=== PATIENT | female | born 1970 | race Caucasian/White ===

== ENCOUNTER 2019-04-26 17:53 | Emergency (ER) | payer OTHER ==
--- OUTSIDE RECORDS SUMMARY | 2019-04-26 17:56 | XMS REPORT | Continuity of Care Document ---
:1970 Author Organization [facility] Care Team Providers Name Role Phone Zachary Ansari MD Unavailable Insurance Providers Payer name Policy type / Policy ID Covered green party ID Policy Henderson Coverage type MEDICARE B-[place]: [employer] Encounters Encounter Performer Location Date Office Visit Zachary Ansari MD [facility] [place] Feb 25, 2015 Allergies, Adverse Reactions, Alerts Type Substance Reaction Status Drug allergy PCN Active Problems Problem Effective Dates Problem Status LUMBAGO Jun 06, 2014 Active FAILED BACK SYNDROME Jun 06, 2014 Active LOW BACK PAIN Jun 06, 2014 Active LUMBAR RADICULOPATHY Jun 06, 2014 Active CHRONIC PAIN SYNDROME Jun 06, 2014 Active Procedures Date Description Comments Jun 05, 2014 smoking status never smoker Jun 20, 2014 smoking status Never smoker Jul 03, 2014 smoking status Never smoker Medications Medication Instructions Start Date Status LUVOX CR [id number] Jun 06, 2014 Active LAMICTAL ODT 200 MG TBDP Jun 06, 2014 Active WELLBUTRIN SR 150 MG [id number] Jun 06, 2014 Active GEODON 20 MG CAPS Jun 06, 2014 Active AMBIEN 10 MG TABS Jun 06, 2014 Active CLONAZEPAM 1 MG TABS Jun 06, 2014 Active BUSPIRONE HCL 15 MG TABS Jun 06, 2014 Active VOLTAREN-XR [id number] Jun 06, 2014 Active PRAVASTATIN SODIUM 20 MG TABS Jun 06, 2014 Active PRILOSEC 40 MG CPDR Jun 06, 2014 Active TRAMADOL HCL TABS Jun 06, 2014 Active SOMA TABS Jun 06, 2014 Active VALIUM 10 MG TABS one tab PO 30 mins prior to MRI Jun 07, 2014 Active ULTRAM 50 MG TABS 1 tablet every 6 hours as needed Jul 30, 2014 Active for severe pain OXYCONTIN T12A Jun 06, 2014 Inactive Vital Signs Date Description Test Result Jun 06, 2014 weight E&M - 3141-9 WEIGHT 233.7 lb Jun 06, 2014 height E&M - 8302-2 HEIGHT 68 in Jun 06, 2014 temperature E&M TEMPERATURE 96.9 deg f Jun 06, 2014 pulse rate E&M - 8867-4 PULSE RATE 84 /min Jun 06, 2014 blood pressure, systolic - 8480-6 BP SYSTOLIC 120 mm Hg Jun 06, 2014 blood pressure, diastolic - 8462-4 BP DIASTOLIC 83 mm Hg Jun 20, 2014 weight E&M - 3141-9 WEIGHT 234 lb Jun 20, 2014 height E&M - 8302-2 HEIGHT 68 in Jun 20, 2014 temperature E&M TEMPERATURE 94.5 deg f Jun 20, 2014 pulse rate E&M - 8867-4 PULSE RATE 69 /min Jun 20, 2014 blood pressure, systolic - 8480-6 BP SYSTOLIC 109 mm Hg Jun 20, 2014 blood pressure, diastolic - 8462-4 BP DIASTOLIC 76 mm Hg Jul 03, 2014 weight E&M - 3141-9 WEIGHT 69 lb Jul 03, 2014 height E&M - 8302-2 HEIGHT 230 in Jul 03, 2014 temperature E&M TEMPERATURE 97.5 deg f Jul 03, 2014 respiratory rate E&M - 9279-1 RESP RATE 15 /min Jul 03, 2014 pulse rate E&M - 8867-4 PULSE RATE 89 /min Jul 03, 2014 blood pressure, systolic - 8480-6 BP SYSTOLIC 127 mm Hg Jul 03, 2014 blood pressure, diastolic - 8462-4 BP DIASTOLIC 79 mm Hg Jul 23, 2014 weight E&M - 3141-9 WEIGHT 230 lb Jul 23, 2014 height E&M - 8302-2 HEIGHT 69 in Jul 23, 2014 temperature E&M TEMPERATURE 97.9 deg f Jul 23, 2014 pulse rate E&M - 8867-4 PULSE RATE 90 /min Jul 23, 2014 blood pressure, systolic - 8480-6 BP SYSTOLIC 126 mm Hg Jul 23, 2014 blood pressure, diastolic - 8462-4 BP DIASTOLIC 80 mm Hg Aug 20, 2014 weight E&M - 3141-9 WEIGHT 231 lb Aug 20, 2014 height E&M - 8302-2 HEIGHT 69 in Aug 20, 2014 temperature E&M TEMPERATURE 98.1 deg f Aug 20, 2014 pulse rate E&M - 8867-4 PULSE RATE 91 /min Aug 20, 2014 blood pressure, systolic - 8480-6 BP SYSTOLIC 127 mm Hg Aug 20, 2014 blood pressure, diastolic - 8462-4 BP DIASTOLIC 82 mm Hg December 18, 2014 blood pressure, systolic - 8480-6 BP SYSTOLIC 117 mm Hg December 18, 2014 blood pressure, diastolic - 8462-4 BP DIASTOLIC 70 mm Hg December 18, 2014 pulse rate E&M - 8867-4 PULSE RATE 85 /min December 18, 2014 temperature E&M TEMPERATURE 97.7 deg f December 18, 2014 weight E&M - 3141-9 WEIGHT 230 lb December 18, 2014 height E&M - 8302-2 HEIGHT 69 in Feb 04, 2015 weight E&M - 3141-9 WEIGHT 228 lb Feb 04, 2015 height E&M - 8302-2 HEIGHT 69 in Feb 04, 2015 temperature E&M TEMPERATURE 97.9 deg f Feb 04, 2015 pulse rate E&M - 8867-4 PULSE RATE 84 /min Feb 04, 2015 blood pressure, systolic - 8480-6 BP SYSTOLIC 120 mm Hg Feb 04, 2015 blood pressure, diastolic - 8462-4 BP DIASTOLIC 70 mm Hg Feb 25, 2015 weight E&M - 3141-9 WEIGHT 226 lb Feb 25, 2015 height E&M - 8302-2 HEIGHT 69 in Feb 25, 2015 temperature E&M TEMPERATURE 98.0 deg f Feb 25, 2015 pulse rate E&M - 8867-4 PULSE RATE 82 /min Feb 25, 2015 blood pressure, systolic - 8480-6 BP SYSTOLIC 125 mm Hg Feb 25, 2015 blood pressure, diastolic - 8462-4 BP DIASTOLIC 75 mm Hg
--- OUTSIDE RECORDS SUMMARY | 2019-04-26 17:56 | XMS REPORT | Continuity of Care Document ---
:1970 Author Organization [facility] Care Team Providers Name Role Phone [facility] Unavailable Unavailable Problems Problem Status Onset Classification Date Comments Source Date Reported LUMBAGO Active Condition 02/25/2015 [facility] FAILED BACK Active Condition 02/25/2015 [facility] SYNDROME 4 [facility] LOW BACK PAIN Active Condition 02/25/2015 [facility] LUMBAR Active Condition 02/25/2015 [facility] RADICULOPATHY 4 [facility] CHRONIC PAIN Active Condition 02/25/2015 [facility] SYNDROME 4 [facility] Medications Medication Details Route Status Patient Ordering Order Source Instructions Provider Date ULTRAM 50 MG 1 tablet Active 07/30/20 [facility] every 6 14 [facility] hours as needed for severe pain VALIUM 10 MG one tab PO Active 06/07/20 [facility] 30 mins 14 Neuro prior to MRI LUVOX CR Active 06/06/20 [facility] [id number] 14 [facility] LAMICTAL ODT Active 06/06/20 [facility] 200 MG TBDP 14 Neuro WELLBUTRIN SR Active 06/06/20 [facility] 150 MG 14 [facility] [id number] GEODON 20 MG Active 06/06/20 [facility] CAPS 14 Neuro AMBIEN 10 MG Active 06/06/20 [facility] TABS 14 [facility] CLONAZEPAM 1 Active 06/06/20 [facility] MG TABS 14 Neuro BUSPIRONE HCL Active 06/06/20 [facility] 15 MG TABS 14 Neuro VOLTAREN-XR Active 06/06/20 [facility] [id number] 14 [facility] PRAVASTATIN Active 06/06/20 [facility] SODIUM 20 MG 14 Neuro TABS PRILOSEC 40 MG Active 06/06/20 [facility] CPDR 14 [facility] OXYCONTIN T12A No Longer 06/06/20 [facility] Active 14 Neuro TRAMADOL HCL Active 06/06/20 [facility] TABS 14 Neuro SOMA TABS Active 06/06/20 [facility] 14 [facility] WELLBUTRIN SR Active 06/06/20 [facility] 150 MG 14 Neuro [id number] AMBIEN 10 MG Active 06/06/20 [facility] TABS 14 [facility] CLONAZEPAM 1 Active 06/06/20 [facility] MG TABS 14 Neuro BUSPIRONE HCL Active 06/06/20 [facility] 15 MG TABS 14 Neuro GEODON 20 MG Active 06/06/20 [facility] CAPS 14 Neuro BUSPIRONE HCL Active 06/06/20 [facility] 15 MG TABS 14 Neuro PRAVASTATIN Active 06/06/20 [facility] SODIUM 20 MG 14 Neuro TABS OXYCONTIN T12A No Longer 06/06/20 [facility] Active 14 Neuro BUSPIRONE HCL Active 06/06/20 [facility] 15 MG TABS 14 Neuro Allergies, Adverse Reactions, Alerts Substance Category Reaction Severity Reaction Status Date Comments Source type Reported PCN Drug PCN [facility] allergy 4 [facility] Immunizations No Data Provided for This Section Results No Data Provided for This Section Pathology Reports No Data Provided for This Section Diagnostic Reports No Data Provided for This Section Consultation Notes No Data Provided for This Section Discharge Summaries No Data Provided for This Section History and Physicals No Data Provided for This Section Vital Signs Vital Sign Value Date Comments Source Weight 226 02/25/2015 [facility] Height 69 02/25/2015 [facility] Temperature Oral (F) 98.0 F 02/25/2015 [facility] Heart Rate 82 02/25/2015 [facility] Systolic (mm Hg) 125 02/25/2015 [facility] Diastolic (mm Hg) 75 02/25/2015 [facility] Weight 228 02/04/2015 [facility] Height 69 02/04/2015 [facility] Temperature Oral (F) 97.9 F 02/04/2015 [facility] Heart Rate 84 02/04/2015 [facility] Systolic (mm Hg) 120 02/04/2015 [facility] Diastolic (mm Hg) 70 02/04/2015 [facility] Systolic (mm Hg) 117 12/18/2014 [facility] Diastolic (mm Hg) 70 12/18/2014 [facility] Heart Rate 85 12/18/2014 [facility] Temperature Oral (F) 97.7 F 12/18/2014 [facility] Weight 230 12/18/2014 [facility] Height 69 12/18/2014 [facility] Weight 231 08/20/2014 [facility] Height 69 08/20/2014 [facility] Temperature Oral (F) 98.1 F 08/20/2014 [facility] Heart Rate 91 08/20/2014 [facility] Systolic (mm Hg) 127 08/20/2014 [facility] Diastolic (mm Hg) 82 08/20/2014 [facility] Weight 230 07/23/2014 [facility] Height 69 07/23/2014 [facility] Temperature Oral (F) 97.9 F 07/23/2014 [facility] Heart Rate 90 07/23/2014 [facility] Systolic (mm Hg) 126 07/23/2014 [facility] Diastolic (mm Hg) 80 07/23/2014 [facility] Weight 69 07/03/2014 [facility] Height 230 07/03/2014 [facility] Temperature Oral (F) 97.5 F 07/03/2014 [facility] Respitory Rate 15 07/03/2014 [facility] Heart Rate 89 07/03/2014 [facility] Systolic (mm Hg) 127 07/03/2014 [facility] Diastolic (mm Hg) 79 07/03/2014 [facility] Weight 234 06/20/2014 [facility] Height 68 06/20/2014 [facility] Temperature Oral (F) 94.5 F 06/20/2014 [facility] Heart Rate 69 06/20/2014 [facility] Systolic (mm Hg) 109 06/20/2014 [facility] Diastolic (mm Hg) 76 06/20/2014 [facility] Weight 233.7 06/06/2014 [facility] Height 68 06/06/2014 [facility] Temperature Oral (F) 96.9 F 06/06/2014 [facility] Heart Rate 84 06/06/2014 [facility] Systolic (mm Hg) 120 06/06/2014 [facility] Diastolic (mm Hg) 83 06/06/2014 [facility] Encounters Location Location Encounter Encounter Reason Attending ADM DC Status Source Details Type Number For Provider Date Date Visit [facility] [id number] Zachary 06/06 06/06 [facility] [address] [place]2013 Neuro [facility] [id number] Zachary 06/20 06/20 [facility] [place] [address] /2013 Neuro [facility] [id number] Zachary 06/26 06/26 [facility] [place] [address] /2013 [facility] [id number] Zachary 07/03 07/03 [facility] [address] /2013 [place] [facility] [id number] Zachary 07/23 07/23 [facility] [address] /2013 [facility] [place] [facility] [id number] Zachary 08/20 08/20 [facility] [address] /2014 [facility] [place] [facility] [id number] Zachary 12/18 12/18 [facility] [address] /2014 [facility] [place] [facility] [id number] [place] 02/04 02/04 [facility] [address] /2014 [facility] [place] [facility] [id number] [place] 02/25 02/25 [facility] [address] /2014 [place] Procedures No Data Provided for This Section Assessment and Plan No Data Provided for This Section Plan of Care No Data Provided for This Section Social History No Data Provided for This Section Family History No Data Provided for This Section Advance Directives No Data Provided for This Section Functional Status No Data Provided for This Section
--- OUTSIDE RECORDS SUMMARY | 2019-04-26 17:56 | XMS REPORT | Continuity of Care Document ---
:1970 Author Organization [facility] Care Team Providers Name Role Phone Zachary Ansari MD Unavailable Insurance Providers Payer name Policy type / Policy ID Covered constitution party ID Policy Henderson Coverage type [place]IC[place]: [employer] Encounters Encounter Performer Location Date Office Visit Zachary Ansari MD [facility] [place] Jul 03, 2014 Allergies, Adverse Reactions, Alerts Type Substance Reaction [...] Medication Instructions Start Date Status LUVOX CR [id number] Jun 06, 2014 Active LAMICTAL ODT 200 MG TBDP Jun 06, 2014 Active WELLBUTRIN SR 150 MG [id number] Jun 06, 2014 Active GEODON 20 MG CAPS Jun 06, 2014 Active AMBIEN 10 MG TABS Jun 06, 2014 Active CLONAZEPAM 1 MG TABS Jun 06, 2014 Active BUSPIRONE HCL 15 MG TABS Jun 06, 2014 Active VOLTAREN-XR [id number] Jun 06, 2014 Active PRAVASTATIN SODIUM 20 MG TABS Jun 06, 2014 Active PRILOSEC 40 MG CPDR Jun 06, 2014 Active OXYCONTIN T12A Jun 06, 2014 Active TRAMADOL HCL TABS Jun 06, 2014 Active SOMA TABS Jun 06, 2014 Active VALIUM 10 MG TABS one tab PO 30 mins prior to MRI Jun 07, 2014 Active Vital Signs Date Description Test Result Jun [...]
--- OUTSIDE RECORDS SUMMARY | 2019-04-26 17:56 | XMS REPORT | Continuity of Care Document ---
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, 2014 Active LOW BACK PAIN Jun 06, 2014 Active LUMBAR RADICULOPATHY Jun 06, 2014 Active CHRONIC PAIN SYNDROME Jun 06, 2014 Active Procedures Date Description Comments Jun 05, 2014 smoking status never smoker Medications Medication Instructions Start Date Status LUVOX CR [id number] Jun 06, 2014 Active LAMICTAL ODT 200 MG TBDP Jun 06, 2014 Active WELLBUTRIN SR 150 MG [id number] Jun 06, 2014 Active GEODON 20 MG CAPS Jun 06, 2014 Active AMBIEN 10 MG TABS Jun 06, 2014 Active CLONAZEPAM 1 MG TABS Jun 06, 2014 Active BUSPIRONE HCL 15 MG TABS Jun 06, 2014 Active VOLTAREN-XR [id number]-FFW Jun 06, 2014 Active PRAVASTATIN SODIUM 20 MG TABS Jun 06, 2014 Active PRILOSEC 40 MG CPDR Jun 06, 2014 Active OXYCONTIN T12A Jun 06, 2014 Active TRAMADOL HCL TABS Jun 06, 2014 Active SOMA TABS Jun 06, 2014 Active Vital Signs Date Description Test [...]
--- OUTSIDE RECORDS SUMMARY | 2019-04-26 17:57 | XMS REPORT ---
:1970 [facility] Address [address] [place] [address] Dr. Gray [address] [place] [address] Care Team Providers Name Role Phone Unavailable Unavailable Unavailable Problems This patient has no known problems. Allergies, Adverse Reactions, Alerts This patient has no known allergies or adverse reactions. Medications This patient has no known medications.
--- OUTSIDE RECORDS SUMMARY | 2019-04-26 17:57 | XMS REPORT | Continuity of Care Document ---
:1970 Author Organization [facility] Care Team Providers Name Role Phone Zachary Ansari MD Unavailable Insurance Providers Payer name Policy type / Policy ID Covered constitution party ID Policy Henderson Coverage type MEDICARE [place]: [employer] Encounters Encounter Performer Location Date Office Visit Zachary Ansari MD [facility] [place] Aug 20, 2014 Allergies, Adverse Reactions, Alerts Type Substance [...] Medication Instructions Start Date Status LUVOX CR [id number] Jun 06, 2014 Active LAMICTAL ODT 200 MG TBDP Jun 06, 2014 Active WELLBUTRIN SR 150 MG [id number] Jun 06, 2014 Active GEODON 20 MG CAPS Jun 06, 2014 Active AMBIEN 10 MG TABS Jun 06, 2014 Active CLONAZEPAM 1 MG TABS Jun 06, 2014 Active BUSPIRONE HCL 15 MG TABS Jun 06, 2014 Active VOLTAREN-XR OQ39K-DPX Jun 06, 2014 Active PRAVASTATIN SODIUM 20 [...] Jul 30, 2014 Active for severe pain Vital Signs Date Description Test Result Jun [...]
--- OUTSIDE RECORDS SUMMARY | 2019-04-26 17:57 | XMS REPORT | Continuity of Care Document ---
:1970 Author Organization [facility] Care Team Providers Name Role Phone Zachary Ansari MD Unavailable Unavailable Insurance Providers Payer name Policy type / Policy ID Covered green party ID Policy Henderson Coverage type MEDICARE [place]: [employer] Encounters Encounter Performer Location Date Office Visit Zachary Ansari MD [facility] [place] December 18, 2014 Allergies, Adverse Reactions, Alerts Type Substance [...] Medication Instructions Start Date Status LUVOX CR [id number] Jun 06, 2014 Active LAMICTAL ODT 200 MG TBDP Jun 06, 2014 Active WELLBUTRIN SR 150 MG [id number] Jun 06, 2014 Active GEODON 20 MG CAPS Jun 06, 2014 Active AMBIEN 10 MG TABS Jun 06, 2014 Active CLONAZEPAM 1 MG TABS Jun 06, 2014 Active BUSPIRONE HCL 15 MG TABS Jun 06, 2014 Active VOLTAREN-XR [id number]-[id number] Jun 06, 2014 Active PRAVASTATIN SODIUM 20 [...]
--- OUTSIDE RECORDS SUMMARY | 2019-04-26 17:57 | XMS REPORT | Continuity of Care Document ---
:1970 Author Organization [facility] Care Team Providers Name Role Phone Zachary Ansari MD Unavailable Insurance Providers Payer name Policy type / Policy ID Covered constitution party ID Policy Henderson Coverage type MEDICARE [place]: [employer] Encounters Encounter Performer Location Date Office Visit Zachary Ansari MD [facility] [place] Jul 23, 2014 Allergies, Adverse Reactions, Alerts Type Substance [...] Medication Instructions Start Date Status LUVOX CR [id number] Jun 06, 2014 Active LAMICTAL ODT 200 MG TBDP Jun 06, 2014 Active WELLBUTRIN SR 150 MG [id number] Jun 06, 2014 Active GEODON 20 MG CAPS Jun 06, 2014 Active AMBIEN 10 MG TABS Jun 06, 2014 Active CLONAZEPAM 1 MG TABS Jun 06, 2014 Active BUSPIRONE HCL 15 MG TABS Jun 06, 2014 Active VOLTAREN-XR [id number] Jun 06, 2014 Active PRAVASTATIN SODIUM 20 [...]
--- OUTSIDE RECORDS SUMMARY | 2019-04-26 17:57 | XMS REPORT | Continuity of Care Document ---
:1970 Author Organization [facility] Care Team Providers Name Role Phone Zachary Ansari MD Unavailable Insurance Providers Payer name Policy type / Policy ID Covered green party ID Policy Henderson Coverage type MEDICARE [place]: [employer] Encounters Encounter Performer Location Date Office Visit Zachary Ansari MD [facility] [place] Feb 04, 2015 Allergies, Adverse Reactions, Alerts Type Substance [...] Medication Instructions Start Date Status LUVOX CR [id number] Jun 06, 2014 Active LAMICTAL ODT 200 MG TBDP Jun 06, 2014 Active WELLBUTRIN SR 150 MG [id number] Jun 06, 2014 Active GEODON 20 MG CAPS Jun 06, 2014 Active AMBIEN 10 MG TABS Jun 06, 2014 Active CLONAZEPAM 1 MG TABS Jun 06, 2014 Active BUSPIRONE HCL 15 MG TABS Jun 06, 2014 Active VOLTAREN-XR [id number] Jun 06, 2014 Active PRAVASTATIN SODIUM 20 [...]
--- OUTSIDE RECORDS SUMMARY | 2019-04-26 17:57 | XMS REPORT | Continuity of Care Document ---
:1970 Author Organization [facility] Care Team Providers Name Role Phone Zachary Ansari MD Unavailable Insurance Providers Payer name Policy type / Policy ID Covered democrat ID Policy Henderson Coverage type MEDICARE [place]: [employer] Encounters Encounter Performer Location Date Lab Report Zachary Ansari MD [facility] 2014 Allergies, Adverse Reactions, Alerts Type Substance [...] Jun 20, 2014 smoking status Never smoker Medications Medication Instructions Start Date Status LUVOX CR [id number] Jun 06, 2014 Active LAMICTAL ODT 200 MG TBDP Jun 06, 2014 Active WELLBUTRIN SR 150 MG [id number] Jun 06, 2014 Active GEODON 20 MG CAPS Jun 06, 2014 Active AMBIEN 10 MG TABS Jun 06, 2014 Active CLONAZEPAM 1 MG TABS Jun 06, 2014 Active BUSPIRONE HCL 15 MG TABS Jun 06, 2014 Active VOLTAREN-XR [id number] Jun 06, 2014 Active PRAVASTATIN SODIUM 20 [...]
--- OUTSIDE RECORDS SUMMARY | 2019-04-26 17:57 | XMS REPORT | Continuity of Care Document ---
:1970 Author Organization [facility] Care Team Providers Name Role Phone Zachary Ansari MD Unavailable Insurance Providers Payer name Policy type / Policy ID Covered democrat ID Policy Henderson Coverage type MEDICARE B-[place]: [employer] Encounters Encounter Performer Location Date Office Visit Zachary Ansari MD [facility] Allergies, Adverse Reactions, Alerts Type [...] Medication Instructions Start Date Status LUVOX CR [id number] Jun 06, 2014 Active LAMICTAL ODT 200 MG TBDP Jun 06, 2014 Active WELLBUTRIN SR 150 MG [id number] Jun 06, 2014 Active GEODON 20 MG CAPS Jun 06, 2014 Active AMBIEN 10 MG TABS Jun 06, 2014 Active CLONAZEPAM 1 MG TABS Jun 06, 2014 Active BUSPIRONE HCL 15 MG TABS Jun 06, 2014 Active VOLTAREN-XR [id number]-QIH Jun 06, 2014 Active PRAVASTATIN SODIUM 20 [...]
--- OUTSIDE RECORDS SUMMARY | 2019-04-26 17:58 | XMS REPORT | Summary of Care ---
:1970 Author Organization [facility] Address [address] [place] [address] Care Team Providers Name Role Phone Koko Mendez MD Primary Care Provider Reason for Visit Reason Comments Refill Request Encounter Details Date Type Department Care Team Description 04/14/2019 Refill [facility] Koko Mendez MD Refill Request - [address] [address] [place] [address] Allergies No Known Allergiesdocumented as of this encounter (statuses as of 04/16/2019) Medications Medication Sig Dispensed Refills Start Date End Date Status Fluvoxamine (LUVOX CR) Take 100 mg by 0 Active 100 mg Cp24 mouth. lamoTRIgine (LAMICTAL) Take 100 mg by 0 Active 100 mg tablet mouth 2 (two) times daily. BUSPIRONE HCL (BUSPAR Take 15 mg by 0 Active ORAL) mouth daily. buPROPion XL Take 150 mg by 0 Active (WELLBUTRIN XL) 150 mg mouth daily. 24 hr tablet ziprasidone (GEODON) Take 20 mg by 0 Active 20 mg capsule mouth 2 (two) times daily with meals. zolpidem (AMBIEN) 10 Take 10 mg by 0 Active mg tablet mouth at bedtime as needed for Insomnia. nystatin 100,000 Apply to area(s) 45 g 2 12/02/2016 Active unit/gram powder 3 (three) times daily. CLONAZEPAM 1 mg tablet TAKE ONE TABLET 90 tablet 0 03/10/2017 Active BY MOUTH THREE TIMES A DAY HYDROcodone-acetaminop Take 1 tablet by 120 tablet 0 09/05/2017 Active hen 7.5-325 mg per mouth every 6 tablet (six) hours as needed for Pain. methocarbamol (ROBAXIN Take by mouth. 0 Active ORAL) azelastine 137 mcg Use 1 Priddy in 30 mL 0 06/05/2018 Active (0.1 %) nasal each nostril 2 sprayIndications: Sore (two) times throat, Post-nasal daily. Use in drip each nostril as directed PRAVASTATIN 20 mg TAKE ONE TABLET 30 tablet 0 01/09/2019 Active tablet BY MOUTH DAILY omeprazole 40 mg Take 1 capsule by 30 capsule 0 03/19/2019 Active capsule mouth daily. documented as of this encounter (statuses as of 04/16/2019) Active Problems Problem Noted Date Chronic back pain greater than 3 months duration 07/10/2015 Hyperlipidemia 07/10/2015 documented as of this encounter (statuses as of 04/16/2019) Social History Tobacco Use Types Packs/Day Years Used Date Never Smoker Smokeless Tobacco: Never Used Alcohol Use Drinks/Week oz/Week Comments Yes occasional Sex Assigned at Date Recorded Not on file Job Start Date Occupation Industry Not on file Not on file Not on file Travel History Travel Start Travel End No recent travel history available. documented as of this encounter Last Filed Vital Signs Not on filedocumented in this encounter Plan of Treatment Health Maintenance Due Date Last Done Comments DTaP,Tdap,and Td Vaccines (1 - 1987 Tdap) PAP SMEAR 1989 MAMMOGRAM 2008 COLONOSCOPY 2018 Zoster Recombinant Vaccine 2018 (SHINGRIX) (1 of 2) INFLUENZA VACCINE (#1) 2019 PNEUMOCOCCAL 0-64 YEARS COMBINED Aged Out No longer eligible based on SERIES patient's age to complete this topic documented as of this encounter Results Not on filedocumented in this encounter Insurance Payer Benefit Plan / Subscriber ID Effective Dates Phone Address Type Group MEDICARE MEDICARE PART xxxxxxxxxxx 2005-Eduar [phone] [facility] [place] Medicare A & B t 2 [id number] D[place] [id number] documented as of this encounter
--- NOTE | 2019-04-26 18:42 | RAD REPORT ---
EXAM DESCRIPTION: CT - Head Brain Wo Cont - 04/26/2019 6:28 pm CLINICAL HISTORY: Left-sided headache COMPARISON: None. TECHNIQUE: Axial 5 mm thick images of the head were obtained without IV contrast. All CT scans are performed using dose optimization technique as appropriate and may include automated exposure control or mA/KV adjustment according to patient size. FINDINGS: No intracranial hemorrhage, mass, edema or shift of mid-line structures. No acute infarcti on changes seen. No abnormal extra-axial fluid collections. Ventricles are normal. Mastoid air cells and visualized portions of the paranasal sinuses are clear. No acute bony findings. Patient has normal variant hyperostosis frontalis interna. IMPRESSION: Negative non-contrast CT head examination for acute or significant finding.
[2019-04-26] MEDS ORDERED: KETOROLAC 30 MG/ML INJ ONE (20:24)
[2019-04-26] MEDS ORDERED: DIPHENHYDRAMINE 50 MG/ML VIAL ONE (20:24)
[2019-04-26] MEDS ORDERED: METOCLOPRAMIDE 10 MG/2mL INJ ONE (20:24)
[2019-04-26] MEDS ORDERED: NA CHLORIDE 0.9% 500 ML ONE (20:25)
[2019-04-26 20:52] LABS: Absolute Lymphocytes (CBC) 2.6 K/uL (0.7-4.9); Basophils % 0.4 % (0-1.3); Hematocrit 36.2 % (36.0-45.0); Lymphocytes % 37.4 % (15.3-44.8); RBC Red Blood Cell Count 4.53 M/uL (3.86-4.86)
[2019-04-26 20:58] LABS: Protime INR 1.01
[2019-04-26 21:15] LABS: ALT/SGPT 16 U/L (12-78); AST/SGOT 15 U/L (15-37); Albumin 4.6 g/dL (3.4-5.0); Alkaline Phosphatase 80 U/L (45-117); BUN Blood Urea Nitrogen 12 mg/dL (7-18); Bicarbonate 25 mmol/L (21-32); Bilirubin Direct 0.1 mg/dL (0-0.2); Bilirubin Total 0.3 mg/dL (0.2-1.0); Glucose Level 90 mg/dL (74-106); Magnesium 2.2 mg/dL (1.8-2.4); NT PRO-BNP 74 pg/mL (<125); Potassium 3.8 mmol/L (3.5-5.1); Protein, Total 7.4 g/dL (6.4-8.2); Sodium Level 141 mmol/L (136-145); Troponin (Emerg Dept Use Only) < 0.02 ng/mL (0.0-0.045)
[2019-04-26 21:18] LABS: Urine Blood NEGATIVE (NEG); Urine Glucose NEGATIVE (NEG); Urine Protein NEGATIVE (NEG); Urine Specific Gravity 1.015 (1.005-1.030)
[2019-04-26] MEDS ORDERED: AMLODIPINE 5 MG TAB ONE (21:58)
--- NOTE | 2019-04-26 22:23 | ER ---
Nurse's Notes [facility] Name: Debbie Briscoe Age: 48 yrs Sex: Female : 1970 Arrival Date: 04/26/2019 Time: 17:55 Bed 8 Private MD: Koko Mendez S Diagnosis: Headache;Cluster headache syndrome, unspecified, not intractable Presentation: 04/26 18:05 Presenting complaint: Intermittent sharp/stabbing pain on the left side of head, right hb eye discomfort and tearing x 2 hrs. Denies headache hx. Transition of care: patient was not received from another setting of care. Onset of symptoms was April 26, 2019. Risk Assessment: Do you want to hurt yourself or someone else? Patient reports no desire to harm self or others. Initial Sepsis Screen: Does the patient meet any 2 criteria? No. Patient's initial sepsis screen is negative. Does the patient have a suspected source of infection? No. Patient's initial sepsis screen is negative. Care prior to arrival: Medication(s) given: Excedrin at 1500. 18:05 Method Of Arrival: Ambulatory hb 18:05 Acuity: TY 3 hb Triage Assessment: 20:02 Headache History: The patient has had previous headaches and this one is different than ea previous episodes, and this one is more severe than previous episodes. 20:02 Pain: Pain began gradually, Also complains of right eye pain. rr5 20:02 General: Appears in no apparent distress. uncomfortable, Behavior is calm, cooperative, rr5 appropriate for age. 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 - Social history:: Smoking status: Patient/guardian denies using tobacco. - Ebola Screening: : No symptoms or risks identified at this time. - Family history:: not pertinent. Screenin:02 Abuse screen: Denies threats or abuse. Nutritional screening: No deficits noted. ea Tuberculosis screening: No symptoms or risk factors identified. Fall Risk None identified. Assessment: 20:00 General: Appears in no apparent distress. Behavior is calm, cooperative, appropriate ea for age. Pain: Complains of pain in left temporal area and right temporal area Quality of pain is described as "ice pick headache". Neuro: Level of Consciousness is awake, alert, obeys commands, Oriented to person, place, time, situation. Neuro: Video Editing Internship are equal bilaterally Moves all extremities. Speech is normal, Facial symmetry appears normal. Cardiovascular: Patient's skin is warm and dry. Respiratory: Airway is patent Respiratory effort is even, unlabored, Respiratory pattern is regular, symmetrical. Derm: Skin is pink, warm \\T\\ dry. Musculoskeletal: Circulation, motion, and sensation intact. 21:00 Reassessment: Patient and/or family updated on plan of care and expected duration. Pain ea level reassessed. Patient is alert, oriented x 3, equal unlabored respirations, skin warm/dry/pink. 21:20 Reassessment: Patient appears in no apparent distress at this time. Patient and/or rr5 family updated on plan of care and expected duration. Pain level reassessed. Patient is alert, oriented x 3, equal unlabored respirations, skin warm/dry/pink. Patient states feeling better. Patient states symptoms have improved. Pain: Pain currently is 1 out of 10 on a pain scale. 22:50 Reassessment: Patient appears in no apparent distress at this time. Patient is alert, rr5 oriented x 3, equal unlabored respirations, skin warm/dry/pink. discharge instruction given and explained without complaints made, verbalized understanding. Patient denies pain at this time. Patient states feeling better. Patient states symptoms have improved. Vital Signs: 18:07 BP 134 / 94; Pulse 83; Resp 16; Temp 98.3; Pulse Ox 100% on R/A; Weight 104.33 kg; hb Height 5 ft. 8 in. (172.72 cm); Pain 2/10; 20:03 BP 128 / 84; Pulse 80; Resp 18; Pulse Ox 98% on R/A; ea 21:00 BP 138 / 84; Pulse 60; Resp 17; Pulse Ox 98% on R/A; Pain 1/10; rr5 21:40 BP 138 / 84; Pulse 60; Resp 18; Pulse Ox 98% on R/A; ea 21:52 BP 126 / 80; Pulse 58; Resp 18; Pulse Ox 95% on R/A; ea 22:50 BP 125 / 81; Pulse 60; Resp 17; Temp 97.7; Pulse Ox 99% ; Pain 0/10; rr5 18:07 Body Mass Index 34.97 (104.33 kg, 172.72 cm) hb ED Course: 17:55 Patient arrived in ED. am2 17:55 Koko Mendez MD is Private Physician. am2 18:07 Triage completed. hb 18:07 Arm band placed on. hb 18:28 CT completed. Patient tolerated procedure well. Patient moved to CT. Patient moved back al from CT. 19:37 Hosea Keen MD is Attending Physician. avelino 19:39 Minna Connor RN is Primary Nurse. ea 20:02 Patient has correct armband on for positive identification. Bed in low position. Call ea light in reach. Side rails up X 1. 20:22 Radiology exam delayed due to lab results not completed at this time. (BUN/Creatinine). vm2 20:53 Inserted saline lock: 22 gauge in right antecubital area, using aseptic technique. ea 21:10 XRAY Chest (1 view) In Process Unspecified. EDMS 21:[address] via wheelchair. al 21:51 CT Head Angio In Process Unspecified. EDMS 22:21 Koko Mendez MD is Referral Physician. avelino 22:21 Vernon Upton MD is Referral Physician. aveilno 22:52 No provider procedures requiring assistance completed. IV discontinued, intact, rr5 bleeding controlled, No redness/swelling at site. Pressure dressing applied. Administered Medications: 20:54 Drug: NS 0.9% 500 ml Route: IV; Rate: bolus; Site: right antecubital; ea 21:35 Follow up: Response: No adverse reaction; IV Status: Completed infusion; IV Intake: rr5 500ml 20:54 Drug: Benadryl 25 mg Route: IVP; Site: right antecubital; ea 22:00 Follow up: Response: No adverse reaction; Marked relief of symptoms rr5 20:54 Drug: Reglan 10 mg Route: IVP; Site: right antecubital; ea 22:00 Follow up: Response: No adverse reaction rr5 20:55 Drug: TORadol 30 mg Route: IVP; Site: right antecubital; ea 22:00 Follow up: Response: No adverse reaction; Marked relief of symptoms rr5 22:03 Drug: Norvasc 5 mg Route: PO; ea 22:54 Follow up: Response: No adverse reaction rr5 Intake: 21:35 IV: 500ml; Total: 500ml. rr5 Outcome: 22:21 Discharge ordered by . avelino 22:52 Discharged to home ambulatory. rr5 22:52 Condition: stable 22:52 Discharge instructions given to patient, Instructed on discharge instructions, follow up and referral plans. medication usage, Demonstrated understanding of instructions, follow-up care, medications, Prescriptions given X 3. 22:57 Patient left the ED. rr5 Signatures: Dispatcher [employer] EDNE Hosea Keen MD MD cha Baxter, Heather, RN RN Zhen Rhodes Amanda am2 McGuire, Victoria vm2 Antunez, Elena, RN RN ea Roque, Raymond, RN RN rr5 Corrections: (The following items were deleted from the chart) 18:09 18:05 Presenting complaint: Sharp, stabbing headache on the left side, right eye hb discomfort and tearing x 2 hrs. Denies headache hx hb
--- NOTE | 2019-04-26 22:24 | EDPHYS ---
Physician Documentation [facility] Name: Debbie Briscoe Age: 48 yrs Sex: Female : 1970 Arrival Date: 04/26/2019 Time: 17:55 Bed 8 Private MD: Koko Mendez S ED Physician Hosea Keen HPI: 04/26 20:23 This 48 yrs old Female presents to ER via Ambulatory with complaints of avelino Headache, Worst Ever. 20:23 The patient complains of pain to the top of head, forehead, left eye, left frontal area avelino and left side of forehead. The patient describes the headache as aching, intermittent. Onset: The symptoms/episode began/occurred today. Associated signs and symptoms: The patient has no apparent associated signs or symptoms. Severity of symptoms: At its worst the pain was mild, moderate, in the emergency department the pain has improved. Headache History: Denies prior headaches. The symptoms are alleviated by nothing. the symptoms are aggravated by nothing. 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 - Social history:: Smoking status: Patient/guardian denies using tobacco. - Ebola Screening: : No symptoms or risks identified at this time. - Family history:: not pertinent. ROS: 20:23 Constitutional: Negative for fever, chills, and weight loss, Eyes: Negative for injury, avelino pain, redness, and discharge, ENT: Negative for injury, pain, and discharge, Neck: Negative for injury, pain, and swelling, Cardiovascular: Negative for chest pain, palpitations, and edema, Respiratory: Negative for shortness of breath, cough, wheezing, and pleuritic chest pain, Abdomen/GI: Negative for abdominal pain, nausea, vomiting, diarrhea, and constipation, Back: Negative for injury and pain, : Negative for injury, bleeding, discharge, and swelling, MS/Extremity: Negative for injury and deformity, Skin: Negative for injury, rash, and discoloration, Psych: Negative for depression, anxiety, suicide ideation, homicidal ideation, and hallucinations, Allergy/Immunology: Negative for hives, rash, and allergies, Endocrine: Negative for neck swelling, polydipsia, polyuria, polyphagia, and marked weight changes, Hematologic/Lymphatic: Negative for swollen nodes, abnormal bleeding, and unusual bruising. 20:23 Neuro: Positive for headache, of the left eye. Exam: 20:23 Constitutional: This is a well developed, well nourished patient who is awake, alert, avelino and in no acute distress. Head/Face: Normocephalic, atraumatic. Eyes: Pupils equal round and reactive to light, extra-ocular motions intact. Lids and lashes normal. Conjunctiva and sclera are non-icteric and not injected. Cornea within normal limits. Periorbital areas with no swelling, redness, or edema. ENT: Nares patent. No nasal discharge, no septal abnormalities noted. Tympanic membranes are normal and external auditory canals are clear. Oropharynx with no redness, swelling, or masses, exudates, or evidence of obstruction, uvula midline. Mucous membranes moist. Neck: Trachea midline, no thyromegaly or masses palpated, and no cervical lymphadenopathy. Supple, full range of motion without nuchal rigidity, or vertebral point tenderness. No Meningismus. Chest/axilla: Normal chest wall appearance and motion. Nontender with no deformity. No lesions are appreciated. Cardiovascular: Regular rate and rhythm with a normal S1 and S2. No gallops, murmurs, or rubs. Normal PMI, no JVD. No pulse deficits. Respiratory: Lungs have equal breath sounds bilaterally, clear to auscultation and percussion. No rales, rhonchi or wheezes noted. No increased work of breathing, no retractions or nasal flaring. Abdomen/GI: Soft, non-tender, with normal bowel sounds. No distension or tympany. No guarding or rebound. No evidence of tenderness throughout. Back: No spinal tenderness. No costovertebral tenderness. Full range of motion. Skin: Warm, dry with normal turgor. Normal color with no rashes, no lesions, and no evidence of cellulitis. MS/ Extremity: Pulses equal, no cyanosis. Neurovascular intact. Full, normal range of motion. Neuro: Awake and alert, GCS 15, oriented to person, place, time, and situation. Cranial nerves II-XII grossly intact. Motor strength 5/5 in all extremities. Sensory grossly intact. Cerebellar exam normal. Normal gait. Psych: Awake, alert, with orientation to person, place and time. Behavior, mood, and affect are within normal limits. 22:23 Neck: ROM/movement: is normal, no acute changes, Meningeal signs: are not present, avelino Kernig's sign is negative, Brudzinski's sign is negative. Vital Signs: 18:07 BP 134 / 94; Pulse 83; Resp 16; Temp 98.3; Pulse Ox 100% on R/A; Weight 104.33 kg; hb Height 5 ft. 8 in. (172.72 cm); Pain 2/10; 20:03 BP 128 / 84; Pulse 80; Resp 18; Pulse Ox 98% on R/A; ea 21:00 BP 138 / 84; Pulse 60; Resp 17; Pulse Ox 98% on R/A; Pain 1/10; rr5 21:40 BP 138 / 84; Pulse 60; Resp 18; Pulse Ox 98% on R/A; ea 21:52 BP 126 / 80; Pulse 58; Resp 18; Pulse Ox 95% on R/A; ea 22:50 BP 125 / 81; Pulse 60; Resp 17; Temp 97.7; Pulse Ox 99% ; Pain 0/10; rr5 18:07 Body Mass Index 34.97 (104.33 kg, 172.72 cm) hb MDM: 19:37 Patient medically screened. [facility] 20:27 Data reviewed: vital signs, nurses notes, lab test result(s), EKG, radiologic studies, [facility] CT scan, plain films. 04/26 20:18 Order name: Basic Metabolic Panel; Complete Time: 21:23 [facility] 04/26 20:18 Order name: CBC with Diff [facility] 04/26 20:18 Order name: LFT's; Complete Time: 21:23 [facility] 04/26 20:18 Order name: Magnesium; Complete Time: 21:23 [facility] 04/26 20:18 Order name: NT PRO-BNP; Complete Time: 21:23 [facility] 04/26 20:18 Order name: PT-INR [facility] 04/26 18:12 Order name: CT Head Brain wo Cont 04/26 20:18 Order name: Troponin (emerg Dept Use Only); Complete Time: 21:23 [facility] 04/26 20:35 Order name: Urine Dipstick--Ancillary (enter results) [facility] 04/26 20:35 Order name: Urine --Ancillary (enter results) [facility] 04/26 20:55 Order name: CBC with Automated Diff; Complete Time: 21:23 [facility] 04/26 21:03 Order name: Protime (+INR) [facility] 04/26 21:19 Order name: Urine --Ancillary [facility] 04/26 19:57 Order name: CT; Complete Time: 20:19 [facility] 04/26 20:18 Order name: XRAY Chest (1 view) [facility] 04/26 20:18 Order name: EKG; Complete Time: 20:20 [facility] 04/26 20:18 Order name: Cardiac monitoring; Complete Time: 20:51 [facility] 04/26 20:18 Order name: EKG - Nurse/Tech; Complete Time: 20:51 [facility] 04/26 20:18 Order name: IV Saline Lock; Complete Time: 20:51 [facility] 04/26 20:18 Order name: Labs collected and sent; Complete Time: 21:18 [facility] 04/26 20:18 Order name: O2 Per Protocol; Complete Time: 21:18 [facility] 04/26 20:18 Order name: O2 Sat Monitoring; Complete Time: 21:18 [facility] 04/26 20:18 Order name: Urine Dipstick-Ancillary (obtain specimen); Complete Time: 20:28 [facility] 04/26 20:20 Order name: CT Head Angio avelino Administered Medications: 20:54 Drug: NS 0.9% 500 ml Route: IV; Rate: bolus; Site: right antecubital; ea 21:35 Follow up: Response: No adverse reaction; IV Status: Completed infusion; IV Intake: rr5 500ml 20:54 Drug: Benadryl 25 mg Route: IVP; Site: right antecubital; ea 22:00 Follow up: Response: No adverse reaction; Marked relief of symptoms rr5 20:54 Drug: Reglan 10 mg Route: IVP; Site: right antecubital; ea 22:00 Follow up: Response: No adverse reaction rr5 20:55 Drug: TORadol 30 mg Route: IVP; Site: right antecubital; ea 22:00 Follow up: Response: No adverse reaction; Marked relief of symptoms rr5 22:03 Drug: Norvasc 5 mg Route: PO; ea 22:54 Follow up: Response: No adverse reaction rr5 Disposition: 04/26/19 22:21 Discharged to Home. Impression: Headache, Cluster headache syndrome, unspecified, not intractable. - Condition is Stable. - Discharge Instructions: Cluster Headache, [id number], Cluster Headache, Migraine Headache. - Prescriptions for Fioricet with Codeine 50- 325-40-30 mg Oral capsule - take 1 capsule by ORAL route every 4 hours as needed not to exceed 6 capsules per 24hrs; 24 capsule. Norvasc 2.5 mg Oral tablet - take 1 tablet by ORAL route once daily; 20 tablet. Zofran 4 mg Oral Tablet - take 1 tablet by ORAL route every 12 hours As needed; 14 tablet. - Medication Reconciliation Form, Thank You Letter, Antibiotic Education, Prescription Opioid Use form. - Follow up: Koko Mendez; When: 2 - 3 days; Reason: Recheck today's complaints, Continuance of care, Re-evaluation by your physician. Follow up: Vernon Upton; When: 2 - 3 days; Reason: Recheck today's complaints, Re-evaluation by your physician. - Problem is new. - Symptoms have improved. Signatures: Dispatcher [employer] EDMS Hosea Keen MD MD cha Baxter, Heather, RN RN Minna Connor RN RN Fermin Baum RN RN rr5 Corrections: (The following items were deleted from the chart) 22:57 22:21 04/26/2019 22:21 Discharged to Home. Impression: Headache; Cluster headache rr5 syndrome, unspecified, not intractable. Condition is Stable. Discharge Instructions: Cluster Headache, [id number], Cluster Headache, Migraine Headache. Prescriptions for Fioricet with Codeine 56-723-62-30 mg Oral capsule - take 1 capsule by ORAL route every 4 hours as needed not to exceed 6 capsules per 24hrs; 24 capsule, Norvasc 2.5 mg Oral tablet - take 1 tablet by ORAL route once daily; 20 tablet, Zofran 4 mg Oral Tablet - take 1 tablet by ORAL route every 12 hours As needed; 14 tablet. and Forms are Medication Reconciliation Form, Thank You Letter, Antibiotic Education, Prescription Opioid Use. Follow up: Koko Mendez; When: 2 - 3 days; Reason: Recheck today's complaints, Continuance of care, Re-evaluation by your physician. Follow up: Vernon Upton; When: 2 - 3 days; Reason: Recheck today's complaints, Re-evaluation by your physician. Problem is new. Symptoms have improved. avelino
[2019-04-26 23:35] VITALS: BP 125/81; TEMP 97.7; O2SAT 99
--- NOTE | 2019-04-27 08:32 | RAD REPORT ---
EXAM DESCRIPTION: RAD - Chest Single View - 04/26/2019 8:48 pm CLINICAL HISTORY: Cough, chest pain COMPARISON: None. TECHNIQUE: AP portable chest image was obtained 7 hours . FINDINGS: Lungs are clear. Heart and vasculature are normal. No measurable pleural effusion and no p neumothorax. No acute bony abnormality seen. No acute aortic findings suspected. Neurostimulator carolyne ce is seen in the midthoracic spine level. IMPRESSION: No acute cardiopulmonary process.
--- NOTE | 2019-04-27 09:37 | RAD REPORT ---
EXAM DESCRIPTION: CT - Head angio - 04/27/2019 3:59 am CLINICAL HISTORY: The patient is 48 years old and is Female; HEADACHE TECHNIQUE: Axial computed tomographic angiography images of the head with intravenous contrast. Th is CT exam was performed using one or more of the following dose reduction techniques: automated ex posure control, adjustment of the mA and/or kV according to patient size, and/or use of iterative rec onstruction technique. COMPARISON: None. FINDINGS: RIGHT INTERNAL CAROTID ARTERY: No acute findings. Intracranial segment is patent with no significant stenosis. No aneurysm. RIGHT ANTERIOR CEREBRAL ARTERY: Unremarkable. No occlusion or significant stenosis. No aneurys m. RIGHT MIDDLE CEREBRAL ARTERY: Unremarkable. No occlusion or significant stenosis. No aneurysm. RIGHT POSTERIOR CEREBRAL ARTERY: Unremarkable. No occlusion or significant stenosis. No aneury sm. RIGHT VERTEBRAL ARTERY: Unremarkable as visualized. LEFT INTERNAL CAROTID ARTERY: Mild vascular calcification of the left cavernous ICA. Intracranial segment is patent with no significant stenosis. No aneurysm. LEFT ANTERIOR CEREBRAL ARTERY: Unremarkable. No occlusion or significant stenosis. No aneurysm . LEFT MIDDLE CEREBRAL ARTERY: Unremarkable. No occlusion or significant stenosis. No aneurysm. LEFT POSTERIOR CEREBRAL ARTERY: Unremarkable. No occlusion or significant stenosis. No aneurys m. LEFT VERTEBRAL ARTERY: Unremarkable as visualized. BASILAR ARTERY: Unremarkable. No occlusion or significant stenosis. No aneurysm. SINUSES: Paranasal sinuses are clear. Small right maxillary sinus mucous retention cyst. MASTOID AIR CELLS: Mastoid air cells are well pneumatized. ORBITS: The globes and orbits are unremarkable. IMPRESSION: Normal CTA head. Electronically signed by: Madhu Hyman DO 04/26/2019 9:58 PM CDT Due to temporary technical issues with the PACS/Fluency reporting system, reports are being signed by the in house radiologist as a courtesy to ensure prompt reporting. The interpreting radiologist is f ully responsible for the content of the report.
--- NOTE | 2019-04-27 10:33 | EKG ---
Test Date: 2019-04-26 Test Time: 20:34:04 Vice President Underwriting: LEENA MEASUREMENT RESULTS: Intervals: Rate: 59 CO: 182 QRSD: 86 QT: 460 QTc: 455 [place]: P: -3 CO: 182 QRS: 10 T: 8 INTERPRETIVE STATEMENTS: Sinus bradycardia Cannot rule out Anterior infarct, age undetermined Abnormal ECG Compared to ECG 10/11/2004 00:58:00 Myocardial infarct finding now present Sinus rhythm no longer present T-wave abnormality no longer present Electronically Signed On 04-27-19 10:31:34 CDT by Newton Azevedo
== END 2019-04-26 22:57 | disposition home or self-care (01) ==
LOC: ER 17:53
DX: G44.009 Cluster headache syndrome, unspecified, not intractable (principal)
CPT/HCPCS: 93005; 85025; 80048; 36415; 83735; 81025; 85610; 80076; 81003; 84484; 83880; 70450; 70496; 71045; 96375; 96374; 99284; Q9967; J2765; 96361

== ENCOUNTER 2020-08-01 20:39 | Emergency (ER) | payer OTHER ==
--- OUTSIDE RECORDS SUMMARY | 2020-08-01 20:43 | XMS REPORT | Continuity of Care Document ---
:1970 Author Organization [facility] t Address [address] [place] [address] Care Team Providers Name Role Phone Kaushik Reid Attending Clinician Problems Condition Condition Condition Status Onset Resolution Last Treating Co mments Source Name Details Category Date Date Treatment Clinician Date LUMBAGO Condition Active 2013-082015-02-25 Me moria 0-30 14:03:01 l LUMBAGO 00:00: Christopher 00 Active 06/06/2014 Condition 5 [facility] FAILED Condition Active 2013-082015-02-25 Mem oria BACK 0-30 14:03:01 l SYNDROME FAILED 00:00: Jeremy n BACK 00 SYNDROME Active 06/06/2014 Condition 5 [facility] LUMBAR Condition Active 2013-082015-02-25 Mem oria RADICULOPA 0-30 14:03:01 l THY LUMBAR 00:00: Christopher RADICULOPA 00 THY Active 06/06/2014 Condition 5 [facility] CHRONIC Condition Active 2013-082015-02-25 Me moria PAIN 0-30 14:03:01 l SYNDROME CHRONIC 00:00: Nayeli nn PAIN 00 SYNDROME Active 06/06/2014 Condition 5 [facility] Allergies, Adverse Reactions, Alerts Allergy Allergy Status Severity Reaction(s) Onset Inactive Treating Comm ents Source Name Type Date Date Clinician PCN PCN Active 2013-08 Memoria 0-30 l 00:00: Christopher 00 Medications Ordered Filled Start Stop Current Ordering Indication Dosage Frequency Signature Comments Components Source Medication Medication Date Date Medication? Clinician (SIG) Name Name SANTIAGO 50 2013-08 Yes 1 tablet Gelacio steffany MG TABS 2-23 every 6 l 00:00: hours as needed for severe pain VALIUM 10 2013-08 Yes one tab PO Me moria MG TABS 0-31 30 mins l 00:00: prior to MRI LUVOX CR 2013-08 Yes Memoria [id number] 0-30 l 00:00: LAMICTAL 2013-08 Yes Memoria ODT 200 MG 0-30 l TBDP 00:00: WELLBUTRIN 2013-08 Yes Memoria SR 150 MG 0-30 l [id number] 00:00: GEODON 20 2013-08 Yes Memoria MG CAPS 0-30 l 00:00: AMBIEN 2013-08 Yes Memoria MG TABS 0-30 l 00:00: CLONAZEPAM 2013-08 Yes Memoria 1 MG TABS 0-30 l 00:00: BUSPIRONE 2013-08 Yes Memoria HCL 15 MG 0-30 l TABS 00:00: VOLTAREN-XR 2013-08 Yes Memori a [id number] 0-30 l 00:00: PRAVASTATIN 2013-08 Yes Memori a SODIUM 20 0-30 l MG TABS 00:00: PRILOSEC 40 2013-08 Yes Memori a MG CPDR 0-30 l 00:00: OXYCONTIN 2013-08 No Memoria T12A 0-30 l 00:00: TRAMADOL 2013-08 Yes [facility]oria HCL TABS 0-30 l 00:00: SOMA TABS 2013-08 Yes Memoria 0-30 l 00:00: WELLBUTRIN 2013-08 Yes Memoria SR 150 MG 0-30 l [id number] 00:00: AMBIEN 10 2013-08 Yes Memoria MG TABS 0-30 l 00:00: CLONAZEPAM 2013-08 Yes Memoria 1 MG TABS 0-30 l 00:00: BUSPIRONE 2013-08 Yes [facility]oria HCL 15 MG 0-30 l TABS 00:00: GEODON 20 2013-08 Yes Memoria MG CAPS 0-30 l 00:00: Christopher BUSPIRONE 2013-08 Yes Memoria HCL 15 MG 0-30 l TABS 00:00: Christopher PRAVASTATIN 2013-08 Yes Memori a SODIUM 20 0-30 l MG TABS 00:00: Agustín OXYCONTIN 2013-08 No Memoria T12A 0-30 l 00:00: Agustín BUSPIRONE 2013-08 Yes Memoria HCL 15 MG 0-30 l TABS 00:00: Christopher Vital Signs Vital Name Observation Time Observation Value Comments Source Weight 2015-02-25 19:03:01 [facility] Height 2015-02-25 19:03:01 [facility] Temperature Oral (F) 2015-02-25 19:03:01 98.0 F [facility] Heart Rate 2015-02-25 19:03:01 [facility] Systolic (mm Hg) 2015-02-25 19:03:01 Gelacio rial Christopher Diastolic (mm Hg) 2015-02-25 19:03:01 Mem o[facility] Agustín Weight 2015-02-04 20:14:11 [facility] Height 2015-02-04 20:14:11 [facility] Temperature Oral (F) 2015-02-04 20:14:11 97.9 F [facility] Heart Rate 2015-02-04 20:14:11 [facility] Systolic (mm Hg) 2015-02-04 20:14:11 Gelacio rial Christopher Diastolic (mm Hg) 2015-02-04 20:14:11 Mem orial Christopher Systolic (mm Hg) 2014-12-18 15:26:31 Gelacio rial Agustín Diastolic (mm Hg) 2014-12-18 15:26:31 Mem o[facility] Agustín Heart Rate 2014-12-18 15:26:31 [facility] Temperature Oral (F) 2014-12-18 15:26:31 97.7 F [facility] Weight 2014-12-18 15:26:31 [facility] Height 2014-12-18 15:26:31 [facility] Weight 2014-08-20 20:29:50 [facility] Height 2014-08-20 20:29:50 [facility] Temperature Oral (F) 2014-08-20 20:29:50 98.1 F [facility] Heart Rate 2014-08-20 20:29:50 [facility] Systolic (mm Hg) 2014-08-20 20:29:50 Gelacio rial Christopher Diastolic (mm Hg) 2014-08-20 20:29:50 Mem orial [facility]ust[facility] Weight 2014-07-23 21:03:52 [facility] Height 2014-07-23 21:03:52 [facility] Temperature Oral (F) 2014-07-23 21:03:52 97.9 F [facility] Heart Rate 2014-07-23 21:03:52 [facility] Systolic (mm Hg) 2014-07-23 21:03:52 Gelacio rial Agustín Diastolic (mm Hg) 2014-07-23 21:03:52 Mem orial Christopher Weight 2014-07-03 17:02:21 [facility] Height 2014-07-03 17:02:21 [facility] Temperature Oral (F) 2014-07-03 17:02:21 97.5 F [facility] Respitory Rate 2014-07-03 17:02:21 Memori al Christopher Heart Rate 2014-07-03 17:02:21 [facility] Systolic (mm Hg) 2014-07-03 17:02:21 Gelacio rial Christopher Diastolic (mm Hg) 2014-07-03 17:02:21 Mem orial Christopher Weight 2014-06-20 16:02:02 [facility] Height 2014-06-20 16:02:02 [facility] Temperature Oral (F) 2014-06-20 16:02:02 94.5 F [facility] Heart Rate 2014-06-20 16:02:02 [facility] Systolic (mm Hg) 2014-06-20 16:02:02 Gelacio rial Agustín Diastolic (mm Hg) 2014-06-20 16:02:02 Mem orial Agustín Weight 2014-06-06 14:27:41 [facility] Height 2014-06-06 14:27:41 [facility] Temperature Oral (F) 2014-06-06 14:27:41 96.9 F [facility] Heart Rate 2014-06-06 14:27:41 [facility] Systolic (mm Hg) 2014-06-06 14:27:41 Gelacio rial Agustín Diastolic (mm Hg) 2014-06-06 14:27:41 Mem orial Christopher Procedures This patient has no known procedures. Encounters Start End Encounter Admission Attending Care Care Encounter Source Date/Time Date/Time Type Type Clinicians Facility Department ID 2020-07-16 2020-07-16 Office Ursula [facility] [id number] 11:11:17 12:11:04 Visit Guera Kaushik Serrano [id number] Geraldine [id number] Profjake [id number] [facility] 204 [facility] Results This patient has no known results.
--- OUTSIDE RECORDS SUMMARY | 2020-08-01 20:43 | XMS REPORT | Summary of Care ---
:1970 Author Organization [facility] - [facility] Address [address] [place] [address] Care Team Providers Name Role Phone MD Andrea Primary Care Provider Reason for Visit Reason Comments Lab Results Encounter Details Date Type Department Care Team Description 05/09/2020 Telephone [facility] Family Medicine Anusha Lr FNP Lab Results - [address] [place] [address] [address] [place] [address] Allergies No Known Allergiesdocumented as of this encounter (statuses as of 05/09/2020) Medications Medication Sig Dispensed Refills Start Date End Date Status Fluvoxamine (LUVOX CR) Take 100 mg by 0 Active 100 mg Cp24 mouth. lamoTRIgine (LAMICTAL) Take 100 mg by 0 Active 100 mg tablet mouth 2 (two) times daily. BUSPIRONE HCL (BUSPAR Take 15 mg by 0 Active ORAL) mouth daily. buPROPion XL Take 150 mg by 0 Ac tive (WELLBUTRIN XL) 150 mg mouth daily. 24 [...] Active BY MOUTH THREE TIMES A DAY methocarbamol (ROBAXIN Take by mouth. 0 Active ORAL) azelastine 137 mcg Use 1 [place] in 30 mL 0 06/05/2018 Active (0.1 %) nasal each nostril 2 sprayIndications: Sore (two) times throat, Post-nasal daily. Use in drip each nostril as directed amLODIPine 2.5 mg Take 2.5 mg by 0 Active tablet mouth daily. ondansetron 4 mg Take 1 tablet by 20 tablet 0 05/14/2019 Active tabletIndications: mouth every 8 Cluster headache, not (eight) hours as intractable, needed for Nausea unspecified chronicity and Vomiting pattern (N/V). BYSTOLIC 2.5 mg TAKE ONE TABLET 30 tablet 3 06/12/2019 Active tabletIndications: BY MOUTH DAILY Cluster headache, not intractable, unspecified chronicity pattern triamcinolone Apply to area(s) 30 g 0 08/30/2019 Active acetonide 0.1 % 2 (two) times creamIndications: Ear daily. shortest itching, Dry skin duration possible, < 7 days PRAVASTATIN 20 mg TAKE ONE TABLET 90 tablet 0 02/18/2020 Active tablet BY MOUTH DAILY cefUROXime 500 mg Take 1 tablet by 20 tablet 0 03/06/2020 Active tabletIndications: mouth 2 (two) Non-recurrent acute times daily. suppurative otitis media of right ear with spontaneous rupture of tympanic membrane OMEPRAZOLE 40 mg TAKE ONE CAPSULE 30 capsule 3 04/16/2020 Active capsule BY MOUTH DAILY documented as of this encounter (statuses as of 05/09/2020) Active Problems Problem Noted Date Chronic back pain greater than 3 months duration 07/10 Hyperlipidemia 07/10/2015 documented as of this encounter (statuses as of 05/09/2020) Social History Tobacco Use Types Packs/Day Years Used Date Never Smoker Smokeless Tobacco: Never Used Alcohol Use Drinks/Week oz/Week Comments Yes occasional Sex Assigned at Date Recorded Not on file COVID-19 Exposure Response Date Recorded In the last month, have you been in contact with No / Unsure 05/01/2020 3:10 PM CDT someone who was confirmed or suspected to have Coronavirus / COVID-19? documented as of this encounter Last Filed Vital Signs Not on filedocumented in this encounter Miscellaneous Notes Telephone Encounter - Fabiola Anna RN - 05/09/2020 5:06 PM CDTduplicate Telephone Encounter - Lili Gomez - 05/09/2020 4:21 PM CDTGecasie Briscoe is a 49 year old female Patient is requesting a callback in regards to lab work on 05/01. documented in this encounter Plan of Treatment Health Maintenance Due Date Last Done Comments DTaP,Tdap,and Td Vaccines (1 - 1987 Tdap) PAP SMEAR 1989 Breast Cancer Screening 2008 (MAMMOGRAM) COLON CANCER SCREENING ANNUAL 2018 FIT/FOBT COLON CANCER SCREENING FIT DNA 2018 EVERY 3 YEARS COLON CANCER SCREENING 2018 SIGMOIDOSCOPY EVERY 5 YEARS COLONOSCOPY 2018 Colorectal Cancer Screening 2018 Zoster Recombinant Vaccine 2018 (SHINGRIX) (1 of 2) INFLUENZA VACCINE (#1) 2020 Depression Screening 08/30/2020 08/30/2019 PNEUMOCOCCAL 0-64 YEARS COMBINED Aged Out No longer eligible based on SERIES patient's age to complete this topic documented as of this encounter Results Not on filedocumented in this encounter Insurance Payer Benefit Plan / Subscriber ID Effective Dates Phone Addre ss Type Group MEDICARE MEDICARE PART [id number] 2005-Eduar [phone] Medicare A & B t 2 [id number] DORITA MURPHY [id number] documented as of this encounter
--- OUTSIDE RECORDS SUMMARY | 2020-08-01 20:43 | XMS REPORT | Summary of Care ---
:1970 Author Organization [facility] - [facility] Address [address] [place] [address] Care Team Providers Name Role Phone MD Andrea Primary Care Provider Reason for Visit Reason Comments Results Encounter Details Date Type Department Care Team Description 05/09/2020 Telephone [facility] Family Medicine Koko Townsend MD Results - [address] [place] [address] [place] [address] [phone] Allergies No Known Allergiesdocumented as of this [...] Active ORAL) azelastine 137 mcg Use 1 [place] in 30 mL 0 06/05/2018 Active (0.1 [...] Encounter - Fabiola Anna RN - 05/09/2020 5:01 PM CDTSpoke with patient informed follow up if symptoms did not get better after the course of antibiotics. I was just told her culture was contaminated, thus no new labs result to report. Pt reports frequency with voiding and completed antibiotic treatment. Instructed patient to come in for a urine culture. Patient agreed. Telephone Encounter - Anusha Pineda FNP - 05/09/2020 4:01 PM CDTPlease let patient know to follow up if symptoms did not get better after the course of antibiotics.I was just told her culture was contaminated, thus no new labs result to report. Please apologize for the delay. elephone Encounter - Donna Foote LVN - 05/09/2020 12:49 PM CDTI see she had a POCT UA, did you order anything else? No Culture results that I see. elephone Encounter - Madelyn Ambrosio - 05/09/2020 12:08 PM CDTPt calling for results. documented in this encounter Plan of Treatment [...] Addre ss Type Group MEDICARE MEDICARE PART [id number] 2005-Eduar [phone] [address] Medicare A & B t 2 [id number] DORITA MURPHY [id number] documented as of this encounter
--- OUTSIDE RECORDS SUMMARY | 2020-08-01 20:43 | XMS REPORT | Continuity of Care Document ---
:1970 Author Organization [employer] Care Team Providers Name Role Phone [employer] [facility] Unavailable Un available Problems Problem Status Onset Classification Date Comments Sourc e Date Reported LUMBAGO Active Condition 02/25/2015 [facility] 4 Neuro FAILED BACK Active Condition 02/25/2015 [facility] SYNDROME 4 Neuro LOW BACK PAIN Active Condition 02/25/2015 M[facility] er 4 Neuro LUMBAR Active Condition 02/25/2015 [facility] RADICULOPATHY 4 Neuro CHRONIC PAIN Active Condition 02/25/2015 M[facility] r SYNDROME 4 Neuro Medications Medication Details Route Status Patient Ordering Order Source Instructions Provider Date ULTRAM 50 MG 1 tablet Active 07/30/20 [facility] TABS every 6 14 Neuro hours as needed for severe pain VALIUM 10 MG one tab PO Active 06/07/20 [facility] TABS 30 mins 14 Neuro prior to MRI LUVOX CR Active 06/06/20 [facility] [id number] 14 Neuro LAMICTAL ODT Active 06/06/20 [facility] 200 MG TBDP 14 Neuro WELLBUTRIN SR Active 06/06/20 [facility] 150 MG 14 Neuro [id number] GEODON 20 MG Active 06/06/20 [facility] CAPS 14 Neuro AMBIEN 10 MG Active 06/06/20 [facility] TABS 14 Neuro CLONAZEPAM 1 Active 06/06/20 [facility] MG TABS 14 Neuro BUSPIRONE HCL Active 06/06/20 [facility]ischer 15 MG TABS 14 Neuro VOLTAREN-XR Active 06/06/20 [facility] [id number] 14 Neuro PRAVASTATIN Active 06/06/20 [facility] SODIUM 20 MG 14 Neuro TABS PRILOSEC 40 MG Active 06/06/20 [facility] CPDR 14 Neuro OXYCONTIN T12A No Longer 06/06/20 [facility] r Active 14 Neuro TRAMADOL HCL Active 06/06/20 [facility] TABS 14 Neuro SOMA TABS Active 06/06/20 [facility] 14 Neuro WELLBUTRIN SR Active 06/06/20 [facility] 150 MG 14 Neuro [id number] AMBIEN 10 MG Active 06/06/20 [facility] TABS 14 Neuro CLONAZEPAM 1 Active 06/06/20 [facility] MG TABS 14 Neuro BUSPIRONE HCL Active 06/06/20 [facility] 15 MG TABS 14 Neuro GEODON 20 MG Active 06/06/20 [facility] CAPS 14 Neuro BUSPIRONE HCL Active 06/06/20 [facility] 15 MG TABS 14 Neuro PRAVASTATIN Active 06/06/20 [facility] SODIUM 20 MG 14 Neuro TABS OXYCONTIN T12A No Longer 06/06/20 M[facility] r Active 14 Neuro BUSPIRONE HCL Active 06/06/20 [facility] 15 MG TABS 14 Neuro Allergies, Adverse Reactions, Alerts Substance Category Reaction Severity Reaction Status Date Comments S ource type Reported PCN Drug PCN Mische r allergy 4 Neuro Immunizations No Data Provided [...] Value Date Comments Source Weight 226 02/25/2015 [facility] [place] [place] [facility] Height 69 02/25/2015 [facility] [place] [place] Neuro Temperature Oral (F) 98.0 F 02/25/2015 [facility] [place] [place] Neuro Heart Rate 82 02/25/2015 [facility] [place] [place] Neuro Systolic (mm Hg) 125 [facility] Diastolic (mm Hg) 75 02/25/2015 [facility] [place] [place] Ne uro Weight 228 02/04/2015 [facility] [place] [place] Neuro Height 69 02/04/2015 [facility] [place] [place] Neuro Temperature Oral (F) 97.9 F 02/04/2015 [facility] [place] [place] Neuro Heart Rate 84 02/04/2015 [facility] [place] [place] Neuro Systolic (mm Hg) 120 02/04/2015 [facility] [place] [place] Iqra ro Diastolic (mm Hg) 70 02/04/2015 [facility] [place] [place] Ne uro Systolic (mm Hg) 117 12/18/2014 [facility] [place] [place] Iqra ro Diastolic (mm Hg) 70 12/18/2014 [facility] [place] [place] Ne uro Heart Rate 85 12/18/2014 [facility] [place] [place] Neuro Temperature Oral (F) 97.7 F 12/18/2014 [facility] [place] [place] Neuro Weight 230 12/18/2014 [facility] Height 69 12/18/2014 [facility] Weight 231 08/20/2014 [facility] Height 69 08/20/2014 [facility] Temperature Oral (F) 98.1 F 08/20/2014 [facility] Heart Rate 91 08/20/2014 [facility] Systolic (mm Hg) 127 08/20/2014 [facility] Iqra ro Diastolic (mm Hg) 82 08/20/2014 [facility] Ne uro Weight 230 07/23/2014 [facility] Height 69 07/23/2014 [facility] Temperature Oral (F) 97.9 F 07/23/2014 [facility] Heart Rate 90 07/23/2014 [facility] Systolic (mm Hg) 126 07/23/2014 [facility] Iqra ro Diastolic (mm Hg) 80 07/23/2014 [facility] Ne uro Weight 69 07/03/2014 [facility] Height 230 07/03/2014 [facility] Temperature Oral (F) 97.5 F 07/03/2014 [facility] Respitory Rate 15 07/03/2014 [facility] Heart Rate 89 07/03/2014 [facility] Systolic (mm Hg) 127 07/03/2014 [facility] Iqra ro Diastolic (mm Hg) 79 07/03/2014 [facility] Ne uro Weight 234 06/20/2014 [facility] Height 68 06/20/2014 [facility] Temperature Oral (F) 94.5 F 06/20/2014 [facility] Heart Rate 69 06/20/2014 [facility] Systolic (mm Hg) 109 06/20/2014 [facility] Iqra ro Diastolic (mm Hg) 76 06/20/2014 [facility] Ne uro Weight 233.7 06/06/2014 [facility] Height 68 06/06/2014 [facility] Temperature Oral (F) 96.9 F 06/06/2014 [facility] Heart Rate 84 06/06/2014 [facility] Systolic (mm Hg) 120 06/06/2014 [facility] Iqra ro Diastolic (mm Hg) 83 06/06/2014 [facility] En[facility]ters Location Location Encounter Encounter Reason Attending ADM ID Stat us Source Details Type Number For Provider Date Date Visit [facility] [id number] Zachary 06/06 06/06 [facility] Neuroscience Visit [address] /2013 Ne uro [facility] [id number] Zachary 06/20 06/20 [facility] Neuroscience Visit [address] /2013 Ne uro [facility] Lab Report [id number] Zachary 06/26 06/26 [facility] [address] /2013 [facility] [id number] Zachary 07/03 07/03 [facility]el Neuroscience Visit [address] [place] [facility] [id number] Zachary 07/23 07/23 [facility] Neuroscience Visit [address] [place] [facility] [id number] Zachary 08/20 08/20 [facility] Neuroscience Visit [address] [place] [facility] [id number] Zachary12/18 Mis [facility] Neuroscience Visit [address] [place] [facility] [id number] Zachary 02/04 02/04 [facility] Neuroscience Visit [address] [place] [facility] [id number] Zachary 02/25 02/25 [facility] Neuroscience Visit [address] Ne uro [place] Procedures No Data Provided for This [...]
--- OUTSIDE RECORDS SUMMARY | 2020-08-01 20:43 | XMS REPORT | Summary of Care ---
:[address] [facility] Address [address] [place] [address] Care Team Providers Name Role Phone MD Andrea Primary Care Provider Reason for Visit Reason Comments LAB Encounter Details Date Type Department Care Team Description 05/09/2020 [employer] Executive Visit [facility] Family Unknown, Attending Dysuria (Primary Dx) Medicine - [facility] [address] [place] [phone] Allergies No Known Allergiesdocumented as of this [...] Active ORAL) azelastine 137 mcg Use 1 [place] in 30 mL 0 06/05/2018 Active (0.1 [...] been in contact with No / Unsure 05/09/2020 5:30 PM CDT someone who was confirmed or suspected to have Coronavirus / COVID-19? documented as of this encounter Last Filed Vital Signs Not on filedocumented in this encounter Nursing Notes Fabiola Anna RN - 05/09/2020 5:15 PM CDTUrine culture documented in this encounter Plan of Treatment Name Type Priority Associated Diagnoses Order S chedule URINE CULTURE LAB Routine Dysuria Ordered: 05/09 Health Maintenance Due Date Last Done Comments [...] Results Not on filedocumented in this encounter Visit Diagnoses Diagnosis Dysuria - Primary documented in this encounter Insurance Payer Benefit Plan / Subscriber ID Effective Dates Phone Addre ss Type Group MEDICARE MEDICARE PART [id number] 2005-Eduar [phone] [address] Medicare A & B t 2 [id number] DORITA MURPHY [id number] documented as of this encounter
--- OUTSIDE RECORDS SUMMARY | 2020-08-01 20:44 | XMS REPORT | Summary of Care ---
:1970 Author Organization [facility] Address [address] [place] [address] Care Team Providers Name Role Phone MD Andrea Primary Care Provider Reason for Visit Reason Comments TEST RESULTS Encounter Details Date Type Department Care Team Description 05/15/2020 Telephone [facility] Family Medicine Koko Townsend MD TEST RESULTS - [address] [place] [address] [place] [address] [phone] Allergies No Known Allergiesdocumented as of this encounter (statuses as of 05/15/2020) Medications Medication Sig Dispensed Refills Start Date [...] Active ORAL) azelastine 137 mcg Use 1 [place] in 30 mL 0 06/05/2018 Active (0.1 [...] as of this encounter (statuses as of 05/15/2020) Active Problems Problem Noted Date Chronic back pain greater than 3 months duration 07/10 Hyperlipidemia 07/10/2015 documented as of this encounter (statuses as of 05/15/2020) Social History Tobacco Use Types Packs/Day Years [...] this encounter Miscellaneous Notes Telephone Encounter - Kkoo Mendez MD - 05/15/2020 11:09 AM CDTOK elephone Encounter - Donna Foote LVN - 05/15/2020 10:13 AM CDTPt came in to the office in order to receive results of the Urine culture that was done by Urgent Care last week. Dr Mendez had already been notified via email by the patient's and he reviewedthe Culture and said it was non diagnostic. I placed patient in an exam room and explained to her the results I advised that we would like to do another Urine Culture to double check and have her come in next week with Dr Mendez to follow up, she agreed. She said she is having ur incontinence at times and that is what she needs to be seen for as she thinks might need to see a urologist. I advised her that we will get that taken care on next week at the appointment but I will call her on the urine culture results as soon as they are back and Dr Mendez has reviewed them, she verbalized understanding. documented in this encounter Plan of Treatment Date Type Specialty Care Team Description 05/19/2020 Office Visit Family Medicine Koko Mendez MD [address] [place] [address] [phone] Name Type Priority Associated Diagnoses Order S chedule URINE CULTURE LAB Routine UTI symptoms Expected: 03/2020, Expires: 05/15/2021 Health Maintenance Due Date Last Done Comments [...] filedocumented in this encounter Visit Diagnoses Diagnosis UTI symptoms - Primary documented in this encounter Insurance Payer Benefit Plan / Subscriber ID Effective Dates Phone Addre ss Type Group MEDICARE MEDICARE PART [id number] 2005-Eduar [phone] Medicare A & B t 2 [id number] DORITA MURPHY [phone] documented as of this encounter
--- OUTSIDE RECORDS SUMMARY | 2020-08-01 20:44 | XMS REPORT | Summary of Care ---
:1970 Author Organization [facility] - [facility] Address [address] [place] [address] Care Team Providers Name Role Phone MD Andrea Primary Care Provider Reason for Visit Reason Comments Lab Results Encounter Details Date Type Department Care Team Description 05/09/2020 Telephone [facility] Anusha Lr FNP Lab Results - [address] april [address] [place] [address] [place] [address] Allergies No Known Allergiesdocumented as of this encounter (statuses as of 05/12/2020) Medications Medication Sig Dispensed Refills Start Date [...] Active ORAL) azelastine 137 mcg Use 1 [place] in 30 mL 0 06/05/2018 Active (0.1 [...] as of this encounter (statuses as of 05/12/2020) Active Problems Problem Noted Date Chronic back pain greater than 3 months duration 07/10 Hyperlipidemia 07/10/2015 documented as of this encounter (statuses as of 05/12/2020) Social History Tobacco Use Types Packs/Day Years [...] Addre ss Type Group MEDICARE MEDICARE PART [id number] 2005-Eduar [phone] [address] Medicare A & B t 2 [id number] DORITA MURPHY [phone] documented as of this encounter
--- OUTSIDE RECORDS SUMMARY | 2020-08-01 20:45 | XMS REPORT | Summary of Care ---
:1970 Author Organization [facility] Address [address] [place] [address] Care Team Providers Name Role Phone MD Andrea Primary Care Provider Reason for Referral Radiology Services (Routine) Status Reason Specialty Diagnoses / Referred By Referred To Procedures Contact Contact New Request Diagnostic Diagnoses Encounter for screening mammogram for malignant neoplasm of breast Mingo Mendez Procedures BI SCREENING MAMMOGRAM BILATERAL MD Koko [address] [place] [phone] (Routine) Status Reason Specialty Diagnoses / Referred By Referred To Procedures Contact Contact New Request Obstetrics & Diagnoses Menopause Andrea Gynecology Procedures CONSULT/REFERRAL NEON GLASS BENDER MD Koko [address] [place] [phone] (Routine) Status Reason Specialty Diagnoses / Referred By Referred To Procedures Contact Contact New Request Urology Diagnoses Urinary incontinence, unspecified type Koko Mendez, Procedures CONSULT/REFERRAL UROLOGY [address] [place] [phone] Reason for Visit Reason Comments Follow-up on urine culture results Encounter Details Date Type Department Care Team Description 05/19/2020 Office Visit [facility] Family Lucia Mendez MD Urinary incontinence, unspecified type ( Primary Dx); [address]; [address] [place] [address] Encounter for screening mammogram for ma lignant [place]oplasm [place] [phone] Allergies No Known Allergiesdocumented as of this encounter (statuses as of 05/19/2020) Medications Medication Sig Dispensed Refills Start Date End Date Status Fluvoxamine (LUVOX Take 100 mg by 0 Active CR) 100 mg Cp24 mouth. lamoTRIgine Take 100 mg by 0 Act april (LAMICTAL) 100 mg mouth 2 (two) tablet times daily. BUSPIRONE HCL (BUSPAR Take 15 mg by 0 Active ORAL) mouth daily. buPROPion XL Take 150 mg by 0 Ac tive (WELLBUTRIN XL) 150 mouth daily. mg 24 hr tablet ziprasidone (GEODON) Take 20 mg by 0 Active 20 mg capsule mouth 2 (two) times daily with meals. zolpidem (AMBIEN) 10 Take 10 mg by 0 Active mg tablet mouth at bedtime as needed for Insomnia. nystatin 100,000 Apply to area(s) 45 g 2 12/02/2016 Active unit/gram powder 3 (three) times daily. CLONAZEPAM 1 mg TAKE ONE TABLET BY 90 tablet 0 03/10/2017 Active tablet MOUTH THREE TIMES A DAY methocarbamol Take by mouth. 0 Active (ROBAXIN ORAL) azelastine 137 mcg Use 1 [place] in 30 mL 0 06/05/2018 Active (0.1 %) nasal each nostril 2 sprayIndications: (two) times daily. Sore throat, Use in each Post-nasal drip nostril as directed amLODIPine 2.5 mg Take 2.5 mg by 0 Active tablet mouth daily. ondansetron 4 mg Take 1 tablet by 20 tablet 0 05/14/2019 Active tabletIndications: mouth every 8 Cluster headache, not (eight) hours as intractable, needed for Nausea unspecified and Vomiting chronicity pattern (N/V). BYSTOLIC 2.5 mg TAKE ONE TABLET BY 30 tablet 3 06/12/2019 Active tabletIndications: MOUTH DAILY Cluster headache, not intractable, unspecified chronicity pattern triamcinolone Apply to area(s) 30 g 0 08/30/2019 Active acetonide 0.1 % 2 (two) times creamIndications: Ear daily. shortest itching, Dry skin duration possible, < 7 days cefUROXime 500 mg Take 1 tablet by 20 tablet 0 03/06/2020 Active tabletIndications: mouth 2 (two) Non-recurrent acute times daily. suppurative otitis media of right ear with spontaneous rupture of tympanic membrane OMEPRAZOLE 40 mg TAKE ONE CAPSULE 30 capsule 3 04/16/2020 Active capsule BY MOUTH DAILY PRAVASTATIN 20 mg TAKE ONE TABLET BY 90 tablet 0 05/16/2020 Active tablet MOUTH DAILY propranoloL 10 mg propranolol 10 mg 0 Active tablet tablet topiramate 50 mg 0 05/11/2020 Ac tive tablet documented as of this encounter (statuses as of 05/19/2020) Active Problems Problem Noted Date Chronic back pain greater than 3 months duration 07/10 Hyperlipidemia 07/10/2015 documented as of this encounter (statuses as of 05/19/2020) Social History Tobacco Use Types Packs/Day Years [...] of this encounter Last Filed Vital Signs Vital Sign Reading Time Taken Comments Blood Pressure 120/60 05/19/2020 2:32 PM CDT Pulse - - Temperature - - Respiratory Rate - - Oxygen Saturation - - Inhaled Oxygen Concentration - - Weight 111.6 kg (246 lb) 05/19/2020 2:32 PM CDT Height - - Body Mass Index 37.4 05/01/2020 3:37 PM CDT documented in this encounter Progress Notes Koko Mendez MD - 05/19/2020 2:30 PM CDT Cc: ongoing bladder issues Chief Complaint Patient presents with Follow-up on urine culture results Debbie Briscoe is a 49 year old female. Urinary incontinence Allergies Debbie has No Known Allergies. Medications Outpatient Medications Prior to Visit Medication Sig Dispense Refill PRAVASTATIN 20 mg tablet TAKE ONE TABLET BY MOUTH DAILY 90 tablet 0 OMEPRAZOLE 40 mg capsule TAKE ONE CAPSULE BY MOUTH DAILY 30 capsule 3 cefUROXime 500 mg tablet Take 1 tablet by mouth 2 (two) times daily. 20 tablet 0 triamcinolone acetonide 0.1 % cream Apply to area(s) 2 (two) times daily. shortest duration possible, < 7 days 30 g 0 BYSTOLIC 2.5 mg tablet TAKE ONE TABLET BY MOUTH DAILY 30 tablet 3 amLODIPine 2.5 mg tablet Take 2.5 mg by mouth daily. ondansetron 4 mg tablet Take 1 tablet by mouth every 8 (eight) hours as needed for Nausea and Vomiting (N/V). 20 tablet 0 azelastine 137 mcg (0.1 %) nasal spray Use 1 [place] in each nostril 2 (two) times daily. Use in each nostril as directed 30 mL 0 methocarbamol (ROBAXIN ORAL) Take by mouth. CLONAZEPAM 1 mg tablet TAKE ONE TABLET BY MOUTH THREE TIMES A DAY 90 tablet 0 nystatin 100,000 unit/gram powder Apply to area(s) 3 (three) times daily. 45 g 2 buPROPion XL (WELLBUTRIN XL) 150 mg 24 hr tablet Take 150 mg by mouth daily. ziprasidone (GEODON) 20 mg capsule Take 20 mg by mouth 2 (two) times daily with meals. zolpidem (AMBIEN) 10 mg tablet Take 10 mg by mouth at bedtime as needed for Insomnia. BUSPIRONE HCL (BUSPAR ORAL) Take 15 mg by mouth daily. Fluvoxamine (LUVOX CR) 100 mg Cp24 Take 100 mg by mouth. lamoTRIgine (LAMICTAL) 100 mg tablet Take 100 mg by mouth 2 (two) times daily. No facility-administered medications prior to visit. Histories Past Medical History: Diagnosis Date Hyperlipidemia Past Surgical History: Procedure Laterality Date HYSTERECTOMY SPINE SURGERY TONSILLECTOMY Social History Socioeconomic History Marital status: Spouse name: Not on file Number of children: Not on file Years of education: Not on file Highest education level: Not on file Occupational History Not on file Social Needs Financial resource strain: Not on file Food insecurity Worry: Not on file Inability: Not on file Transportation needs Medical: Not on file Non-medical: Not on file Tobacco Use Smoking status: Never Smoker Smokeless tobacco: Never Used Substance and Sexual Activity Alcohol use: Yes Comment: occasional Drug use: Yes Types: Marijuana Comment: for pain management and uses CBD oil Sexual activity: Yes Partners: Male Lifestyle Physical activity Days per week: Not on file Minutes per session: Not on file Stress: Not on file Relationships Social connections Talks on phone: Not on file Gets together: Not on file Attends zoroastrian service: Not on file Active member of club or organization: Not on file Attends meetings of clubs or organizations: Not on file Relationship status: Not on file Intimate partner violence Fear of current or ex partner: Not on file Emotionally abused: Not on file Physically abused: Not on file Forced sexual activity: Not on file Other Topics Concern Not on file Social History Narrative Lives at home with , daughter, son, grandaughter No family history on file. Review of Systems Vital Signs BP 120/60 | Wt 246 lb (111.6 kg) | BMI 37.40 kg/m Physical Exam Vitals signs reviewed. Constitutional: Appearance: Normal appearance. HENT: Head: Normocephalic and atraumatic. Neck: Musculoskeletal: Normal range of motion and neck supple. Cardiovascular: Rate and Rhythm: Normal rate and regular rhythm. Pulses: Normal pulses. Heart sounds: Normal heart sounds. Pulmonary: Effort: Pulmonary effort is normal. Breath sounds: Normal breath sounds. Abdominal: General: Abdomen is flat. Palpations: Abdomen is soft. Musculoskeletal: Normal range of motion. Skin: General: Skin is warm and dry. Neurological: Mental Status: She is alert. Assessment/Plan Urinary incontinence, urology consult Breast cancer screen, mammogram Need PLUSH CUTTER consult This visit did not involve counseling and coordination that comprised more than 50% of the visit time. documented in this encounter Plan of Treatment Name Type Priority Associated Diagnoses Order S chedule BI SCREENING MAMMOGRAM IMAGING Routine Encounter for scre ening Expected: 05/19/2020, BILATERAL mammogram for malignant Expi res: 07/19/2021 neoplasm of breast Health Maintenance Due Date Last Done Comments [...] filedocumented in this encounter Visit Diagnoses Diagnosis Urinary incontinence, unspecified type - Primary Menopause Symptomatic menopausal or female climact andrea states Encounter for screening mammogram for ma lignant neoplasm of breast Other screening mammogram documented in this encounter Insurance Payer Benefit Plan / Subscriber ID Effective Dates Phone Addre ss Type Group MEDICARE MEDICARE PART [id number] 2005-Eduar [phone] [address] Medicare A & B t 2 [id number] MARLEN SMACKOVERDORITA [phone] documented as of this encounter"
--- OUTSIDE RECORDS SUMMARY | 2020-08-01 20:45 | XMS REPORT | Summary of Care ---
:1970 Author Organization [facility] Address [address] [place] [address] Care Team Providers Name Role Phone MD Andrea Primary Care Provider Reason for Visit Reason Comments Orders Encounter Details Date Type Department Care Team Description 05/15/2020 Kaiawhina Kohanga Reo Visit [facility] Family Randi Beard, PA [address] [place] [address] [place] [address] [phone] UTI symptoms Medicine - [facility] [address] [place] [address] [place] [address] Allergies No Known Allergiesdocumented as of this encounter (statuses as of 05/22/2020) Medications Medication Sig Dispensed Refills Start Date [...] Active ORAL) azelastine 137 mcg Use 1 [place] in 30 mL 0 06/05/2018 Active (0.1 [...] as of this encounter (statuses as of 05/22/2020) Active Problems Problem Noted Date Chronic back pain greater than 3 months duration 07/10 Hyperlipidemia 07/10/2015 documented as of this encounter (statuses as of 05/22/2020) Social History Tobacco Use Types Packs/Day Years [...] filedocumented in this encounter Plan of Treatment Date Type Specialty Care Team Description 05/27/2020 Appointment Radiology Koko Mendez MD [address] [place], [place] [address] Health Maintenance Due Date Last Done Comments [...] this topic documented as of this encounter Procedures Procedure Name Priority Date/Time Associated Diagnosis Comme nts URINE CULTURE Routine 05/15/2020 2:46 PM UTI symptoms Results for this CDT procedure are i n the results section . documented in this encounter Results URINE CULTURE (05/15/2020 2:46 PM CDT) Pathologist Sig nature URINE CULTURE No aerobic growth [facility] (< 1000 CFU/mL) SERVICES Specimen Urine - URINE, CLEAN CATCH Performing Organization Address City/State/Zipcode Phone Number [facility] CLIA: [id number] [place] [address] [place] [address] documented in this encounter Visit Diagnoses Diagnosis UTI symptoms documented in this encounter Insurance Payer Benefit Plan / Subscriber ID Effective Dates Phone Addre ss Type Group MEDICARE MEDICARE PART [id number] 2005-Eduar [phone] [address] Medicare A & B t 2 [id number] DORITA MURPHY [phone] documented as of this encounter
--- OUTSIDE RECORDS SUMMARY | 2020-08-01 20:45 | XMS REPORT | Summary of Care ---
:1970 Author Organization [facility] Address [address] [place] [address] Care Team Providers Name Role Phone MD Andrea Primary Care Provider Reason for Visit Reason Comments Results Encounter Details Date Type Department Care Team Description 05/12/2020 Telephone [facility] Family Medicine Anusha Lr FNP Results - [address] [place] [address] [place] [phone] Allergies No Known Allergiesdocumented as of this encounter (statuses as of 05/20/2020) Medications Medication Sig Dispensed Refills Start Date End Date Status Fluvoxamine (LUVOX Take 100 mg by 0 Active CR) 100 mg Cp24 mouth. lamoTRIgine Take 100 mg by 0 Act april (LAMICTAL) 100 mg mouth 2 (two) tablet times daily. BUSPIRONE HCL Take 15 mg by 0 Ac tive (BUSPAR ORAL) mouth daily. buPROPion XL Take 150 mg by 0 Ac tive (WELLBUTRIN XL) 150 mouth daily. mg 24 hr tablet ziprasidone Take 20 mg by 0 Acti ve (GEODON) 20 mg mouth 2 (two) capsule times daily with meals. zolpidem (AMBIEN) Take 10 mg by 0 Active 10 mg tablet mouth at bedtime as needed for Insomnia. nystatin 100,000 Apply to 45 g 2 12/02/2016 Ac tive unit/gram powder area(s) 3 (three) times daily. CLONAZEPAM 1 mg TAKE ONE 90 tablet 0 03/10/2017 Act april tablet TABLET BY MOUTH THREE TIMES A DAY methocarbamol Take by 0 Active (ROBAXIN ORAL) mouth. azelastine 137 mcg Use 1 [place] in 30 mL 0 06/05/2018 Active (0.1 %) nasal each nostril 2 sprayIndications: (two) times Sore throat, daily. Use in Post-nasal drip each nostril as directed amLODIPine 2.5 mg Take 2.5 mg by 0 Active tablet mouth daily. ondansetron 4 mg Take 1 tablet 20 tablet 0 05/14/2019 Active tabletIndications: by mouth every Cluster headache, 8 (eight) not intractable, hours as unspecified needed for chronicity pattern Nausea and Vomiting (N/V). BYSTOLIC 2.5 mg TAKE ONE 30 tablet 3 06/12/2019 Act april tabletIndications: TABLET BY Cluster headache, MOUTH DAILY not intractable, unspecified chronicity pattern triamcinolone Apply to 30 g 0 08/30/2019 Activ e acetonide 0.1 % area(s) 2 creamIndications: (two) times Ear itching, Dry daily. skin shortest duration possible, < 7 days cefUROXime 500 mg Take 1 tablet 20 tablet 0 03/06/2020 Active tabletIndications: by mouth 2 Non-recurrent acute (two) times suppurative otitis daily. media of right ear with spontaneous rupture of tympanic membrane OMEPRAZOLE 40 mg TAKE ONE 30 capsule 3 04/16/2020 A ctive capsule CAPSULE BY MOUTH DAILY PRAVASTATIN 20 mg TAKE ONE 90 tablet 0 02/18/2020 D iscontinued tablet TABLET BY 0 MOUTH DAILY documented as of this encounter (statuses as of 05/20/2020) Active Problems Problem Noted Date Chronic back pain greater than 3 months duration 07/10 Hyperlipidemia 07/10/2015 documented as of this encounter (statuses as of 05/20/2020) Social History Tobacco Use Types Packs/Day Years [...] this encounter Miscellaneous Notes Telephone Encounter - Laurence Miller RN - 05/20/2020 7:21 AM [facility]TAccess Center Please see duplicate telephone encounter on 05/15/2020. Laurence Gallegos elephone Encounter - Anusha Pineda FNP - 05/15/2020 11:[address]. Mendez ordered for another culture as the previous was contaminated. Apologize forthe late response it was routed to me yesterday when I was out of the office. elephone Encounter - Tiffani Kramer - 05/14/2020 2:02 PM CDTPatient is calling and is requesting an update on encounter below. elephone Encounter - Debbie Wilde - 05/14/2020 9:26 AM CDTCan you look over the culture results please elephone Encounter - Madelyn Ambrosio - 05/13/2020 4:21 PM CDTPt calling back for results. elephone Encounter - Madelyn Ambrosio - 05/13/2020 10:32 AM CDTPt calling back in regards to below encounter. Telephone Encounter - Karla Zapata - 05/12/2020 2:00 PM CDTPT is requesting current UTI results due to the previous one contaminated. documented in this encounter Plan of Treatment [...] Addre ss Type Group MEDICARE MEDICARE PART [id number] 2005-Eduar [phone] [address] Medicare A & B t 2 [id number] DORITA MURPHY [phone] documented as of this encounter
--- OUTSIDE RECORDS SUMMARY | 2020-08-01 20:45 | XMS REPORT | Summary of Care ---
:1970 Author Organization [facility] Address [address] [place] [address] Care Team Providers Name Role Phone MD Andrea Primary Care Provider Reason for Visit Reason Comments Refill Request Encounter Details Date Type Department Care Team Description 05/16/2020 Refill [facility] Family Medicine Koko Townsend MD Refill Request - [address] [place] [address] [place] [address] [phone] Allergies No Known Allergiesdocumented as of this encounter (statuses as of 05/16/2020) Medications Medication Sig Dispensed Refills Start Date [...] ORAL) mouth. azelastine 137 mcg Use 1 [place] in 30 mL 0 06/05/2018 Active (0.1 [...] 20 mg TAKE ONE 90 tablet 0 05/16/2020 A ctive tablet TABLET BY MOUTH DAILY PRAVASTATIN 20 mg TAKE ONE 90 tablet 0 02/18/2020 D iscontinued tablet TABLET BY 0 MOUTH DAILY documented as of this encounter (statuses as of 05/16/2020) Active Problems Problem Noted Date Chronic back pain greater than 3 months duration 07/10 Hyperlipidemia 07/10/2015 documented as of this encounter (statuses as of 05/16/2020) Social History Tobacco Use Types Packs/Day Years [...] Office Visit Family Medicine Koko Mendez MD [address] [place] [phone] Health Maintenance Due Date Last Done [...] Addre ss Type Group MEDICARE MEDICARE PART [id number] 2005-Eduar [phone] [address] Medicare A & B t 2 [id number] DORITA MURPHY [address] documented as of this encounter
--- OUTSIDE RECORDS SUMMARY | 2020-08-01 20:45 | XMS REPORT | Summary of Care ---
:1970 Author Organization [facility] Address [address] [place] [address] Care Team Providers Name Role Phone MD Andrea Primary Care Provider Reason for Referral Radiology Services (Routine) Status Reason Specialty Diagnoses / Referred By Referred To Procedures Contact Contact New Request Diagnostic Diagnoses Encounter for screening mammogram for malignant neoplasm of breast Mingo Mendez Procedures BI SCREENING MAMMOGRAM BILATERAL MD Koko [address] [place] [phone] (Routine) Status Reason Specialty Diagnoses / Referred By Referred To Procedures Contact Contact New Request Obstetrics & Diagnoses Menopause Andrea Gynecology Procedures CONSULT/REFERRAL MACHINE DESIGNER MD Koko [address] [place] [phone] (Routine) Status Reason Specialty Diagnoses / Referred By Referred To Procedures Contact Contact New Request Urology Diagnoses Urinary incontinence, unspecified type Koko Mendez, Procedures CONSULT/REFERRAL UROLOGY [address] [place] [phone] Reason for Visit Reason Comments Follow-up on urine culture results Encounter Details Date Type Department Care Team Description 05/19/2020 Office Visit [facility] Family Lucia Mendez MD Urinary incontinence, unspecified type ( Primary Dx); [address]; [address] [place] [address] Encounter for screening mammogram for ma lignant [place]oplasm [place] [phone] Allergies No Known Allergiesdocumented as of [...] (ROBAXIN ORAL) azelastine 137 mcg Use 1 [place] in 30 mL 0 06/05/2018 Active (0.1 [...] mcg (0.1 %) nasal spray Use 1 [place] in each nostril 2 (two) times daily. [...] file Gets together: Not on file Attends rastafari service: Not on file Active member of [...] urology consult Breast cancer screen, mammogram Need TAXICAB STARTER consult This visit did not involve counseling [...] Addre ss Type Group MEDICARE MEDICARE PART [id number] 2005-Eduar [phone] [address] Medicare A & B t 2 [id number] MARLEN PLEASANT VIEWDORITA [phone] documented as of this encounter"
--- OUTSIDE RECORDS SUMMARY | 2020-08-01 20:46 | XMS REPORT | Summary of Care ---
:1970 Author Organization [facility] Address [address] [place] [address] Care Team Providers Name Role Phone MD Andrea Primary Care Provider Reason for Visit Reason Comments Appointment Encounter Details Date Type Department Care Team Description 05/28/2020 Telephone [facility] Women's Bobbi oCrtez MD Appointment Healthcare- [address], [facility] [address] [place] [phone] Allergies No Known Allergiesdocumented as of this encounter (statuses as of 06/03/2020) Medications Medication Sig Dispensed Refills Start Date [...] (ROBAXIN ORAL) azelastine 137 mcg Use 1 [place] in 30 mL 0 06/05/2018 Active (0.1 [...] as of this encounter (statuses as of 06/03/2020) Active Problems Problem Noted Date Chronic back pain greater than 3 months duration 07/10 Hyperlipidemia 07/10/2015 documented as of this encounter (statuses as of 06/03/2020) Social History Tobacco Use Types Packs/Day Years [...] this encounter Miscellaneous Notes Telephone Encounter - Donna Foote LVN - 06/03/2020 12:27 PM CDTPT says she never called requesting a refill of this as she is not sick. elephone Encounter - Karla Zapata - 05/28/2020 1:53 PM CDTcodeine-guaifenesin (CHERATUSSIN AC) 10-100 mg/5 mL solution documented in this encounter Plan of Treatment Date Type Specialty Care Team Description 06/04/2020 Office Visit Urology Guera Vergara, BENCH GRINDER [address] [address] [phone] Health Maintenance Due Date Last Done Comments DTaP,Tdap,and Td Vaccines (1 - 1987 Tdap) PAP SMEAR 1989 COLON CANCER SCREENING ANNUAL 2018 FIT/FOBT COLON CANCER SCREENING FIT DNA 2018 EVERY 3 YEARS COLON CANCER SCREENING 2018 SIGMOIDOSCOPY EVERY 5 YEARS COLONOSCOPY 2018 Colorectal Cancer Screening 2018 Zoster Recombinant Vaccine 2018 (SHINGRIX) (1 of 2) INFLUENZA VACCINE (#1) 2020 Depression Screening 08/30/2020 08/30/2019 Breast Cancer Screening 05/27/2021 05/27/2020 (MAMMOGRAM) PNEUMOCOCCAL 0-64 YEARS COMBINED Aged Out No longer eligible based on SERIES patient's age to complete this topic documented as of this encounter Results Not on filedocumented in this encounter Insurance Payer Benefit Plan / Subscriber ID Effective Dates Phone Addre ss Type Group MEDICARE MEDICARE PART [id number] 2005-Eduar [phone] [address] Medicare A & B t 2 [id number] DORITA MURPHY [phone] documented as of this encounter
--- OUTSIDE RECORDS SUMMARY | 2020-08-01 20:46 | XMS REPORT | Summary of Care ---
:1970 Author Organization [facility] - Health Address [address] [place] [address] Care Team Providers Name Role Phone MD Andrea Primary Care Provider Encounter Details Date Type Department Care Team Description 05/27/2020 Orders Only [facility] Doctor Unassigned, No [address] [facility] Name [place] [id number] [address] [place] [phone] Allergies No Known Allergiesdocumented as of this encounter (statuses as of 05/27/2020) Medications Medication Sig Dispensed Refills Start Date [...] (ROBAXIN ORAL) azelastine 137 mcg Use 1 [place] in 30 mL 0 06/05/2018 Active (0.1 [...] as of this encounter (statuses as of 05/27/2020) Active Problems Problem Noted Date Chronic back pain greater than 3 months duration 07/10 Hyperlipidemia 07/10/2015 documented as of this encounter (statuses as of 05/27/2020) Social History Tobacco Use Types Packs/Day Years [...] Name Priority Date/Time Associated Diagnosis Comme nts ASSIGNMENT OF BENEFITS Routine 05/27/2020 3:27 PM CDT documented in this encounter Results Not on filedocumented in this encounter Insurance Payer Benefit Plan / Subscriber ID Effective Dates Phone Addre ss Type Group MEDICARE MEDICARE PART [id number] 2005-Eduar [phone] Medicare A & B t 2 [id number] DORITA MURPHY [phone] documented as of this encounter
--- OUTSIDE RECORDS SUMMARY | 2020-08-01 20:46 | XMS REPORT | Summary of Care ---
:1970 Author Organization [facility] Address [address] [place] [address] Care Team Providers Name Role Phone MD Andrea Primary Care Provider Reason for Referral Radiology Services (Routine) Status Reason Specialty Diagnoses / Referred By Referred To Procedures Contact Contact Closed Diagnostic Diagnoses Encounter for screening mammogram for malignant neoplasm of breast Koko Mendez, Radiology Procedures BI SCREENING MAMMOGRAM BILATERAL [address] [place] [address] Reason for Visit Radiology Services (Routine) Status Reason Specialty Diagnoses / Referred By Referred To Procedures Contact Contact Closed Diagnostic Diagnoses Encounter for screening mammogram for malignant neoplasm of breast Koko Mendez, Radiology Procedures BI SCREENING MAMMOGRAM BILATERAL [address] [place] [address] Encounter Details Date Type Department Care Team Description 05/27/2020 Hospital Encounter [facility] Koko Mendez MD Arrived [facility] [address] [place] [address] [place] [phone] Allergies No Known Allergiesdocumented as of this encounter (statuses as of 05/28/2020) Medications Medication Sig Dispensed Refills Start Date [...] (ROBAXIN ORAL) azelastine 137 mcg Use 1 [place] in 30 mL 0 06/05/2018 Active (0.1 [...] as of this encounter (statuses as of 05/28/2020) Active Problems Problem Noted Date Chronic back pain greater than 3 months duration 07/10 Hyperlipidemia 07/10/2015 documented as of this encounter (statuses as of 05/28/2020) Social History Tobacco Use Types Packs/Day Years [...] filedocumented in this encounter Plan of Treatment Name Type Priority Associated Diagnoses Date/Ti me BI SCREENING MAMMOGRAM IMAGING Routine Encounter for scre ening 05/27/2020 4:26 PM BILATERAL mammogram for malignant CDT neoplasm of breast Name Type Priority Associated Diagnoses Order S chedule BI SCREENING MAMMOGRAM IMAGING Routine Encounter for scre ening ONCE for 1 Occurrences BILATERAL mammogram for malignant star ting 05/27/2020 neoplasm of breast until Health Maintenance Due Date Last Done Comments [...] filedocumented in this encounter Visit Diagnoses Diagnosis Encounter for screening mammogram for ma lignant neoplasm of breast Other screening mammogram documented in this encounter Insurance Payer Benefit Plan / Subscriber ID Effective Dates Phone Addre ss Type Group MEDICARE MEDICARE PART [id number] 2005-Eduar [phone] [address] Medicare A & B t 2 [id number] DORITA MURPHY [phone] documented as of this encounter
--- OUTSIDE RECORDS SUMMARY | 2020-08-01 20:47 | XMS REPORT | Summary of Care ---
:1970 Author Organization [facility] Address [address] [place] [id number] Care Team Providers Name Role Phone MD Andrea Primary Care Provider Reason for Referral (Routine) Status Reason Specialty Diagnoses / Referred By Referred To Procedures Contact Contact New Request Pain Medicine Diagnoses Chronic back pain greater than 3 months duration Koko Mendez, Procedures CONSULT/REFERRAL PAIN CLINIC [address] [place] [phone] Reason for Visit Reason Comments Referral/consult Encounter Details Date Type Department Care Team Description 06/09/2020 Telephone [facility] Family Lucia Mendez MD Referral/consult Medicine - [address] [place] [phone] Allergies No Known Allergiesdocumented as of this encounter (statuses as of 06/10/2020) Medications Medication Sig Dispensed Refills Start Date End Date Status Fluvoxamine (LUVOX Take 100 mg by mouth. 0 Active CR) 100 mg Cp24 lamoTRIgine Take 100 mg by mouth 0 Active (LAMICTAL) 100 mg 2 (two) times daily. tablet BUSPIRONE HCL Take 15 mg by mouth 0 Active (BUSPAR ORAL) daily. buPROPion XL Take 150 mg by mouth 0 Active (WELLBUTRIN XL) 150 daily. mg 24 hr tablet ziprasidone Take 20 mg by mouth 2 0 Active (GEODON) 20 mg (two) times daily capsule with meals. zolpidem (AMBIEN) Take 10 mg by mouth 0 Active 10 mg tablet at bedtime as needed for Insomnia. nystatin 100,000 Apply to area(s) 3 45 g 2 12/02/2016 Active unit/gram powder (three) times daily. CLONAZEPAM 1 mg TAKE ONE TABLET BY 90 tablet 0 03/10/2017 Active tablet MOUTH THREE TIMES A DAY methocarbamol Take by mouth. 0 Active (ROBAXIN ORAL) azelastine 137 mcg Use 1 [place] in each 30 mL 0 06/05/2018 Active (0.1 %) nasal nostril 2 (two) times sprayIndications: daily. Use in each Sore throat, nostril as directed Post-nasal drip amLODIPine 2.5 mg Take 2.5 mg by mouth 0 Active tablet daily. ondansetron 4 mg Take 1 tablet by 20 tablet 0 05/14/2019 Active tabletIndications: mouth every 8 (eight) Cluster headache, hours as needed for not intractable, Nausea and Vomiting unspecified (N/V). chronicity pattern BYSTOLIC 2.5 mg TAKE ONE TABLET BY 30 tablet 3 06/12/2019 Active tabletIndications: MOUTH DAILY Cluster headache, not intractable, unspecified chronicity pattern triamcinolone Apply to area(s) 2 30 g 0 08/30/2019 Active acetonide 0.1 % (two) times daily. creamIndications: shortest duration Ear itching, Dry possible, < 7 days skin cefUROXime 500 mg Take 1 tablet by 20 tablet 0 03/06/2020 Active tabletIndications: mouth 2 (two) times Non-recurrent acute daily. suppurative otitis media of right ear with spontaneous rupture of tympanic membrane OMEPRAZOLE 40 mg TAKE ONE CAPSULE BY 30 capsule 3 04/16/2020 Active capsule MOUTH DAILY PRAVASTATIN 20 mg TAKE ONE TABLET BY 90 tablet 0 05/16/2020 Active tablet MOUTH DAILY propranoloL 10 mg propranolol 10 mg 0 Active tablet tablet topiramate 50 mg 0 05/11/2020 Ac tive tablet Diclofenac Sodium 1 diclofenac 1 % 0 Active % gel topical gel albuterol 90 Ventolin HFA 90 0 A ctive mcg/actuation mcg/actuation aerosol inhaler inhaler baclofen 10 mg baclofen 10 mg tablet 0 Active tablet cloniDINE 0.1 mg/24 clonidine 0.1 mg/24 hr weekly transdermal patch 0 Active hr patch APPLY 1 PATCH TO SKIN WEEKLY NEEDED cloNIDine 0.1 mg clonidine HCl 0.1 mg 0 Active tablet tablet doxycycline doxycycline 0 Active monohydrate 100 mg monohydrate 100 mg capsule capsule HYDROcodone-acetami [place] 10 mg-325 mg tablet 0 Active nophen (NORCO) Take 1 tablet 4 times a day by oral route as needed for 14 days. 10-325 mg tablet oxyCODONE-acetamino oxycodone-acetaminoph 0 Active phen 10-325 mg per en 10 mg-325 mg tablet tablet penicillin v penicillin V 0 Acti ve potassium 500 mg potassium 500 mg tablet tablet sulfamethoxazole-tr sulfamethoxazole 800 0 Active imethoprim 800-160 mg-trimethoprim 160 mg per tablet mg tablet SUMAtriptan 25 mg 0 04/01/2020 A ctive tablet tapentadoL (NUCYNTA Nucynta ER 150 mg tablet,extended release 0 Active ER) 150 mg Tb12 Take 1 tablet every 12 hours by oral route for 30 day s. documented as of this encounter (statuses as of 06/10/2020) Active Problems Problem Noted Date Chronic back pain greater than 3 months duration 07/10 Hyperlipidemia 07/10/2015 documented as of this encounter (statuses as of 06/10/2020) Social History Tobacco Use Types Packs/Day Years Used Date Never Smoker Smokeless Tobacco: Never Used Alcohol Use Drinks/Week oz/Week Comments Yes occasional Alcohol Habits Answer Date Recorded How often do you have a drink containing alcohol? Monthly or less 06/09/2020 How many drinks containing alcohol do you have on a Not aske d 06/09/2020 typical day when you are drinking? How often do you have six or more drinks on one Not asked 06/09/2020 occasion? 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 documented as of this encounter Last Filed Vital Signs Not on filedocumented in this encounter Miscellaneous Notes Telephone Encounter - Mariela Patel MA - 06/10/2020 7:17 AM CSTReferral has been submitted. elephone Encounter - Koko Mendez MD - 06/10/2020 6:38 AM CSTNeeds pain management asap elephone Encounter - Priscilla Hernández LVN - 06/09/2020 3:56 PM CSTRequesting referral to new [ain management provider. Please advise. 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 Patient is needing pain pump maintainece. What is the reason the referral needed? Pain management (pain pump ) Is this needed for insurance purposes or is this a new referral? Yes [facility] Referral? Yes Is patient requesting a specific physician? Patient is requesting a provider at [facility] Last office visit: 05/19/20 Next office visit: NONE documented in this encounter Plan of Treatment Date Type Specialty Care Team Description 06/12/2020 Office Visit Urology Evelio Schwartz M D [address] [facility] [address] [place], [place] [phone] 06/10/2021 Office Visit Obstetrics & Gynecology Me rosa Cortez MD [address] [place] [address] [address] [place] [phone] Health Maintenance Due Date Last Done Comments DTaP,Tdap,and Td Vaccines (1 - 1987 Tdap) PAP SMEAR 1989 COLON CANCER SCREENING ANNUAL 2018 FIT/FOBT COLON CANCER SCREENING FIT DNA 2018 EVERY 3 YEARS COLON CANCER SCREENING 2018 SIGMOIDOSCOPY EVERY 5 YEARS COLONOSCOPY 2018 Colorectal Cancer Screening 2018 Zoster Recombinant Vaccine 2018 (SHINGRIX) (1 of 2) INFLUENZA VACCINE (#1) 2020 Breast Cancer Screening 05/27/2021 05/27/2020 (MAMMOGRAM) Depression Screening 06/04/2021 06/04/2020 PNEUMOCOCCAL 0-64 YEARS COMBINED Aged Out No longer eligible based on SERIES patient's age to complete this topic documented as of this encounter Results Not on filedocumented in this encounter Visit Diagnoses Diagnosis Chronic back pain greater than 3 months duration - Primary Backache, unspecified documented in this encounter Insurance Payer Benefit Plan / Subscriber ID Effective Dates Phone Addre ss Type Group MEDICARE MEDICARE PART [id number] 2005-Eduar [phone] [address] Medicare A & B t 2 [id number] DORITA MURPHY [phone] documented as of this encounter
--- OUTSIDE RECORDS SUMMARY | 2020-08-01 20:47 | XMS REPORT | Summary of Care ---
:1970 Author Organization [facility] Address [address] [place] [address] Care Team Providers Name Role Phone MD Andrea Primary Care Provider Reason for Visit Reason Comments New Patient urinary incontinence (Routine) Status Reason Specialty Diagnoses / Procedures Referred By C ontact Referred To Contact Closed Urology Diagnoses Urinary incontinence, unspecified type Koko Mendez MD Procedures CONSULT/REFERRAL UROLOGY [address] [place] [address] Phone: Encounter Details Date Type Department Care Team Description 06/04/2020 Office Visit [facility] Urology- Guera Vergara Uri nary incontinence, [place] [employer]HWALK[employer] GUIDE unspecified [facility] [address] [facility] [address] [place] [phone] [place] [phone] Allergies No Known Allergiesdocumented as of this encounter (statuses as of 06/05/2020) Medications Medication Sig Dispensed Refills Start Date [...] (ROBAXIN ORAL) azelastine 137 mcg Use 1 [place] in 30 mL 0 06/05/2018 Active (0.1 [...] as of this encounter (statuses as of 06/05/2020) Active Problems Problem Noted Date Chronic back pain greater than 3 months duration 07/10 Hyperlipidemia 07/10/2015 documented as of this encounter (statuses as of 06/05/2020) Social History Tobacco Use Types Packs/Day Years Used Date Never Smoker Smokeless Tobacco: Never Used Alcohol Use Drinks/Week oz/Week Comments Yes occasional Sex Assigned at Date Recorded Not on file COVID-19 Exposure Response Date Recorded In the last month, have you been in contact with No / Unsure 06/04/2020 2:10 PM CDT someone who was confirmed or suspected to have Coronavirus / COVID-19? documented as of this encounter Last Filed Vital Signs Vital Sign Reading Time Taken Comments Blood Pressure 114/80 06/04/2020 2:37 PM CDT Pulse 80 06/04/2020 2:37 PM CDT Temperature 36.7 C (98 F) 06/04/2020 2:37 PM CDT Respiratory Rate 20 06/04/2020 2:37 PM CDT Oxygen Saturation 98% 06/04/2020 2:37 PM CDT Inhaled Oxygen Concentration - - Weight 110.8 kg (244 lb 3.2 oz) 06/04/2020 2:37 PM CDT Height 172.7 cm (5' 8") 06/04/2020 2:37 PM CDT Body Mass Index 37.13 06/04/2020 2:37 PM CDT documented in this encounter Progress Notes Guera Vergara, VISHNU - 06/04/2020 2:15 PM CDT Visit Type: Clinic Note / History and Physical Referred by: Andrea Chief Complaint: loosing urine HPI Rickie Hanks 49 year old female for evaluation of urinary incontinence that started 2 months ago. She had a pain pump placed 2 months ago and began having incontinence with standing, sitting or walking. She did not have this problem during the trial period or prior to pain pump being placed. She has frequency with dribbling and urgency. Wears 12 pads/day/night. She has to change the pad once at night. She feels she can't go any where since the incontinence started. She has had to change clothesseveral time because she urinates through the pads. Since pain pump was placed, when urinating, she "sprays" instead of having a stream. No history of UTIs. Histories Past Medical History: Diagnosis Date Hyperlipidemia Past Surgical History: Procedure Laterality Date HYSTERECTOMY SPINE SURGERY TONSILLECTOMY History reviewed. No pertinent family history. Social History Socioeconomic History Marital status: Spouse [...] file Gets together: Not on file Attends jain service: Not on file Active member of [...] at home with , daughter, son, grandaughter Review of Systems Constitutional: Positive for diaphoresis and unexpected weight change (weight gain). HENT: Positive for dental problem and rhinorrhea. Respiratory: Negative. Cardiovascular: Negative. Gastrointestinal: Positive for constipation. Genitourinary: Positive for bladder incontinence, urgency, polyuria and frequency. Musculoskeletal: Positive for arthralgias, myalgias and neck pain. Neurological: Positive for headaches. Psychiatric/Behavioral: Positive for decreased concentration and sleep disturbance. The patient is nervous/anxious. Hematological: Bruises/bleeds easily. Endocrine: Positive for hair loss, polydipsia and polyuria. Physical Exam Constitutional: Appearance: Normal appearance. She is obese. Skin: General: Skin is warm. Neurological: General: No focal deficit present. Mental Status: She is alert and oriented to person, place, and time. Mental status is at baseline. Psychiatric: Mood and Affect: Mood normal. Behavior: Behavior normal. Thought Content: Thought content normal. Judgment: Judgment normal. BP 114/80 (BP Location: Right arm, Patient Position: Sitting, BP CUFF SIZE: Adult Large) | Pulse 80 | Temp 36.7 C (98 F) (Temporal Artery) | Resp 20 | Ht 5' 8" (1.727 m) | Wt 244 lb 3.2 oz (110.8 kg) | SpO2 98% | BMI 37.13 kg/m Laboratory Results for RICKIE HANKS ( ) as of 06/05/2020 13:43 Ref. Range 06/04/2020 15:37 POCT PH U Latest Ref Range: 5 - 8 mg/dl 5.0 POCT U SP GRAV Latest Ref Range: 1.005 - 1.025 mg/dl 1.030 (A) POCT U GLU Latest Ref Range: Negative - Negative Negative POCT U BLD Latest Ref Range: Negative - Negative Negative POCT U KETONE Latest Ref Range: Negative - Negative Negative POCT U PROT Latest Ref Range: Negative - Negative Negative POCT U UROBILI Latest Ref Range: 0.2 - 1 mg/dl 0.2 POCT U BILI Latest Ref Range: Negative - Negative Small POCT U NIT Latest Ref Range: Negative - Negative Negative POCT U LEUK EST Latest Ref Range: Negative - Negative Trace POCT U COLOR Unknown yellow POCT U APPEAR Unknown clear Radiology No new Radiology Procedure Note PVR = 7 ml Assessment/Plan Rickie Hanks 49 year old female with urinary incontinence Appointment with Dr. Schwartz for UDS Surgical Intervention Not applicable. This visit did not involve counseling and coordination that comprised more than 50% of the visit time. Guera Vergara NP-C Amira Price RN - 06/04/2020 2:15 PM Lilliam Sofy Hanks is a 49 year old female comes to clinic independent in ambulation for urinary incontinence. Pt comes accompanied by daughter . Pt in NAD w/ pain reported 0/10. Pt preferred language is Croatian. Pt. denies fall in last 12 months. Allergies and medications reviewed and updated. documented in this encounter Plan of Treatment Date Type Specialty Care Team Description 06/09/2020 Office Visit Obstetrics & Gynecology Me rosa Cortez MD [address] [place] [phone] 06/12/2020 Office Visit Urology Evelio Schwartz M D [address] [facility] [address] [place] [address] [phone] Health Maintenance Due Date Last Done Comments [...] Name Priority Date/Time Associated Diagnosis Comme nts POCT URINALYSIS AUTO Routine 06/04/2020 3:37 Urinary Res ults for this PM CDT incontinence, procedure are in unspecified type the results section. documented in this encounter Results POCT URINALYSIS, INSTRUMENT (06/04/2020 3:37 PM CDT) Pathologist Sig nature POCT U SP GRAV 1.030 (A) 1.005 - 1.025 mg/dl POCT PH U 5.0 5 - 8 mg/dl POCT U LEUK EST Trace Negative - Negative POCT U NIT Negative Negative - Negative POCT U PROT Negative Negative - Negative POCT U GLU Negative Negative - Negative POCT U KETONE Negative Negative - Negative POCT U UROBILI 0.2 0.2 - 1 mg/dl POCT U BILI Small Negative - Negative POCT U BLD Negative Negative - Negative POCT U COLOR yellow POCT U APPEAR clear Specimen Urine - URINE, CLEAN CATCH documented in this encounter Visit Diagnoses Diagnosis Urinary incontinence, unspecified type - Primary documented in this encounter Insurance Payer Benefit Plan / Subscriber ID Effective Dates Phone Addre ss Type Group MEDICARE MEDICARE PART [id number] 2005-Eduar [phone] Medicare A & B t 2 [id number] DORITA MURPHY [phone] documented as of this encounter
--- OUTSIDE RECORDS SUMMARY | 2020-08-01 20:47 | XMS REPORT | Summary of Care ---
:1970 Author Organization [facility] Address [address] [place] [address] Care Team Providers Name Role Phone MD Andrea Primary Care Provider Reason for Visit Reason Comments Follow-up Encounter Details Date Type Department Care Team Description 06/12/2020 Office Visit [facility] Urology- Destin Schwartz MD Neurogenic bladder [place] 789170 [facility] (Primary Dx) [address] Rizwan KenSujit [facility] [address] [place] [address] 128013 Allergies No Known Allergiesdocumented as of this encounter (statuses as of 06/12/2020) Medications Medication Sig Dispensed Refills Start Date [...] (ROBAXIN ORAL) azelastine 137 mcg Use 1 [place] in each 30 mL 0 06/05/2018 Active [...] mg monohydrate 100 mg capsule capsule HYDROcodone-acetami [place] 10 mg-325 mg tablet 0 Active nophen [...] as of this encounter (statuses as of 06/12/2020) Active Problems Problem Noted Date Chronic back pain greater than 3 months duration 07/10 Hyperlipidemia 07/10/2015 documented as of this encounter (statuses as of 06/12/2020) Immunizations Name Administration Dates Next Due Influenza Virus Vaccine Quad .5 mL IM 6+ MO 06/09/2020 documented as of this encounter Social History Tobacco Use Types Packs/Day Years Used Date Never Smoker Smokeless Tobacco: Never Used Tobacco Cessation: Counseling Given: No Alcohol Use Drinks/Week oz/Week Comments Yes occasional [...] been in contact with No / Unsure 06/12/2020 10:31 AM PATIENT SCHEDULER someone who was confirmed or suspected to have Coronavirus / COVID-19? documented as of this encounter Last Filed Vital Signs Vital Sign Reading Time Taken Comments Blood Pressure 107/77 06/12/2020 11:30 AM PATIENT SCHEDULER Pulse 73 06/12/2020 11:30 AM PATIENT SCHEDULER Temperature - - Respiratory Rate 18 06/12/2020 11:30 AM PATIENT SCHEDULER Oxygen Saturation - - Inhaled Oxygen Concentration - - Weight 110.9 kg (244 lb 9.6 oz) 06/12/2020 11:30 AM PATIENT SCHEDULER Height 175.3 cm (5' 9") 06/12/2020 11:30 AM PATIENT SCHEDULER Body Mass Index 36.12 06/12/2020 11:30 AM PATIENT SCHEDULER documented in this encounter Progress Notes Evelio Schwartz MD - 06/12/2020 10:45 AM CSTPATIENT: Debbie Briscoe : 1970 DATE OF SERVICE: 06/12/20 Pre-Procedural Diagnosis: urinary incontinence Post-Procedural Diagnosis: underactive bladder s/p neurogenic bladder L5/S1, L4/L5 fusion Procedure: Multichannel urodynamics Procedures Performed: 1. Complex uroflowmetry (55666) 2. Complex cystometrogram without measurement of urethral pressure and bladder voiding/flow pressure(77922) 3. EMG with patch measurement (99683) 4. Abdominal pressure measurement (93572) Attending Physician: Evelio Schwartz MD INDICATIONS: Debbie Briscoe is a 49 year old female with a history of urinary incontinence(unaware), urgency, with hx of spinal fusion L5/S1, L4/L5. Hx of pain pump" Morphine ". We recommended that the patient undergo urodynamics further workup. A urine culture was noted to be negative prior to procedure. DESCRIPTION OF PROCEDURE IN DETAIL: A multichannel urodynamics was performed in the sitting position. The patient was initially catheterized for 50 mL of residual urine. A vaginal catheter was placed for intraabdominal pressure measurements. A separate 7-Moroccan dual-lumen catheter was placed in the bladder. Catheters were zeroed and filling was begun with water at 30mL/min. Free uroflow: 20 ml/s PVR 50 ML FILLING: Filling phase of the study revealed a compliant bladder. First sensation was noted at 100 mL. First urge was noted at 150 mL. Strong urge was noted at 350 mL. No DO Stress test negative at different volumes and also at capacity. The patient tolerated filling to a capacity of 500 mL. EMG was performed using surface perineal electrodes. EMG initially showed normal signals. There was no activity of the EMG during filling. During voiding there was electrical normal. The EMG study was technically normal VOIDING: At a capacity of 500mL, the patient was allowed to void. The patient was able to void in the sitting position with the catheter in place. Maximum detrusor pressure was <8 cm H20. This correlated with a peak flow of 15 mL/sec. Abdominal straining was necessary for emptying. Post-void residual was 50 mL. The patient tolerated the procedure well and the catheters were removed without difficulty. ASSESSMENT AND PLAN: Debbie Briscoe is a 49 year old female with a history of urinary incontinence(unaware), urgency, with hx of spinal fusion L5/S1, L4/L5. Hx of pain pump" Morphine Urodynamics today showed impaired bladder sensation, normal bladder capacity, no DO and stress test was negative. Voided with her Pabd and Pdet Was< 8 cmH2O PVR 50 ML. Underactive bladder s/p neurogenic bladder s/p lumber spinal fusion x 2 now on pain pump. Over flow incontinence Plan: Timed voiding every 3-4 hours Might consider Mirabegron 25 mg if still leaking. 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 Procedure has been discussed and consent has been obtained by Dr. Fraser. Timeout performed by Liz Allen at 11:35 AM. Uroflow was performed then sterile straight cath was done to obtain 20ml residual. #7 Fr t-doc catheters were then placed in the bladder and the rectum. EMG leads were then correctly placed on either side of the rectum. All leads and catheters were then taped down and catheters were charged. Pt instructed to cough for correct placement. CMG was started and sterile water was infused at a rate of 50 ml per minute. continues procedures. Intraabdominal and voiding pressures were recorded and documented in computer during study. Pt voided at end of study. Pt tolerated procedure well. documented in this encounter Plan of Treatment Date Type Specialty Care Team Description 06/10/2021 Office Visit Obstetrics & Gynecology Me rosa Cortez MD [address] [place] [phone] Health Maintenance Due Date Last Done Comments DTaP,Tdap,and Td Vaccines (1 - 1987 Tdap) PAP SMEAR 1989 COLON CANCER SCREENING ANNUAL 2018 FIT/FOBT COLON CANCER SCREENING FIT DNA 2018 EVERY 3 YEARS COLON CANCER SCREENING 2018 SIGMOIDOSCOPY EVERY 5 YEARS COLONOSCOPY 2018 Colorectal Cancer Screening 2018 Zoster Recombinant Vaccine 2018 (SHINGRIX) (1 of 2) Breast Cancer Screening 05/27/2021 05/27/2020 (MAMMOGRAM) Depression Screening 06/12/2021 06/12/2020 INFLUENZA VACCINE Completed 06/09/2020 PNEUMOCOCCAL 0-64 YEARS COMBINED Aged Out No longer eligible based on SERIES patient's age to complete this topic documented as of this encounter Results Not on filedocumented in this encounter Visit Diagnoses Diagnosis Neurogenic bladder - Primary Neurogenic bladder, NOS documented in this encounter Insurance Payer Benefit Plan / Subscriber ID Effective Dates Phone Addre ss Type Group MEDICARE MEDICARE PART [id number] 2005-Eduar [phone] [facility] Medicare A & B t 2 [id number] DORITA MURPHY [phone] documented as of this encounter
--- OUTSIDE RECORDS SUMMARY | 2020-08-01 20:47 | XMS REPORT | Summary of Care ---
:1970 Author Organization [facility] Address [address] [place] [address] Care Team Providers Name Role Phone MD Andrea Primary Care Provider Reason for Visit Reason Comments New Patient urinary incontinence (Routine) Status Reason Specialty Diagnoses / Procedures Referred By C ontact Referred To Contact Closed Urology Diagnoses Urinary incontinence, unspecified type Koko Mendez MD Procedures CONSULT/REFERRAL UROLOGY [address] [place] [address] Phone: Encounter Details Date Type Department Care Team Description 06/04/2020 Office Visit [facility] Urology- Guera Vergara Uri nary incontinence, [place] HEAD OF LOSS PREVENTION unspecified type [facility] [address] [facility] (Primary Dx) [address] [place] [phone] [place] [id number] Allergies No Known Allergiesdocumented as of this [...] (ROBAXIN ORAL) azelastine 137 mcg Use 1 [place] in 30 mL 0 06/05/2018 Active (0.1 [...] file Gets together: Not on file Attends nondenominational service: Not on file Active member of [...] pain reported 0/10. Pt preferred language is French. Pt. denies fall in last 12 months. Allergies and medications reviewed and updated. documented in this encounter Plan of Treatment Date Type Specialty Care Team Description 06/09/2020 Office Visit Obstetrics & Gynecology Me rosa Cortez MD [address] [place] [phone] 06/12/2020 Office Visit Urology Evelio Schwartz M D [address] [facility] [address] [place] [address] [phone] Health Maintenance Due Date Last Done Comments [...] Addre ss Type Group MEDICARE MEDICARE PART [id number] 2005-Eduar [phone] [address] Medicare A & B t 2 [id number] DORITA MURPHY [phone] documented as of this encounter
--- OUTSIDE RECORDS SUMMARY | 2020-08-01 20:48 | XMS REPORT | Summary of Care ---
:1970 Author Organization [facility] Address [address] [place] [address] Care Team Providers Name Role Phone MD Andrea Primary Care Provider Reason for Visit Reason Comments Notification Encounter Details Date Type Department Care Team Description 06/05/2020 Telephone [facility] Family Medicine Koko Townsend MD Notification - [address] [place] [address] [place] [address] [phone] Allergies No Known Allergiesdocumented as of this encounter (statuses as of 06/17/2020) Medications Medication Sig Dispensed Refills Start Date [...] (ROBAXIN ORAL) azelastine 137 mcg Use 1 [place] in 30 mL 0 06/05/2018 Active (0.1 [...] as of this encounter (statuses as of 06/17/2020) Active Problems Problem Noted Date Chronic back pain greater than 3 months duration 07/10 Hyperlipidemia 07/10/2015 documented as of this encounter (statuses as of 06/17/2020) Social History Tobacco Use Types Packs/Day Years Used Date Never Smoker Smokeless Tobacco: Never Used Alcohol Use Drinks/Week oz/Week Comments Yes occasional Sex Assigned at Date Recorded Not on file COVID-19 Exposure Response Date Recorded In the last month, have you been in contact with No / Unsure 06/12/2020 10:31 AM UI DEVELOPER WITH ANGULAR JS someone who was confirmed or suspected to have Coronavirus / COVID-19? documented as of this encounter Last Filed Vital Signs Not on filedocumented in this encounter Miscellaneous Notes Telephone Encounter - Donna Foote LVN - 06/17/2020 2:18 PM CSTReturned patient call she just wanted to let us know she has seen a urological specialist and is doing bladder retraining. elephone Encounter - Priscilla Hernández LVN - 06/05/2020 4:50 PM CDTRouting to Donna. elephone Encounter - Karla Zapata - 06/05/2020 3:19 PM CDTPt would like to speak to Donna in regards to a personal issue. Pt will explain more in detail. documented in this encounter Plan of Treatment Date Type Specialty Care Team Description 07/16/2020 Office Visit Urology Guera Vergara, MEDICAL BILLING MANAGER [address] [address] [phone] 06/10/2021 Office Visit Obstetrics & Gynecology Me rosa Cortez MD [address] [place] [address] [address], [place] [phone] Health Maintenance Due Date Last Done Comments [...] Addre ss Type Group MEDICARE MEDICARE PART [id number] 2005-Eduar [phone] [address] Medicare A & B t 2 [id number] DORITA MURPHY [id number] documented as of this encounter
--- OUTSIDE RECORDS SUMMARY | 2020-08-01 20:48 | XMS REPORT | Summary of Care ---
:1970 Author Organization [facility] Address [address] [place] [address] Care Team Providers Name Role Phone MD Andrea Primary Care Provider Reason for Visit Reason Comments Follow-up Encounter Details Date Type Department Care Team Description 06/12/2020 Office Visit [facility] Urology- Destin Schwartz MD Neurogenic bladder [place] [id number] [facility] (Primary Dx) [address] Rizwan KenSujit [facility] [address] [place] [address] [id number] Allergies No Known Allergiesdocumented as of this [...] (ROBAXIN ORAL) azelastine 137 mcg Use 1 [place] in each 30 mL 0 06/05/2018 Active [...] mg monohydrate 100 mg capsule capsule HYDROcodone-acetami [place] 10 mg-325 mg tablet 0 Active nophen [...] with No / Unsure 06/12/2020 10:31 AM HEALTH PLAN ADVISOR someone who was confirmed or suspected to have Coronavirus / COVID-19? documented as of this encounter Last Filed Vital Signs Vital Sign Reading Time Taken Comments Blood Pressure 107/77 06/12/2020 11:30 AM HEALTH PLAN ADVISOR Pulse 73 06/12/2020 11:30 AM HEALTH PLAN ADVISOR Temperature - - Respiratory Rate 18 06/12/2020 11:30 AM HEALTH PLAN ADVISOR Oxygen Saturation - - Inhaled Oxygen Concentration - - Weight 110.9 kg (244 lb 9.6 oz) 06/12/2020 11:30 AM HEALTH PLAN ADVISOR Height 175.3 cm (5' 9") 06/12/2020 11:30 AM HEALTH PLAN ADVISOR Body Mass Index 36.12 06/12/2020 11:30 AM HEALTH PLAN ADVISOR documented in this encounter Progress Notes Evelio Schwartz MD - 06/12/2020 10:45 AM CSTPATIENT: Debbie Briscoe : 1970 DATE OF SERVICE: 06/12/20 Pre-Procedural Diagnosis: urinary incontinence Post-Procedural Diagnosis: underactive bladder s/p neurogenic bladder L5/S1, L4/L5 fusion Procedure: Multichannel urodynamics Procedures Performed: 1. Complex uroflowmetry (72256) 2. Complex cystometrogram without measurement of urethral pressure and bladder voiding/flow pressure(22046) 3. EMG with patch measurement (44500) 4. Abdominal pressure measurement (88509) Attending Physician: Evelio Schwartz MD INDICATIONS: Debbie [...] placed for intraabdominal pressure measurements. A separate 7-Belgian dual-lumen catheter was placed in the bladder. [...] mg if still leaking. 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 Medicare A & B t 2 [id number] DORITA MURPHY [phone] documented as of this encounter
--- OUTSIDE RECORDS SUMMARY | 2020-08-01 20:48 | XMS REPORT | Summary of Care ---
:1970 Author Organization [facility] Address [address] [place] [address] Care Team Providers Name Role Phone MD Andrea Primary Care Provider Reason for Visit Reason Comments Refill Request Encounter Details Date Type Department Care Team Description 07/14/2020 Refill [facility] Family Medicine Koko Townsend MD Refill Request - [address] [place] [address] [place] [address] [phone] Allergies No Known Allergiesdocumented as of this encounter (statuses as of 07/14/2020) Medications Medication Sig Dispensed Refills Start End Status Date Date Fluvoxamine Take 100 mg by 0 Act april (LUVOX CR) 100 mg mouth. Cp24 lamoTRIgine Take 100 mg by mouth 0 Active (LAMICTAL) 100 mg 2 (two) times daily. tablet BUSPIRONE HCL Take 15 mg by mouth 0 Active (BUSPAR ORAL) daily. buPROPion XL Take 150 mg by mouth 0 Active (WELLBUTRIN XL) daily. 150 mg 24 hr tablet ziprasidone Take 20 mg by mouth 0 Active (GEODON) 20 mg 2 (two) times daily capsule with meals. zolpidem (AMBIEN) Take 10 mg by mouth 0 Active 10 mg tablet at bedtime as needed for Insomnia. nystatin 100,000 Apply to area(s) 3 45 g 2 Active unit/gram powder (three) times daily. 7 CLONAZEPAM 1 mg TAKE ONE TABLET BY 90 tablet 0 Active tablet MOUTH THREE TIMES A 7 DAY methocarbamol Take by mouth. 0 Active (ROBAXIN ORAL) azelastine 137 Use 1 [place] in each 30 mL 0 Active mcg (0.1 %) nasal nostril 2 (two) 8 sprayIndications: times daily. Use in Sore throat, each nostril as Post-nasal drip directed amLODIPine 2.5 mg Take 2.5 mg by mouth 0 Active tablet daily. ondansetron 4 mg Take 1 tablet by 20 tablet 0 Active tabletIndications mouth every 8 9 : Cluster (eight) hours as headache, not needed for Nausea intractable, and Vomiting (N/V). unspecified chronicity pattern BYSTOLIC 2.5 mg TAKE ONE TABLET BY 30 tablet 3 Active tabletIndications MOUTH DAILY 9 : Cluster headache, not intractable, unspecified chronicity pattern triamcinolone Apply to area(s) 2 30 g 0 Active acetonide 0.1 % (two) times daily. 0 creamIndications: shortest duration Ear itching, Dry possible, < 7 days skin cefUROXime 500 mg Take 1 tablet by 20 tablet 0 Active tabletIndications mouth 2 (two) times 0 : Non-recurrent daily. acute suppurative otitis media of right ear with spontaneous rupture of tympanic membrane PRAVASTATIN 20 mg TAKE ONE TABLET BY 90 tablet 0 Active tablet MOUTH DAILY 0 propranoloL 10 mg propranolol 10 mg 0 Active tablet tablet topiramate 50 mg 0 Act april tablet 0 Diclofenac Sodium diclofenac 1 % 0 Active 1 % gel topical gel albuterol 90 Ventolin HFA 90 0 A ctive mcg/actuation mcg/actuation inhaler aerosol inhaler baclofen 10 mg baclofen 10 mg 0 Active tablet tablet cloniDINE 0.1 clonidine 0.1 mg/24 hr weekly transdermal patch 0 Active mg/24 hr patch APPLY 1 PATCH TO SKIN WEEKLY NEEDED cloNIDine 0.1 mg clonidine HCl 0.1 mg 0 Active tablet tablet doxycycline doxycycline 0 Active monohydrate 100 monohydrate 100 mg mg capsule capsule HYDROcodone-aceta [place] 10 mg-325 mg tablet 0 Active minophen (NORCO) Take 1 tablet 4 times a day by oral route as needed for 14 days. 10-325 mg tablet oxyCODONE-acetami oxycodone-acetaminop 0 Active nophen 10-325 mg hen 10 mg-325 mg per tablet tablet penicillin v penicillin V 0 Acti ve potassium 500 mg potassium 500 mg tablet tablet sulfamethoxazole- sulfamethoxazole 800 0 Active trimethoprim mg-trimethoprim 160 800-160 mg per mg tablet tablet SUMAtriptan 25 mg 0 Ac tive tablet 0 tapentadoL Nucynta ER 150 mg tablet,extended release 0 Active (NUCYNTA ER) 150 Take 1 tablet every 12 hours by oral route for 30 da ys. mg Tb12 OMEPRAZOLE 40 mg TAKE ONE CAPSULE BY 90 capsule 2 Active capsule MOUTH DAILY 0 OMEPRAZOLE 40 mg TAKE ONE CAPSULE BY 30 capsule 3 Discontinued capsule MOUTH DAILY 0 020 documented as of this encounter (statuses as of 07/14/2020) Active Problems Problem Noted Date Chronic back pain greater than 3 months duration 07/10 Hyperlipidemia 07/10/2015 documented as of this encounter (statuses as of 07/14/2020) Immunizations Name Administration Dates Next Due Influenza [...] Assigned at Date Recorded Not on file documented as of this encounter Last Filed Vital Signs Not on filedocumented in this encounter Plan of Treatment Date Type Specialty Care Team Description 07/16/2020 Office Visit Urology Guera Vergara, SPLITTER OPERATOR [address] [facility] [address] [place], [place] [address] [phone] 06/10/2021 Office Visit Obstetrics & Gynecology Me rosa Cortez MD [address] [facility] [address] [place] [address] [phone] Health Maintenance Due Date Last Done Comments [...] Addre ss Type Group MEDICARE MEDICARE PART [id number] 2005-Eduar [phone] [address] Medicare A & B t 2 [id number] DORITA MURPHY [phone] documented as of this encounter
--- OUTSIDE RECORDS SUMMARY | 2020-08-01 20:49 | XMS REPORT | Summary of Care ---
:1970 Author Organization [facility] Address [address] [place] [address] Care Team Providers Name Role Phone MD Andrea Primary Care Provider Reason for Visit Reason Comments Follow-up 4 week Incontinence Encounter Details Date Type Department Care Team Description 07/16/2020 Office Visit [facility] Urology- Guera Vergara, Uri abdullahiy incontinence, unspecified type (Primary Dx); [facility]genic [facility] [address] [address] [place] [phone] [place] [phone] Allergies No Known Allergiesdocumented as of this encounter (statuses as of 07/16/2020) Medications Medication Sig Dispensed Refills Start Date [...] (ROBAXIN ORAL) azelastine 137 mcg Use 1 [place] in each 30 mL 0 06/05/2018 Active [...] mg monohydrate 100 mg capsule capsule HYDROcodone-acetami [place] 10 mg-325 mg tablet 0 Active nophen [...] by oral route for 30 day s. 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 documented as of this encounter Last Filed Vital Signs Vital Sign Reading Time Taken Comments Blood Pressure 120/80 07/16/2020 11:25 AM LIGHTNING PROTECTION INSTALLER Pulse 67 07/16/2020 11:25 AM LIGHTNING PROTECTION INSTALLER Temperature 36.1 C (97 F) 07/16/2020 11:25 AM LIGHTNING PROTECTION INSTALLER Respiratory Rate 18 07/16/2020 11:25 AM LIGHTNING PROTECTION INSTALLER Oxygen Saturation - - Inhaled Oxygen Concentration - - Weight 113.8 kg (250 lb 12.8 oz) 07/16/2020 11:25 AM LIGHTNING PROTECTION INSTALLER Height 175.3 cm (5' 9") 07/16/2020 11:25 AM LIGHTNING PROTECTION INSTALLER Body Mass Index 37.04 07/16/2020 11:25 AM LIGHTNING PROTECTION INSTALLER documented in this encounter Progress Notes Guera Vergara FNP - 07/16/2020 11:00 AM CST Visit Type: Clinic Note / History and Physical Referred by: established Chief Complaint: follow up incontinene HPI Rickie Hanks 50 year old female for follow of urinary incontinence and UI. She had UDS that showed impaired bladder sensation, and normal bladder capacity. Recommended to time void q3-4 hours but has not tried. She denies frequency and can go hours without urinating. Occasionally, she will leaks but only dribbles. Denies nocturia - she wears a pad at night and it is usually wet in the morning. She usually has to strain to urinate. No history of UTIs or retention. 06/12/2020: Procedure: Multichannel urodynamics Procedures Performed: 1. Complex uroflowmetry (20416) 2. Complex cystometrogram without measurement of urethral pressure and bladder voiding/flow pressure(82073) 3. EMG with patch measurement (60789) 4. Abdominal pressure measurement (68981) Attending Physician: Evelio Schwartz MD INDICATIONS: Rickie Hanks is a 49 year old female with [...] placed for intraabdominal pressure measurements. A separate 7-Surinamese dual-lumen catheter was placed in the bladder. [...] were removed without difficulty. ASSESSMENT AND PLAN: Rickie Hanks is a 49 year old female with [...] now on pain pump. Over flow incontinence 06/04/2020: Rickie Hanks 49 year old female for evaluation of urinary incontinence that started 2 months ago. She had a pain pump placed 2 months ago and began having incontinence with standing, sitting or walking. She did not have this problem during the trial period or prior to pain pump beingplaced. She has frequency with dribbling and urgency. Wears 12 pads/day/night. She has to change thepad once at night. She feels she can't go any where since the incontinence started. She has had to change clothes several time because she urinates through the pads. Since pain pump was placed, when urinating, she "sprays" instead of having a stream. No history of UTIs. Histories Past Medical History: Diagnosis Date Abnormal uterine bleeding 2002 due to bleeding Anemia Anxiety Chronic back pain Depression Hyperlipidemia Pap smear abnormality of cervix 1992, 2000 Urinary incontinence Past Surgical History: Procedure Laterality Date HYSTERECTOMY SPINE SURGERY x 5 surgeries TONSILLECTOMY Family History Problem Relation Age of Onset Diabetes Brother Social History Socioeconomic History Marital status: Spouse [...] Substance and Sexual Activity Alcohol use: Yes Frequency: Monthly or less Comment: occasional Drug use: Never Comment: uses cbd oil prn pain Sexual activity: Yes Partners: Male control/protection: Surgical Lifestyle Physical activity Days per week: Not on file Minutes per session: Not on file Stress: Not on file Relationships Social connections Talks on phone: Not on file Gets together: Not on file Attends faith service: Not on file Active member of [...] Concern Not on file Social History Narrative Denies hx of physical or sexual abuse. Review of Systems Constitutional: Negative. Respiratory: Negative. Cardiovascular: Negative. Genitourinary: Positive for bladder incontinence. Musculoskeletal: Positive for back pain. Neurological: Negative. Psychiatric/Behavioral: Negative. Physical Exam Constitutional: Appearance: Normal appearance. She is obese. Skin: General: Skin is warm and dry. Neurological: General: No focal deficit present. Mental Status: She is alert and oriented to person, place, and time. Mental status is at baseline. Psychiatric: Mood and Affect: Mood normal. Behavior: Behavior normal. Thought Content: Thought content normal. Judgment: Judgment normal. BP 120/80 (BP Location: Left arm, Patient Position: Sitting, BP CUFF SIZE: Adult Large) | Pulse 67| Temp 36.1 C (97 F) (Temporal Artery) | Resp 18 | Ht 5' 9" (1.753 m) | Wt 250 lb 12.8 oz (113.8 kg) | LMP 08/08/2002 (Approximate) | BMI 37.04 kg/m Laboratory Results for RICKIE HANKS ( ) as of 07/16/2020 13:11 Ref. Range 07/16/2020 11:28 POCT PH U Latest Ref Range: 5 - 8 mg/dl 6.5 POCT U SP GRAV Latest Ref Range: 1.005 - 1.025 mg/dl 1.025 POCT U GLU Latest Ref Range: Negative - Negative negative POCT U BLD Latest Ref Range: Negative - Negative negative POCT U KETONE Latest Ref Range: Negative - Negative negative POCT U PROT Latest Ref Range: Negative - Negative negative POCT U UROBILI Latest Ref Range: 0.2 - 1 mg/dl 1.0 POCT U BILI Latest Ref Range: Negative - Negative negative POCT U NIT Latest Ref Range: Negative - Negative negative POCT U LEUK EST Latest Ref Range: Negative - Negative trace POCT U COLOR Unknown yellow POCT U APPEAR Unknown clear Radiology No new Radiology Procedure Note PROCEDURE: PVR Findings: Bladder scan PVR: 19 cc Assessment/Plan Rickie Hanks 50 year old female with neurogenic bladder, overflow incontinence Time voiding every 2-3 hours Bladder diary given to patient Possible CIC in the future RTC in one month Surgical Intervention Not applicable. This visit did not involve counseling and coordination that comprised more than 50% of the visit time. Guera Vergara, MYESHA-C Ratna Marroquin - 07/16/2020 11:00 AM CSTGeorgette Sofy Hanks is a 50 year old female comes to clinic independent in ambulation for incontinece.Pt comes alone . Pt in NAD w/ pain reported 0/10. Pt preferred language is Honduran. Pt. denies fall in last 12 months. Allergies and medications reviewed and updated. [address], [place] - [address] 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 PROTECTION INSTALLER) Pathologist Sig nature POCT U SP GRAV 1.025 1.005 - 1.025 mg/dl POCT PH U 6.5 5 - 8 mg/dl POCT U LEUK EST trace Negative - Negative POCT U NIT negative Negative - Negative POCT U PROT negative Negative - Negative POCT U GLU negative Negative - Negative POCT U KETONE negative Negative - Negative POCT U UROBILI 1.0 0.2 - 1 mg/dl POCT U BILI negative Negative - Negative POCT U BLD negative Negative - Negative POCT U COLOR yellow POCT U APPEAR clear Specimen Urine - URINE, CLEAN CATCH documented in this encounter Visit Diagnoses Diagnosis Urinary incontinence, unspecified type - Primary Neurogenic bladder Neurogenic bladder, NOS documented in this encounter Insurance Payer Benefit Plan / Subscriber ID Effective Dates Phone Addre ss Type Group MEDICARE MEDICARE PART [id number] 2005-Eduar [phone] [facility] Medicare A & B t 2 [id number] DORITA MURPHY [phone] documented as of this encounter
--- OUTSIDE RECORDS SUMMARY | 2020-08-01 20:49 | XMS REPORT | Summary of Care ---
:1970 Author Organization [facility] Address [address] [place] [address] Care Team Providers Name Role Phone MD Andrea Primary Care Provider Reason for Visit Reason Comments Follow-up 4 week Incontinence Encounter Details Date Type Department Care Team Description 07/16/2020 Office Visit [facility] Urology- Guera Vergara, Uri abdullahiy incontinence, unspecified type (Primary Dx); [facility]genic bladder [address] [place] [phone] [place] [phone] Allergies No Known Allergiesdocumented as of this [...] (ROBAXIN ORAL) azelastine 137 mcg Use 1 [place] in each 30 mL 0 06/05/2018 Active [...] mg monohydrate 100 mg capsule capsule HYDROcodone-acetami [place] 10 mg-325 mg tablet 0 Active nophen [...] with No / Unsure 07/16/2020 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 documented as of this encounter Last Filed Vital Signs Vital Sign Reading Time Taken Comments Blood Pressure 120/80 07/16/2020 11:25 AM MICROBIOLOGY TECHNOLOGIST Pulse 67 07/16/2020 11:25 AM MICROBIOLOGY TECHNOLOGIST Temperature 36.1 C (97 F) 07/16/2020 11:25 AM MICROBIOLOGY TECHNOLOGIST Respiratory Rate 18 07/16/2020 11:25 AM MICROBIOLOGY TECHNOLOGIST Oxygen Saturation - - Inhaled Oxygen Concentration - - Weight 113.8 kg (250 lb 12.8 oz) 07/16/2020 11:25 AM MICROBIOLOGY TECHNOLOGIST Height 175.3 cm (5' 9") 07/16/2020 11:25 AM MICROBIOLOGY TECHNOLOGIST Body Mass Index 37.04 07/16/2020 11:25 AM MICROBIOLOGY TECHNOLOGIST documented in this encounter Progress Notes Guera [...] Multichannel urodynamics Procedures Performed: 1. Complex uroflowmetry (76288) 2. Complex cystometrogram without measurement of urethral pressure and bladder voiding/flow pressure(85877) 3. EMG with patch measurement (60504) 4. Abdominal pressure measurement (06970) Attending Physician: Evelio Schwartz MD INDICATIONS: Rickie [...] placed for intraabdominal pressure measurements. A separate 7-Gabonese dual-lumen catheter was placed in the bladder. [...] file Gets together: Not on file Attends spiritism service: Not on file Active member of [...] pain reported 0/10. Pt preferred language is Salvadorean. Pt. denies fall in last 12 months. Allergies and medications reviewed and updated. [address], [place] - [address] 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 documented in this encounter Results POCT URINALYSIS, INSTRUMENT (07/16/2020 11:28 AM MICROBIOLOGY TECHNOLOGIST) Pathologist Sig nature POCT U SP GRAV [...] Addre ss Type Group MEDICARE MEDICARE PART [id number] 2005-Eduar [phone] [facility] Medicare A & B t 2 [id number] DORITA MURPHY [phone] documented as of this encounter
--- NOTE | 2020-08-01 21:24 | RAD REPORT ---
EXAM DESCRIPTION: CT - Ct Stroke Brain Wo Cont - 08/01/2020 9:19 pm CLINICAL HISTORY: PAIN, NUMBNESS Headache, drowsiness, CVA symptomology COMPARISON: Head angio dated 04/26/2019; Head Brain Wo Cont dated 04/26/2019 TECHNIQUE: All CT scans are performed using dose optimization technique as appropriate and may inclu de automated exposure control or mA/KV adjustment according to patient size. FINDINGS: No intracranial hemorrhage, hydrocephalus or extra-axial fluid collection.No areas of brai n edema or evidence of midline shift. The paranasal sinuses and mastoids are clear. The calvarium is intact. IMPRESSION: No acute intracranial abnormality. The findings were discussed with Daniel Poole in the ER on 08/01/2020 at 9:10 p.m. by telephone.
[2020-08-01 21:36] LABS: Absolute Lymphocytes (CBC) 1.7 K/uL (0.7-4.9); Basophils % 1.2 % (0-1.3); Hematocrit 37.4 % (36.0-45.0); MPV 8.4 fL (7.6-11.3); RBC Red Blood Cell Count 4.59 M/uL (3.86-4.86)
[2020-08-01 21:48] LABS: Protime INR 0.91
[2020-08-01 21:52] LABS: Potassium 4.8 mmol/L (3.5-5.1)
[2020-08-01] MEDS ORDERED: DIPHENHYDRAMINE 50 MG/ML VIAL ONE (23:07)
[2020-08-01] MEDS ORDERED: METOCLOPRAMIDE 10 MG/2mL INJ ONE (23:07)
[2020-08-01] MEDS ORDERED: NA CHLORIDE 0.9% 50 ML ONE (23:08)
[2020-08-01] MEDS ORDERED: dexAMETHasone 10 MG/ML VIAL ONE (23:08)
--- NOTE | 2020-08-01 23:56 | ER ---
Nurse's Notes [facility] Name: Debbie Briscoe Age: 50 yrs Sex: Female : 1970 Arrival Date: 08/01/2020 Time: 20:40 Bed 5 Private MD: Diagnosis: Headache Presentation: 08/01 20:49 Chief complaint: Patient states: Migraine OBANDO for 6 hours. Taken 2 Imitrex today. ll1 Noticed R side of face feels weird, R side of face just not normal for about 1 hour. Right eye not lifting as much as left. Smile symmetrical, gait steady. Morphine pain pump present. Coronavirus screen: Client denies travel out of the [place] in the last 14 days. At this time, the client does not indicate any symptoms associated with coronavirus-19. Ebola Screen: Patient denies travel to an Ebola-affected area in the 21 days before illness onset. An acute neurological deficit is present. Initial Sepsis Screen: Does the patient meet any 2 criteria? No. Patient's initial sepsis screen is negative. Does the patient have a suspected source of infection? No. Patient's initial sepsis screen is negative. Risk Assessment: Do you want to hurt yourself or someone else? Patient reports no desire to harm self or others. Onset of symptoms was August 01, 2020. 20:49 Method Of Arrival: Ambulatory ll1 20:49 Acuity: TY 2 ll1 Stroke Activation: Symtpom onset >3 hours and < 6 hours Physician: Stroke Attending; Name: ; Notified At: ; Arrived At: Physician: Chief Stroke Resident; Name: ; Notified At: ; Arrived At: Physician: Stroke Resident; Name: ; Notified At: ; Arrived At: Physician: ED Attending; Name: ; Notified At: ; Arrived At: Physician: ED Resident; Name: ; Notified At: ; Arrived At: Historical: - Allergies: 20:54 No Known Allergies; ll1 - PMHx: 20:54 psych meds; bad back with pain pump; ll1 - Immunization history:: Flu vaccine is up to date. - Social history:: Smoking status: Patient denies any tobacco usage or history of. Screenin:17 The patient has not been NPO before screening. The patient is alert, able to follow ea commands. The patient does not exhibit slurred or garbled speech The patient is not exhibiting difficulty speaking. The patient does not exhibit difficulty understanding words. The patient is able to swallow own secretions with no drooling or need for suction. Patient tolerated one teaspoon of water. No drooling, immediate coughing, gurgling, or clearing of the throat was noted. The patient tolerated 90mL of water. No drooling, immediate coughing, gurgling, or clearing of the throat was noted. The patient passed the bedside swallow screening. Oral medications may be given as ordered. Contact Physician for further diet orders. 21:30 Abuse screen: Denies threats or abuse. Nutritional screening: No deficits noted. ea Tuberculosis screening: No symptoms or risk factors identified. Fall Risk IV access (20 points). Assessment: 21:17 The patient has not been NPO before screening. The patient is alert, and able to follow ea commands. The patient does not exhibit slurred or garbled speech. The patient is not exhibiting difficulty speaking. The patient does not exhibit difficulty understanding words. The patient is able to swallow own secretions with no drooling or need for suction. Patient tolerated one teaspoon of water. No drooling, immediate coughing, gurgling, or clearing of the throat was noted. The patient passed the bedside swallow screening. Oral medications may be given as ordered. Contact Physician for further diet orders. Provider notified of bedside swallow screening results: Daniel Poole NP. 21:17 VAN Scoring: Arm Drift: Patients demonstrates NO arm weakness. Patient is VAN Negative. ea 22:30 Reassessment: Patient and/or family updated on plan of care and expected duration. Pain ea level reassessed. Patient is alert, oriented x 3, equal unlabored respirations, skin warm/dry/pink. 23:55 Reassessment: Patient and/or family updated on plan of care and expected duration. Pain ea level reassessed. Patient is alert, oriented x 3, equal unlabored respirations, skin warm/dry/pink. Patient states feeling better. 08/02 00:11 Reassessment: Patient and/or family updated on plan of care and expected duration. Pain ea level reassessed. Patient is alert, oriented x 3, equal unlabored respirations, skin warm/dry/pink. Discharge instruction given to patient verbalized the understanding of instruction. pt left ED ambulatory tolerating well, accompanied by family Patient states feeling better. Vital Signs: 08/01 20:49 BP 143 / 75; Pulse 69; Resp 17; Temp 98.1; Pulse Ox 100% ; Weight 113.4 kg; Height 5 ll1 ft. 9 in. (175.26 cm); Pain 2/10; 21:43 BP 111 / 67; Pulse 69; Resp 16; Pulse Ox 100% ; ea 22:16 BP 123 / 74; Pulse 63; Resp 16; Pulse Ox 98% on R/A; ea 20:49 Body Mass Index 36.92 (113.40 kg, 175.26 cm) ll1 NIH Stroke Scale Scores: 21:17 NIHSS Score: 0 ea ED Course: 19:14 Inserted saline lock: 20 gauge in right antecubital area, using aseptic technique. ea Blood collected. 20:40 Patient arrived in ED. bp1 20:53 Triage completed. ll1 20:54 Arm band placed on. ll1 21:07 Jelani Nash, MAXIM is Primary Nurse. mg2 21:09 Daniel Poole NP is PHCP. pm1 21:09 Cj Barnett MD is Attending Physician. pm1 21:20 Ct Stroke Brain Wo Cont In Process Unspecified. EDMS 21:28 Stroke CXR 1 View In Process Unspecified. EDMS 21:29 Patient has correct armband on for positive identification. Bed in low position. Call ea light in reach. Side rails up X2. 21:35 No provider procedures requiring assistance completed. mg2 22:58 Strep swab sent to lab. mg2 08/02 00:08 IV discontinued, intact, bleeding controlled, No redness/swelling at site. Pressure mg2 dressing applied. Administered Medications: 08/01 22:55 Drug: Benadryl 25 mg Route: IVP; Site: right antecubital; ea 08/02 00:08 Follow up: Response: No adverse reaction mg2 08/01 23:00 Drug: Decadron - Dexamethasone 10 mg Route: IVP; Site: right antecubital; ea 08/02 00:08 Follow up: Response: No adverse reaction mg2 08/01 23:05 Drug: Reglan 10 mg Route: IVP; Site: right antecubital; ea 08/02 00:08 Follow up: Response: No adverse reaction mg2 00:09 Drug: Valtrex 1000 mg Route: PO; mg2 00:09 Follow up: Response: No adverse reaction; Medication administered at discharge. mg2 Point of Care Testing: Blood Glucose: 08/01 19:18 Blood Glucose: 90 mg/dL; ea Ranges: Outcome: 23:55 Discharge ordered by pm1 08/02 00:11 Discharged to home ambulatory, with family. ea Condition: stable Discharge instructions given to patient, Instructed on discharge instructions, follow up and referral plans. medication usage, Demonstrated understanding of instructions, follow-up care, medications, Prescriptions given X 2. 00:13 Patient left the ED. ea NIH Stroke Scale - NIH Stroke Score Date: 08/01/2020 Time: 21:17 Total Score = 0 1a. Level of Consciousness (LOC) - 0(Alert) 1b. Level of Consciousness (LOC) (Year \T\ Age) - 0(Both) 1c. LOC Commands (Open \T\ Closes Eyes/Roller Print Tender) - 0(Both) 2. Best Gaze (Lateral Gaze Paresis) - 0(Normal) 3. Visual Field Loss - 0(No visual loss) 4. Facial Palsy - 0(Normal) 5a. Left Arm: Motor (10-second hold) - 0(No drift) 5b. Right Arm: Motor (10-second hold) - 0(No drift) 6a. Left Leg: Motor (5-second hold - always test supine) - 0(No drift) 6b. Right Leg: Motor (5-second hold - always test supine) - 0(No drift) 7. Limb Ataxia (finger/nose \T\ heel/castellon - test with eyes open) - 0(Absent) 8. Sensory Loss (pinprick arms/legs/face) - 0(Normal) 9. Best Language: Aphasia (description/naming/reading) - 0(No aphasia) 10. Dysarthria (speech clarity - read or repeat words) - 0(Normal) 11. Extinction and Inattention (visual/tactile/auditory/spatial/personal) - 0(No abnormality) Initials: ea Signatures: Dispatcher [employer] EDMS Daniel Poole, MYESHA MUSIC AGENT pm1 Minna Connor RN RN ea Jelani Nash RN RN mg2 Estrella Jones RN RN ll1 Ruby Chadwick Corrections: (The following items were deleted from the chart) 08/01 21:19 21:18 In radiology for Head Brain Wo Cont. EDMS EDMS
--- NOTE | 2020-08-01 23:56 | EDPHYS ---
Physician Documentation [facility] Name: Debbie Briscoe Age: 50 yrs Sex: Female : 1970 Arrival Date: 08/01/2020 Time: 20:40 Bed 5 Private MD: ED Physician Cj Barnett HPI: 08/01 21:18 This 50 yrs old Female presents to ER via Ambulatory with complaints of S/S pm1 of Possible Stroke. 21:18 The patient complains of pain to the right temporal area. The patient describes the pm1 headache as sharp. Onset: The symptoms/episode began/occurred today, at 16:00. Associated signs and symptoms: Pertinent positives: paresthesias, from right ear to her right side of nose, Pertinent negatives: fever, nausea, neck stiffness, vomiting. Severity of symptoms: in the emergency department the pain has improved, but noticed some twitching to her right lower eyelid. Headache History: The patient has had previous headaches and this one is similar to previous episodes. The symptoms are alleviated by Imitrex. The patient has experienced similar episodes in the past, multiple times, migraine and cluster headaches, "ice pick headaches". Historical: - Allergies: 20:54 No Known Allergies; ll1 - PMHx: 20:54 psych meds; bad back with pain pump; ll1 - Immunization history:: Flu vaccine is up to date. - Social history:: Smoking status: Patient denies any tobacco usage or history of. ROS: 21:02 Constitutional: Negative for fever, chills, and weight loss. pm1 21:02 ENT: Negative for injury, pain, and discharge, Neck: Negative for injury, pain, and swelling, Cardiovascular: Negative for chest pain, palpitations, and edema, Respiratory: Negative for shortness of breath, cough, wheezing, and pleuritic chest pain, Abdomen/GI: Negative for abdominal pain, nausea, vomiting, diarrhea, and constipation, Back: Negative for injury and pain, MS/Extremity: Negative for injury and deformity, Skin: Negative for injury, rash, and discoloration. 21:02 Eyes: Positive for twitching to right eye lower eyelid, Negative for vision loss, visual disturbance. 21:02 Neuro: Positive for headache, numbness, of the right cheek, Negative for altered mental status, dizziness, speech changes, weakness or numbness to arms and legs. Exam: 21:02 Constitutional: This is a well developed, well nourished patient who is awake, alert, pm1 and in no acute distress. Head/Face: Normocephalic, atraumatic. Eyes: Pupils equal round and reactive to light, extra-ocular motions intact. Lids and lashes normal. Conjunctiva and sclera are non-icteric and not injected. Cornea within normal limits. Periorbital areas with no swelling, redness, or edema. 21:02 Skin: Warm, dry with normal turgor. Normal color with no rashes, no lesions, and no evidence of cellulitis. MS/ Extremity: Pulses equal, no cyanosis. Neurovascular intact. Full, normal range of motion. 21:02 ENT: External ear(s): are unremarkable, Ear canal(s): are normal, TM's: are normal, Posterior pharynx: is normal, airway is patent, no erythema, no exudate, no peritonsilar mass, no pooling of secretions, no swelling. 21:02 Cardiovascular: Exam negative for acute changes, Rate: normal, Rhythm: regular, Pulses: no pulse deficits are appreciated. 21:02 Respiratory: Exam negative for acute changes, respiratory distress, shortness of breath. 21:02 Abdomen/GI: Exam negative for acute changes, Inspection: abdomen appears normal, Palpation: abdomen is soft and non-tender, in all quadrants. 21:02 Neuro: Exam negative for acute changes, Orientation: is normal, Mentation: is normal, Cranial nerves: CN II- XII are normal as tested, Motor: moves all fours, strength is normal, strength is 5/5 in all extremities, Sensation: is normal, no obvious gross deficits. 21:20 Radiologist reports: Negative pm1 Vital Signs: 20:49 BP 143 / 75; Pulse 69; Resp 17; Temp 98.1; Pulse Ox 100% ; Weight 113.4 kg; Height 5 ll1 ft. 9 in. (175.26 cm); Pain 2/10; 21:43 BP 111 / 67; Pulse 69; Resp 16; Pulse Ox 100% ; ea 22:16 BP 123 / 74; Pulse 63; Resp 16; Pulse Ox 98% on R/A; ea 20:49 Body Mass Index 36.92 (113.40 kg, 175.26 cm) ll1 NIH Stroke Scale Scores: 21:17 NIHSS Score: 0 ea MDM: 21:17 Patient medically screened. pm1 22:50 ED course: Patient offered flu and covid swabs. Patient refused. pm1 23:53 Data reviewed: vital signs. Data interpreted: Pulse oximetry: on room air is 98 %. pm1 Interpretation: normal. 23:53 Counseling: I had a detailed discussion with the patient and/or guardian regarding: the pm1 historical points, exam findings, and any diagnostic results supporting the discharge/admit diagnosis, lab results, radiology results, the need for outpatient follow up, to return to the emergency department if symptoms worsen or persist or if there are any questions or concerns that arise at home. 08/02 00:00 ED course: Patient reports sore throat and pain to right ear with numbness running pm1 along right cheek. Presentation of symptoms appears to be rascon majano. 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 00:00 Differential diagnosis: cluster headache, cerebral vascular accident, intracerebral pm1 hemorrhage, migraine, tension headache, trigeminal neuralgia, Apple palsy. 08/01 21:16 Order name: Basic Metabolic Panel; Complete Time: 22:29 lp1 08/01 21:16 Order name: CBC with Diff; Complete Time: 22:29 lp1 08/01 21:16 Order name: Protime (+inr); Complete Time: 22:29 lp1 08/01 21:16 Order name: Ptt, Activated; Complete Time: 22:29 lp1 08/01 21:28 Order name: Glucose, Ancillary Testing; Complete Time: 22:29 EDMS 08/01 22:48 Order name: Strep; Complete Time: 23:53 pm1 08/01 21:16 Order name: Stroke CXR 1 View lp1 08/01 21:19 Order name: Ct Stroke Brain Wo Cont; Complete Time: 22:29 EDMS 08/01 23:51 Order name: Throat Culture EDMO 08/01 21:16 Order name: EKG; Complete Time: 21:17 lp1 08/01 21:16 Order name: Accucheck; Complete Time: 21:28 lp1 08/01 21:16 Order name: Cardiac monitoring; Complete Time: 21:28 lp1 08/01 21:16 Order name: EKG - Nurse/Tech; Complete Time: 21:28 lp1 08/01 21:16 Order name: IV Saline Lock; Complete Time: :28 lp1 08/01 21:16 Order name: Labs collected and sent; Complete Time: : lp1 08/01 21:16 Order name: NPO; Complete Time: : lp1 08/01 21:16 Order name: O2 Per Protocol; Complete Time: :28 lp1 08/01 21:16 Order name: O2 Sat Monitoring; Complete Time: : lp1 08/01 21:16 Order name: Stroke Swallow Screen; Complete Time: : lp1 Administered Medications: 08/01 22:55 Drug: Benadryl 25 mg Route: IVP; Site: right antecubital; ea 08/02 00:08 Follow up: Response: No adverse reaction mg2 08/01 23:00 Drug: Decadron - Dexamethasone 10 mg Route: IVP; Site: right antecubital; ea 08/02 00:08 Follow up: Response: No adverse reaction mg2 08/01 23:05 Drug: Reglan 10 mg Route: IVP; Site: right antecubital; ea 08/02 00:08 Follow up: Response: No adverse reaction mg2 00:09 Drug: Valtrex 1000 mg Route: PO; mg2 00:09 Follow up: Response: No adverse reaction; Medication administered at discharge. mg2 Point of Care Testing: Blood Glucose: 08/01 19:18 Blood Glucose: 90 mg/dL; ea Ranges: Critical Glucose Levels:Adult <50 mg/dl or >400 mg/dl <40 mg/dl or >180 mg/dl Disposition: 08/02 05:32 Co-signature as Attending Physician, Cj Barnett MD. [email or web address] Disposition: 08/01/20 23:55 Discharged to Home. Impression: Headache. - Condition is Stable. - Discharge Instructions: Apple Palsy, Adult, General Headache Without Cause. - Prescriptions for prednisone 10 mg Oral tablet - take 6 tablet by ORAL route once daily as directed Take 6 tabs by mouth once daily for three days, then take 4 tablets by mouth once daily for three days, then take 2 tablets by mouth once daily for two days, then 1 tablet by mouth once daily for two days; 36 tablet. Valtrex 1 g Oral Tablet - take 1 tablet by ORAL route every 8 hours for 7 days; 21 tablet. - Medication Reconciliation Form, Thank You Letter, Antibiotic Education, Prescription Opioid Use form. - Follow up: Emergency Department; When: As needed; Reason: Worsening of condition. Follow up: Private Physician; When: 2 - 3 days; Reason: Recheck today's complaints, Continuance of care, Re-evaluation by your physician. - Problem is new. - Symptoms have improved. NIH Stroke Scale - NIH Stroke Score Date: 08/01/2020 Time: 21:17 Total Score = 0 1a. Level of Consciousness (LOC) - 0(Alert) 1b. Level of Consciousness (LOC) (Year \\T\\ Age) - 0(Both) 1c. LOC Commands (Open \\T\\ Closes Eyes/Nuclear Medicine Tech) - 0(Both) 2. Best Gaze (Lateral Gaze Paresis) - 0(Normal) 3. Visual Field Loss - 0(No visual loss) 4. Facial Palsy - 0(Normal) 5a. Left Arm: Motor (10-second hold) - 0(No drift) 5b. Right Arm: Motor (10-second hold) - 0(No drift) 6a. Left Leg: Motor (5-second hold - always test supine) - 0(No drift) 6b. Right Leg: Motor (5-second hold - always test supine) - 0(No drift) 7. Limb Ataxia (finger/nose \\T\\ heel/castellon - test with eyes open) - 0(Absent) 8. Sensory Loss (pinprick arms/legs/face) - 0(Normal) 9. Best Language: Aphasia (description/naming/reading) - 0(No aphasia) 10. Dysarthria (speech clarity - read or repeat words) - 0(Normal) 11. Extinction and Inattention (visual/tactile/auditory/spatial/personal) - 0(No abnormality) Initials: ea Signatures: Dispatcher [employer] EDMS Ariane Garcia RN RN lp1 Daniel Poole, LEAK INSPECTOR LEAK INSPECTOR pm1 Minna Connor RN RN ea Jelani Nash RN RN mg2 Lewis, Lynsay, RN RN ll1 Cj Barnett MD MD [email or web address] Corrections: (The following items were deleted from the chart) 08/01 21:19 21:17 CT-STROKE BRAIN W/O CONTRAST+[id number].BRZ ordered. EDMS EDMS 21:19 21:17 Head Brain Wo Cont ordered. EDMS EDMS 08/02 00:13 08/01 23:55 08/01/2020 23:55 Discharged to Home. Impression: Headache. ea Condition is Stable. Forms are Medication Reconciliation Form, Thank You Letter, Antibiotic Education, Prescription Opioid Use. Follow up: Emergency Department; When: As needed; Reason: Worsening of condition. Follow up: Private Physician; When: 2 - 3 days; Reason: Recheck today's complaints, Continuance of care, Re-evaluation by your physician. Problem is new. Symptoms have improved. pm1 08/02 01:09 08/01 21:18 The patient has experienced similar episodes in the past, multiple pm1 times, pm1
[2020-08-02] MEDS ORDERED: VALACYCLOVIR 500 MG TAB ONE ×2 (00:23→00:25)
[2020-08-02 00:44] VITALS: TEMP 98.1
[2020-08-02 00:46] VITALS: BP 123/74; O2SAT 98
--- NOTE | 2020-08-02 12:28 | RAD REPORT ---
EXAM DESCRIPTION: RAD - Chest Single View - 08/01/2020 9:36 pm CLINICAL HISTORY: . Chest pain. COMPARISON: Chest Single View dated 04/26/2019 FINDINGS: Portable technique limits examination quality. The lungs are grossly clear. The heart is mildly prominent in size. No displaced fractures. IMPRESSION: No acute intrathoracic process suspected.
== END 2020-08-02 00:13 | disposition home or self-care (01) ==
LOC: ER 20:39
DX: R51.9 Headache, unspecified (principal); R29.700 NIHSS score 0
CPT/HCPCS: 93005; 87070; 85025; 80048; 36415; 85610; 82947; 87081; 85730; 70450; 71045; 96375; 96374; 99284; J2765; J1200; J1100

== ENCOUNTER 2022-10-25 19:03 | Emergency (ER) | payer OTHER ==
--- OUTSIDE RECORDS SUMMARY | 2022-10-25 19:17 | XMS REPORT | Continuity of Care Document ---
:1970 Author Organization [facility] t Address [address] [place] [address] [address] [place] [address] Care Team Providers Name Role Phone System, Provider Not In Primary Care Physician Unavailable TREY LEWIS Attending Clinician Unavailable TREY LEWIS Attending Clinician Unavailable JAH FLANAGAN JR Attending Clinician Unavailable King PHUONG MD, James C Attending Clinician Unknown, Attending Attending Clinician Unavailable ASHLYN JOLLY III Attending Clinician Unavailable Koko Jacobo MD Attending Clinician KOKO JACOBO Attending Clinician Unavailable Trey Lewis Attending Clinician Lamberto Beckwith APRN Attending Clinician Lab, Ang - Db Attending Clinician Unavailable Waleska Frank MA Attending Clinician Unavailable MICHELLE LU Attending Clinician Unavailable Emmie RAILWAY TRACTION LINE WORKER, Michelle Attending Clinician Michael CUTLER, Marcelina Attending Clinician Doctor Unassigned, [place] Attending Clinician Unavailable Sajan TUCKER, Archana Attending Clinician Unavailable Brittanie Smith MA Attending Clinician Unavailable Nurse, [facility] Pob Immunization Attending Clinician Unavailable Duane Mercado DO Attending Clinician DUANE MERCADO Attending Clinician Unavailable MYA CORTEZ Attending Clinician Unavailable Ivette Bergman MA Attending Clinician Unavailable Shyanne Mejia MD Attending Clinician [phone] Shira Roger MD Attending Clinician [phone] Jeni CUTLER, Tamiko Attending Clinician Amarilys PAN, Mayela Attending Clinician Unavailable Blessing RAILWAY TRACTION LINE WORKER, Katmaria elena Pires Attending Clinician Hammad Zepeda MD Attending Clinician Cedrick MARES, Taya Attending Clinician Lab, [facility] Fam Pob I Attending Clinician Unavailable TAYA RIOS Attending Clinician Unavailable Jah Flanagan Jr Attending Clinician JAH FLANAGAN Attending Clinician Unavailable GRAMM, GUERA A Attending Clinician Unavailable Gramm RAILWAY TRACTION LINE WORKER, Guera A Attending Clinician Evelio Schwartz MD Attending Clinician EVELIO SCHWARTZ Attending Clinician Unavailable Mya Cortez MD Attending Clinician Jennyfer Mejia Attending Clinician Edwin MARES, Rachael Attending Clinician UNKNOWN, ATTENDING Attending Clinician Unavailable RACHAEL RENEE Attending Clinician Unavailable Lamberto Beckwith Attending Clinician Donald [place] Attending Clinician SHIRA ROGER Admitting Clinician Unavailable Hammad Zepeda MD Admitting Clinician Jah Flanagan Jr Admitting Clinician Donald Davepnort Admitting Clinician Payers Payer Name Policy Type Policy Number Effective Date Expiration Date S pippa MEDICARE PART A [id number] 2005 AND B 00:00:00 MEDICARE PART A [id number] 2005 \\T\\ B 00:00:00 JULIUS KENDALL [id number] 2020 PLUS CLASSIC/VALUE 00:00:00 Problems Condition Condition Condition Status Onset Resolution Last Treating Co mments Source Name Details Category Date Date Treatment Clinician Date PRIMARY OA PRIMARY Diagnosis Active 2022-01-29 Memoria OF RT OA OF RT 11-26 07:55:00 l SHOULDER SHOULDER 00:00: Jeremy n Active 00 11/26/2021 [facility] Greater Greater Disease Active [place] trochanter trochanter 09-30 He alth ic ic 00:00: bursitis, bursitis, 00 left left Iliotibial Iliotibial Disease Active [facility] tendonitis tendonitis 00:00: , left , left 00 Primary Primary Disease Active Last [facility] osteoarthr osteoarthr 09-18 [facility] itis, itis, 00:00: t & Plan: right right 00 Formattin shoulder shoulder g of this note might be different from the original. Patient has completed the last OBANDO injection of the series. Patient instructe d that the injection s can be repeated in 6 months for re-evalua tion. Patient verbalize d rosalina lugo and will follow up. Tenosynovi Tenosynovi Disease Active Last U T tis of tis of 2-11 [facility] right right 00:00: t & Plan: subscapula subscapula 00 Formattin ris tendon ris tendon g of this note might be different from the original. The MRI results were discussed thoroughl y with the patient at this point due to the amount of chondroma lacia osteoarth ritis that she has we are going to treat her undersurf andria tearing of the subscap conservat ively. We will see her in clinic for steroid injection and follow-up with physical therapy. After her physical therapy will follow up once again determine whether she needs any hyaluroni c at that point. Impingemen Impingemen Disease Active U T t syndrome t syndrome 08-31 He alth of right of right 00:00: shoulder shoulder 00 Rotator Rotator Disease Active Last [facility] cuff cuff 08-31 [facility] tendonitis tendonitis 00:00: t & Plan: , right , right 00 Formattin g of this note might be different from the original. Patient has attempted conservat april measures including therapy, injection , and/or NSAIDs but is still having pain. We will obtain an MRI to further evaluate. 'She has been attemptin g her home exercises that she learned from previous surgery but no success in assisting with her pain. Anxiety Anxiety Disease Active 2020-08 Univers and and 0-28 [place] [facility] Insomnia Insomnia Disease Active 2020-08 Unive rs disorder disorder 0-28 ity of 00:00: [address] Branch Chronic Chronic Disease Active Methodi pain pain 02-10 st disorder disorder 00:00: Hospit a 00 l Pneumonia Pneumonia Disease Active Uni vers due to due to 01-24 ity of COVID-19 COVID-19 00:00: [place] virus virus [facility] Branch Obesity Obesity Disease Active Univers (BMI (BMI 6-19 ity of 30-39.9) 30-39.9) 00:00: [address] Branch G89.4 G89.4 Diagnosis Active 2020-12-15 Me moria Active 12-02 11:27:00 l 12/02/2020 00:00: Jeremy navarro 00 [place] G89.28 G89.28 Diagnosis Active 2020-09-15 Me moria Active 2 09:15:00 l 09/11/2020 00:00: Jeremy FRASER 00 [place] M79.672 - M79.672 - Diagnosis Active 2020-02-26 Memoria PAIN IN PAIN IN 02-20 12:08:00 l LEFT FOOT LEFT FOOT 00:01: Clayton lemons Active 00 02/21/2020 EVELIO [facility] [place] Lumbar Lumbar Disease Active Univers radiculopa radiculopa 6- it y of thy thy 00:00: [place] [address] Medical Branch Post-dural Post-dural Disease Active U nivers puncture puncture 3-16 ity of headache headache 00:00: [place] 00 Medical Branch Arthritis Arthritis Disease Active 2017-08 Uni vers of both of both 0-12 ity of hips hips 00:00: [place] 00 Medical Branch Chronic Chronic Disease Active Univers pain pain 4-04 ity of disorder disorder 00:00: [place] 00 Medical Branch Lumbar Lumbar Disease Active Univers post-cass post-cass 4-04 it y of ectomy ectomy 00:00: [place] syndrome syndrome 00 Medica l Branch Opioid Opioid Disease Active Univers dependence dependence 4-04 it y of on agonist [place] agonist [place] therapy 00 [facility] Greater Greater Disease Active Univers trochanter trochanter 4-04 it y of ic pain ic pain 00:00: [place] syndrome syndrome 00 Medica l Branch Tear of Tear of Disease Active Univers right right 3-02 ity of rotator rotator 00:00: [place] cuff cuff 00 Medical Branch UNK UNK Diagnosis Active 2017-10-12 Mem oria Active 10-07 11:02:00 l 10/07/2017 00:00: Jeremy [address]arro [address] SH[address]ER SHOULDER Diagnosis [facility]10-13 [facility]COP ARTHROSCOP -02 08:32:00 l Y Y Active 00:00: Agustín 10/07/[address] [place], [place] [address]ann M25.512 - M25.512 - Diagnosis Active 2016-082017-06-01 Memoria PAIN IN PAIN IN 0-23 08:21:00 l LEFT LEFT 00:01: Agustín SHOULDER SHOULDER 00 Active 05/30/2017 [facility] [place] Chronic Chronic Disease Active 2014-08 Univers back pain back pain 2-03 ity of greater greater 00:00: [place] than 3 than 3 00 Medical months months Branch duration duration CHROINIC CHROINIC Diagnosis Active 2015-01-17 Memoria BACK PAIN BACK PAIN 5-13 05:27:00 l Active 00:00: Agustín 12/18/2014 00 [facility] BACK PAIN BACK PAIN Diagnosis Active 2013-082014-07-09 Memoria Active 2- 17:17:00 l 07/09/2014 00:00: Jeremy navarro [address] CHRONIC CHRONIC Diagnosis Active 2013-082014-07-12 Memoria BACK PAIN, BACK PAIN, 2-02 05:25:00 l ICD 338.28 ICD 338.28 00:00: He ann 722.83 722.83 00 Active 07/09/2014 [facility] LUMBAR LUMBAR Diagnosis Active 2013-082014-06-28 Me moria STENOSIS STENOSIS 08-24 09:14:00 l Active 00:00: [place] 06/24/2014 00 [facility] Chronic Chronic Problem Active 2013-082022-01-30 Me moria pain pain 0-30 21:26:03 l syndrome syndrome 00:00: Jeremy n (disorder) (disorder) 00 Active 06/06/2014 Problem 01/30/2022 Data migrated from [employer] on 04/01/15. Maggie [facility], [place], [place], [place] Low back Low back Problem Active 2013-082022-01-30 Memoria pain pain 0-30 21:26:03 l (disorder) (disorder) 00:00: He rmann Active 00 06/06/2014 Problem 01/30/2022 Data migrated from [employer] on 04/01/15.<b r/>Data migrated from [employer] on 04/01/15. Maggie [facility], [place],[facility], [place], [facility] [place] Lumbar Lumbar Problem Active 2013-082022-01-30 Gelacio steffany radiculopa radiculopa 0-30 21:26:03 l thy thy 00:00: Agustín (disorder) (disorder) 00 Active 06/06/2014 Problem 01/30/2022 Data migrated from [employer] on 04/01/15. Maggie [facility], [place],[facility], [facility] [place], [facility] [place] Pain in Pain in Problem 2017-12-29 Me moria left left 12:55:40 l shoulder shoulder Jeremy n 12/29/2017 [place] Incomplete Incomplet Problem 2018-01-19 Memoria rotator e rotator 13:26:28 l cuff tear cuff tear Herm vesta or rupture or rupture of right of right shoulder, shoulder, not not specified specified as as traumatic traumatic 01/19/2018 [facility] Chronic Chronic Problem 2018-01-19 M emoria pain pain 13:26:28 l syndrome syndrome Jeremy n 01/19/2018 [facility] Anxiety Anxiety Problem 2018-01-19 Me moria disorder, disorder, 13:26:28 l unspecifie unspecifie He rmann d d 01/19/2018 [facility] Major Major Problem 2018-01-19 Memor ia depressive depressive 13:26:28 l disorder, disorder, Herm vesta single single episode, episode, unspecifie unspecifie d d 01/19/2018 [facility] Fall on Fall on Problem 2018-01-19 Me moria same level same level 13:26:28 l from from [place] slipping, slipping, tripping tripping and and stumbling stumbling without without subsequent subsequent striking striking against against object, object, initial initial encounter encounter 01/19/2018 [facility] Depression Depressio Problem Active 2017-06-04 Memoria - motion n - motion 01:36:23 l (qualifier (qualifier He rmann value) value) Active Problem 06/04/2017 [facility] Acute Acute Problem Active 2022-01-30 Memor ia depression depression 21:26:03 l (disorder) (disorder) He rmann Active Problem 01/30/2022 [facility] Anemia Anemia Problem Active 2022-01-30 Gelacio steffany (disorder) (disorder) 21:26:03 l Active Agustín Problem 01/30/2022 [facility], [facility], [facility] [place],[facility] Anxiety Anxiety Problem Active 2022-01-30 Me moria (finding) (finding) 21:26:03 l Active Agustín Problem 01/30/2022 [facility], [facility], [facility] [place],[facility] [place] Chronic Chronic Problem Active 2022-01-30 Me moria pain pain 21:26:03 l (finding) (finding) Herm vesta Active Problem 01/30/2022 [facility], [facility], [facility] [place] Disorder Disorder Problem Active 2022-01-30 Memoria of rotator of rotator 21:26:03 l cuff cuff Agustín (disorder) (disorder) Active Problem 01/30/2022 [facility] Neuro,[facility], [facility], [facility] [place], [facility] [place] Gastroesop Gastroeso Problem Active 2022-01-30 Memoria hageal phageal 21:26:03 l reflux reflux [place] disease disease (disorder) (disorder) Active Problem 01/30/2022 [facility], [facility], [facility] [place] Hyperlipid Hyperlipi Problem Active 2022-01-30 Memoria emia demia 21:26:03 l (disorder) (disorder) He rmann Active Problem 01/30/2022 [facility], [facility], [facility] [place] Hypoglycem Hypoglyce Problem Active 2022-01-30 Memoria ia louise 21:26:03 l (disorder) (disorder) He rmann Active Problem 01/30/2022 [facility] Neuro,[facility], [facility], [facility], [facility] [place], [facility] [place] Incontinen Incontine Problem Active 2022-01-30 Memoria ce nce 21:26:03 l (finding) (finding) Herm vesta Active Problem 01/30/2022 [facility], [facility], [facility] [place] Irregular Irregular Problem Active 2022-01-30 Memoria heart rate heart rate 21:26:03 l (finding) (finding) 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 , no symptoms, no medication s [facility] Neuro,[facility], [facility], [facility] [place], [facility] [place] Migraine Migraine Problem Active 2022-01-30 Memoria (disorder) (disorder) 21:26:03 l Active Agustín Problem 01/30/2022 [facility], [facility], [facility] [place] Obesity Obesity Problem Active 2022-01-30 Me moria (disorder) (disorder) 21:26:03 l Active [place] Problem 01/30/2022 [facility] Neuro,[facility], [facility], [facility] [place], [facility] [place] Osteoarthr Osteoarth Problem Active 2022-01-30 Memoria itis ritis 21:26:03 l (disorder) (disorder) He rmann Active Problem 01/30/2022 [facility] Tremor Tremor Problem Active 2022-01-30 Gelacio steffany (finding) (finding) 21:26:03 l Active [place] Problem 01/30/2022 [facility] OTHER OTHER Diagnosis Active 2020-09-15 Mem oria CHRONIC CHRONIC 09:15:00 l POSTPROCED POSTPROCED He rmann URAL PAIN URAL PAIN Active [facility] CHRONIC CHRONIC Diagnosis Active 2020-12-15 Memoria PAIN PAIN 11:27:00 l SYNDROME SYNDROME Jeremy n Active [facility] M75.41 - M75.41 - Diagnosis Active 2021-09-04 Memoria IMPINGEMEN IMPINGEMEN 14:36:00 l T SYNDROME T SYNDROME He rmann OF RIGHT M OF RIGHT M Active [facility] [place] M75.41 - M75.41 - Diagnosis Active 2021-08-27 Memoria IMPINGEMEN IMPINGEMEN 12:28:00 l T SYNDROME T SYNDROME He rmann OF RIGHT OF RIGHT Active [facility] [place] SPIN SPIN Diagnosis Active 2014-06-28 Mem oria STEN,LUMBR STEN,LUMBR 09:14:00 l W JOSE ALFREDO W JOSE ALFREDO Agustín Active [facility] CHRONIC CHRONIC Diagnosis Active 2015-01-17 Memoria POSTOP POSTOP 05:27:00 l PAIN NEC PAIN NEC Jeremy navarro Active [facility] POSTLAMINE Diagnosis Active 2014-07-[address] POSTLAMINE 05:25:00 l SYND-LUMBA CT Jeremy n R SYND-LUMBA R Active [facility] STRAIN OF STRAIN OF Diagnosis Active 2017-10-13 Memoria MUSC/TEND MUSC/TEND 08:32:00 l THE THE Agustín ROTATOR ROTATOR CUFF OF CUFF OF Active [facility] ANTERIOR ANTERIOR Diagnosis Active 2017-10-13 Memoria DISLOCATIO DISLOCATIO 08:32:00 l N OF RIGHT N OF RIGHT He rmann HUMERUS, I HUMERUS, I Active [facility] Disease Disease Problem Resolve 2022-01-30 2022-01-30 Memoria caused by caused by d 01-06 21:26:03 21:26:03 l 2019-nCoV 2018-nCoV 00:00: Herm vesta Resolved 00 01/06/2021 Problem 01/30/2022 [facility] History of Past Illness Condition Condition Condition Status Onset Resolution Last Treating Co mments Source Name Details Category Date Date Treatment Clinician Date Other Other Problem 2018-01-19 2018-01-19 Claudia sheehanria sprain of sprain of 10-27 13:26:28 13:26:28 l right right 03:55: Agustín shoulder shoulder 27 joint, joint, initial initial encounter encounter 10/27/2017 8 [place] Complete Complete Problem 2017-12-29 2017-12-29 Memoria rotator rotator 10-01 12:55:40 12:55:40 l cuff tear cuff tear 05:51: Herm vesta or rupture or rupture 39 of right of right shoulder, shoulder, not not specified specified as as traumatic traumatic 10/01/2017 12/29/2017 [place] [facility] Allergies, Adverse Reactions, Alerts Allergy Allergy Status Severity Reaction(s) Onset Inactive Treating Comm ents Source Name Type Date Date Clinician penicill penicill Active 2013-08 Memori a ins<sup> ins<sup> 0-30 l 1</sup> 1</sup> 05:00: [place] 00 NO KNOWN Drug Active Univers ALLERGIE Class ity of S [facility] No Known No Known Active Memori a Medicati Medicati l on on [place] Allergie Allergie s s NKFA NKFA Active Memoria l [place] Social History Social Habit Start Date Stop Date Quantity Comments Source Exposure to 2022-08-24 2022-09-03 Not sure [facility]-CoV-2 00:00:00 15:00:00 [place] [facility] (event) Branch Social History 2021-11-27 2021-11-27 [facility] david 17:11:02 17:11:02 Alcohol intake 2021-11-21 2021-11-21 Current drinker [facility] 00:00:00 00:00:00 of alcohol (finding) Tobacco use and 2021-08-26 2021-08-26 Smokeless tobacco [facility] exposure 00:00:00 00:00:00 non-user Cigarette 2021-08-26 2021-08-26 [facility] pack-years 00:00:00 00:00:00 History SDLA 2020-06-09 2020-06-09 2 University o f Alcohol Frequency 00:00:00 00:00:00 [facility] edical Branch History [facility] 2020-06-09 2020-06-09 99 University o f Alcohol Std 00:00:00 00:00:00 [place] Medical Drinks Branch History SDOH 2020-06-09 2020-06-[address] [place] [address] o f Alcohol Binge 00:00:00 00:00:00 [place] [facility] al Branch Alcohol Comment 2015-07-10 2015-07-10 occasional Universit y of 00:00:00 00:00:00 [facility] Sex [birth year] At [birth year] [facility] 00:00:00 00:00:00 Hospital Smoking Status Start Date Stop Date Source Never smoked tobacco [facility] Medications Ordered Filled Start Stop Current Ordering Indication Dosage Frequency Signature Comments Components Source Medication Medication Date Date Medication? Clinician (SIG) Name Name acyclovir 2022- Yes [id number] 800mg Take 1 Univers 800 mg 09-03- tablet by ity of tablet 00:00: 05:59 mouth 5 [place] 00 :[facility] Medical times [place] daily for 7 days. acyclovir 2022- Yes [id number] 800mg Take 1 Univers 800 mg 27 - tablet by ity of tablet 00:00: 05:59 mouth 5 [place] 00 :[facility] Medical times [place] daily for 7 days. OMEPRAZOLE 2021-08 Yes [id number] TAKE ONE Univers 40 mg 2-28 CAPSULE BY ity of capsule 00:00: MOUTH [place] DAILY Medical Branch OMEPRAZOLE 2021-08 Yes [id number] TAKE ONE Univers 40 mg 2-28 CAPSULE BY ity of capsule 00:00: [facility] DAILY Medical Branch OMEPRAZOLE 2021-08 Yes [id number] TAKE ONE Univers 40 mg 2-28 CAPSULE BY ity of capsule 00:00: [facility] DAILY Medical Branch PRAVASTATIN 2021-08 Yes TAKE ONE Un codie 20 mg 0-11 TABLET BY ity of tablet 00:00: [facility] DAILY Medical Branch PRAVASTATIN 2021-08 Yes TAKE ONE Un codie 20 mg 0-11 TABLET BY ity of tablet 00:00: [facility] DAILY Medical Branch PRAVASTATIN 2021- Yes TAKE ONE Un codie 20 mg 0-11 TABLET BY ity of tablet 00:00: [facility] DAILY Medical Branch PRAVASTATIN 2021-08 Yes TAKE ONE Un codie 20 mg 0-11 TABLET BY ity of tablet 00:00: [facility] DAILY Medical Branch OMEPRAZOLE 2022-1 Yes [id number] TAKE ONE Univers 40 mg 0-06 CAPSULE BY ity of capsule 00:00: MOUTH [place] 00 DAILY Medical Branch OMEPRAZOLE 2021-1 Yes [id number] TAKE ONE Univers 40 mg 0-06 CAPSULE BY ity of capsule 00:00: MOUTH [place] 00 DAILY Medical Branch OMEPRAZOLE 2-1 2- No [id number] TAKE ONE Univers 40 mg 0-06 12-28 CAPSULE BY ity of capsule 00:00: 00:00 MOUTH [place] 00 :00 DAILY Medical Branch OMEPRAZOLE 2-0 Yes [id number] TAKE ONE Univers 40 mg 9-09 CAPSULE BY ity of capsule 00:00: MOUTH [place] 00 DAILY Medical Branch OMEPRAZOLE 2-0 2- No [id number] TAKE ONE Univers 40 mg 9-09 10-06 CAPSULE BY ity of capsule 00:00: 00:00 MOUTH [place] 00 :00 DAILY Medical Branch ubrogepant 0 Yes Take by Univ ers (UBRELVY 7-05 mouth as ity of ORAL) 14:36: needed [place] [address] (MIGRAINE) Medical . Branch atogepant 0 Yes 90mg Take 90 mg Un codie (QULIPTA 7-05 by mouth ity of ORAL) 14:36: daily. [place] [address] Medical Branch ubrogepant Yes Take by Univ ers (UBRELVY 7-05 mouth as ity of ORAL) 14:36: needed [place] [address] (MIGRAINE) Medical . Branch atogepant 0 Yes 90mg Take 90 mg Un codie (QULIPTA 7-05 by mouth ity of ORAL) 14:36: daily. [place] [address] Medical Branch ubrogepant Yes Take by Univ ers (UBRELVY 7-05 mouth as ity of ORAL) 14:36: needed [place] [address] (MIGRAINE) Medical . Branch atogepant 0 Yes 90mg Take 90 mg Un codie (QULIPTA 7-05 by mouth ity of ORAL) 14:36: daily. [place] [address] Medical Branch ubrogepant 0 Yes Take by Univ ers (UBRELVY 7-05 mouth as ity of ORAL) 14:36: needed [place] [address] (MIGRAINE) Medical . Branch atogepant 0 Yes 90mg Take 90 mg Un codie (QULIPTA 7-05 by mouth ity of ORAL) 14:36: daily. [place] [address] Medical Branch ubrogepant Yes Take by [facility] ers (UBRELVY 7-05 mouth as ity of ORAL) 14:36: needed [place] [address] (MIGRAINE) Medical . Branch atogepant Yes 90mg Take 90 mg Un codie (QULIPTA 7-05 by mouth ity of ORAL) 14:36: daily. [place] [address] Medical Branch ubrogepant Yes Take by [facility] ers (UBRELVY 7-05 mouth as ity of ORAL) 14:36: needed [place] [address] (MIGRAINE) Medical . Branch atogepant Yes 90mg Take 90 mg Un codie (QULIPTA 7-05 by mouth ity of ORAL) 14:36: daily. [place] [address] Medical Branch ubrogepant Yes Take by [facility] ers (UBRELVY 7-05 mouth as ity of ORAL) 14:36: needed [place] [address] (MIGRAINE) Medical . Branch atogepant Yes 90mg Take 90 mg Un codie (QULIPTA 7-05 by mouth ity of ORAL) 14:36: daily. [address] valACYclovi 2021- No valacyclov Univers r 1 gram 02-09 ir 1 gram ity o f tablet 14:36: 00:00 tablet [place] 41 :00 [facility] Branch traMADoL 50 2021- No tramadol U nivers mg tablet 02-09 50 mg ity of 14:36: 00:00 tablet [place] 34 :00 Medical Branch predniSONE 2021- No prednisone Univers 10 mg 02-09 10 mg ity of tablet 14:36: 00:00 tablet [place] 25 :00 Medical Branch mupirocin 2 2021- No mupirocin Univers % ointment 02-09 2 % ity of 14:36: 00:00 topical [place] 03 :00 ointment Medical Branch nebivoloL 2021- No Bystolic Uni vers (BYSTOLIC) 02-09 2.5 mg ity of 2.5 mg 14:35: 00:00 tablet [place] tablet 57 :00 Medical Branch ergocalcife 2021- No ergocalcif Univers rol, 02-09 marc ity of vitamin d2, 14:35: 00:00 (vitamin [place] 1,250 mcg 48 :00 D2) 1,250 Medic al (50,000 mcg Branch unit) (50,000 capsule unit) capsule azelastine 2021- No azelastine Univers 137 mcg 02-09 137 mcg ity of (0.1 %) 14:35: 00:00 (0.1 %) [place] nasal spray 41 :00 nasal Medical spray Branch aerosol amLODIPine 2021- No amlodipine Univers 2.5 mg 02-09 2.5 mg ity of tablet 14:35: 00:00 tablet [place] 32 :00 Medical Branch acetaminoph 2021- No acetaminop Univers en-codeine 02-09 hen 300 ity o f 300-30 mg 14:35: 00:00 mg-codeine [place] tablet 22 :00 30 mg Medical tablet Branch Take 1 tablet every 6 hours by oral route as needed for 4 days. As needed for pain after spine surgery nystatin 0 Yes [id number] Apply to U nivers 100,000 6-30 area(s) 3 ity of unit/gram 00:00: (three) [place] powder 00 times Medical daily. Branch nystatin 2021-0 Yes [id number] Apply to U nivers 100,000 6-30 area(s) 3 ity of unit/gram 00:00: (three) [place] powder 00 times Medical daily. Branch nystatin 2021-0 Yes [id number] Apply to U nivers 100,000 6-30 area(s) 3 ity of unit/gram 00:00: (three) [place] powder 00 times Medical daily. Branch nystatin 2021-0 Yes [id number] Apply to U nivers 100,000 6-30 area(s) 3 ity of unit/gram 00:00: (three) [place] powder 00 times Medical daily. Branch nystatin 2021-0 Yes [id number] Apply to U nivers 100,000 6-30 area(s) 3 ity of unit/gram 00:00: (three) [place] powder 00 times Medical daily. Branch nystatin 2021-0 Yes [id number] Apply to U nivers 100,000 6-30 area(s) 3 ity of unit/gram 00:00: (three) [place] powder 00 times Medical daily. Branch nystatin 2021-0 Yes [id number] Apply to U nivers 100,000 6-30 area(s) 3 ity of unit/gram 00:00: (three) [place] powder 00 times Medical daily. Branch Sodium 2021-0 2021- No [id number] 20mg [facility] Hyaluronate 01-27 Health solution 15:48: 15:48 prefilled 29 :00 syringe 20 mg Sodium 2021-0 2021- No [id number] 20mg 20 mg, U T Hyaluronate 01-27 [facility] solution 15:48: 15:48 cular, prefilled 29 :00 Once PRN syringe 20 Procedure, mg Starting on Tue01/27/22 at 1048, For 1 dose memantine 5 2021-0 Yes 5mg Take 5 mg U nivers mg tablet 6-20 by mouth ity of 00:00: daily. [address] memantine 5 2021-0 Yes 5mg Take 5 mg U nivers mg tablet 6-20 by mouth ity of 00:00: daily. [address] memantine 5 2021-0 Yes 5mg Take 5 mg U nivers mg tablet 6-20 by mouth ity of 00:00: daily. [address] memantine 5 2021-0 Yes 5mg Take 5 mg U nivers mg tablet 6-20 by mouth ity of 00:00: daily. [address] memantine 5 2021-0 Yes 5mg Take 5 mg U nivers mg tablet 6-20 by mouth ity of 00:00: daily. [address] memantine 5 2021-0 Yes 5mg Take 5 mg U nivers mg tablet 6-20 by mouth ity of 00:00: daily. [address] memantine 5 2021-0 Yes 5mg Take 5 mg U nivers mg tablet 6-20 by mouth ity of 00:00: daily. [address] Sodium 2021-0 2021- No [id number] 20mg [facility] Hyaluronate 01-20 Health solution 16:14: 16:14 prefilled 44 :00 syringe 20 mg Sodium 2021-0 2021- No [id number] 20mg 20 mg, U T Hyaluronate 01-20 [facility] solution 16:14: 16:14 cular, prefilled 44 :00 Once PRN syringe 20 Procedure, mg Starting on Tue01/20/22 at 1114, For 1 dose OMEPRAZOLE Yes [id number] TAKE ONE [facility] 40 mg 6-14 CAPSULE BY ity of capsule 00:00: MOUTH [place] 00 DAILY Medical Branch OMEPRAZOLE 2021- No [id number] TAKE ONE [facility] 40 mg 6-14 - CAPSULE BY ity of capsule 00:00: 00:00 MOUTH [place] 00 :00 DAILY Medical Branch Sodium 2021-2021- No [id number] 20mg [facility] Hyaluronate 01-12 9100 Health solution 15:33: 15:33 prefilled 44 :00 syringe 20 mg Sodium 2021- No [id number] 20mg 20 mg, U T Hyaluronate 01-12 91 [facility] solution 15:33: 15:33 cular, prefilled 44 :00 Once PRN syringe 20 Procedure, mg Starting on Tue01/12/22 at 1033, For 1 dose Fluvoxamine Yes 100mg Take 100 U nivers (LUVOX CR) 5-13 mg by ity of 100 mg Cp24 15:20: [place] [address] Branch buPROPion Yes 150mg Take 150 Uni vers XL 5-13 mg by ity of (WELLBUTRIN 15:20: mouth [place] XL) 150 mg 16 daily. Medical 24 hr Branch tablet zolpidem Yes 10mg Take 10 mg Uni vers (AMBIEN) 10 5-13 by mouth ity of mg tablet 15:20: at bedtime [place] 16 as needed Medical for Branch Insomnia. propranoloL Yes propranolo [facility] 10 mg 5-13 l 10 mg ity of tablet 15:20: tablet [address] Branch baclofen 10 Yes baclofen Un codie mg tablet 5-13 10 mg ity of 15:20: tablet [address] Branch topiramate Yes 50mg Take 50 mg U nivers 25 mg 5-13 by mouth. ity of tablet 15:20: [address] methocarbam Yes methocarba Univers oL 750 mg 5-13 mol 750 mg ity of tablet 15:20: tablet [address] Fluvoxamine Yes 100mg Take 100 U nivers (LUVOX CR) 5-13 mg by ity of 100 mg Cp24 15:20: mouth. [address] buPROPion Yes 150mg Take 150 Uni vers XL 5-13 mg by ity of (WELLBUTRIN 15:20: mouth [place] XL) 150 mg 16 daily. Medical 24 hr Branch tablet zolpidem Yes 10mg Take 10 mg Uni vers (AMBIEN) 10 5-13 by mouth ity of mg tablet 15:20: at bedtime [place] 16 as needed Medical for Branch Insomnia. propranoloL Yes propranolo [facility] 10 mg 5-13 l 10 mg ity of tablet 15:20: tablet [address] baclofen 10 Yes baclofen Un codie mg tablet 5-13 10 mg ity of 15:20: tablet [address] topiramate Yes 50mg Take 50 mg U nivers 25 mg 5-13 by mouth. ity of tablet 15:20: [address] methocarbam Yes methocarba [facility] oL 750 mg 5-13 mol 750 mg ity of tablet 15:20: tablet [address] Fluvoxamine Yes 100mg Take 100 U nivers (LUVOX CR) 5-13 mg by ity of 100 mg Cp24 15:20: mouth. [address] buPROPion Yes 150mg Take 150 Uni vers XL 5-13 mg by ity of (WELLBUTRIN 15:20: mouth [place] XL) 150 mg 16 daily. Medical 24 hr Branch tablet zolpidem Yes 10mg Take 10 mg Uni vers (AMBIEN) 10 5-13 by mouth ity of mg tablet 15:20: at [place]time [place] 16 as needed Medical for Branch Insomnia. propranoloL Yes propranolo [facility] 10 mg 5-13 l 10 mg ity of tablet 15:20: tablet [address] baclofen 10 Yes baclofen Un codie mg tablet 5-13 10 mg ity of 15:20: tablet [address] topiramate Yes 50mg Take 50 mg U nivers 25 mg 5-13 by mouth. ity of tablet 15:20: [address] methocarbam Yes methocarba [facility] oL 750 mg 5-13 mol 750 mg ity of tablet 15:20: tablet [address] Fluvoxamine Yes 100mg Take 100 U nivers (LUVOX CR) 5-13 mg by ity of 100 mg Cp24 15:20: mouth. [address] buPROPion Yes 150mg Take 150 Uni vers XL 5-13 mg by ity of (WELLBUTRIN 15:20: mouth [place] XL) 150 mg 16 daily. Medical 24 hr Branch tablet zolpidem Yes 10mg Take 10 mg Uni vers (AMBIEN) 10 5-13 by mouth ity of mg tablet 15:20: at bedtime [place] 16 as needed Medical for Branch Insomnia. propranoloL Yes propranolo [facility] 10 mg 5-13 l 10 mg ity of tablet 15:20: tablet [address] baclofen 10 Yes baclofen Un codie mg tablet 5-13 10 mg ity of 15:20: tablet [address] topiramate Yes 50mg Take 50 mg U nivers 25 mg 5-13 by mouth. ity of tablet 15:20: [address] methocarbam Yes methocarba [facility] oL 750 mg 5-13 mol 750 mg ity of tablet 15:20: tablet [address] Fluvoxamine Yes 100mg Take 100 U nivers (LUVOX CR) 5-13 mg by ity of 100 mg Cp24 15:20: mouth. [address] buPROPion Yes 150mg Take 150 Uni vers XL 5-13 mg by ity of (WELLBUTRIN 15:20: mouth [place] XL) 150 mg 16 daily. Medical 24 hr Branch tablet zolpidem Yes 10mg Take 10 mg Uni vers (AMBIEN) 10 5-13 by mouth ity of mg tablet 15:20: at [place]time [place] 16 as needed Medical for Branch Insomnia. propranoloL Yes propranolo [facility] 10 mg 5-13 l 10 mg ity of tablet 15:20: tablet [address] baclofen 10 Yes baclofen Un codie mg tablet 5-13 10 mg ity of 15:20: tablet [address] topiramate Yes 50mg Take 50 mg U nivers 25 mg 5-13 by mouth. ity of tablet 15:20: [address] methocarbam Yes methocarba [facility] oL 750 mg 5-13 mol 750 mg ity of tablet 15:20: tablet [address] Fluvoxamine Yes 100mg Take 100 U nivers (LUVOX CR) 5-13 mg by ity of 100 mg Cp24 15:20: mouth. [address] buPROPion Yes 150mg Take 150 Uni vers XL 5-13 mg by ity of (WELLBUTRIN 15:20: mouth [place] XL) 150 mg 16 daily. Medical 24 hr Branch tablet zolpidem Yes 10mg Take 10 mg Uni vers (AMBIEN) 10 5-13 by mouth ity of mg tablet 15:20: at [place]time [place] 16 as needed Medical for Branch Insomnia. propranoloL Yes propranolo [facility] 10 mg 5-13 l 10 mg ity of tablet 15:20: tablet [address] baclofen 10 Yes baclofen Un codie mg tablet 5-13 10 mg ity of 15:20: tablet [address] topiramate Yes 50mg Take 50 mg U nivers 25 mg 5-13 by mouth. ity of tablet 15:20: [address] methocarbam Yes methocarba [facility] oL 750 mg 5-13 mol 750 mg ity of tablet 15:20: tablet [address] Fluvoxamine Yes 100mg Take 100 U nivers (LUVOX CR) 5-13 mg by ity of 100 mg Cp24 15:20: mouth. [address] buPROPion Yes 150mg Take 150 Uni vers XL 5-13 mg by ity of (WELLBUTRIN 15:20: mouth [place] XL) 150 mg 16 daily. Medical 24 hr Branch tablet zolpidem Yes 10mg Take 10 mg Uni vers (AMBIEN) 10 5-13 by mouth ity of mg tablet 15:20: at [place]time [place] 16 as needed Medical for Branch Insomnia. propranoloL Yes propranolo [facility] 10 mg 5-13 l 10 mg ity of tablet 15:20: tablet [address] baclofen 10 Yes baclofen Un codie mg tablet 13 10 mg ity of 15:20: tablet [address] topiramate Yes 50mg Take 50 mg U nivers 25 mg 5-13 by mouth. ity of tablet 15:20: [address] methocarbam Yes methocarba [facility] oL 750 mg 5-13 mol 750 mg ity of tablet 15:20: tablet [address] magnesium Yes 400 mg = 1 Me moria oxide 4-22 tab, PO, l 17:02: BID, # 20 [place] 00 tab, 0 Refill(s) multivitami 0 Yes Daily, 0 Me moria n 4-22 Refill(s) l 17:02: magnesium 0 Yes 400 mg = 1 Me moria oxide 4-22 tab, PO, l 17:02: BID, # 20 [place] 00 tab, 0 Refill(s) multivitami 0 Yes Daily, 0 Me moria n 4-22 Refill(s) l 17:02: biotin 0 Yes PO, Daily, Mem[facility] ia 4-22 0 l 17:01: Refill(s) Home Yes Refill(s) [facility] Medication 4-22 0 l 17:01: biotin 2021-0 Yes PO, Daily, Mem[facility] ia 4-22 0 l 17:01: Refill(s) Home Yes Refill(s) [facility] Medication 4-22 0 l 17:01: methocarbam Yes 500 mg = 1 [facility] ol 500 mg 4-22 tab, PO, l oral tablet 17:00: Q6H, PRN He Spasms, # 28 tab, 0 Refill(s) methocarbam Yes 500 mg = 1 Memoria ol 500 mg 4-22 tab, PO, l oral tablet 17:00: Q6H, PRN He rmann 00 Spasms, # 28 tab, 0 Refill(s) PRAVASTATIN Yes TAKE ONE Un codie 20 mg 4-01 TABLET BY ity of tablet 00:00: MOUTH DAILY Medical Branch PRAVASTATIN Yes TAKE ONE Un codie 20 mg 4-01 TABLET BY ity of tablet 00:00: MOUTH [place] 00 DAILY Medical Branch PRAVASTATIN Yes TAKE ONE Un codie 20 mg 4-01 TABLET BY ity of tablet 00:00: MOUTH 00 DAILY Medical Branch PRAVASTATIN 2021- No TAKE ONE U nivers 20 mg 4-01 10-11 TABLET BY ity of tablet 00:00: 00:00 MOUTH [place] 00 :00 DAILY Medical Branch bupivacaine 2021- No [id number] 1mL [facility] ([facility]) 09-30 Health 0.25 % 22:31: 22:31 injection 1 29 :00 mL triamcinolo 2021- No [id number] 80mg UT ne 09-30 Health acetonide 22:31: 22:31 (Kenalog-40 29 :00 ) injection 80 mg triamcinolo 2021- No [id number] 80mg 80 mg, UT ne 09-30 [facility] acetonide 22:31: 22:31 cular, (Kenalog-40 29 :00 Once PRN ) injection Procedure, 80 mg Starting on Tue09/30/21 at 1631, For 1 dose bupivacaine 2021- No [id number] 1mL 1 mL, U T (Marcaine) 09-30 Injection, He alth 0.25 % 22:31: 22:31 Once PRN injection 1 29 :00 Procedure, mL Starting on Tue09/30/21 at 1631, For 1 dose triamcinolo 2021- No [id number] 80mg U T ne 09-22 Health acetonide 19:56: 19:56 (Kenalog-40 54 :00 ) injection 80 mg bupivacaine 2021- No [id number] 1mL U T (Marcaine) 09-22 Health 0.25 % 19:56: 19:56 injection 1 54 :00 mL bupivacaine 2021- No [id number] 1mL 1 mL, UT (Marcaine) 09-22 Injection, He alth 0.25 % 19:56: 19:56 Once PRN injection 1 54 :00 Procedure, mL Starting on Tue09/22/21 at 1356, For 1 dose triamcinolo 2021- No [id number] 80mg 80 mg, UT ne 09-22 [facility] acetonide 19:56: 19:56 cular, (Kenalog-40 54 :00 Once PRN ) injection Procedure, 80 mg Starting on Tue09/22/21 at 1356, For 1 dose buPROPion 2020-08 Yes UT XL 2-27 Health (Wellbutrin 00:00: XL) 150 MG 00 24 hr tablet busPIRone 2020-08 Yes UT (Buspar) 15 2-27 Health MG tablet 00:00: 00 fLuvoxaMINE 2020-08 Yes UT (Luvox) 100 2-27 Health MG tablet 00:00: 00 omeprazole 2020-08 Yes UT (PriLOSEC) 2-[address] 00:00: capsule 00 propranolol 2020-08 Yes UT (Inderal) 2-27 Health 10 MG 00:00: tablet 00 buPROPion 2020-08 Yes UT XL 2-27 Health (Wellbutrin 00:00: XL) 150 MG 00 24 hr tablet busPIRone 2020-08 Yes UT (Buspar) 15 2-27 Health MG tablet 00:00: 00 fLuvoxaMINE 2020-08 Yes UT (Luvox) 100 2-27 Health MG tablet 00:00: 00 omeprazole 2020-08 Yes UT (PriLOSEC) 2-[address] 00:00: capsule 00 propranolol 2020-08 Yes UT (Inderal) 2-27 Health 10 MG 00:00: tablet 00 buPROPion 2020-08 Yes UT XL 2-27 Health (Wellbutrin 00:00: XL) 150 MG 00 24 hr tablet busPIRone 2020-08 Yes UT (Buspar) 15 2-27 Health MG tablet 00:00: 00 fLuvoxaMINE 2020-08 Yes UT (Luvox) 100 2-27 Health MG tablet 00:00: 00 omeprazole 2020-08 Yes UT (PriLOSEC) 2-[address] 00:00: capsule 00 propranolol 2020-08 Yes UT (Inderal) 2-27 Health 10 MG 00:00: tablet 00 buPROPion 2020-08 Yes UT XL 2-27 Health (Wellbutrin 00:00: XL) 150 MG 00 24 hr tablet busPIRone 2020-08 Yes UT (Buspar) 15 2-27 Health MG tablet 00:00: 00 fLuvoxaMINE 2020-08 Yes UT (Luvox) 100 2-27 Health MG tablet 00:00: 00 omeprazole 2020-08 Yes UT (PriLOSEC) 2-[address] 00:00: capsule 00 propranolol 2020-08 Yes UT (Inderal) 2-27 Health 10 MG 00:00: tablet 00 buPROPion 2020-08 Yes UT XL 2-27 Health (Wellbutrin 00:00: XL) 150 MG 00 24 hr tablet buPROPion 2020-08 Yes UT XL 2-27 Health (Wellbutrin 00:00: XL) 150 MG 00 24 hr tablet busPIRone 2020-08 Yes UT (Buspar) 15 2-27 Health MG tablet 00:00: 00 fLuvoxaMINE 2020-08 Yes UT (Luvox) 100 2-27 Health MG tablet 00:00: 00 omeprazole 2020-08 Yes UT (PriLOSEC) 2-[address] 00:00: capsule 00 propranolol 2020-08 Yes UT (Inderal) 2-27 Health 10 MG 00:00: tablet 00 busPIRone 2020-08 Yes UT (Buspar) 15 2-27 Health MG tablet 00:00: 00 buPROPion 2020-08 Yes UT XL 2-27 Health (Wellbutrin 00:00: XL) 150 MG 00 24 hr tablet busPIRone 2020-08 Yes UT (Buspar) 15 2-27 Health MG tablet 00:00: 00 fLuvoxaMINE 2020-08 Yes UT (Luvox) 100 2-27 Health MG tablet 00:00: 00 omeprazole 2020-08 Yes UT (PriLOSEC) 2-[address] 00:00: capsule 00 fLuvoxaMINE 2020-08 Yes UT (Luvox) 100 2-27 Health MG tablet 00:00: 00 propranolol 2020-08 Yes UT (Inderal) 2-27 Health 10 MG 00:00: tablet 00 buPROPion 2020-08 Yes UT XL 2-27 Health (Wellbutrin 00:00: XL) 150 MG 00 24 hr tablet busPIRone 2020-08 Yes UT (Buspar) 15 2-27 Health MG tablet 00:00: 00 fLuvoxaMINE 2020-08 Yes UT (Luvox) 100 2-27 Health MG tablet 00:00: 00 omeprazole 2020-08 Yes UT (PriLOSEC) 2-[address] 00:00: capsule 00 omeprazole 2020-08 Yes UT (PriLOSEC) 2-[address] 00:00: capsule 00 propranolol 2020-08 Yes UT (Inderal) 2-27 Health 10 MG 00:00: tablet 00 buPROPion 2020-08 Yes UT XL 2-27 Health (Wellbutrin 00:00: XL) 150 MG 00 24 hr tablet busPIRone 2020-08 Yes UT (Buspar) 15 2-27 Health MG tablet 00:00: 00 fLuvoxaMINE 2020-08 Yes UT (Luvox) 100 2-27 Health MG tablet 00:00: 00 omeprazole 2020-08 Yes UT (PriLOSEC) 2-[address] 00:00: capsule 00 propranolol 2020-08 Yes UT (Inderal) 2-27 Health 10 MG 00:00: tablet 00 propranolol 2020-08 Yes UT (Inderal) 2-27 Health 10 MG 00:00: tablet 00 buPROPion 2020-08 Yes UT XL 2-27 Health (Wellbutrin 00:00: XL) 150 MG 00 24 hr tablet busPIRone 2020-08 Yes UT (Buspar) 15 2-27 Health MG tablet 00:00: 00 fLuvoxaMINE 2020-08 Yes UT (Luvox) 100 2-27 Health MG tablet 00:00: 00 omeprazole 2020-08 Yes UT (PriLOSEC) 2-[address] 00:00: capsule 00 propranolol 2020-08 Yes UT (Inderal) 2-27 Health 10 MG 00:00: tablet 00 buPROPion 2020-08 Yes UT XL 2-27 Health (Wellbutrin 00:00: XL) 150 MG 00 24 hr tablet busPIRone 2020-08 Yes UT (Buspar) 15 2-27 Health MG tablet 00:00: 00 fLuvoxaMINE 2020-08 Yes UT (Luvox) 100 2-27 Health MG tablet 00:00: 00 omeprazole 2020-08 Yes UT (PriLOSEC) 2-[address] 00:00: capsule 00 propranolol 2020-08 Yes UT (Inderal) 2-27 Health 10 MG 00:00: tablet 00 buPROPion 2020-08 Yes UT XL 2-27 Health (Wellbutrin 00:00: XL) 150 MG 00 24 hr tablet busPIRone 2020-08 Yes UT (Buspar) 15 2-27 Health MG tablet 00:00: 00 fLuvoxaMINE 2020-08 Yes UT (Luvox) 100 2-27 Health MG tablet 00:00: 00 omeprazole 2020-08 Yes UT (PriLOSEC) 2-[address] 00:00: capsule 00 propranolol 2020-08 Yes UT (Inderal) 2-27 Health 10 MG 00:00: tablet 00 ziprasidone 2020-08 Yes UT (Geodon) 40 2-25 Health MG capsule 00:00: 00 pravastatin 2020-08 Yes UT (Pravachol) 2-25 Health 20 MG 00:00: tablet 00 ziprasidone 2020-08 Yes UT (Geodon) 40 2-25 Health MG capsule 00:00: 00 pravastatin 2020-08 Yes UT (Pravachol) 2-25 Health 20 MG 00:00: tablet 00 ziprasidone 2020-08 Yes UT (Geodon) 40 2-25 Health MG capsule 00:00: 00 pravastatin 2020-08 Yes UT (Pravachol) 2-25 Health 20 MG 00:00: tablet 00 ziprasidone 2020-08 Yes UT (Geodon) 40 2-25 Health MG capsule 00:00: 00 pravastatin 2020-08 Yes UT (Pravachol) 2-25 Health 20 MG 00:00: tablet 00 ziprasidone 2020-08 Yes UT (Geodon) 40 2-25 Health MG capsule 00:00: 00 pravastatin 2020-08 Yes UT (Pravachol) 2-25 Health 20 MG 00:00: tablet 00 ziprasidone 2020-08 Yes UT (Geodon) 40 2-25 Health MG capsule 00:00: 00 pravastatin 2020-08 Yes UT (Pravachol) 2-25 Health 20 MG 00:00: tablet 00 ziprasidone 2020-08 Yes UT (Geodon) 40 2-25 Health MG capsule 00:00: 00 pravastatin 2020-08 Yes UT (Pravachol) 2-25 Health 20 MG 00:00: tablet 00 ziprasidone 2020-08 Yes UT (Geodon) 40 2-25 Health MG capsule 00:00: 00 pravastatin 2020-08 Yes UT (Pravachol) 2-25 Health 20 MG 00:00: tablet 00 pravastatin 2020-08 Yes UT (Pravachol) 2-25 Health 20 MG 00:00: tablet 00 ziprasidone 2020-08 Yes UT (Geodon) 40 2-25 Health MG capsule 00:00: 00 ziprasidone 2020-08 Yes UT (Geodon) 40 2-25 Health MG capsule 00:00: 00 pravastatin 2020-08 Yes UT (Pravachol) 2-25 Health 20 MG 00:00: tablet 00 ziprasidone 2020-08 Yes UT (Geodon) 40 2-25 Health MG capsule 00:00: 00 pravastatin 2020-08 Yes UT (Pravachol) 2-25 Health 20 MG 00:00: tablet 00 ziprasidone 2020-08 Yes UT (Geodon) 40 2-25 Health MG capsule 00:00: 00 pravastatin 2020-08 Yes UT (Pravachol) 2-25 Health 20 MG 00:00: tablet 00 clonazePAM 2020-08 Yes UT (KlonoPIN) 2-20 Health 2 MG tablet 00:00: 00 clonazePAM 2020- Yes UT (KlonoPIN) 2-20 Health 2 MG tablet 00:00: 00 clonazePAM 2020- Yes UT (KlonoPIN) 2-20 Health 2 MG tablet 00:00: 00 clonazePAM 2020- Yes UT (KlonoPIN) 2-20 Health 2 MG tablet 00:00: 00 clonazePAM 2020- Yes UT (KlonoPIN) 2-20 Health 2 MG tablet 00:00: 00 clonazePAM 2020-08 Yes UT (KlonoPIN) 2-20 Health 2 MG tablet 00:00: 00 clonazePAM 2020-08 Yes UT (KlonoPIN) 2-20 Health 2 MG tablet 00:00: 00 clonazePAM 2020-08 Yes UT (KlonoPIN) 2-20 Health 2 MG tablet 00:00: 00 clonazePAM 2020-08 Yes UT (KlonoPIN) 2-20 Health 2 MG tablet 00:00: 00 clonazePAM 2020-08 Yes UT (KlonoPIN) 2-20 Health 2 MG tablet 00:00: 00 clonazePAM 2020-08 Yes UT (KlonoPIN) 2-20 Health 2 MG tablet 00:00: 00 clonazePAM 2020-08 Yes UT (KlonoPIN) 2-20 Health 2 MG tablet 00:00: 00 zolpidem 2020-08 Yes UT (Ambien) 10 2-12 Health MG tablet 00:00: 00 zolpidem 2020-08 Yes UT (Ambien) 10 2-12 Health MG tablet 00:00: 00 zolpidem 2020-08 Yes UT (Ambien) 10 2-12 Health MG tablet 00:00: 00 zolpidem 2020-08 Yes UT (Ambien) 10 2-12 Health MG tablet 00:00: 00 zolpidem 2020-08 Yes UT (Ambien) 10 2-12 Health MG tablet 00:00: 00 zolpidem 2020-08 Yes UT (Ambien) 10 2-12 Health MG tablet 00:00: 00 zolpidem 2020-08 Yes UT (Ambien) 10 2-12 Health MG tablet 00:00: 00 zolpidem 2020-08 Yes UT (Ambien) 10 2-12 Health MG tablet 00:00: 00 zolpidem 2020-08 Yes UT (Ambien) 10 2-12 Health MG tablet 00:00: 00 zolpidem 2020-08 Yes UT (Ambien) 10 2-12 Health MG tablet 00:00: 00 zolpidem 2020-08 Yes UT (Ambien) 10 2-12 Health MG tablet 00:00: 00 zolpidem 2020-08 Yes UT (Ambien) 10 2-12 Health MG tablet 00:00: 00 clonazePAM 2021-0 Yes Univers 2 mg tablet 9-30 ity of 00:00: [place] [facility] clonazePAM 2020-0 Yes Univers 2 mg tablet 30 ity of 00:00: [place] [facility] clonazePAM 2020-0 Yes Univers 2 mg tablet 30 ity of 00:00: [place] [facility] clonazePAM 2020-0 Yes Univers 2 mg tablet 30 ity of 00:00: [place] [facility] clonazePAM 2020-0 Yes Univers 2 mg tablet 30 ity of 00:00: [place] [facility] clonazePAM 2020-0 Yes Univers 2 mg tablet 30 ity of 00:00: [place] [facility] clonazePAM 2020-0 Yes Univers 2 mg tablet 30 ity of 00:00: [place] [facility] lamoTRIgine 2020-0 Yes UT (LaMICtal) 9-28 Health 200 MG 00:00: tablet 00 lamoTRIgine 2020-0 Yes UT (LaMICtal) 9-28 Health 200 MG 00:00: tablet 00 lamoTRIgine 2020-0 Yes UT (LaMICtal) 9-28 Health 200 MG 00:00: tablet 00 lamoTRIgine 2020-0 Yes UT (LaMICtal) 9-28 Health 200 MG 00:00: tablet 00 lamoTRIgine 2020-0 Yes UT (LaMICtal) 9-28 Health 200 MG 00:00: tablet 00 lamoTRIgine 2020-0 Yes UT (LaMICtal) 9-28 Health 200 MG 00:00: tablet 00 lamoTRIgine 2020-0 Yes UT (LaMICtal) 9-28 Health 200 MG 00:00: tablet 00 lamoTRIgine 2020-0 Yes UT (LaMICtal) 9-28 Health 200 MG 00:00: tablet 00 lamoTRIgine 2020-0 Yes UT (LaMICtal) 9-28 Health 200 MG 00:00: tablet 00 lamoTRIgine 2020-0 Yes UT (LaMICtal) 9-28 Health 200 MG 00:00: tablet 00 lamoTRIgine 2020-0 Yes UT (LaMICtal) 9-28 Health 200 MG 00:00: tablet 00 lamoTRIgine 2020-0 Yes UT (LaMICtal) 9-28 Health 200 MG 00:00: tablet 00 ziprasidone 2020-0 Yes Univer s 40 mg 9-27 ity of capsule 00:00: [place] 00 [facility] Branch busPIRone 2020-0 Yes Univers 15 mg 9-27 ity of tablet 00:00: [place] 00 Medical Branch ziprasidone 2020-0 Yes Univer s 40 mg 9-27 ity of capsule 00:00: [place] [facility] busPIRone 2020-0 Yes [facility] 15 mg 9-27 ity of tablet 00:00: [place] [facility] ziprasidone 2020-0 Yes Univer s 40 mg 9-27 ity of capsule 00:00: [place] 00 Medical Branch busPIRone 2020-0 Yes Univers 15 mg 9-27 ity of tablet 00:00: [place] [address] Medical Branch ziprasidone 2020-0 Yes Univer s 40 mg 9-27 ity of capsule 00:00: [place] [address] Medical Branch busPIRone 2020-0 Yes Univers 15 mg 9-27 ity of tablet 00:00: [place] [address] Medical Branch ziprasidone 2020-0 Yes Univer s 40 mg 9-27 ity of capsule 00:00: [place] [address] Medical Branch busPIRone 2020-0 Yes Univers 15 mg 9-27 ity of tablet 00:00: [place] [address] Medical Branch ziprasidone 2020-0 Yes Univer s 40 mg 9-27 ity of capsule 00:00: [place] [address] Medical Branch busPIRone 2020-0 Yes Univers 15 mg 9-27 ity of tablet 00:00: [place] [address] Medical Branch ziprasidone 2020-0 Yes Univer s 40 mg 9-27 ity of capsule 00:00: [place] [address] Medical Branch busPIRone 2020-0 Yes Univers 15 mg 9-27 ity of tablet 00:00: [place] 00 Medical Branch topiramate 1-0 Yes UT 50 MG 9-27 Health tablet 00:00: 00 topiramate 1-0 Yes UT 50 MG 9-27 Health tablet 00:00: 00 topiramate 1-0 Yes UT 50 MG 9-27 Health tablet 00:00: 00 topiramate 1-0 Yes UT 50 MG 9-27 Health tablet 00:00: 00 topiramate 1-0 Yes UT 50 MG 9-27 Health tablet 00:00: 00 topiramate 2020-0 Yes UT 50 MG 9-27 Health tablet 00:00: 00 topiramate 2021-0 Yes UT 50 MG 9-27 Health tablet 00:00: 00 topiramate 1-0 Yes UT 50 MG 9-27 Health tablet 00:00: 00 topiramate 2021-0 Yes UT 50 MG 9-27 Health tablet 00:00: 00 topiramate 2021-0 Yes UT 50 MG 9-27 Health tablet 00:00: 00 topiramate 1-0 Yes UT 50 MG 9-27 Health tablet 00:00: 00 topiramate 2020-0 Yes UT 50 MG 9-27 Health tablet 00:00: 00 lamoTRIgine 1-0 Yes 200mg Take 1 Uni vers 200 mg 9-02 tablet by ity of tablet 00:00: [address] ([facility]) Medical times Branch daily. lamoTRIgine 1-0 Yes 200mg Take 1 Uni vers 200 mg 9-02 tablet by ity of tablet 00:00: [address] ([facility]) Medical times Branch daily. lamoTRIgine 2020-0 Yes 200mg Take 1 Uni vers 200 mg 9-02 tablet by ity of tablet 00:00: [address] ([facility]) Medical times Branch daily. lamoTRIgine 2020-0 Yes 200mg Take 1 Uni vers 200 mg 9-02 tablet by ity of tablet 00:00: [address] ([facility]) Medical times Branch daily. lamoTRIgine 1-0 Yes 200mg Take 1 Uni vers 200 mg 9-02 tablet by ity of tablet 00:00: [address] ([facility]) Medical times Branch daily. lamoTRIgine 2020-0 Yes 200mg Take 1 Uni vers 200 mg 9-02 tablet by ity of tablet 00:00: [address] ([facility]) Medical times Branch daily. lamoTRIgine 2021-0 Yes 200mg Take 1 Uni vers 200 mg 9-02 tablet by ity of tablet 00:00: [address] ([facility]) Medical times Branch daily. OMEPRAZOLE 2020-0 2021- No TAKE 1 Univ ers 20 mg 8-13 07-05 CAPSULE ity of capsule 00:00: [place]:00 [place] [facility] busPIRone 2020-0 Yes 15mg Q.5D Take 15 mg [facility] (BUSPAR) 10 7-[address] MG tablet 10:58: (two) Hosp[facility] 08 times a l day as needed. fluvoxaMINE 2021-0 Yes 100mg Q.5D Take 100 M ethodi (LUVOX) 100 7-[address] MG tablet 10:58: mouth 2 Hospi ta 08 (two) l times a day. pravastatin 2021-0 Yes 20mg QD Take 20 mg [facility] (PRAVACHOL) 7-[address] 20 MG 10:58: nightly. Hospita tablet 08 l omeprazole 2021-0 Yes 40mg QD Take 40 mg [facility] (PriLOSEC) 7-[address] 40 MG 10:58: nightly. [facility] capsule 08 l topiramate 2021-0 Yes 50mg Q.5D Take 50 mg [facility] (TOPAMAX) 7-[address] 25 MG 10:58: (two) [facility]ospita tablet 08 times a l day. baclofen 1-0 Yes 10mg Take 10 mg [facility] (LIORESAL) 7-[address] 10 MG 10:58: as needed [facility]osp[facility] tablet 08 for muscle l spasms. propranoloL 1-0 Yes 10mg QD Take 10 mg [facility] (INDERAL) 7-[address] 10 MG 10:58: daily. [facility]ospita tablet 08 l busPIRone 2021-0 Yes 15mg Q.5D Take 15 mg Me thodi (BUSPAR) 10 7-[address] MG tablet 10:58: (two) [facility]ospita 08 times a l day as needed. fluvoxaMINE 2021-0 Yes 100mg Q.5D Take 100 [facility] (LUVOX) 100 7-[address] MG tablet 10:58: mouth 2 Hospi ta 08 (two) l times a day. pravastatin 2021-0 Yes 20mg QD Take 20 mg [facility] (PRAVACHOL) 7-[address] 20 MG 10:58: nightly. [facility]osp[facility] tablet 08 l omeprazole 2021-0 Yes 40mg QD Take 40 mg [facility] (PriLOSEC) 7-[address] 40 MG 10:58: nightly. [facility]osp[facility] capsule 08 l topiramate 2021-0 Yes 50mg Q.5D Take 50 mg [facility] (TOPAMAX) 7-[address] 25 MG 10:58: (two) [facility]ospita tablet 08 times a l day. baclofen 2021-0 Yes 10mg Take 10 mg [facility] (LIORESAL) 7-[address] 10 MG 10:58: as needed [facility]osp[facility] tablet 08 for muscle l spasms. propranoloL 2021-0 Yes 10mg QD Take 10 mg [facility] (INDERAL) 7-[address] 10 MG 10:58: daily. [facility]ospita tablet 08 l ondansetron 2021-0 Yes 4mg Q8H Take 4 mg [facility] (ZOFRAN) 4 7-[address] MG tablet 10:58: every 8 [facility] ta 08 (eight) l hours as needed for nausea or vomiting. ziprasidone 2021-0 Yes 20mg Q.5D Take 20 mg [facility] (GEODON) 20 7-[address] MG capsule 10:58: (two) Hospit a 08 times a l day with meals. zolpidem 2021-0 Yes 10mg QD Take 10 mg [facility] (AMBIEN) 10 7-[address] mg tablet 10:58: nightly as [facility] 08 needed for l sleep. buPROPion 2021-0 Yes 150mg [id number] Take 150 [facility] XL 7-[id number] (WELLBUTRIN 10:58: 3D mouth 3 Hos jun XL) 150 MG 08 (three) l 24 hr times a tablet day. lamoTRIgine 2021-0 Yes 200mg Q.5D Take 200 [facility] (LaMICtal) 7-[address] 200 MG 10:58: mouth 2 Hospita tablet 08 (two) l times a day. ondansetron 2021-0 Yes 4mg Q8H Take 4 mg [facility] (ZOFRAN) 4 7-[address] MG tablet 10:58: every 8 Hospi ta 08 (eight) l hours as needed for nausea or vomiting. ziprasidone 2021-0 Yes 20mg Q.5D Take 20 mg [facility] (GEODON) 20 7-[address] MG capsule 10:58: (two) Hospit a 08 times a l day with meals. zolpidem 2021-0 Yes 10mg QD Take 10 mg [facility] (AMBIEN) 10 7-[address] mg tablet 10:58: nightly as [facility] spita 08 needed for l sleep. buPROPion 0 Yes 150mg Q.[id number] Take 150 [facility] XL 7-[id number] (WELLBUTRIN 10:58: 3D mouth 3 Hos jun XL) 150 MG 08 (three) l 24 hr times a tablet day. lamoTRIgine 0 Yes 200mg Q.5D Take 200 [facility] (LaMICtal) 7-[address] 200 MG 10:58: mouth 2 Hospita tablet 08 (two) l times a day. SUMAtriptan 0 Yes [facility] (Imitrex) 01-08 [facility] 25 MG 00:00: tablet 00 SUMAtriptan 0 Yes [facility] (Imitrex) 01-08 [facility] 25 MG 00:00: tablet 00 SUMAtriptan 0 Yes [facility] (Imitrex) 01-08 [facility] 25 MG 00:00: tablet 00 SUMAtriptan 0 Yes [facility] (Imitrex) 01-08 [facility] 25 MG 00:00: tablet 00 SUMAtriptan 0 Yes [facility] (Imitrex) 01-08 [facility] 25 MG 00:00: tablet 00 SUMAtriptan 0 Yes [facility] (Imitrex) 01-08 [facility] 25 MG 00:00: tablet 00 SUMAtriptan 0 Yes [facility] (Imitrex) 01-08 [facility] 25 MG 00:00: tablet 00 SUMAtriptan 0 Yes [facility] (Imitrex) 01-08 [facility] 25 MG 00:00: tablet 00 SUMAtriptan 0 Yes [facility] (Imitrex) 01-08 [facility] 25 MG 00:00: tablet 00 SUMAtriptan 0 Yes [facility] (Imitrex) 01-08 [facility] 25 MG 00:00: tablet 00 SUMAtriptan 2020-0 Yes [facility] (Imitrex) 01-08 [facility] 25 MG 00:00: tablet 00 SUMAtriptan 0 Yes [facility] (Imitrex) 01-08 [facility] 25 MG 00:00: tablet 00 Oxycodone 0 No 5 mg, 1 [facility] ia Hydrochlori 5-10 tab, l de 5 MG 20:48: Route: PO, Herm vesta Oral Tablet 00 ONCE, Dosing Weight 110.909, kg, Start date: 12/15/20 15:48:00 CDT, Stop date: 12/15/20 15:48:00 CDT Oxycodone 2020-0 No 5 mg, 1 Memor ia Hydrochlori 5-10 tab, l de 5 MG 20:48: Route: PO, Herm vesta Oral Tablet 00 ONCE, Dosing Weight 110.909, kg, Start date: 12/15/20 15:48:00 CDT, Stop date: 12/15/20 15:48:00 CDT midazolam 0 No Route: IV, Me moria (ANES) 5-10 Drug form: l 19:51: SOLN, [place] ONCE, Stop date: 12/15/20 14:51:00 CDT lidocaine 0 No Route: IV, Me moria (ANES) 5-10 Drug form: l 19:51: INJ, ONCE, Stop date: 12/15/20 14:51:00 CDT fentaNYL 2020-0 No Route: IV, Mem oria (ANES) 5-10 Drug form: l 19:51: INJ, ONCE, Stop date: 12/15/20 14:51:00 CDT glycopyrrol 0 No Route: IV, Memoria ate (ANES) 5-10 Drug form: l 19:51: INJ, ONCE, Stop date: 12/15/20 14:51:00 CDT midazolam 2020-0 No Route: IV, Me moria (ANES) 5-10 Drug form: l 19:51: SOLN, [place] 00 ONCE, Stop date: 12/15/20 14:51:00 CDT lidocaine 2020-0 No Route: IV, Me moria (ANES) 5-10 Drug form: l 19:51: INJ, ONCE, Stop date: 12/15/20 14:51:00 CDT fentaNYL 2020-0 No Route: IV, Mem oria (ANES) 5-10 Drug form: l 19:51: INJ, ONCE, Stop date: 12/15/20 14:51:00 CDT glycopyrrol 2020-0 No Route: IV, Memoria ate (ANES) 5-10 Drug form: l 19:51: INJ, ONCE, Stop date: 12/15/20 14:51:00 CDT ondansetron 0 No Route: IV, Memoria (ANES) 5-10 Drug form: l 19:50: INJ, ONCE, Stop date: 12/15/20 14:50:00 CDT ketAMINE 0 No Route: IV, Mem oria (ANES) 5-10 Drug form: l 19:50: INJ, ONCE, Stop date: 12/15/20 14:50:00 CDT ondansetron 0 No Route: IV, Memoria (ANES) 5-10 Drug form: l 19:50: INJ, ONCE, Stop date: 12/15/20 14:50:00 CDT ketAMINE 0 No Route: IV, Mem oria (ANES) 5-10 Drug form: l 19:50: INJ, ONCE, Stop date: 12/15/20 14:50:00 CDT ceFAZolin 0 No Route: IV, Me moria (ANES) 5-10 Drug form: l 19:45: INJ, ONCE, Stop date: 12/15/20 14:45:00 CDT ceFAZolin 0 No Route: IV, Me moria (ANES) 5-10 Drug form: l 19:45: INJ, ONCE, Stop date: 12/15/20 14:45:00 CDT propofol 2020-0 No Route: IV, Mem oria (ANES) 10 5-10 Drug form: l mg 19:05: INJ, Start date: 12/15/20 14:05:00 CDT, Stop date: 12/15/20 15:05:00 CDT propofol 0 No Route: IV, Mem oria (ANES) 10 5-10 Drug form: l mg 19:05: INJ, Start date: 12/15/20 14:05:00 CDT, Stop date: 12/15/20 15:05:00 CDT Lactated No Route: IV, Mem oria Ringers 5-10 Total l Injection 19:02: Volume: Nayeli nn IV (ANES) 00 1,000, 1000 mL Start date: 12/15/20 14:02:00 CDT, Stop date: 12/15/20 15:02:00 CDT Lactated No Route: IV, Mem oria Ringers 5-10 Total l Injection 19:02: Volume: Nayeli nn IV (ANES) 00 1,000, 1000 mL Start date: 12/15/20 14:02:00 CDT, Stop date: 12/15/20 15:02:00 CDT Acetaminoph Yes 1 tab, PO, Memoria en 300 MG / 5-10 Q6H, PRN l Codeine 18:56: Pain, not Nayeli nn Phosphate 00 to exceed 30 MG Oral 4000 mg Tablet acetaminop [Tylenol hen per with day As Codeine #3] needed for pain after surgery, X 3 day, # 12 tab, 0 Refill(s), Pharmacy: [facility], 172.72, cm, 12/12/20 11:58:00 CDT, Height, 110.909, kg, 12/12/20 11:58:00 CDT, Weight Acetaminoph Yes 1 tab, PO, Memoria en 300 MG / 5-10 Q6H, PRN l Codeine 18:56: Pain, not Nayeli nn Phosphate 00 to exceed 30 MG Oral 4000 mg Tablet acetaminop [Tylenol hen per with day As Codeine #3] needed for pain after surgery, X 3 day, # 12 tab, 0 Refill(s), Pharmacy: [facility], 172.72, cm, 12/12/20 11:58:00 CDT, Height, 110.909, kg, 12/12/20 11:58:00 CDT, Weight Morphine No Notes: Memoria 5-10 (Same l 18:40: as:MORPhin e Sulfate) Flumazenil No Notes: Memor ia 5-10 (Same as: l 18:40: Romazicon) Naloxone No Notes: Memoria 5-10 Same as l 18:40: Narcan Ondansetron No Notes: Gelacio steffany 5-10 (Same as: l 18:40: Zofran) MEDICATION WASTE Product Size: 4 mg Product Wasted: ___ mg Morphine No Notes: Memoria 5-10 (Same l 18:40: as:MORPhin e Sulfate) Flumazenil No Notes: Memor ia 5-10 (Same as: l 18:40: Romazicon) Naloxone No Notes: Memoria 5-10 Same as l 18:40: Narcan Ondansetron No Notes: Gelacio steffany 5-10 (Same as: l 18:40: Zofran) MEDICATION WASTE Product Size: 4 mg Product Wasted: ___ mg Cephalexin Yes 500 mg = 1 M emoria 500 MG Oral 5-10 cap, PO, l Capsule 17:23: QID, X 7 Jeremy n [Keflex] 00 day, # 28 cap, 0 Refill(s), Pharmacy: [facility], 172.72, cm, 12/12/20 11:58:00 CDT, Height, 110.909, kg, 12/12/20 11:58:00 CDT, Weight Cephalexin Yes 500 mg = 1 M emoria 500 MG Oral 5-10 cap, PO, l Capsule 17:23: QID, X 7 Jeremy n [Keflex] day, # 28 cap, 0 Refill(s), Pharmacy: [facility], 172.72, cm, 12/12/20 11:58:00 CDT, Height, 110.909, kg, 12/12/20 11:58:00 CDT, Weight ceFAZolin + No Notes: Gelacio steffany sterile 5-10 (Same As: l water 20 mL 11:00: Ancef, Kefzol) MEDICATION WASTE Product Size: 1000 mg Product Wasted: ___ mg Calcium No 1,000 mL, Memor ia Chloride 5-10 Rate: 70 l 0.0014 11:00: ml/hr, [place] MEQ/ML / 00 Infuse Potassium over: 14.3 Chloride hr, Route: 0.004 IV, Total MEQ/ML / Volume: Sodium 1,000, Chloride Start 0.103 date: MEQ/ML / 12/15/20 Sodium 6:00:00 Lactate CDT, Stop 0.028 date: MEQ/ML 12/29/20 Injectable 17:59:00 Solution CDT, 0 ceFAZolin + No Notes: Gelacio steffany sterile 5-10 (Same As: l water 20 mL 11:00: Ancef, Herm vesta 00 Kefzol) MEDICATION WASTE Product Size: 1000 mg Product Wasted: ___ mg Calcium No 1,000 mL, Memor ia Chloride 5-10 Rate: 70 l 0.0014 11:00: ml/hr, MEQ/ML / 00 Infuse Potassium over: 14.3 Chloride hr, Route: 0.004 IV, Total MEQ/ML / Volume: Sodium 1,000, Chloride Start 0.103 date: MEQ/ML / 12/15/20 Sodium 6:00:00 Lactate CDT, Stop 0.028 date: MEQ/ML 12/29/20 Injectable 17:59:00 Solution CDT, 0 midazolam No Route: IV, Me moria (ANES) 2 Drug form: l 18:23: SOLN, [place] ONCE, Stop date: 09/15/20 12:23:00 [employer] lidocaine No Route: IV, Me moria (ANES) 2- Drug form: l 18:23: INJ, ONCE, [place] 00 Stop date: 09/15/20 12:23:00 [employer] fentaNYL No Route: IV, Mem oria (ANES) 2-08 Drug form: l 18:23: INJ, ONCE, [place] Stop date: 09/15/20 12:23:00 [employer] midazolam 2020-0 No Route: IV, Me moria (ANES) 2-08 Drug form: l 18:23: SOLN, Agust[place] ONCE, Stop date: 09/15/20 12:23:00 [employer] lidocaine 2020-0 No Route: IV, Me moria (ANES) 2- Drug form: l 18:23: INJ, ONCE, [place] Stop date: 09/15/20 12:23:00 [employer] fentaNYL 2021-0 No Route: IV, Mem oria (ANES) 2-08 Drug form: l 18:23: INJ, ONCE, Stop date: 09/15/20 12:23:00 [employer] propofol 2020-0 No Route: IV, Mem oria (ANES) 10 2- Drug form: l mg 17:59: INJ, Start date: 09/15/20 11:59:00 [employer], Stop date: 09/15/20 12:59:00 [employer] propofol 2020-0 No Route: IV, Mem oria (ANES) 10 09-15 Drug form: l mg 17:59: INJ, Start date: 09/15/20 11:59:00 [employer], Stop date: 09/15/20 12:59:00 [employer] Lactated 2020-0 No Route: IV, Mem oria Ringers 2-08 Total l Injection 17:52: Volume: Nayeli nn IV (ANES) 00 1,000, 1000 mL Start date: 09/15/20 11:52:00 [employer], Stop date: 09/15/20 12:52:00 [employer] Lactated 2020-0 No Route: IV, Mem oria Ringers 2-08 Total l Injection 17:52: Volume: Nayeli nn IV (ANES) 00 1,000, 1000 mL Start date: 09/15/20 11:52:00 [employer], Stop date: 09/15/20 12:52:00 [employer] Cephalexin 2020-0 Yes 500 mg = 1 M emoria 500 MG Oral 2-08 cap, PO, l Capsule 16:33: QID, X 7 Jeremy n [Keflex] day, # 28 cap, 0 Refill(s), Pharmacy: [facility], 172.72, cm, 09/12/20 13:40:00 [employer], Height, 111.364, kg, 09/11/20 12:59:00 [employer], Weight Cephalexin 2020-0 Yes 500 mg = 1 M emoria 500 MG Oral 2-08 cap, PO, l Capsule 16:33: QID, X 7 Jeremy n [Keflex] 00 day, # 28 cap, 0 Refill(s), Pharmacy: [facility], 172.72, cm, 09/12/20 13:40:00 [employer], Height, 111.364, kg, 09/11/20 12:59:00 [employer], Weight Hydralazine No Notes: Gelacio steffany 2-08 (Same as: l 16:29: Apresoline ) Push over 5 minutes Labetalol No Notes: Memori a 2-08 (Same as: l 16:29: Normodyne, Agustín 00 Trandate) Push over 2 minutes Give bolus over 2-3 minutes. Morphine No Notes: Memoria 2-08 (Same l 16:29: as:MORPhin e Sulfate) Fentanyl No Notes: Memoria 2-08 (Same as: l 16:29: Sublimaze) Preservati ve free. Oxycodone No Notes: Memori a 2-08 (Same as: l 16:29: Roxicodone ) Flumazenil No Notes: Memor ia 2-08 (Same as: l 16:29: Romazicon) Naloxone No Notes: Memoria 2-08 Same as l 16:29: Narcan Ondansetron No Notes: Gelacio steffany 2-08 (Same as: l 16:29: Zofran) 00 MEDICATION WASTE Product Size: 4 mg Product Wasted: ___ mg Naloxone No Notes: Memoria 2-08 Same as l 16:29: Narcan Ondansetron No Notes: Gelacio steffany 2-08 (Same as: l 16:29: Zofran) 00 MEDICATION WASTE Product Size: 4 mg Product Wasted: ___ mg Hydralazine No Notes: Gelacio steffany 2-08 (Same as: l 16:29: Apresoline ) Push over 5 minutes Labetalol No Notes: Memori a 2-08 (Same as: l 16:29: Normodyne, Agustín Trandate) Push over 2 minutes Give bolus over 2-3 minutes. Morphine No Notes: Memoria 2-08 (Same l 16:29: as:MORPhin e Sulfate) Fentanyl No Notes: Memoria 2-08 (Same as: l 16:29: Sublimaze) Preservati ve free. Oxycodone No Notes: Memori a 2-08 (Same as: l 16:29: Roxicodone ) Flumazenil No Notes: Memor ia 2-08 (Same as: l 16:29: Romazicon) clonazePAM Yes 2 mg = 1 Mem oria 2 mg oral 2-08 tab, PO, l tablet 15:53: BID, PRN 00 anxiety, # 30 tab, 1 Refill(s) clonazePAM Yes 2 mg = 1 Mem oria 2 mg oral 2-08 tab, PO, l tablet 15:53: BID, PRN anxiety, # 30 tab, 1 Refill(s) ceFAZolin + No Notes: Gelacio steffany sterile 2-08 (Same As: l water 20 mL 12:00: Ancef, Herm vesta Kefzol) MEDICATION WASTE Product Size: 1000 mg Product Wasted: ___ mg Lactated No 1,000 mL, Gelacio steffany Ringers -08 Rate: 70 l Injection 12:00: ml/hr, Jeremy n IV 1,000 mL 00 Infuse over: 14.3 hr, Route: IV, Dosing Weight 111.364 kg, Total Volume: 1,000, Start date: 09/15/20 6:00:00 [employer], Duration: 12 hr, Stop date: 09/15/20 17:59:00 [employer], 2.34, m2, 0 ceFAZolin + No Notes: Gelacio steffany sterile 2-08 (Same As: l water 20 mL 12:00: Ancef, Herm vesta Kefzol) MEDICATION WASTE Product Size: 1000 mg Product Wasted: ___ mg Lactated No 1,000 mL, Gelacio steffany Ringers 2-08 Rate: 70 l Injection 12:00: ml/hr, Jeremy n IV 1,000 mL 00 Infuse over: 14.3 hr, Route: IV, Dosing Weight 111.364 kg, Total Volume: 1,000, Start date: 09/15/20 6:00:00 [employer], Duration: 12 hr, Stop date: 09/15/20 17:59:00 [employer], 2.34, m2, 0 morphine 1 Yes 1.25 mg, Mem oria mg/mL 2-04 DEVICE, l injectable 18:58: Q24H, 0 Herm vesta solution 00 Refill(s) morphine 1 Yes 1.25 mg, Mem oria mg/mL 2-04 DEVICE, l injectable 18:58: Q24H, 0 Herm vesta solution 00 Refill(s) Baclofen 0 Yes PO, PRN, 0 Mem oria 2-04 Refill(s) l 18:46: Agustín Propranolol 0 Yes 10 mg = 1 M emoria 2-04 tab, PO l 18:46: Agustín 00 Zofran 0 Yes PRN, 0 Memoria 2-04 Refill(s) l 18:46: [place] 00 Baclofen 0 Yes PO, PRN, 0 Mem oria 2-04 Refill(s) l 18:46: Agustín 00 Propranolol 0 Yes 10 mg = 1 M emoria 2-04 tab, PO l 18:46: [place] 00 Zofran 0 Yes PRN, 0 Memoria 2-04 Refill(s) l 18:46: [place] SUMAtriptan 2019-0 Yes [facility]iver [facility] 25 mg 8-25 ity of tablet 00:00: [facility] SUMAtriptan 2020-0 Yes [facility] 25 mg 8-25 ity of tablet 00:00: [place] [facility] SUMAtriptan 2020-0 Yes [facility]iver [facility] 25 mg 8-25 ity of tablet 00:00: [place] [facility] SUMAtriptan 2020-0 Yes Univer s 25 mg 8-25 ity of tablet 00:00: [facility] SUMAtriptan 2020-0 Yes Univer [facility] 25 mg 8-25 ity of tablet 00:00: [facility] SUMAtriptan 2020-0 Yes Univer [facility] 25 mg 8-25 ity of tablet 00:00: [place] [facility] SUMAtriptan 2020-0 Yes Univer s 25 mg 8-25 ity of tablet 00:00: [place] 00 [facility] ondansetron 2018-08- No [id number] 4mg Take 1 [facility] 4 mg tablet 02-09 tablet by it y of 00:00: 00:00 mouth [place] 00 :00 every 8 Medical (eight) Branch hours as needed for Nausea and Vomiting (N/V). ropivacaine No Notes: Gelacio steffany 3-08 Final l 19:08: concentrat Agustín 00 ion: Ropivacain e 0.2% 400 ml ropivacaine No Notes: Gelacio steffany 3-08 Final l 19:08: concentrat [place] 00 ion: Ropivacain e 0.2% 400 ml Promethazin No Notes: Do M emoria e 3-08 not give l 19:05: IV push. Augst[place] 00 (Same as: Phenergan) Labetalol No Notes: Memori a 3-08 (Same as: l 19:05: Normodyne, Trandate) Push over 2 minutes Give bolus over 2-3 minutes. Hydralazine No Notes: Gelacio steffany 3-08 (Same as: l 19:05: Apresoline ) Push over 5 minutes Naloxone No Notes: Memoria 3-08 Same as l 19:05: Narcan Flumazenil No Notes: Memor ia 3-08 (Same as: l 19:05: Romazicon) Fentanyl No Notes: Memoria 3-08 (Same as: l 19:05: Sublimaze) Preservati ve free. Hydromorpho No Notes: Gelacio steffany ne 3-08 Same as: l 19:05: Dilaudid Acetaminoph No Notes: Max Memoria en 3-08 acetaminop l 19:05: hen 4000 mg/day (4 gm/day). (Same as: Tylenol Extra Strength) Dexamethaso No Notes: Gelacio steffany ne 3-08 Concentrat l 19:05: ion: Agustín 00 4mg/ml Ondansetron No Notes: Gelacio steffany 3-08 (Same as: l 19:05: Zofran) MEDICATION WASTE Product Size: 4 mg Product Wasted: ___ mg Diphenhydra No Notes: Gelacio steffany mine 3-08 (Same as: l 19:05: Benadryl) Albuterol No Notes: SEE Me moria 0.83 MG/ML 3-08 RT l Inhalant 19:05: DOCUMENTAT Her bowers Solution 00 ION (Same as: Proventil) Calcium No 1,000 mL, Memor ia Chloride 10-13 Rate: 125 l 0.0014 19:05: ml/hr, [place] MEQ/ML / 00 Infuse Potassium over: 8 Chloride hr, Route: 0.004 IV, Dosing MEQ/ML / Weight Sodium 109.091 Chloride kg, Total 0.103 Volume: MEQ/ML / 1,000, Sodium Start Lactate date: 0.028 10/13/17 MEQ/ML 13:05:00 Injectable [employer], Solution Duration: 30 day, Stop date: 11/12/17 13:04:00 CDT, 2.33, m2 Promethazin No Notes: Do M emoria e 3-08 not give l 19:05: IV push. [place] 00 (Same as: Phenergan) Labetalol No Notes: Memori a 3-08 (Same as: l 19:05: Normodyne, Trandate) Push over 2 minutes Give bolus over 2-3 minutes. Hydralazine No Notes: Gelacio steffany 3-08 (Same as: l 19:05: Apresoline ) Push over 5 minutes Naloxone No Notes: Memoria 3-08 Same as l 19:05: Narcan Flumazenil No Notes: Memor ia 3-08 (Same as: l 19:05: Romazicon) Fentanyl No Notes: Memoria 3-08 (Same as: l 19:05: Sublimaze) Preservati ve free. Hydromorpho No Notes: Gelacio steffany ne 3-08 Same as: l 19:05: Dilaudid Acetaminoph No Notes: Max Memoria en 10-13 acetaminop l 19:05: hen 4000 Agustín 00 mg/day (4 gm/day). (Same as: Tylenol Extra Strength) Dexamethaso No Notes: Gelacio steffany ne 10-13 Concentrat l 19:05: ion: Agustín 00 4mg/ml Ondansetron No Notes: Gelacio steffany 10-13 (Same as: l 19:05: Zofran) MEDICATION WASTE Product Size: 4 mg Product Wasted: ___ mg Diphenhydra No Notes: Gelacio steffany mine 10-13 (Same as: l 19:05: Benadryl) Albuterol No Notes: SEE Me moria 0.83 MG/ML 10-13 RT l Inhalant 19:05: DOCUMENTAT Her bowers Solution 00 ION (Same as: Proventil) Calcium No 1,000 mL, Memor ia Chloride 10-13 Rate: 125 l 0.0014 19:05: ml/hr, MEQ/ML / 00 Infuse Potassium over: 8 Chloride hr, Route: 0.004 IV, Dosing MEQ/ML / Weight Sodium 109.091 Chloride kg, Total 0.103 Volume: MEQ/ML / 1,000, Sodium Start Lactate date: 0.028 10/13/17 MEQ/ML 13:05:00 Injectable [employer], Solution Duration: 30 day, Stop date: 11/12/17 13:04:00 CDT, 2.33, m2 glycopyrrol No Route: IV, Memoria ate (ANES) 10-13 Drug form: l 19:00: INJ, ONCE, Stop date: 10/13/17 13:00:00 [employer] neostigmine No Route: IV, Memoria (ANES) 10-13 Drug form: l 19:00: INJ, ONCE, [place] Stop date: 10/13/17 13:00:00 [employer] glycopyrrol No Route: IV, Memoria ate (ANES) 10-13 Drug form: l 19:00: INJ, ONCE, [place] 00 Stop date: 10/13/17 13:00:00 [employer] neostigmine 2018-0 No Route: IV, Memoria (ANES) 3 Drug form: l 19:00: INJ, ONCE, Stop date: 10/13/17 13:00:00 [employer] Sodium 2018-0 No Route: IV, Memor ia Chloride 3-08 Total l 0.9% IV 18:52: Volume: [place] (ANES) 1000 00 1,000, mL Start date: 10/13/17 12:52:00 [employer], Stop date: 10/13/17 13:52:00 [employer] Sodium 2018-0 No Route: IV, Memor ia Chloride 3-08 Total l 0.9% IV 18:52: Volume: [place] (ANES) 1000 00 1,000, mL Start date: 10/13/17 12:52:00 [employer], Stop date: 10/13/17 13:52:00 [employer] ondansetron 2017-0 No Route: IV, Memoria (ANES) 10-13 Drug form: l 18:25: INJ, ONCE, Stop date: 10/13/17 12:25:00 [employer] famotidine 2017-0 No Route: IV, M emoria (ANES) 10-13 Drug form: l 18:25: INJ, ONCE, Stop date: 10/13/17 12:25:00 [employer] metoclopram 2017-0 No Route: IV, Memoria esequiel (ANES) 10-13 Drug form: l 18:25: INJ, ONCE, Stop date: 10/13/17 12:25:00 [employer] fentaNYL 2018-0 No Route: IV, Mem oria (ANES) 10-13 Drug form: l 18:25: INJ, ONCE, Stop date: 10/13/17 12:25:00 [employer] lidocaine 2017-0 No Route: IV, Me moria (ANES) 10-13 Drug form: l 18:25: INJ, ONCE, Stop date: 10/13/17 12:25:00 [employer] propofol 2018-0 No Route: IV, Mem oria (ANES) 10-13 Drug form: l 18:25: INJ, ONCE, Stop date: 10/13/17 12:25:00 [employer] rocuronium 2017-0 No Route: IV, M emoria (ANES) 10-13 Drug form: l 18:25: INJ, ONCE, Stop date: 10/13/17 12:25:00 [employer] ondansetron 2018-0 No Route: IV, Memoria (ANES) 10-13 Drug form: l 18:25: INJ, ONCE, Stop date: 10/13/17 12:25:00 [employer] famotidine 2017-0 No Route: IV, M emoria (ANES) 10-13 Drug form: l 18:25: INJ, ONCE, Stop date: 10/13/17 12:25:00 [employer] metoclopram 2017-0 No Route: IV, Memoria esequiel (ANES) 10-13 Drug form: l 18:25: INJ, ONCE, Stop date: 10/13/17 12:25:00 [employer] fentaNYL 2017-0 No Route: IV, Mem oria (ANES) 10-13 Drug form: l 18:25: INJ, ONCE, Stop date: 10/13/17 12:25:00 [employer] lidocaine 2017-0 No Route: IV, Me moria (ANES) 10-13 Drug form: l 18:25: INJ, ONCE, Stop date: 10/13/17 12:25:00 [employer] propofol 2018-0 No Route: IV, Mem oria (ANES) 10-13 Drug form: l 18:25: INJ, ONCE, Stop date: 10/13/17 12:25:00 [employer] rocuronium 2017-0 No Route: IV, M emoria (ANES) 10-13 Drug form: l 18:25: INJ, ONCE, Stop date: 10/13/17 12:25:00 [employer] ceFAZolin 2018-0 No Route: IV, Me moria (ANES) 10-13 Drug form: l 18:10: INJ, ONCE, Stop date: 10/13/17 12:10:00 [employer] ceFAZolin 2018-0 No Route: IV, Me moria (ANES) 10-13 Drug form: l 18:10: INJ, ONCE, Stop date: 10/13/17 12:10:00 [employer] Lactated 2017-0 No Route: IV, Mem oria Ringers 10-13 Total l Injection 17:11: Volume: Nayeli nn IV (ANES) 00 1,000, 1000 mL Start date: 10/13/17 11:11:00 [employer], Stop date: 10/13/17 12:11:00 [employer] Lactated No Route: IV, Mem oria Ringers 3-08 Total l Injection 17:11: Volume: Nayeli nn IV (ANES) 00 1,000, 1000 mL Start date: 10/13/17 11:11:00 [employer], Stop date: 10/13/17 12:11:00 [employer] Calcium No 1,000 mL, Memor ia Chloride 308 Rate: 25 l 0.0014 15:06: ml/hr, [place] MEQ/ML / 00 Infuse Potassium over: 40 Chloride hr, Route: 0.004 IV, Dosing MEQ/ML / Weight Sodium 109.091 Chloride kg, Total 0.103 Volume: MEQ/ML / 1,000, Sodium Start Lactate date: 0.028 10/13/18 MEQ/ML 9:06:00 Injectable [employer], Solution Duration: 30 day, Stop date: 11/12/17 9:05:00 CDT, 2.33, m2 Calcium No 1,000 mL, Memor ia Chloride 08 Rate: 25 l 0.0014 15:06: ml/hr, Agustín MEQ/ML / 00 Infuse Potassium over: 40 Chloride hr, Route: 0.004 IV, Dosing MEQ/ML / Weight Sodium 109.091 Chloride kg, Total 0.103 Volume: MEQ/ML / 1,000, Sodium Start Lactate date: 0.028 18 MEQ/ML 9:06:00 Injectable [employer], Solution Duration: 30 day, Stop date: 11/12/17 9:05:00 CDT, 2.33, m2 non-formula Yes SL, Daily M emoria ry 3-07 l 17:25: [place] 00 non-formula Yes SL, Daily M emoria ry 3-07 l 17:25: Agustín 00 nystatin 2021- No Apply to [facility] ers 100,000 4 06-30 area(s) 3 ity of unit/gram 00:00: 00:00 (three[place] :00 times Medical daily. [facility] Lorazepam No Notes: Memori a 6-12 (Same as: l 13:58: Ativan) [place] 00 Naloxone No Notes: Memoria 6-12 (Same as: l 13:58: Narcan) [place] 00 Ondansetron No Notes: Gelacio steffany 6-12 (Same as: l 13:58: Zofran) MEDICATION WASTE Product Size: 4 mg Product Wasted: ___ mg Hydromorpho No Notes: Gelacio steffany ne 6-12 Same as: l 13:58: Dilaudid Agustín 00 Meperidine No Notes: Memor ia 6-12 (Same as: l 13:58: Demerol) "Use Precaution in Elderly, Seizure disorders, and Renal impairment " Flumazenil No Notes: Memor ia 6-12 (Same as: l 13:58: Romazicon) Oxycodone No Notes: Memori a 6-12 (Same as: l 13:58: Roxicodone ) Lorazepam No Notes: Memori a 6-12 (Same as: l 13:58: Ativan) Naloxone No Notes: Memoria 6-12 (Same as: l 13:58: Narcan) Ondansetron No Notes: Gelacio steffany 6-12 (Same as: l 13:58: Zofran) MEDICATION WASTE Product Size: 4 mg Product Wasted: ___ mg Hydromorpho No Notes: Gelacio steffany ne 6-12 Same as: l 13:58: Dilaudid [place] 00 Meperidine No Notes: Memor ia 6-12 (Same as: l 13:58: Demerol) "Use Precaution in Elderly, Seizure disorders, and Renal impairment " Flumazenil No Notes: Memor ia 6-12 (Same as: l 13:58: Romazicon) Oxycodone No Notes: Memori a 6-12 (Same as: l 13:58: Roxicodone ) tramadol Yes 50 mg = 1 Gelacio steffany hydrochlori 6-12 tab, PO, l de 50 MG 12:18: Q4H, PRN Nayeli nn Oral Tablet 00 for pain, [Ultram] X 10 day, # 60 tab, 0 Refill(s) Acetaminoph Yes 1 - 2 tab, Memoria en 300 MG / 6-12 PO, Q6H, l Codeine 12:18: PRN Pain, Nayeli nn Phosphate 00 X 4 day, # 30 MG Oral 32 tab, 0 Tablet Refill(s) [Tylenol with Codeine #3] Cephalexin Yes 500 mg = 1 M emoria 500 MG Oral 6-12 cap, PO, l Capsule 12:18: TID, X 10 Nayeli nn [Keflex] 00 day, # 30 cap, 0 Refill(s) tramadol Yes 50 mg = 1 Gelacio steffany hydrochlori 6-12 tab, PO, l de 50 MG 12:18: Q4H, PRN Nayeli nn Oral Tablet 00 for pain, [Ultram] X 10 day, # 60 tab, 0 Refill(s) Acetaminoph Yes 1 - 2 tab, Memoria en 300 MG / 6-12 PO, Q6H, l Codeine 12:18: PRN Pain, Nayeli nn Phosphate 00 X 4 day, # 30 MG Oral 32 tab, 0 Tablet Refill(s) [Tylenol with Codeine #3] Cephalexin Yes 500 mg = 1 M emoria 500 MG Oral 6-12 cap, PO, l Capsule 12:18: TID, X 10 Nayeli nn [Keflex] 00 day, # 30 cap, 0 Refill(s) ceFAZolin No Notes: Memori a 12 Same as: l 06:00: Ancef Agustín 00 ceFAZolin No Notes: Memori a 6-12 Same as: l 06:00: Ancef [place] Acetaminoph Yes 1 tab, PO, Memoria en 325 MG / 6-11 Q6H, PRN l Hydrocodone 14:59: Pain, # 60 [place] Bitartrate 00 tab, 0 7.5 MG Oral Refill(s) Tablet [[place] 7.5/325] Acetaminoph Yes 1 tab, PO, Memoria en 325 MG / 6-11 Q6H, PRN l Hydrocodone 14:59: Pain, # 60 [place] Bitartrate 00 tab, 0 7.5 MG Oral Refill(s) Tablet [[place] 7.5/325] Soma Yes PO, PRN, 0 Memoria 6-11 Refill(s) l 14:58: Agustín 00 Soma Yes PO, PRN, 0 Memoria 6-11 Refill(s) l 14:58: Agustín 00 tramadol 2013-08 No Notes: Not Mem oria hydrochlori 2-05 to exceed l de 50 MG 17:17: 400mg/day. Her bowers Oral Tablet 00 (Same As: Ultram) tramadol 2013-08 No Notes: Not Mem oria hydrochlori 2-05 to exceed l de 50 MG 17:17: 400mg/day. Her bowers Oral Tablet 00 (Same As: Ultram) Oxycodone 2013-08 No Notes: Memori a 2-05 (Same as: l 15:13: Roxicodone ) Dexamethaso 2013-08 No Notes: Gelacio steffany ne 2-05 Concentrat l 15:13: ion: 4mg/ml Flumazenil 2013-08 No Notes: Memor ia 2-05 (Same as: l 15:13: Romazicon) Naloxone 2013-08 No Notes: Memoria 2-05 (Same as: l 15:13: Narcan) Fentanyl 2013-08 No 25 Memoria 2-05 microgram, l 15:13: Route: IVP, Q5Min, Dosing Weight 104.545, kg, PRN Pain Score 4-6, Start date: 07/12/14 9:13:00, Duration: 4 doses or times, Stop date: Limited # of times Hydralazine 2013-08 No Notes: Gelacio steffany 2-05 (Same as: l 15:13: Apresoline ) Push over 5 minutes Labetalol 2013-08 No 10 mg, 2 Gelacio steffany 2-05 mL, Route: l 15:13: IVP, Drug form: INJ, Q5Min, Dosing Weight 104.545, kg, PRN Elevated BP, Start date: 07/12/14 9:13:00, Duration: 5 doses or times, Stop date: 07/13/14 0:00:00 Oxycodone 2013-08 No Notes: Memori a 2-05 (Same as: l 15:13: Roxicodone ) Dexamethaso 2013-08 No Notes: Gelacio steffany ne 2-05 Concentrat l 15:13: ion: 4mg/ml Flumazenil 2013-08 No Notes: Memor ia 2-05 (Same as: l 15:13: Romazicon) Naloxone 2013-08 No Notes: Memoria 2-05 (Same as: l 15:13: Narcan) Fentanyl 2013-08 No 25 Memoria 2-05 microgram, l 15:13: Route: IVP, Q5Min, Dosing Weight 104.545, kg, PRN Pain Score 4-6, Start date: 07/12/14 9:13:00, Duration: 4 doses or times, Stop date: Limited # of times Hydralazine 2013-08 No Notes: Gelacio steffany 2-05 (Same as: l 15:13: Apresoline ) Push over 5 minutes Labetalol 2013-08 No 10 mg, 2 Gelacio steffany 2-05 mL, Route: l 15:13: IVP, Drug form: INJ, Q5Min, Dosing Weight 104.545, kg, PRN Elevated BP, Start date: 07/12/14 9:13:00, Duration: 5 doses or times, Stop date: 07/13/14 0:00:00 Cephalexin 2013-08 Yes 500 mg = 1 M emoria 500 MG Oral 2-05 cap, PO, l Capsule 13:28: TID, # 30 Nayeli nn [Keflex] 09 cap, 0 Refill(s) Cephalexin 2013-08 Yes 500 mg = 1 M emoria 500 MG Oral 2-05 cap, PO, l Capsule 13:28: TID, # 30 Nayeli nn [Keflex] 09 cap, 0 Refill(s) Acetaminoph 2013-08 Yes 1 tab, PO, Memoria en 300 MG / 2-05 Q6H, for l Codeine 13:28: pain, # 30 Herm vesta Phosphate 03 tab, 0 30 MG Oral Refill(s) Tablet [Tylenol with Codeine #3] Acetaminoph 2013-08 Yes 1 tab, PO, Memoria en 300 MG / 2-05 Q6H, for l Codeine 13:28: pain, # 30 Herm vesta Phosphate 03 tab, 0 30 MG Oral Refill(s) Tablet [Tylenol with Codeine #3] tramadol 2013-08 Yes 50 mg = 1 Gelacio steffany hydrochlori 2-05 tab, PO, l de 50 MG 13:28: Q6H, Pain, Her bowers Oral Tablet 00 # 50 tab, 0 Refill(s) tramadol 2013-08 Yes 50 mg = 1 Gelacio steffany hydrochlori 2-05 tab, PO, l de 50 MG 13:28: Q6H, Pain, Her bowers Oral Tablet 00 # 50 tab, 0 Refill(s) ceFAZolin 2013-08 No 2 gm, 50 Gelacio steffany 2-05 mL, Route: l 06:00: IVPB, Drug [place] form: INJ, PRE OP, Start date: 07/12/14 0:00:00, Duration: 1 day, Stop date: 07/12/14 23:59:00 ceFAZolin 2013-08 No 2 gm, 50 Gelacio steffany 2-05 mL, Route: l 06:00: IVPB, Drug [place] form: INJ, PRE OP, Start date: 07/12/14 0:00:00, Duration: 1 day, Stop date: 07/12/14 23:59:00 tramadol 2013-08 No 50 mg = 1 Gelacio steffany hydrochlori 2-03 tab, PO, l de 50 MG 16:43: Q4H, Pain, Her [place] Oral Tablet 00 # 60 tab, 0 Refill(s) tramadol 2013-08 No 50 mg = 1 Gelacio steffany hydrochlori 2-03 tab, PO, l de 50 MG 16:43: Q4H, Pain, Her [place] Oral Tablet 00 # 60 tab, 0 Refill(s) Cephalexin 2013-08 No 500 mg = 1 M emoria 500 MG Oral 2-03 cap, PO, l Capsule 16:42: TID, # 30 Nayeli nn [Keflex] 00 cap, 0 Refill(s) Cephalexin 2013-08 No 500 mg = 1 M emoria 500 MG Oral 2-03 cap, PO, l Capsule 16:42: TID, # 30 Nayeli nn [Keflex] 00 cap, 0 Refill(s) Acetaminoph 2013-08 No 1 tab, PO, Memoria en 300 MG / 203 Q6H, for l Codeine 16:41: pain, # 30 Herm vesta Phosphate 00 tab, 0 30 MG Oral Refill(s) Tablet [Tylenol with Codeine #3] Acetaminoph 2013-08 No 1 tab, PO, Memoria en 300 MG / 203 Q6H, for l Codeine 16:41: pain, # 30 Herm v[place] Phosphate 00 tab, 0 30 MG Oral Refill(s) Tablet [Tylenol with Codeine #3] Acetaminoph 2013-08 Yes 1 tab, PO, Memoria en 300 MG / 08-28 Q6H, for l Codeine 13:36: pain, # 30 Herm v[place] Phosphate 00 tab, 0 30 MG Oral Refill(s) Tablet [Tylenol with Codeine #3] tramadol 2013-08 Yes 1 - 2 Memoria hydrochlori 1-21 tabs, PO, l de 50 MG 13:36: Q4-6H, as Herm vesta Oral Tablet 00 needed for [Ultram] pain, # 30 tab, 0 Refill(s) Cephalexin 2013-08 Yes 500 mg = 1 M emoria 500 MG Oral 1-21 cap, PO, l Capsule 13:36: TID, # 30 Nayeli nn [Keflex] 00 cap, 0 Refill(s) Acetaminoph 2013-08 Yes 1 tab, PO, Memoria en 300 MG / 21 Q6H, for l Codeine 13:36: pain, # 30 Herm v[place] Phosphate 00 tab, 0 30 MG Oral Refill(s) Tablet [Tylenol with Codeine #3] tramadol 2013-08 Yes 1 - 2 Memoria hydrochlori 1-21 tabs, PO, l de 50 MG 13:36: Q4-6H, as Herm vesta Oral Tablet 00 needed for [Ultram] pain, # 30 tab, 0 Refill(s) Cephalexin 2013-08 Yes 500 mg = 1 M emoria 500 MG Oral 1-21 cap, PO, l Capsule 13:36: TID, # 30 Nayeli nn [Keflex] 00 cap, 0 Refill(s) Robaxin 2013-08 Yes 50 mg, Memoria 1-20 BID, 0 l 21:40: Refill(s) Robaxin 2013-08 Yes 50 mg, Memoria 1-20 BID, 0 l 21:40: Refill(s) tramadol 2013-08 Yes 50 mg = 1 Gelacio steffany hydrochlori 1-20 tab, PO, l de 50 MG 21:39: Q6H, Pain, Her bow[place] Oral Tablet 00 # 40 tab, 0 Refill(s) Oxycontin 2013-08 Yes 2 mg, BID, Me moria 1-20 0 l 21:39: Refill(s) Omeprazole 2013-08 Yes 40 mg = 1 Me moria 40 MG 1-20 cap, PO, l Enteric 21:39: Daily, # Jeremy n Coated 00 30 cap, 0 Capsule Refill(s) [Prilosec] tramadol 2013-08 Yes 50 mg = 1 Gelacio steffany hydrochlori 1-20 tab, PO, l de 50 MG 21:39: Q6H, Pain, Her [place] Oral Tablet 00 # 40 tab, 0 Refill(s) Oxycontin 2013-08 Yes 2 mg, BID, Me moria 1-20 0 l 21:39: Refill(s) Omeprazole 2013-08 Yes 40 mg = 1 Me moria 40 MG 1-20 cap, PO, l Enteric 21:39: Daily, # Jeremy n Coated 00 30 cap, 0 Capsule Refill(s) [Prilosec] pravastatin 2013-08 Yes 20 mg = 1 M emoria 20 mg oral 1-20 tab, PO, l tablet 21:38: Bedtime, # Nayeli nn 00 30 tab, 0 Refill(s) Voltaren 2013-08 Yes 75 mg, Memoria 1-20 Daily, 0 l 21:38: Refill(s) Buspar 2013-08 Yes 15 mg, Memoria 1-20 Daily, 0 l 21:38: Refill(s) pravastatin 2013-08 Yes 20 mg = 1 M emoria 20 mg oral 1-20 tab, PO, l tablet 21:38: Bedtime, # Nayeli nn 00 30 tab, 0 Refill(s) Voltaren 2013-08 Yes 75 mg, Memoria 1-20 Daily, 0 l 21:38: Refill(s) Buspar 2013-08 Yes 15 mg, Memoria 1-20 Daily, 0 l 21:38: Refill(s) clonazePAM 2013-08 Yes PRN, 0 Memor ia 1 mg oral 1-20 Refill(s) l tablet 21:37: Zolpidem 2013-08 Yes 10 mg = 1 Gelacio steffany tartrate 10 1-20 tab, PO, l MG Oral 21:37: Bedtime, Jeremy n Tablet 00 for sleep, [Ambien] 0 Refill(s) ziprasidone 2013-08 Yes 20 mg = 1 M emoria 20 MG Oral 1-20 cap, PO, l Capsule 21:37: BID, # 180 Herm vesta [Geodon] 00 cap, 0 Refill(s) 24 HR 2013-08 Yes TID, 0 Memoria Bupropion 1-20 Refill(s) l Hydrochlori 21:37: Jeremy n de 150 MG 00 Extended Release Tablet [Wellbutrin ] lamotrigine 2013-08 Yes 200 mg = 1 Memoria 200 MG Oral 1-20 tab, PO, l Tablet 21:37: BID, # 180 Nayeli nn [Lamictal] 00 tab, 0 Refill(s) clonazePAM 2013-08 Yes PRN, 0 Memor ia 1 mg oral 1-20 Refill(s) l tablet 21:37: Zolpidem 2013-08 Yes 10 mg = 1 Gelacio steffany tartrate 10 1-20 tab, PO, l MG Oral 21:37: Bedtime, Jeremy n Tablet 00 for sleep, [Ambien] 0 Refill(s) ziprasidone 2013-08 Yes 20 mg = 1 M emoria 20 MG Oral 1-20 cap, PO, l Capsule 21:37: BID, # 180 Herm vesta [Geodon] 00 cap, 0 Refill(s) 24 HR 2013-08 Yes TID, 0 Memoria Bupropion 1-20 Refill(s) l Hydrochlori 21:37: Jeremy n de 150 MG 00 Extended Release Tablet [Wellbutrin ] lamotrigine 2013-08 Yes 200 mg = 1 Memoria 200 MG Oral 1-20 tab, PO, l Tablet 21:37: BID, # 180 Nayeli nn [Lamictal] 00 tab, 0 Refill(s) 24 HR 2013-08 Yes BID, 0 Memoria Fluvoxamine 1-20 Refill(s) l Maleate 100 21:36: Jeremy n MG Extended 00 Release Capsule [Luvox] 24 HR 2013-08 Yes BID, 0 Memoria Fluvoxamine 1-20 Refill(s) l Maleate 100 21:36: Jeremy n MG Extended 00 Release Capsule [Luvox] Immunizations Ordered Filled Immunization Date Status Comments [facility] e Immunization Name Name SARS-COV-2 COVID-19 2021-07-14 Completed Unive rsity of PFIZER VACCINE 00:00:00 [facility] SARS-COV-2 COVID-19 2021-07-14 Completed Unive rsity of PFIZER VACCINE 00:00:00 [facility] SARS-COV-2 COVID-19 2021-07-14 Completed Unive rsity of PFIZER VACCINE 00:00:00 [facility] SARS-COV-2 COVID-19 2021-07-14 Completed Unive rsity of PFIZER VACCINE 00:00:00 [facility] SARS-COV-2 COVID-19 2021-07-14 Completed Unive rsity of PFIZER VACCINE 00:00:00 [facility] SARS-COV-2 COVID-19 2021-07-14 Completed Unive rsity of PFIZER VACCINE 00:00:00 [facility] SARS-COV-2 COVID-19 2021-07-14 Completed [facility]ive rsity of PFIZER VACCINE 00:00:00 [facility] SARS-COV-2 COVID-19 2021-06-23 Completed [facility]ive rsity of PFIZER VACCINE 00:00:00 [facility] SARS-COV-2 COVID-19 2021-06-23 Completed Unive rsity of PFIZER VACCINE 00:00:00 [facility] SARS-COV-2 COVID-19 2021-06-23 Completed [facility]ive rsity of PFIZER VACCINE 00:00:00 [facility] SARS-COV-2 COVID-19 2021-06-23 Completed [facility]ive rsity of PFIZER VACCINE 00:00:00 [facility] SARS-COV-2 COVID-19 2021-06-23 Completed [facility]ive rs[facility] of PFIZER VACCINE 00:00:00 [place] [facility] SARS-COV-2 COVID-19 2021-06-23 Completed Unive rsity of PFIZER VACCINE 00:00:00 [facility] SARS-COV-2 COVID-19 2021-06-23 Completed [facility]ive rsity of PFIZER VACCINE 00:00:00 [facility] Influenza Virus 2020-07-08 Completed [facility] of Vaccine Quad IM 00:00:00 [place] [facility] Multi-dose 6+ MO [facility] Influenza Virus 2020-07-08 Completed [facility] Vaccine [facility] IM 00:00:00 [place] [facility] Multi-dose 6+ [facility] Influenza Virus 2020-07-08 Completed [facility] Vaccine [facility] IM 00:00:00 [place] [facility] Multi-dose 6+ [facility] Influenza Virus 2020-07-08 Completed [facility] of Vaccine [facility] IM 00:00:00 [place] [facility] Multi-dose 6+ [facility] Influenza Virus 2020-07-08 Completed [facility] of Vaccine [facility] IM 00:00:00 [place] [facility] Multi-dose 6+ [facility] Influenza Virus 2020-07-08 Completed [facility] of Vaccine [facility] IM 00:00:00 [place] [facility] Multi-dose 6+ [facility] Influenza Virus 2020-07-08 Completed [facility] of Vaccine [facility] IM 00:00:00 [place] [facility] Multi-dose 6+ [facility] Influenza Virus 2020-06-09 Completed [facility] of Vaccine [facility] .5 mL 00:00:00 [place] [facility] 6+ [facility] Influenza Virus 2020-06-09 Completed [facility] of Vaccine [facility] .5 mL 00:00:00 [place] [facility] IM 6+ [facility] Influenza Virus 2020-06-09 Completed [facility] of Vaccine [facility] .5 mL 00:00:00 [place] [facility] IM 6+ [facility] Influenza Virus 2020-06-09 Completed [facility] of Vaccine [facility] .5 mL 00:00:00 [place] [facility] IM 6+ [facility] Influenza Virus 2020-06-09 Completed [facility] of Vaccine [facility] .5 mL 00:00:00 [place] [facility] IM 6+ [facility] Influenza Virus 2020-06-09 Completed [facility] of Vaccine [facility] .5 mL 00:00:00 [place] [facility] IM 6+ [facility] Influenza Virus 2020-06-09 Completed [facility] of Vaccine [facility] .5 mL 00:00:00 [place] [facility] 6+ [facility] Vital Signs Vital Name Observation Time Observation Value Comments Source Systolic blood 2022-09-03 21:02:00 117 mm[Hg] [facility] of pressure [facility] Diastolic blood 2022-09-03 21:02:00 80 mm[Hg] [facility] of pressure [facility] Heart rate 2022-09-03 21:02:00 70 /min [facility] [place] [facility] Body temperature 2022-09-03 21:02:00 36.28 Yanelis [facility] Respiratory rate 2022-09-03 21:02:00 18 /min [facility] [place] [facility] Body height 2022-09-03 21:02:00 172.7 cm [facility] [place] [facility] Body weight 2022-09-03 21:02:00 109.941 kg [facility] [place] [facility] BMI 2022-09-03 21:02:00 36.85 kg/m2 [facility] [place] [facility] Oxygen saturation in 2022-09-03 21:02:00 97 /min [facility] of Arterial blood by [place] [employer] [facility] Pulse oximetry Branch Systolic blood 2022-02-04 19:08:00 101 mm[Hg] [facility]iver [facility]ity of [facility] Diastolic blood 2022-02-04 19:08:00 71 mm[Hg] Unive rsity of [facility] Heart rate 2022-02-04 19:08:00 67 /min [facility] [place] [facility] Body height 2022-02-04 19:08:00 175.3 cm [facility] Body weight 2022-02-04 19:08:00 114.306 kg [facility] BMI 2022-02-04 19:08:00 37.21 kg/m2 [facility] Oxygen saturation in 2022-02-04 19:08:00 97 /min [facility] Arterial blood by [place] [facility] Pulse oxim[facility] Body height 2021-11-18 17:21:00 [facility] 2021-11-18 17:21:00 106[facility]595 [facility] BMI 2021-11-18 17:21:00 34.70 kg/m2 [facility] Body height 2021-09-29 21:35:00 [facility]3 [facility] Body weight 2021-09-29 21:35:00 106[facility]595 [facility] BMI 2021-09-29 21:35:00 34.70 kg/m2 [facility] Body height 2021-08-26 20:32:00 175.3 cm [facility] Body weight 2021-08-26 20:32:00 106[facility] 2021-08-26 20:32:00 34.70 kg/m2 [facility] Height 2021-11-27 16:58:00 [facility] 2021-11-27 16:58:00 [facility] BMI Calculated 2021-11-27 16:58:00 Memori al Agustín Systolic blood 2021-02-11 13:15:25 134 mm[Hg] [facility] pressure Diastolic blood 2021-02-11 13:15:25 71 mm[Hg] [facility] pressure Heart rate 2021-02-11 13:15:25 83 /min [facility] Body temperature 2021-02-11 13:15:[address] [facility] Respiratory rate 2021-02-11 13:15:25 18 /min [facility] Oxygen saturation in 2021-02-11 13:15:25 99 /min [facility] Arterial blood by Pulse oximetry Body height 2021-02-11 02:55:00 172.7 cm [facility] Body weight 2021-02-11 02:55:00 106.9 kg [facility] BMI 2021-02-11 02:55:00 35.83 kg/m2 [facility] Systolic (mm Hg) 2020-12-15 20:30:00 Gelacio rial Agustín Diastolic (mm Hg) 2020-12-15 20:30:00 Mem orial [place] Respitory Rate 2020-12-15 20:30:00 Memori al [place] Heart Rate 2020-12-15 20:30:00 [facility] Agustín Respitory Rate 2020-12-15 20:25:00 Memori al Agustín Systolic (mm Hg) 2020-12-15 20:25:00 Gelacio rial Agustín Diastolic (mm Hg) 2020-12-15 20:25:00 Mem orial [place] Respitory Rate 2020-12-15 20:15:00 Memori al Agustín Systolic (mm Hg) 2020-12-15 20:15:00 Gelacio rial Agustín Diastolic (mm Hg) 2020-12-15 20:15:00 Mem orial [place] Heart Rate 2020-12-15 17:09:00 [facility] [place] Heart Rate 2020-12-12 16:59:00 [facility] Agustín Respitory Rate 2020-12-12 16:59:00 Memori al [place] Systolic (mm Hg) 2020-12-12 16:59:00 Gelacio rial Agustín Diastolic (mm Hg) 2020-12-12 16:59:00 Mem orial Agustín Height 2020-12-12 16:58:00 172.72 cm [facility] [place] Weight 2020-12-12 16:58:00 [facility] Agust[facility] BMI Calculated 2020-12-12 16:58:00 Memori al [place] Height 2020-12-09 18:02:00 172.72 cm [facility] Weight 2020-12-09 18:02:00 [facility] [place] BMI Calculated 2020-12-09 18:02:00 Memori al [place] Heart Rate 2020-09-15 19:44:00 [facility] Agustín Respitory Rate 2020-09-15 19:44:00 Memori al Agustín Systolic (mm Hg) 2020-09-15 19:44:00 Gelacio rial [place] Diastolic (mm Hg) 2020-09-15 19:44:00 Mem orial Agustín Respitory Rate 2020-09-15 19:05:00 Memori al Agustín Systolic (mm Hg) 2020-09-15 19:05:00 Gelacio rial Agustín Diastolic (mm Hg) 2020-09-15 19:05:00 Mem orial Agustín Respitory Rate 2020-09-15 18:50:00 Memori al [place] Systolic (mm Hg) 2020-09-15 18:50:00 Gelacio rial [place] Diastolic (mm Hg) 2020-09-15 18:50:00 Mem orial [place] Heart Rate 2020-09-15 15:37:00 [facility] [place] Heart Rate 2020-09-12 19:40:00 [facility] Agustín Height 2020-09-12 19:40:00 172.72 cm [facility] [place] Respitory Rate 2020-09-12 19:40:00 Memori al Agustín Systolic (mm Hg) 2020-09-12 19:40:00 Gelacio rial Agustín Diastolic (mm Hg) 2020-09-12 19:40:00 Mem orial Agustín Height 2020-09-11 18:59:00 175.26 cm [facility] Agust[facility] Weight 2020-09-11 18:59:00 [facility] [place] BMI Calculated 2020-09-11 18:59:00 Memori al Agustín Respitory Rate 2017-10-13 19:50:00 Memori al [place] Systolic (mm Hg) 2017-10-13 19:50:00 Gelacio rial Agustín Diastolic (mm Hg) 2017-10-13 19:50:00 Mem orial Agustín Systolic (mm Hg) 2017-10-13 19:16:00 Gelacio rial Agustín Diastolic (mm Hg) 2017-10-13 19:16:00 Mem orial Agustín Respitory Rate 2017-10-13 19:16:00 Memori al Agustín Respitory Rate 2017-10-13 19:15:00 Memori al Agustín Systolic (mm Hg) 2017-10-13 19:15:00 Gelacio rial [place] Diastolic (mm Hg) 2017-10-13 19:15:00 Mem orial Agustín Heart Rate 2017-10-13 15:45:00 [facility] Heart Rate 2017-10-13 14:44:00 [facility] [place] Temperature Oral (F) 2017-10-12 18:03:00 98.3 F [facility] Agust[facility] Heart Rate 2017-10-12 18:03:00 [facility] [place] BMI Calculated 2017-10-12 18:03:00 Memori al Agustín Weight 2017-10-12 18:03:00 [facility] [place] Height 2017-10-12 18:03:00 175.26 cm [facility] Respitory Rate 2015-01-17 14:51:00 Memori al Agustín Systolic (mm Hg) 2015-01-17 14:51:00 Gelacio rial Agustín Diastolic (mm Hg) 2015-01-17 14:51:00 Mem orial Agustín Systolic (mm Hg) 2015-01-17 14:45:00 Gelacio rial [place] Diastolic (mm Hg) 2015-01-17 14:45:00 Mem orial Agustín Respitory Rate 2015-01-17 14:45:00 Memori al Agustín Systolic (mm Hg) 2015-01-17 14:30:00 Gelacio rial Agustín Diastolic (mm Hg) 2015-01-17 14:30:00 Mem orial [place] Respitory Rate 2015-01-17 14:30:00 Memori al Agustín Heart Rate 2015-01-17 12:26:00 [facility] [place] Height 2015-01-17 12:26:00 175.26 cm [facility] [place] BMI Calculated 2015-01-17 12:26:00 Memori al [place] Weight 2015-01-17 12:26:00 [facility] Agust[facility] BMI Calculated 2015-01-16 14:59:00 Memori al Agustín Weight 2015-01-16 14:59:00 [facility] [place] Height 2015-01-16 14:59:00 175.26 cm [facility] Respitory Rate 2014-07-12 16:55:00 Memori al Agustín Diastolic (mm Hg) 2014-07-12 16:55:00 Mem orial [place] Systolic (mm Hg) 2014-07-12 16:55:00 Gelacio rial Agustín Heart Rate 2014-07-12 16:55:00 [facility] Systolic (mm Hg) 2014-07-12 16:30:00 Gelacio rial Agustín Diastolic (mm Hg) 2014-07-12 16:30:00 Mem orial Agustín Respitory Rate 2014-07-12 16:30:00 Memori al [place] Diastolic (mm Hg) 2014-07-12 16:15:00 Mem orial Agustín Systolic (mm Hg) 2014-07-12 16:15:00 Gelacio rial Agustín Respitory Rate 2014-07-12 16:15:00 Memori al Agustín Temperature Oral (F) 2014-07-12 15:45:00 97.6 F [facility] [place] Heart Rate 2014-07-12 13:06:00 [facility] BMI Calculated 2014-07-10 16:44:00 Memori al Agustín Weight 2014-07-10 16:44:00 [facility] Height 2014-07-10 16:44:00 175.26 cm [facility] [place] Respitory Rate 2014-06-28 18:38:00 Memori al [place] Systolic (mm Hg) 2014-06-28 18:38:00 Gelacio rial Agustín Heart Rate 2014-06-28 18:38:00 [facility] [place] Diastolic (mm Hg) 2014-06-28 18:38:00 Mem orial Agustín Respitory Rate 2014-06-28 16:35:00 Jesus Alberto al [place] Heart Rate 2014-06-28 16:35:00 [facility] [place] Diastolic (mm Hg) 2014-06-28 16:35:00 Mem orial Agustín Systolic (mm Hg) 2014-06-28 16:35:00 Gelacio steffanyl Agustín BMI Calculated 2014-06-28 16:35:00 [facility] [place] Weight 2014-06-28 16:35:00 [facility] Height 2014-06-28 16:35:00 175.26 cm [facility] [place] Height 2014-06-27 20:17:00 175.26 cm [facility] Weight 2014-06-27 20:17:00 [facility] [place] BMI Calculated 2014-06-27 20:17:00 Jesus Alberto marquis [place] Procedures Procedure Date / Time Performing Clinician Source Performed [place] [facility] 2022-01-27 15:48[facility] [facility] 2022-01-20 [facility] [facility] 2022-01-12 15:33:44 [facility] ASPIR&/INJ MAJOR JT/BURSA [place] [facility] 2021-09-29 20:30[facility] [facility] 2021-09-22 19:56:54 [facility] ASPIR&/INJ MAJOR JT/BURSA W/O [facility] COMPLETE BLD COUNT 2021-02-11 10:14:00 Shira Roger [facility] W/AUTO DIFF Lisbeth COMPREHENSIVE METABOLIC 2021-02-11 10:14:00 Shira Roger [facility] PANEL Lisbeth ESTIMATED GFR 2021-02-11 10:14:00 Shira Roger [facility] Lumbar epidural steroid [facility] [place] injection Rotator cuff [facility] [place] repair<sup>2</sup> Implantation of Pain Pump Jesus Alberto marquis [place] Decompression laminectomy Jesus Alberto Wise of lumbar spine Implantation of [facility] Agust[facility] electronic stimulator of spine Hysterectomy [facility] [place] Procedure<sup>1</sup> [facility] H ermvesta Encounters Start End Encounter Admission Attending Care Care Encounter Source Date/Time Date/Time Type Type Clinicians Facility Department ID 2021-11-27 Outpatient WYATTELVIN [facility] 7506 09:39:41 E, [facility] 2021-09-28 Outpatient [facility] [id number] [place] 17:16:49 Health 2021-09-21 [facility]patient [facility] [id number] [place] 16:04:02 E, TREY [facility] 2021-08-25 Outpatient [facility] [id number] [place] 17:07:48 [facility] 2021-06-[address] [facility] [id number] Univers 02:21:05 [facility] 2021-01-15 [facility] [id number] [place] 01:04:27 [facility] 2022-09-06 2022-09-06 RefAshlyn Parker [facility] 1.2.840.114 [id number] Univers 00:00:00 00:00:00 [facility] 350.1.13.10 it y of [place] 4.2.7.2.686 Nguyễn as HASEEB?BLEA [phone] [address] MEDICAL OFFICE [facility] 2022-09-03 2022-09-03 Urgent Ashlyn Jolly [facility] 1.2.840.114 [id number] Univers 15:00:00 15:20:00 Care Unknown, [facility] 350.1.13.10 ity of [place] 4.2.7.2.686 Nguyễn as HASEEB?BLEA [phone] [address] MEDICAL OFFICE [facility] 2022-09-03 2022-09-03 Outpatient Pranay JOLLY III [facility] [id number] Univers 15:00:00 15:00:00 ASHLYN [facility] 2022-08-04 2022-08-04 Rachelle Jacobo [facility] 1.2.840.114 [id number] Univers 00:00:00 00:00:00 [facility] 350.1.13.10 it y of [place] 4.2.7.2.686 Nguyễn as HASEEB?BLEA [phone] [address] OFFICE [facility] 2022-05-18 2022-05-18 Refnicole [facility] 1.2.840.114 [id number] Univers 00:00:00 00:00:00 Koko HEALTH 350.1.13.10 it y of [place] 4.2.7.2.686 Nguyễn as HASEEB?BLEA [id number] [address] OFFICE [facility] 2022-05-13 2022-05-13 [facility] 1.2.840.114 [id number] Univers 00:00:00 00:00:00 Koko HEALTH 350.1.13.10 it y of [place] 4.2.7.2.686 Nguyễn as HASEEB?BLEA [id number] [address] OFFICE [facility] 2022-04-16 2022-04-16 [facility] 1.2.840.114 [id number] Univers 00:00:00 00:00:00 [facility] 350.1.13.10 it y of [place] 4.2.7.2.686 Nguyễn as HASEEB?BLEA [id number] [address] OFFICE [facility] 2022-02-04 2022-02-04 Office [facility] 1.2.840.114 [id number] Univers 14:15:00 14:41:41 Visit [facility] 350.1.13.10 it y of [place] 4.2.7.2.686 Nguyễn as HASEEB?BLEA [id number] [address] OFFICE [facility] 2022-02-04 2022-02-04 Outpatient Pranay JACOBO [facility] [id number] Univers 14:15:00 14:41:41 KOKO herring [facility] 2022-02-04 2022-02-04 Outpatient Pranay JACOBO [facility] [id number] Univers 14:15:00 14:15:00 KOKO herring [facility] 2022-02-04 2022-02-04 Telephone Andrea [facility] 1.2.840.634 [id number] Univers 00:00:00 00:00:00 Koko [facility] 350.1.13.10 it y [facility] 4.2.7.2.686 Nguyễn as HASEEB?BLEA [phone] [address] OFFICE [facility] 2022-01-28 2022-01-28 Day [facility] [id number] Memoria 13:00:00 13:00:00 Surgery [facility] [place] 06 l [facility] 2022-01-28 2022-01-28 Day [facility] [id number] Memoria 13:00:00 13:00:00 Surgery r [place] 06 l [facility] 2022-01-28 2022-01-28 Outpatient Sandy [facility] 726 [id number] 08:00:00 08:00:00 tierney Trey 06 2022-01-27 2022-01-27 Procedure GLENDA Beckwith [facility] 1.2.840.114 [id number] [place] 10:30:00 10:53:11 Visit Lamberto TAYLOR 350.1.13.58 H [facility] 9.2.7.2.686 PLAZA 2 [id number] 7 2022-01-22 2022-01-22 Outpatient Pranay ANDREA [facility] [id number] Univers 13:00:00 13:00:00 KOKO nima [facility] 2022-01-22 2022-01-22 Acid Dipper Lab, Ramirez - Milan [facility] 1.2.840.1 14 [id number] Univers 13:00:00 13:00:00 Visit Koko Jacobo 350.1.13.10 ity of [facility] 4.2.7.2.686 Nguyễn as HASEEB?BLEA [id number] [address] OFFICE [facility] 2022-01-20 2022-01-20 Procedure GLENDA Beckwith [facility] 1.2.840.114 [id number] [place] 10:30:00 11:02:38 Visit Lamberto VAZQUEZ 350.1.13.58 H [facility] MEDICAL 9.2.7.2.686 PLAZA 5 [id number] 7 2022-01-19 2022-01-19 Refill [facility] 1.2.840.114 [id number] Univers 00:00:00 00:00:00 Koko HEALTH 350.1.13.10 it y of [place] 4.2.7.2.686 Nguyễn as HASEEB?BLEA [id number] [address] MEDICAL OFFICE [facility] 2022-01-19 2022-01-19 Telephone [facility] 1.2.543.708 [id number] Univers 00:00:00 00:00:00 [facility] 350.1.13.10 it y [facility] 4.2.7.2.686 Nguyễn as HASEEB?BLEA [id number] [address] MEDICAL OFFICE BUILDING 2022-01-12 2022-01-12 Procedure GLENDA Beckwith [facility] 1.2.840.114 [id number] [place] 10:30:00 11:43:00 Visit Lamberto VAZQUEZ 350.1.13.58 H [facility] MEDICAL 9.2.7.2.686 PLAZA 7 [id number] 7 2021-12-30 2021-12-30 Telephone Waleska Frank [facility] 1.2.840.1 14 [id number] [place] 00:00:00 00:00:00 Waleska Frank 350.1.13.58 Health MEDICAL 9.2.7.2.686 PLAZA 1 [id number] 7 2021-12-18 2021-12-18 Outpatient R EMMIE [facility] [id number] Univers 15:20:00 15:39:13 MICHELLE xie [facility] 2021-12-18 2021-12-18 Urgent Michelle Lu [facility] 1.2.840. 114 [id number] Univers 15:20:00 15:39:13 Care Marcelina Rodriguez [facility] 350.1.13.10 ity of [facility] 4.2.7.2.686 Nguyễn as HASEEB?BLEA [phone] [address] MEDICAL OFFICE [facility] 2021-12-18 2021-12-18 Orders Doctor RYAN 1.2.840.114 [id number] [facility] 00:00:00 00:00:00 Only Unassigned, KATARINA 350.1.13.10 ity of [facility] 4.2.7.2.686 Nguyễn as [id number] [address] 2021-12-15 2021-12-15 Outpatient R [facility] [id number] Univers 16:00:00 16:00:00 ity [facility] 2021-12-15 2021-12-15 Outpatient R [facility] [id number] Univers 14:20:00 14:20:00 ity [facility] 2021-12-08 2021-12-08 Outpatient R [facility] [id number] Univers 15:00:00 15:00:00 [facility] 2021-12-03 2021-12-03 [facility] [id number] Univers 09:00:00 09:00:00 [facility] 2021-11-30 2021-11-30 Telephone [facility] 1.2.075.780 [id number] [facility] 00:00:00 00:00:00 [facility] 350.1.13.10 it y of [place] 4.2.7.2.686 Nguyễn as HASEEB?BLEA [phone] [address] MEDICAL OFFICE [facility] 2021-11-25 2021-11-25 Telephone Archana Moeller [facility] 1.2.840. 114 [id number] [place] 00:00:00 00:00:00 Archana Moeller 350.1.13.58 Health MEDICAL 9.2.7.2.686 PLAZA 1 [id number] 7 2021-11-23 2021-11-23 Telephone Archana Moeller [facility] 1.2.840. 114 [id number] [place] 00:00:00 00:00:00 Archana Moeller 350.1.13.58 Health MEDICAL 9.2.7.2.686 PLAZA 2 [id number] 7 2021-11-18 2021-11-18 Office Sandy [facility] 1.2.840.114 13 [id number] [place] 11:15:00 13:08:42 Visit e, Trey [place] 350.1.13.58 Health MEDICAL 9.2.7.2.686 PLAZA 9 [id number] 7 2021-11-05 2021-11-05 Rachelle [facility] 1.2.840.114 [id number] Univers 00:00:00 00:00:00 Koko HEALTH 350.1.13.10 it y of [place] 4.2.7.2.686 Nguyễn as HASEEB?BLEA [phone] [address] MEDICAL OFFICE BUILDING 2021-11-05 2021-11-05 [facility] 1.2.840.114 [id number] Univers 00:00:00 00:00:00 Koko HEALTH 350.1.13.10 it y of [place] 4.2.7.2.686 Nguyễn as HASEEB?BLEA [phone] [address] MEDICAL OFFICE BUILDING 2021-10-30 2021-10-30 [facility] 1.2.840.114 [id number] Univers 00:00:00 00:00:00 Koko HEALTH 350.1.13.10 it y of [place] 4.2.7.2.686 Nguyễn as HASEEB?BLEA [phone] [facility] [address] MEDICAL OFFICE BUILDING 2021-09-29 2021-09-29 Office GLENDA Beckwith [facility] 1.2.840.114 [id number] [place] 14:30:00 15:56:47 Visit Lamberto VAZQUEZ 350.1.13.58 H [facility] MEDICAL 9.2.7.2.686 PLAZA 6 [id number] 7 2021-09-22 2021-09-22 Procedure Amena [facility] 1.2.840.114 [id number] [place] 13:45:00 14:17:10 Visit Lamberto VAZQUEZ 350.1.13.58 H [facility] MEDICAL 9.2.7.2.686 PLAZA 3 [id number] 7 2021-09-18 2021-09-18 Telemedici Sandy [facility] 1.2.840.114 [id number] [place] 13:45:00 14:46:06 ne Trey monet 350.1.13.58 Health MEDICAL 9.2.7.2.686 PLAZA 8 [id number] 7 2021-09-14 2021-09-14 Telephone Brittanie Smith [facility] 1.2.840.11 4 [id number] [place] 00:00:00 00:00:00 Brittanie Smith 350.1.13.58 Health MEDICAL 9.2.7.2.686 PLAZA 7 [id number] 7 2021-09-04 2021-09-05 Outpt Diag nullFlavo [facility] [id number] Memoria 20:25:00 05:59:00 Services r Outpatient 05 l Imaging [place] 2021-09-04 2021-09-05 Outpt Diag nullFlavo [facility] [id number] Memoria 20:25:00 05:59:00 Services r Outpatient 05 l Imaging Agustín [place] 2021-09-04 2021-09-04 Outpatient Sandy 29 29 [id number] [id number] 14:25:00 23:59:00 Trey monet 2021-08-26 2021-08-26 Office WyattElvin [facility] 1.2.840.114 13 [id number] [place] 14:00:00 15:18:45 Visit Trey monet 350.1.13.58 Health MEDICAL 9.2.7.2.686 PLAZA 5 [id number] 7 2021-08-03 2021-08-03 Rachelle Jacobo [facility] 1.2.840.114 [id number] Univers 00:00:00 00:00:00 [facility] 350.1.13.10 it y of [place] 4.2.7.2.686 Nguyễn as HASEEB?BLEA [id number] [address] MEDICAL OFFICE BUILDING 2021-07-14 2021-07-14 Imm/Inj Nurse, Adc Pob Immunization [facility] 1.2.840.114 [id number] Univers 17:00:53 17:01:07 Visit Duane Mercado 350.1.13 .10 ity of [place].2.[place] [phone] Nm dical NAL [address] [place] [address] 2021-07-14 2021-07-14 Outpatient R ANIL [facility] [id number] Univers 15:40:00 15:40:00 DUANE herring [facility] 2021-07-14 2021-07-14 Outpatient R ANIL [facility] [id number] Univers 13:30:00 13:30:00 DUANE graeme [facility] 2021-07-14 2021-07-14 Imm/Inj Nurse, Adc Pob Immunization [facility] 1.2.840.114 [id number] Univers 08:00:00 08:10:00 Visit Duane Mercado 350.1.13 .10 ity tri [place].2.[place].2.[place] [phone] Nm dical NAL [address] [place] [address] 2021-07-14 2021-07-14 Outpatient R ANIL [facility] [id number] Univers 08:00:00 08:00:00 DUANE graeme [facility] 2021-06-23 2021-06-23 Outpatient Pranay MERCADO [facility] [id number] Univers 15:00:00 15:00:00 [facility] 2021-06-23 2021-06-23 Imm/Inj Nurse, Adc Pob Immunization [facility] 1.2.840.114 [id number] Univers 14:55:24 14:55:34 Visit Duane Mercado 350.1.13 .10 ity rti [place].2.7.2.[place] [id number] Nm dical NAL [address] [place] [address] 2021-06-10 2021-06-10 Outpatient R NICKMARIELLEN [facility] [id number] Univers 09:15:00 09:15:00 [facility] 2021-06-04 2021-06-04 Pre Visit JALEN Bergman 1.2.834.083 [id number] Univers 00:00:00 00:00:00 Outreach Ivette JEFFERSON 350.1.13.10 i ty of [place].2.7.2.686 [place] [id number] [address] 2021-05-14 2021-05-14 Acid Dipper Lab, Ang - Db [facility] 1.2.840.1 14 [id number] Univers 12:25:10 12:40:10 Visit Koko Jacobo [facility] 350.1.13.10 ity of [place] 4.2.7.2.686 Nguyễn as Haseeb?Blea [phone] [address] Office [facility] 2021-05-14 2021-05-14 Outpatient R ANDREA [facility] [id number] Univers 12:15:00 12:15:00 [facility] 2021-05-14 2021-05-14 Office [facility] 1.2.840.114 [id number] Univers 11:59:09 12:14:09 Visit [facility] 350.1.13.10 it y of [place] 4.2.7.2.686 Nguyễn as Haseeb?Blea [phone] [address] Office [facility] [address] 2021-05-14 2021-05-14 Refnicole [facility] 1.2.840.114 [id number] Univers 00:00:00 00:00:00 [facility] 350.1.13.10 it y of [place] 4.2.7.2.686 Nguyễn as Haseeb?Blea [phone] [address] Office [facility] [address] 2021-05-08 2021-05-08 Refnicole [facility] 1.2.840.114 [id number] Univers 00:00:00 00:00:00 [facility] 350.1.13.10 it y of [place] 4.2.7.2.686 Nguyễn as Professio [id number] [address] Office Building One 2021-05-04 2021-05-04 Rachelle [facility] 1.2.840.114 [id number] Univers 00:00:00 00:00:00 [facility] 350.1.13.10 it y of [place] 4.2.7.2.686 Nguyễn as Haseeb?Blea [phone] [address] Office Building 2021-04-29 2021-04-29 Refnicole [facility] 1.2.840.114 [id number] Univers 00:00:00 00:00:00 [facility] 350.1.13.10 it y of [place] 4.2.7.2.686 Nguyễn as Haseeb?Blea [phone] Nm edenilson hazel [address] [place] [address] Office Building 2021-04-07 2021-04-07 Refnicole [facility] 1.2.840.114 [id number] Univers 00:00:00 00:00:00 [facility] 350.1.13.10 it y of [place] 4.2.7.2.686 Nguyễn as Haseeb?Blea [phone] [facility] [address] Office Building 2021-03-04 2021-03-04 Office [facility] 1.2.840.114 [id number] Univers 13:31:58 13:46:58 Visit [facility] 350.1.13.10 it y of [place] 4.2.7.2.686 Nguyễn as Professio [phone] [address] Office [facility] One 2021-03-04 2021-03-04 Outpatient [facility] [id number] Univers 13:45:00 13:45:00 KOKO herring [facility] 2021-03-04 2021-03-04 Telephone [facility] 1.2.213.366 [id number] Univers 00:00:00 00:00:00 [facility] 350.1.13.10 it y of [place] 4.2.7.2.686 Nguyễn as Professio [phone] [address] Office [facility] [address] One 2021-03-02 2021-03-02 Telephone [facility] 1.2.055.191 [id number] Univers 00:00:00 00:00:00 [facility] 350.1.13.10 it y of [place] 4.2.7.2.686 Nguyễn as Professio [phone] Nm hipolito[address] Office Building One 2021-02-11 2021-02-11 Office [facility] 1.2.840.114 [id number] Univers 13:21:41 13:51:41 Visit [facility] 350.1.13.10 it y of [place] 4.2.7.2.686 Nguyễn as Professio [phone] [address] Office [facility] [address] One 2021-02-11 2021-02-11 Outpatient R ANDREA [facility] [id number] Univers 13:30:00 13:30:00 KOKO ity of [facility] 2021-02-10 2021-02-11 Emergency Shyanne Mejia 1.2.840 .1 [id number] Methodi 15:38:00 10:00:00 Shira Roger 69382.1.1 034 Tamiko Ngo 3.430.2.7 Hospita .3.667312 l .8 2021-02-03 2021-02-03 Transition Jalen Panda 1.2.840.114 [id number] Univers 00:00:00 00:00:00 of Sona [place] 350.1.13.10 it y of [place]2.[place].2.[place] [phone] [facility] [address] 2021-02-03 2021-02-03 Refill Andrea [facility] 1.2.840.114 [id number] Univers 00:00:00 00:00:00 [facility] 350.1.13.10 it y of [place] 4.2.7.2.686 Nguyễn as Professio [id number] [address] Office [facility] [address] One 2021-01-24 2021-02-02 Hospital Ramón Funk Pranay [facility] 1.2.840.11 [id number] Univers 14:59:00 16:00:00 Encounter Hammad Zepeda 350.1.13.10 ity of [place].2.686 [place] [phone] [facility] [address] 2021-01-26 2021-01-26 Eloy Jacobo [facility] 1.2.350.134 [id number] Univers 00:00:00 00:00:00 [facility] 350.1.13.10 it y of [place] 4.2.7.2.686 Nguyễn as Professio [phone] Nm dical nal [address] [place] [address] Office Building One 2021-01-24 2021-01-24 Orders Doctor CONNOR 1.2.840.114 [id number] Univers 00:00:00 00:00:00 Only Unassigned, KATARINA 350.1.13.10 ity of [place] [facility] 4.2.7.2.686 Nguyễn as [phone] [address] 2021-01-20 2021-01-20 Telephone [facility] 1.2.380.377 [id number] Univers 00:00:00 00:00:00 [facility] 350.1.13.10 it y of [place] 4.2.7.2.686 Nguyễn as Professio [phone] [facility] nal [address] [place] [address] Office [facility] [address] One 2021-01-19 2021-01-19 Laboratory Lab, Adc Fam Pob I [facility] 1.2. 840.114 [id number] Univers 19:29:56 19:49:56 Only Green, Arnot [facility] 350.1.13.10 ity of [place] 4.2.7.2.686 Nguyễn as Professio [phone] [address] Office [facility] [address] One 2021-01-19 2021-01-19 Outpatient R CEDRICK [facility] [id number] Univers 19:40:00 19:40:00 TAYA ity of [facility] 2020-12-26 2020-12-26 Rachelle Jacobo [facility] 1.2.840.114 [id number] Univers 00:00:00 00:00:00 [facility] 350.1.13.10 it y of [place] 4.2.7.2.686 Nguyễn as Professio [phone] Nm dicnm nal [address] [place] [address] Office Building One 2020-12-15 2020-12-15 Day [facility] [id number] Memoria 16:22:00 21:07:00 Surgery r Agustín 05 l [facility] 2020-12-15 2020-12-15 Day [facility] [id number] Memoria 16:22:00 21:07:00 Surgery r Agustín 05 l [facility] 2020-12-15 2020-12-15 [facility] [id number] 11:22:00 16:07:00 Jah Velazquez 2020-12-15 2020-12-15 Outpatient FENFLORESITA[facility]505 MHNE 11:22:00 16:07:00 JAH 2020-12-15 2020-12-15 [facility] [id number] 13:30:00 13:30:00 Jah Velazquez 2020-12-15 2020-12-15 Refnicole Jacobo [facility] 1.2.840.114 [id number] Univers 00:00:00 00:00:00 [facility] 350.1.13.10 it y of [place] 4.2.7.2.686 Nguyễn as Professio [phone] Nm dical nal 044 [facility] One 2020-12-14 2020-12-14 Refnicole Jacobo [facility] 1.2.840.114 [id number] Univers 00:00:00 00:00:00 [facility] 350.1.13.10 it y of [place] 4.2.7.2.686 Nguyễn as Professio [phone] Nm dical nal 044 [facility] 2020-11-05 2020-11-05 Refnicole Jacobo VATIFFANIE 1.2.840.114 [id number] Univers 00:00:00 00:00:00 [facility] 350.1.13.10 it y of [place] 4.2.7.2.686 Nguyễn as Professio [phone] Nm dical nal 044 [facility] 2020-10-21 2020-10-21 Patient Anil [facility] 1.2.840.114 [id number] Univers 00:00:00 00:00:00 Outreach Duane PRIMARY 350.1.13.10 i ty of [place] [facility] 4.2.7.2.686 [place] [phone] Nm dicnm [address] 2020-10-01 2020-10-01 Eloy Jacobo [facility] 1.2.363.162 [id number] Univers 00:00:00 00:00:00 [facility] 350.1.13.10 it y of [place] 4.2.7.2.686 Nguyễn as Professio [phone] Nm dical nal [address] Office Building One 2020-09-27 2020-09-27 Laboratory Lab, Adc Fam Pob I [facility] 1.2. 840.114 [id number] Univers 13:40:02 14:00:02 Only Cedrick Taya [facility] 350.1.13.10 ity of [place] 4.2.7.2.686 Nguyễn as Professio [phone] Nm dical nal 044 [facility] One 2020-09-27 2020-09-27 Outpatient Pranay RIOS [facility] [id number] Univers 13:40:00 13:40:00 [facility] 2020-09-15 2020-09-15 Day [facility] [id number] Memoria 15:13:00 19:50:00 Surgery r [place] 04 l [facility] 2020-09-15 2020-09-15 Day [facility] [id number] Memoria 15:13:00 19:50:00 Surgery r Agustín 04 l [facility] 2020-09-15 2020-09-15 Outpatient Fenfloresita, [facility] [id number] 09:13:00 13:50:00 Jah Villarreal 2020-09-15 2020-09-15 Outpatient FENFLORESITA, [facility] [id number] [facility] 09:13:00 13:50:00 JAH 2020-09-15 2020-09-15 Outpatient Fenfloresita, [facility] [id number] 12:15:00 12:15:00 Jah Ryan 04 2020-09-03 2020-09-03 Outpatient Pranay MUNOZ [facility] [id number] Univers 13:30:00 13:30:00 GUERA [facility] 2020-08-10 2020-08-10 [facility] 1.2.840.114 [id number] Univers 00:00:00 00:00:00 [facility] 350.1.13.10 it y of [place] 4.2.7.2.686 Nguyễn as Professio [phone] [facility] [address] [facility] One 2020-07-16 2020-07-16 Office [facility] 1.2.840.114 [id number] 11:11:17 12:11:04 Visit Guera Serrano 350.1.13.10 [place] 4.2.7.2.686 Professio [phone] [facility] 204 [facility] [address] 2020-07-16 2020-07-16 Office [facility] 1.2.840.114 [id number] Univers 11:11:17 12:11:04 Visit Guera Serrano 350.1.13.10 [place] [phone] [facility] 204 [facility] 2020-07-16 2020-07-16 Outpatient R TAMMY [facility] [id number] Univers 11:00:00 11:00:00 GUERA [facility] 2020-07-16 2020-07-16 [facility] [id number] Univers 08:45:00 08:45:00 [facility] 2020-07-14 2020-07-14 Refill [facility] 1.2.840.114 [id number] Univers 00:00:00 00:00:00 [facility] 350.1.13.10 it y of [place] 4.2.7.2.686 Nguyễn as Professio [phone] [facility] [address] [facility] [address] One 2020-06-12 2020-06-12 Office Efren [facility] 1.2.840.114 [id number] Univers 10:31:50 11:01:50 Visit Isomarknm [employer] 350.1.13.10 it [place] 4[place]2.7.2.686 [place] [phone] [facility] 2020-06-12 2020-06-12 Outpatient R EFREN [facility] [facility] [id number] Univers 10:45:00 10:45:00 [facility] 2020-06-09 2020-06-09 Outpatient R MYA CORTEZ [facility] [id number] Univers 15:00:00 15:00:00 ity [facility] 2020-06-09 2020-06-09 Telephone [facility] [id number] Univers 00:00:00 00:00:00 [facility] 350.1.13.10 it y of [place] 4.2.7.2.686 Nguyễn as Professio [phone] Nm dical [facility] 044 [facility] 2020-06-05 2020-06-05 Telephone [facility] 1.2.650.950 [id number] Univers 00:00:00 00:00:00 [facility] 350.1.13.10 it y of [place] 4.2.7.2.686 Nguyễn as Professio [phone] [facility] 044 [facility] 2020-06-04 2020-06-04 Office [facility] 1.2.840.114 [id number] Univers 14:11:31 14:54:12 Visit Guera Serrano 350.1.13.10 [place] [phone] [facility] 204 [facility] 2020-06-04 2020-06-04 Outpatient [facility] [id number] Univers 14:15:00 14:15:00 GUERA herring [facility] 2020-05-28 2020-05-28 Telephone Mya Cortez [facility] 1.2.840.114 [id number] Univers 00:00:00 00:00:00 Nadege 350.1.13.10 [place] [phone] [facility] 134 [facility] 2020-05-27 2020-05-27 [facility] 1.2.840.114 [id number] Univers 15:00:00 23:59:00 Encounter Koko Serrano 350.1.13.10 [place] [phone] [address] 2020-05-27 2020-05-27 Outpatient R [facility] [id number] Univers 00:00:00 00:00:00 KOKO ity [facility] 2020-05-27 2020-05-27 Orders Doctor CONNOR 1.2.840.114 [id number] Univers 00:00:00 00:00:00 Only Unassigned, KATARINA 350.1.13.10 ity of [place] [facility] 4.2.7.2.686 Nguyễn as [phone] [address] 2020-05-19 2020-05-19 Office [facility] 1.2.840.114 [id number] Univers 14:28:02 14:43:02 Visit [facility] 350.1.13.10 it y of [place] 4.2.7.2.686 [place] as Professio [phone] Nm dical nal 044 [place] Office [facility] 2020-05-19 2020-05-19 Outpatient R [facility] [id number] Univers 14:30:00 14:30:00 MCCOMB ity [facility] 2020-05-16 2020-05-16 Refill [facility] 1.2.840.114 [id number] Univers 00:00:00 00:00:00 [facility] 350.1.13.10 it y of [place] 4.2.7.2.686 N[place]n as Professio [phone] Nm dical nal 044 [facility] 2020-05-15 2020-05-15 Outpatient R [facility] [id number] Univers 10:55:00 10:55:00 ity of [facility] 2020-05-15 2020-05-15 Acid Dipper Lab, Adc Fam Pob I [facility] 1.. 840.114 [id number] Univers 10:23:23 10:25:39 Visit Jennyfer Beard Axtria 350.1.13.10 ity of [place] 4.2.7.2.686 Nguy[place]n as Professio [phone] Nm dical nal 044 [facility] 2020-05-15 2020-05-15 Telephone [facility] 1.2.976.685 [id number] Univers 00:00:00 00:00:00 [facility] 350.1.13.10 it y of [place] 4.2.7.2.686 [place] as Professio [phone] Nm [address] Office [facility] 2020-05-12 2020-05-12 Tele[facility] 1.2.236.441 [id number] Univers 00:00:00 00:00:00 [facility] 350.1.13.10 it y of [place] 4.2.7.2.686 [place] Professio [phone] [address] Office [facility] One 2020-05-09 2020-05-09 Acid Dipper Lab, Adc Fam Pob I [facility] 1.2. 840.114 [id number] Univers 17:29:49 17:44:49 Visit Unknown, Attending Health 350.1.13.10 ity of [place] 4.2.7.2.686 [place] as Professio [phone] [address] Office [facility] One 2020-05-09 2020-05-09 Outpatient R LILLIAM, [facility] [id number] Univers 15:45:00 15:45:00 ATTENDING ity of [facility] 2020-05-09 2020-05-09 Telephone [facility] 1.2.837.866 [id number] Univers 00:00:00 00:00:00 [facility] 350.1.13.10 it y of [place] 4.2.7.2.686 [place] Professio [phone] [address] Office [facility] One 2020-05-09 2020-05-09 Telephone [facility] 1.2.196.072 [id number] Univers 00:00:00 00:00:00 [facility] 350.1.13.10 it y of [place] 4.2.7.2.686 [place] as Professio [phone] [address] Office [facility] One 2020-05-01 2020-05-01 Office [facility] 1.2.840.114 [id number] Univers 15:12:22 16:21:49 Visit [facility] 350.1.13.10 it y of [place] 4.2.7.2.686 [place] as Professio [phone] [address] Office [facility] One 2020-05-01 2020-05-01 Outpatient [facility] [id number] Univers 15:00:00 15:00:00 RACHAEL ity [facility] 2020-04-16 2020-04-16 Refnicole [facility] 1.2.840.114 [id number] Univers 00:00:00 00:00:00 Koko Everett 350.1.13.10 it y of [place] 4.2.7.2.686 Nguyễn as Professio [phone] Nm dical nal 044 [facility] One 2020-03-06 2020-03-06 Office [facility] 1.2.840.114 [id number] Univers 11:08:01 11:23:01 Visit Koko Serrano 350.1.13.10 i [place] [phone] Nm dical nal [address] [place] [address] 2020-03-06 2020-03-06 Outpatient [facility] [id number] Univers 11:15:00 11:15:00 KOKO herring [facility] 2020-03-06 2020-03-06 Outpatient [facility] [id number] Univers 11:00:00 11:00:00 KOKO herring [facility] 2020-02-26 2020-02-27 Outpt Diag nullFlavo [facility] [id number] Memoria 16:57:00 04:59:00 Services r Outpatient 04 l Imaging [facility] 2020-02-26 2020-02-27 Outpt Diag nullFlavo [facility] [id number] Memoria 16:57:00 04:59:00 Services r Outpatient 04 l Imaging [facility] 2020-02-26 2020-02-26 Outpatient Lexiea, OIP OIP [id number] 11:57:00 23:59:00 Lamberto F 04 2020-02-17 2020-02-17 Refnicole [facility] 1.2.840.114 [id number] Univers 00:00:00 00:00:00 Koko Everett 350.1.13.10 it y of [place] 4.2.7.2.686 Nguyễn as Professio [phone] Nm dical nal 044 [facility] One 2019-11-18 2019-11-18 Rachelle [facility] 1.2.840.114 [id number] Univers 00:00:00 00:00:00 [facility] 350.1.13.10 it y of [place] 4.2.7.2.686 Nguy[place]n as Professio [phone] Nm dical nal [address] [place] [address] Office [facility] One 2019-11-14 2019-11-14 Eloy [facility] 1.2.787.738 [id number] Univers 00:00:00 00:00:00 [facility] 350.1.13.10 it y of [place] 4.2.7.2.686 Nguyễn as Professio [phone] [facility] [address] [place] [address] Office Building One 2019-10-23 2019-10-23 Refill [facility] 1.2.840.114 [id number] Univers 00:00:00 00:00:00 [facility] 350.1.13.10 it y of [place] 4.2.7.2.686 [place] as Professio [phone] [facility] nal [address] [place] [address] Office [facility] One 2019-09-21 2019-09-21 Refill [facility] 1.2.840.114 [id number] Univers 00:00:00 00:00:00 [facility] 350.1.13.10 it y of [place] 4.2.7.2.686 Nguyễn as Professio [phone] [facility] nal [address] [place] [address] Office [facility] One 2019-09-20 2019-09-20 Refnicole [facility] 1.2.840.114 [id number] Univers 00:00:00 00:00:00 [facility] 350.1.13.10 it y of [place] 4.2.7.2.686 [place] as Professio [phone] Nm dical nal [address] [place] [address] Office [facility] One 2019-08-30 2019-08-30 Office [facility] 1.2.840.114 [id number] Univers 10:25:47 10:56:23 Visit Jennyfer [facility] 350.1.13.10 i ty of [place] 4.2.7.2.686 Nguyễn as Professio [phone] [facility] nal [address] [place] [address] Office [facility] One 2019-08-30 2019-08-30 Orders Doctor CONNOR 1.2.840.114 [id number] Univers 00:00:00 00:00:00 Only Unassigned, KATARINA 350.1.13.10 ity of [place] [facility] 4.2.7.2.686 Nguyễn as [phone] [address] 2019-08-29 2019-08-29 Refnicole Jacobo [facility] 1.2.840.114 [id number] Univers 00:00:00 00:00:00 [facility] 350.1.13.10 it y of [place] 4.2.7.2.686 Nguyễn as Professio [phone] Nm dical nal 044 [place] Office [facility] One 2019-04-14 2019-04-14 Refnicole [facility] 1.2.840.114 [id number] Univers 00:00:00 00:00:00 [facility] 350.1.13.10 it y of [place] 4.2.7.2.686 Nguyễn as Professio [phone] [address] 2019-03-19 2019-03-19 Eloy Jacobo [facility] 1.2.720.487 [id number] Univers 00:00:00 00:00:00 [facility] 350.1.13.10 it y of [place] 4.2.7.2.686 Nguyễn as Professio [phone] Nm dicnm nal [address] [place] [address] One 2018-10-04 2018-10-05 Outpt Diag nullFlavo [facility] [id number] Memoria 20:39:00 05:59:00 Services r Outpatient 03 l Imaging [facility] 2018-10-04 2018-10-05 Outpt Diag nullFlavo [facility] [id number] Memoria 20:39:00 05:59:00 Services r Outpatient 03 l Imaging [facility] 2018-10-04 2018-10-04 Outpatient Sandy OIP MHOIP [id number] 14:39:00 23:59:00 Trey monet 03 2017-11-17 2017-11-19 Phone nullFlavo MNA [id number] Memoria 14:03:00 04:59:59 Message r Neurosurger 04 l y [facility] 2017-11-17 2017-11-19 Phone nullFlavo MNA [id number] Memoria 14:03:00 04:59:59 Message r Neurosurger 04 l graeme [facility] 2017-11-17 2017-11-18 Outpatient MHMISCHER MHMISCHER [id number] 09:03:00 23:59:59 04 2017-10-13 2017-10-13 Day nullFlavo [facility] [id number] Memoria 14:30:00 19:55:00 Surgery r [place] 03 l [facility] 2017-10-13 2017-10-13 Day nullFlavo [facility] [id number] Memoria 14:30:00 19:55:00 Surgery [facility] 03 l [facility] 2017-10-13 2017-10-13 Outpatient Wyatt-Elvin MHPL MHPL [id number] 08:30:00 13:55:00 Trey monet 2017-09-22 2017-09-23 Outpt Diag nullFlavo [facility] [id number] Memoria 15:37:00 05:59:00 Services r Outpatient 02 [facility] 2017-09-22 2017-09[place] [id number] Memoria 15:37:00 05:59:00 Services r Outpatient 02 [facility] 2017-09-22 2017-09-22 Outpatient Wyatt-Elvin MHOIP MHOIP [id number] 09:37:00 23:59:00 Trey monet 2017-06-01 2017-06-02 [place] [id number] Memoria 13:12:00 04:59:00 Services r Outpatient 01 [facility] 2017-06-01 2017-06-02 [place] [id number] Memoria 13:12:00 04:59:00 Services r Outpatient 01 [facility] 2017-06-01 2017-06-01 Outpatient Wyatt-Elvin MHOIP MHOIP [id number] 08:12:00 23:59:00 Trey monet 2016-03-24 2016-03-24 Outpatient MHIE MHIE [id number] Memoria 14:15:00 14:15:00 00 rekha [place] 2016-03-24 2016-03-24 Outpatient MHIE MHIE [id number] Memoria 14:15:00 14:15:00 00 [facility] 2015-01-17 2015-01-18 OBS Day [facility] [id number] Memoria 10:19:00 04:59:00 Surgery r [place] 02 [facility] 2015-01-17 2015-01-18 OBS Day [facility] [id number] Memoria 10:19:00 04:59:00 Surgery r [place] 02 [facility] 2015-01-17 2015-01-17 Outpatient Coty, 2.16.840. 2.16.840.1. 8 [id number] 05:19:00 23:59:00 Jah Ryan 1.237158. [id number] 02 3.615.0.1 5.0.049 82 1678-12-05 2014-07-13 OBS Day [facility] [id number] Memoria 11:18:00 05:59:[address] [place] [facility] 2014-07-12 2014-07-13 OBS Day [facility] [id number] Memoria 11:18:00 05:59:[address] [place] [facility] 2014-07-12 2014-07-12 Outpatient Coty, 2.16.840. 2.16.840.1. 8 [id number] 05:18:00 23:59:00 Jah Ryan [id number]. [id number] 3.615.0.1 5.0.826 69 2730-11-21 2014-06-29 OBS Day [facility] [id number] Memoria 15:14:00 05:59:00 Surgery r [place] 00 [facility] 2014-06-28 2014-06-29 OBS Day [facility] [id number] Memoria 15:14:00 05:59:00 Surgery r [place] [address] [facility] 2014-06-28 2014-06-28 Outpatient Issac, 2.16.840. 2.16.840. 1. [id number] 09:14:00 23:59:00 Donald Ryan [id number]. [id number] 00 3.615.0.1 5.0.786 81 7351-11-21 2014-06-28 Outpatient Issac, 2.16.840. 2.16.840. 1. [id number] 09:14:00 23:59:00 Donald Ryan 1.800052. [id number] 00 3.615.0.1 5.0.859 26 5903-11-06 2014-06-14 Outpt Diag nullFlavo [facility] [id number] Memoria 23:53:00 05:59:00 Services r Outpatient 00 l Imaging [facility] 2014-06-13 2014-06-14 Outpt Diag nullFlavo [facility] [id number] Memoria 23:53:00 05:59:00 Services r Outpatient 00 l [facility] 2014-06-13 2014-06-13 Outpatient Coty, 2.16.840. 2.16.840.1. 8 [id number] 17:53:00 23:59:00 Jah Ryan 1.663246. [id number] 00 3.615.0.1 5.0.101 01 Results Test Description Test Time Test Comments Results Result Comments Source CHEM PANEL 2020-12-12 16:52:00 Test Item Value Reference Range Interpretation Comme nts Glucose Lvl (test code = Glucose Lvl) 105 70-99 [facility]2021-05-07 16:52:00 Test Item Value Reference Range Interpretation Comments BUN (test code = BUN) 16 7-22 [facility]2021-05-07 16:52:00 Test Item Value Reference Range Interpretation Comments Creatinine Lvl (test code = Creatinine 1.05 0.50-1.40 Lvl) [facility] [id number] 16:52:00 Test Item Value Reference Range Interpretation Comments Sodium Lvl (test code = Sodium Lvl) 141 135-145 [facility] [id number] 16:52:00 Test Item Value Reference Range Interpretation Comments Potassium Lvl (test code = Potassium 3.9 3.5-5.1 Lvl) [facility]2021-05-07 16:52:00 Test Item Value Reference Range Interpretation Comments Chloride Lvl (test code = Chloride Lvl) 109 95-109 [facility] [place] 074001-05-07 16:52:00 Test Item Value Reference Range Interpretation Comments CO2 (test code = CO2) 27 24-32 [place] 349191-05-07 16:52:00 Test Item Value Reference Range Interpretation Comments Calcium Lvl (test code = Calcium Lvl) 9.4 8.5-10.5 [place] 349191-05-07 16:52:00 Test Item Value Reference Range Interpretation Comments Total Protein (test code = Total 7.8 6.4-8.4 Protein) [place] 349191-05-07 16:52:00 Test Item Value Reference Range Interpretation Comments Albumin Lvl (test code = Albumin Lvl) 4.4 3.5-5.0 [place] 349191-05-07 16:52:00 Test Item Value Reference Range Interpretation Comments ALT (test code = ALT) 22 See_Comment [Auto mated message] The system which ge nerated this result transmit laura reference range : <=65. The reference range was not used to interpr et this result as yas l/abnormal. [place] 349191-05-07 16:52:00 Test Item Value Reference Range Interpretation Comments AST (test code = AST) 15 See_Comment [Auto mated message] The system which ge nerated this result transmit laura reference range : <=37. The reference range was not used to interpr et this result as yas l/abnormal. [place] 349191-05-07 16:52:00 Test Item Value Reference Range Interpretation Comments Alk Phos (test code = Alk Phos) 93 39-136 [place] 349191-05-07 16:52:00 Test Item Value Reference Range Interpretation Comments Bili Total (test code = Bili Total) 0.3 0.2-1.3 [place] [address]-05-07 16:52:00 Test Item Value Reference Range Interpretation Comments AGAP (test code = AGAP) 8.9 10.0-20.0 [place] 349191-05-07 16:52:00 Test Item Value Reference Range Interpretation Comments B/C Ratio (test code = B/C Ratio) 15 1 6-25 [place] [address]-05-07 16:52:00 Test Item Value Reference Range Interpretation Comments Globulin (test code = Globulin) 3.4 2.7-4.2 [facility] [id number] 16:52:00 Test Item Value Reference Range Interpretation Comments A/G Ratio (test code = A/G Ratio) 1.3 1 0.7-1.6 [facility] [id number] 16:52:00 Test Item Value Reference Range Interpretation Comments eGFR (test code = eGFR) 61 [facility]mlwymjBDGBXHSABZ3974-80-79 16:52:00 Test Item Value Reference Range Interpretation Comments WBC (test code = WBC) 6.1 3.7-10.4 [facility] CenterZacrqdjBVQDEVAWNR3028-40-89 16:52:00 Test Item Value Reference Range Interpretation Comments RBC (test code = RBC) 4.67 4.20-5.40 [facility] CenterHokmkerAQDUVMOWVX1773-35-47 16:52:00 Test Item Value Reference Range Interpretation Comments Hgb (test code = Hgb) 13.0 12.0-16.0 [facility] CenterTkhmjvgDSDMWXMZYK9159-60-83 16:52:00 Test Item Value Reference Range Interpretation Comments Hct (test code = Hct) 40.8 36.0-48.0 [facility] CenterMnxbycoDZCHDCHMZW1297-17-07 16:52:00 Test Item Value Reference Range Interpretation Comments MCV (test code = MCV) 87.2 80.0-98.0 [facility] CenterVmohuaeEAMGZVZUHP5246-68-87 16:52:00 Test Item Value Reference Range Interpretation Comments MCH (test code = MCH) 27.7 pg 27.0-31.0 [facility] CenterAbzwxyjRXCGMRBOVW9619-90-09 16:52:00 Test Item Value Reference Range Interpretation Comments MCHC (test code = MCHC) 31.8 32.0-36.0 [facility] CenterQvcqvutIRWCELIQVZ7814-31-86 16:52:00 Test Item Value Reference Range Interpretation Comments RDW (test code = RDW) 14.7 11.5-14.5 [facility] CenterPzldzlsNOPWGMILPC7621-35-82 16:52:00 Test Item Value Reference Range Interpretation Comments Platelet (test code = Platelet) 276 133-450 [facility] CenterCborctfLKXLVGSCLA6505-34-88 16:52:00 Test Item Value Reference Range Interpretation Comments MPV (test code = MPV) 8.0 7.4-10.4 [facility] CenterWcvgvwcOVOQBBZSFX2577-17-04 16:52:00 Test Item Value Reference Range Interpretation Comments PT (test code = PT) 12.0 s 12.0-14.7 [place] 771111-05-07 16:52:00 Test Item Value Reference Range Interpretation Comments INR (test code = INR) 0.89 1 0.85-1.17 [place] 771111-05-07 16:52:00 Test Item Value Reference Range Interpretation Comments PTT (test code = PTT) 28.6 s 22.9-35.8 [place] 771111-05-07 16:52:00 Test Item Value Reference Range Interpretation Comments Segs (test code = Segs) 70.7 45.0-75.0 [place] [address]-05-07 16:52:00 Test Item Value Reference Range Interpretation Comments Lymphocytes (test code = Lymphocytes) 20.1 20.0-40.0 [place] [address]-05-07 16:52:00 Test Item Value Reference Range Interpretation Comments Monocytes (test code = Monocytes) 8.3 2.0-12.0 [place] 771111-05-07 16:52:00 Test Item Value Reference Range Interpretation Comments Eosinophils (test code = 0.6 See_Comment [A utomated message] The Eosinophils) system which ge nerated this result tra nsmitted reference range : <=4.0. The reference r jeffy was not used to int erpret this result as normal/abnormal . [facility] CenterEhqqaycBYWQBZODXU5472-04-40 16:52:00 Test Item Value Reference Range Interpretation Comments Basophils (test code = 0.3 See_Comment [Aut omated message] The Basophils) system which ge nerated this result tra nsmitted reference range : <=1.0. The reference r jeffy was not used to int erpret this result as normal/abnormal . [place] 771111-05-07 16:52:00 Test Item Value Reference Range Interpretation Comments Neutrophils # (test code = Neutrophils 4.3 1.5-8.1 #) [place] 771111-05-07 16:52:00 Test Item Value Reference Range Interpretation Comments Lymphocytes # (test code = Lymphocytes 1.2 1.0-5.5 #) [place] 771111-05-07 16:52:00 Test Item Value Reference Range Interpretation Comments Monocytes # (test code 0.5 See_Comment [Aut omated message] The = Monocytes #) system which generated this result tra nsmitted reference range : <=0.8. The reference r jeffy was not used to int erpret this result as normal/abnormal . [facility] HospitalVmrmlfdUROEEIABOV2924-67-28 16:52:00 Test Item Value Reference Range Interpretation Comments Coronavirus (COVID-19) Not Detected (12/12/20 CHARISMA (test code = 11:52 AM) Coronavirus (COVID-19) CHARISMA) [facility] AND [id number] 16:52:00 Test Item Value Reference Range Interpretation Comments Micro? (test code = Performed *NA*(12/12/20 Micro?) 11:52 AM) [facility] AND [id number] 16:52:00 Test Item Value Reference Range Interpretation Comments UA Color (test code = Ashwini *ABN*(12/12/20 UA Color) 11:52 AM) [facility] AND [id number] 16:52:00 Test Item Value Reference Range Interpretation Comments UA Turbidity (test code Marked *ABN*(12/12/20 = UA Turbidity) 11:52 AM) [facility] AND [id number] 16:52:00 Test Item Value Reference Range Interpretation Comments UA Spec Grav (test code = UA Spec 1.019 1 Grav) [facility] AND [id number] 16:52:00 Test Item Value Reference Range Interpretation Comments UA pH (test code = UA pH) 5.0 1 5.0-8.0 [facility] AND [id number] 16:52:00 Test Item Value Reference Range Interpretation Comments UA Protein (test code = UA Protein) 30 mg/dL [facility] AND [id number] 16:52:00 Test Item Value Reference Range Interpretation Comments UA Glucose (test code = UA Negative mg/dL Glucose) [facility] AND [id number] 16:52:00 Test Item Value Reference Range Interpretation Comments UA Ketones (test code = UA Negative mg/dL Ketones) [facility] AND [id number] 16:52:00 Test Item Value Reference Range Interpretation Comments UA Bili (test code = Negative *NA*(12/12/20 UA Bili) 11:52 AM) [facility] [id number] 16:52:00 Test Item Value Reference Range Interpretation Comments UA Blood (test code = Negative (12/12/20 11:52 UA Blood) AM) [facility] [id number] 16:52:00 Test Item Value Reference Range Interpretation Comments UA Urobilinogen (test code = UA 4.0 0.1-1.0 Urobilinogen) [facility] AND [id number] 16:52:00 Test Item Value Reference Range Interpretation Comments UA Nitrite (test code Negative (12/12/20 11:52 = UA Nitrite) AM) [facility] [id number] 16:52:00 Test Item Value Reference Range Interpretation Comments UA Leuk Est (test Negative (12/12/20 11:52 code = UA Leuk Est) AM) [facility] AND [id number] 16:52:00 Test Item Value Reference Range Interpretation Comments UA Sq Epi (test code = UA Sq Moderate /LPF Epi) [facility] AND [id number] 16:52:00 Test Item Value Reference Range Interpretation Comments UA WBC (test code = 2 See_Comment [Automa laura message] The UA WBC) system which ge nerated this result transmit laura reference range : <=5. The reference range was not used to interpr et this result as yas l/abnormal. [facility] [id number] 16:52:00 Test Item Value Reference Range Interpretation Comments UA RBC (test code = 2 See_Comment [Automa laura message] The UA RBC) system which ge nerated this result transmit laura reference range : <=2. The reference range was not used to interpr et this result as yas l/abnormal. [facility] [id number] 16:52:00 Test Item Value Reference Range Interpretation Comments UA Bacteria (test code = UA Moderate /HPF Bacteria) [facility] [id number] 16:52:00 Test Item Value Reference Range Interpretation Comments UA Mucus (test code = UA Mucus) Moderate /LPF [facility] [id number] 16:52:00 Test Item Value Reference Range Interpretation Comments UA Hyal Cast (test 4 See_Comment [Automat ed message] The code = UA Hyal Cast) system which generated this result transmit laura reference range : <=2. The reference range was not used to interpr et this result as yas l/abnormal. [facility]2021-05-07 16:52:00 Test Item Value Reference Range Interpretation Comments Glucose Lvl (test code = Glucose Lvl) 105 70-99 [place] 349191-05-07 16:52:00 Test Item Value Reference Range Interpretation Comments BUN (test code = BUN) 16 7-22 [place] 349191-05-07 16:52:00 Test Item Value Reference Range Interpretation Comments Creatinine Lvl (test code = Creatinine 1.05 0.50-1.40 Lvl) [place] 349191-05-07 16:52:00 Test Item Value Reference Range Interpretation Comments Sodium Lvl (test code = Sodium Lvl) 141 135-145 [place] 349191-05-07 16:52:00 Test Item Value Reference Range Interpretation Comments Potassium Lvl (test code = Potassium 3.9 3.5-5.1 Lvl) [facility] [id number] 16:52:00 Test Item Value Reference Range Interpretation Comments Chloride Lvl (test code = Chloride Lvl) 109 95-109 [facility] [id number] 16:52:00 Test Item Value Reference Range Interpretation Comments CO2 (test code = CO2) 27 24-32 [place] 349191-05-07 16:52:00 Test Item Value Reference Range Interpretation Comments Calcium Lvl (test code = Calcium Lvl) 9.4 8.5-10.5 [facility] [id number] 16:52:00 Test Item Value Reference Range Interpretation Comments Total Protein (test code = Total 7.8 6.4-8.4 Protein) [facility] [id number] 16:52:00 Test Item Value Reference Range Interpretation Comments Albumin Lvl (test code = Albumin Lvl) 4.4 3.5-5.0 [facility] [id number] 16:52:00 Test Item Value Reference Range Interpretation Comments ALT (test code = ALT) 22 See_Comment [Auto mated message] The system which ge nerated this result transmit laura reference range : <=65. The reference range was not used to interpr et this result as yas l/abnormal. [place] 349191-05-07 16:52:00 Test Item Value Reference Range Interpretation Comments AST (test code = AST) 15 See_Comment [Auto mated message] The system which ge nerated this result transmit laura reference range : <=37. The reference range was not used to interpr et this result as yas l/abnormal. [place] 349191-05-07 16:52:00 Test Item Value Reference Range Interpretation Comments Alk Phos (test code = Alk Phos) 93 39-136 [place] [address]-05-07 16:52:00 Test Item Value Reference Range Interpretation Comments Bili Total (test code = Bili Total) 0.3 0.2-1.3 [place] [address]-05-07 16:52:00 Test Item Value Reference Range Interpretation Comments AGAP (test code = AGAP) 8.9 10.0-20.0 [place] [address]-05-07 16:52:00 Test Item Value Reference Range Interpretation Comments B/C Ratio (test code = B/C Ratio) 15 1 6-25 [place] [address]-05-07 16:52:00 Test Item Value Reference Range Interpretation Comments Globulin (test code = Globulin) 3.4 2.7-4.2 [place] [address]-05-07 16:52:00 Test Item Value Reference Range Interpretation Comments A/G Ratio (test code = A/G Ratio) 1.3 1 0.7-1.6 [place] [address]-05-07 16:52:00 Test Item Value Reference Range Interpretation Comments eGFR (test code = eGFR) 61 [place] [address]-05-07 16:52:00 Test Item Value Reference Range Interpretation Comments WBC (test code = WBC) 6.1 3.7-10.4 [place] [address]-05-07 16:52:00 Test Item Value Reference Range Interpretation Comments RBC (test code = RBC) 4.67 4.20-5.40 [place] [address]-05-07 16:52:00 Test Item Value Reference Range Interpretation Comments Hgb (test code = Hgb) 13.0 12.0-16.0 [facility]XwpuwcmWCVKGQNOFO3692-20-77 16:52:00 Test Item Value Reference Range Interpretation Comments Hct (test code = Hct) 40.8 36.0-48.0 [facility] CenterEwbjswvLVGJYAMZJD9481-38-96 16:52:00 Test Item Value Reference Range Interpretation Comments MCV (test code = MCV) 87.2 80.0-98.0 [facility] CenterMflwyksRROKZLZEIY2063-73-49 16:52:00 Test Item Value Reference Range Interpretation Comments MCH (test code = MCH) 27.7 pg 27.0-31.0 [facility] CenterXwelvtgMAXKWBHHSX5559-90-60 16:52:00 Test Item Value Reference Range Interpretation Comments MCHC (test code = MCHC) 31.8 32.0-36.0 [facility] CenterGuorexbCNHIRPOZBU1782-98-97 16:52:00 Test Item Value Reference Range Interpretation Comments RDW (test code = RDW) 14.7 11.5-14.5 [facility] CenterNhpaxziFKXNADQYDD5857-23-94 16:52:00 Test Item Value Reference Range Interpretation Comments Platelet (test code = Platelet) 276 133-450 [facility] CenterBywwkylGXLCPKGWBK5312-39-54 16:52:00 Test Item Value Reference Range Interpretation Comments MPV (test code = MPV) 8.0 7.4-10.4 [facility] CenterHhzreqmRMFHNVJQLV3500-22-45 16:52:00 Test Item Value Reference Range Interpretation Comments PT (test code = PT) 12.0 s 12.0-14.7 [facility] CenterSlbjmzpPDWQWIKBTS5894-28-56 16:52:00 Test Item Value Reference Range Interpretation Comments INR (test code = INR) 0.89 1 0.85-1.17 [facility] CenterEwyjwtlAIVCDMZBTU2916-94-61 16:52:00 Test Item Value Reference Range Interpretation Comments PTT (test code = PTT) 28.6 s 22.9-35.8 [place] 771111-05-07 16:52:00 Test Item Value Reference Range Interpretation Comments Segs (test code = Segs) 70.7 45.0-75.0 [place] 771111-05-07 16:52:00 Test Item Value Reference Range Interpretation Comments Lymphocytes (test code = Lymphocytes) 20.1 20.0-40.0 [place] 771111-05-07 16:52:00 Test Item Value Reference Range Interpretation Comments Monocytes (test code = Monocytes) 8.3 2.0-12.0 [facility] CenterZobxnbqFRJVYHMNDV1992-26-35 16:52:00 Test Item Value Reference Range Interpretation Comments Eosinophils (test code = 0.6 See_Comment [A utomated message] The Eosinophils) system which ge nerated this result tra nsmitted reference range : <=4.0. The reference r jeffy was not used to int erpret this result as normal/abnormal . [facility] CenterApzkoxqHCTWIWZUGV6420-80-20 16:52:00 Test Item Value Reference Range Interpretation Comments Basophils (test code = 0.3 See_Comment [Aut omated message] The Basophils) system which ge nerated this result tra nsmitted reference range : <=1.0. The reference r jeffy was not used to int erpret this result as normal/abnormal . [facility] CenterYtuhtbpUKFCIHKQEW5251-56-58 16:52:00 Test Item Value Reference Range Interpretation Comments Neutrophils # (test code = Neutrophils 4.3 1.5-8.1 #) [facility] CenterYduflnqFJRVZSBVEB8523-01-48 16:52:00 Test Item Value Reference Range Interpretation Comments Lymphocytes # (test code = Lymphocytes 1.2 1.0-5.5 #) [facility] CenterTjjutekFMXUJAEQKY6796-77-80 16:52:00 Test Item Value Reference Range Interpretation Comments Monocytes # (test code 0.5 See_Comment [Aut omated message] The = Monocytes #) system which generated this result tra nsmitted reference range : <=0.8. The reference r jeffy was not used to int erpret this result as normal/abnormal . [facility] HospitalUwcaqbuMAJABGKBPH5107-95-56 16:52:00 Test Item Value Reference Range Interpretation Comments Coronavirus (COVID-19) Not Detected (12/12/20 CHARISMA (test code = 11:52 AM) Coronavirus (COVID-19) CHARISMA) [facility] AND [id number] 16:52:00 Test Item Value Reference Range Interpretation Comments Micro? (test code = Performed *NA*(12/12/20 Micro?) 11:52 AM) [facility] AND [id number] 16:52:00 Test Item Value Reference Range Interpretation Comments UA Color (test code = Ashwini *ABN*(12/12/20 UA Color) 11:52 AM) [facility] AND [id number] 16:52:00 Test Item Value Reference Range Interpretation Comments UA Turbidity (test code Marked *ABN*(12/12/20 = UA Turbidity) 11:52 AM) [facility] AND [id number] 16:52:00 Test Item Value Reference Range Interpretation Comments UA Spec Grav (test code = UA Spec 1.019 1 Grav) [facility] AND [id number] 16:52:00 Test Item Value Reference Range Interpretation Comments UA pH (test code = UA pH) 5.0 1 5.0-8.0 [facility] AND [id number] 16:52:00 Test Item Value Reference Range Interpretation Comments UA Protein (test code = UA Protein) 30 mg/dL [facility] AND [id number] 16:52:00 Test Item Value Reference Range Interpretation Comments UA Glucose (test code = UA Negative mg/dL Glucose) [facility] AND [id number] 16:52:00 Test Item Value Reference Range Interpretation Comments UA Ketones (test code = UA Negative mg/dL Ketones) [facility] AND [id number] 16:52:00 Test Item Value Reference Range Interpretation Comments UA Bili (test code = Negative *NA*(12/12/20 UA Bili) 11:52 AM) [facility] AND [id number] 16:52:00 Test Item Value Reference Range Interpretation Comments UA Blood (test code = Negative (12/12/20 11:52 UA Blood) AM) [facility] AND [id number] 16:52:00 Test Item Value Reference Range Interpretation Comments UA Urobilinogen (test code = UA 4.0 0.1-1.0 Urobilinogen) [facility] AND [id number] 16:52:00 Test Item Value Reference Range Interpretation Comments UA Nitrite (test code Negative (12/12/20 11:52 = UA Nitrite) AM) [facility] AND [id number] 16:52:00 Test Item Value Reference Range Interpretation Comments UA Leuk Est (test Negative (12/12/20 11:52 code = UA Leuk Est) AM) [facility] AND [id number] 16:52:00 Test Item Value Reference Range Interpretation Comments UA Sq Epi (test code = UA Sq Moderate /LPF Epi) [facility] AND [id number] 16:52:00 Test Item Value Reference Range Interpretation Comments UA WBC (test code = 2 See_Comment [Automa laura message] The UA WBC) system which ge nerated this result transmit laura reference range : <=5. The reference range was not used to interpr et this result as yas l/abnormal. [facility] [id number] 16:52:00 Test Item Value Reference Range Interpretation Comments UA RBC (test code = 2 See_Comment [Automa laura message] The UA RBC) system which ge nerated this result transmit laura reference range : <=2. The reference range was not used to interpr et this result as yas l/abnormal. [facility] [id number] 16:52:00 Test Item Value Reference Range Interpretation Comments UA Bacteria (test code = UA Moderate /HPF Bacteria) [facility] AND [id number] 16:52:00 Test Item Value Reference Range Interpretation Comments UA Mucus (test code = UA Mucus) Moderate /LPF [facility] AND [id number] 16:52:00 Test Item Value Reference Range Interpretation Comments UA Hyal Cast (test 4 See_Comment [Automat ed message] The code = UA Hyal Cast) system which generated this result transmit laura reference range : <=2. The reference range was not used to interpr et this result as yas l/abnormal. [facility] [id number] 19:39:00 Test Item Value Reference Range Interpretation Comments Glucose Lvl (test code = Glucose Lvl) 101 70-99 [facility] [id number] 19:39:00 Test Item Value Reference Range Interpretation Comments BUN (test code = BUN) 13 7-22 [facility] [id number] 19:39:00 Test Item Value Reference Range Interpretation Comments Creatinine Lvl (test code = Creatinine 1.25 0.50-1.40 Lvl) [facility] [id number] 19:39:00 Test Item Value Reference Range Interpretation Comments Sodium Lvl (test code = Sodium Lvl) 142 135-145 [place] 349191-02-05 19:39:00 Test Item Value Reference Range Interpretation Comments Potassium Lvl (test code = Potassium 3.7 3.5-5.1 Lvl) [place] 349191-02-05 19:39:00 Test Item Value Reference Range Interpretation Comments Chloride Lvl (test code = Chloride Lvl) 111 95-109 [place] 349191-02-05 19:39:00 Test Item Value Reference Range Interpretation Comments CO2 (test code = CO2) 27 24-32 [place] 349191-02-05 19:39:00 Test Item Value Reference Range Interpretation Comments Calcium Lvl (test code = Calcium Lvl) 9.4 8.5-10.5 [place] 349191-02-05 19:39:00 Test Item Value Reference Range Interpretation Comments Total Protein (test code = Total 7.6 6.4-8.4 Protein) [place] 349191-02-05 19:39:00 Test Item Value Reference Range Interpretation Comments Albumin Lvl (test code = Albumin Lvl) 4.0 3.5-5.0 [place] 349191-02-05 19:39:00 Test Item Value Reference Range Interpretation Comments ALT (test code = ALT) 18 See_Comment [Auto mated message] The system which ge nerated this result transmit laura reference range : <=65. The reference range was not used to interpr et this result as yas l/abnormal. [place] 349191-02-05 19:39:00 Test Item Value Reference Range Interpretation Comments AST (test code = AST) 9 See_Comment [Auto mated message] The system which ge nerated this result transmit laura reference range : <=37. The reference range was not used to interpr et this result as yas l/abnormal. [place] 349191-02-05 19:39:00 Test Item Value Reference Range Interpretation Comments Alk Phos (test code = Alk Phos) 92 39-136 [place] 349191-02-05 19:39:00 Test Item Value Reference Range Interpretation Comments Bili Total (test code = Bili Total) 0.2 0.2-1.3 [place] 349191-02-05 19:39:00 Test Item Value Reference Range Interpretation Comments AGAP (test code = AGAP) 7.7 10.0-20.0 [facility]2021-02-05 19:39:00 Test Item Value Reference Range Interpretation Comments B/C Ratio (test code = B/C Ratio) 10 1 6-25 [place] 349191-02-05 19:39:00 Test Item Value Reference Range Interpretation Comments Globulin (test code = Globulin) 3.6 2.7-4.2 [place] 349191-02-05 19:39:00 Test Item Value Reference Range Interpretation Comments A/G Ratio (test code = A/G Ratio) 1.1 1 0.7-1.6 [place] 349191-02-05 19:39:00 Test Item Value Reference Range Interpretation Comments eGFR (test code = eGFR) 50 [facility] [id number] 19:39:00 Test Item Value Reference Range Interpretation Comments WBC (test code = WBC) 6.9 3.7-10.4 [place] 771111-02-05 19:39:00 Test Item Value Reference Range Interpretation Comments RBC (test code = RBC) 4.59 4.20-5.40 [place] 771111-02-05 19:39:00 Test Item Value Reference Range Interpretation Comments Hgb (test code = Hgb) 12.5 12.0-16.0 [place] 771111-02-05 19:39:00 Test Item Value Reference Range Interpretation Comments Hct (test code = Hct) 39.2 36.0-48.0 [place] 771111-02-05 19:39:00 Test Item Value Reference Range Interpretation Comments MCV (test code = MCV) 85.3 80.0-98.0 [place] 771111-02-05 19:39:00 Test Item Value Reference Range Interpretation Comments MCH (test code = MCH) 27.3 pg 27.0-31.0 [place] 771111-02-05 19:39:00 Test Item Value Reference Range Interpretation Comments MCHC (test code = MCHC) 32.0 32.0-36.0 [place] 771111-02-05 19:39:00 Test Item Value Reference Range Interpretation Comments RDW (test code = RDW) 17.1 11.5-14.5 [place] 771111-02-05 19:39:00 Test Item Value Reference Range Interpretation Comments Platelet (test code = Platelet) 265 133-450 [place] 771111-02-05 19:39:00 Test Item Value Reference Range Interpretation Comments MPV (test code = MPV) 8.1 7.4-10.4 [place] 771111-02-05 19:39:00 Test Item Value Reference Range Interpretation Comments PT (test code = PT) 12.9 s 12.0-14.7 [place] 771111-02-05 19:39:00 Test Item Value Reference Range Interpretation Comments INR (test code = INR) 0.98 1 0.85-1.17 [place] 771111-02-05 19:39:00 Test Item Value Reference Range Interpretation Comments PTT (test code = PTT) 30.4 s 22.9-35.8 [place] 771111-02-05 19:39:00 Test Item Value Reference Range Interpretation Comments Segs (test code = Segs) 65.5 45.0-75.0 [place] 771111-02-05 19:39:00 Test Item Value Reference Range Interpretation Comments Lymphocytes (test code = Lymphocytes) 25.6 20.0-40.0 [facility] C[id number] 19:39:00 Test Item Value Reference Range Interpretation Comments Monocytes (test code = Monocytes) 7.9 2.0-12.0 [facility] CenterMwsxjabYBTWQRDKSI8215-54-69 19:39:00 Test Item Value Reference Range Interpretation Comments Eosinophils (test code = 0.4 See_Comment [A utomated message] The Eosinophils) system which ge nerated this result tra nsmitted reference range : <=4.0. The reference r jeffy was not used to int erpret this result as normal/abnormal . [place] 771111-02-05 19:39:00 Test Item Value Reference Range Interpretation Comments Basophils (test code = 0.6 See_Comment [Aut omated message] The Basophils) system which ge nerated this result tra nsmitted reference range : <=1.0. The reference r jeffy was not used to int erpret this result as normal/abnormal . [place] 771111-02-05 19:39:00 Test Item Value Reference Range Interpretation Comments Neutrophils # (test code = Neutrophils 4.5 1.5-8.1 #) [facility]pg[facility]SOLISEWWL5718-17-57 19:39:00 Test Item Value Reference Range Interpretation Comments Lymphocytes # (test code = Lymphocytes 1.8 1.0-5.5 #) [facility] HospitalAxdpqetSEEIEZEMHY0503-17-19 19:39:00 Test Item Value Reference Range Interpretation Comments Monocytes # (test code 0.5 See_Comment [Aut omated message] The = Monocytes #) system which generated this result tra nsmitted reference range : <=0.8. The reference r jeffy was not used to int erpret this result as normal/abnormal . [facility] HospitalYtpxfkrKRYGPFZCYO3714-98-37 19:39:00 Test Item Value Reference Range Interpretation Comments Coronavirus (COVID-19) Not Detected (09/12/20 CHARISMA (test code = 1:39 PM) Coronavirus (COVID-19) CHARISMA) [facility] AND [id number] 19:39:00 Test Item Value Reference Range Interpretation Comments UA Color (test code = See Note 2(09/12/20 1:39 UA Color) PM) [facility] AND [id number] 19:39:00 Test Item Value Reference Range Interpretation Comments UA Turbidity (test code Marked *ABN*(09/12/20 = UA Turbidity) 1:39 PM) [facility] AND [id number] 19:39:00 Test Item Value Reference Range Interpretation Comments UA Spec Grav (test code = UA Spec 1.017 1 Grav) [facility] AND [id number] 19:39:00 Test Item Value Reference Range Interpretation Comments UA pH (test code = UA pH) 5.0 1 5.0-8.0 [facility] AND [id number] 19:39:00 Test Item Value Reference Range Interpretation Comments UA Protein (test code = UA Negative mg/dL Protein) [facility] AND [id number] 19:39:00 Test Item Value Reference Range Interpretation Comments UA Glucose (test code = UA Negative mg/dL Glucose) [facility] AND [id number] 19:39:00 Test Item Value Reference Range Interpretation Comments UA Ketones (test code = UA Negative mg/dL Ketones) [facility] AND [id number] 19:39:00 Test Item Value Reference Range Interpretation Comments UA Bili (test code = Negative *NA*(09/12/20 UA Bili) 1:39 PM) [facility] AND [id number] 19:39:00 Test Item Value Reference Range Interpretation Comments UA Blood (test code = Negative (09/12/20 1:39 UA Blood) PM) [facility] AND [id number] 19:39:00 Test Item Value Reference Range Interpretation Comments UA Urobilinogen (test code = UA 2.0 0.1-1.0 Urobilinogen) [facility] AND [id number] 19:39:00 Test Item Value Reference Range Interpretation Comments UA Nitrite (test code Negative (09/12/20 1:39 = UA Nitrite) PM) [facility] AND [id number] 19:39:00 Test Item Value Reference Range Interpretation Comments UA Leuk Est (test Negative (09/12/20 1:39 code = UA Leuk Est) PM) [facility] AND [id number] 19:39:00 Test Item Value Reference Range Interpretation Comments UA Sq Epi (test code = UA Sq Epi) Few /LPF [facility] AND [id number] 19:39:00 Test Item Value Reference Range Interpretation Comments UA WBC (test code = 2 See_Comment [Automa laura message] The UA WBC) system which ge nerated this result transmit laura reference range : <=5. The reference range was not used to interpr et this result as yas l/abnormal. [facility] AND [id number] 19:39:00 Test Item Value Reference Range Interpretation Comments UA RBC (test code = 2 See_Comment [Automa laura message] The UA RBC) system which ge nerated this result transmit laura reference range : <=2. The reference range was not used to interpr et this result as yas l/abnormal. [facility] AND [id number] 19:39:00 Test Item Value Reference Range Interpretation Comments UA Bacteria (test code = UA Few /HPF Bacteria) [facility] AND [id number] 19:39:00 Test Item Value Reference Range Interpretation Comments UA Mucus (test code = UA Mucus) Few /LPF [facility]2021-02-05 19:39:00 Test Item Value Reference Range Interpretation Comments UA Hyal Cast (test 3 See_Comment [Automat ed message] The code = UA Hyal Cast) system which generated this result transmit laura reference range : <=2. The reference range was not used to interpr et this result as yas l/abnormal. [facility]2021-02-05 19:39:00 Test Item Value Reference Range Interpretation Comments Micro? (test code = Performed *NA*(09/12/20 Micro?) 1:39 PM) [facility]2021-02-05 19:39:00 Test Item Value Reference Range Interpretation Comments Glucose Lvl (test code = Glucose Lvl) 101 70-99 [facility]2021-02-05 19:39:00 Test Item Value Reference Range Interpretation Comments BUN (test code = BUN) 13 7-22 [facility]2021-02-05 19:39:00 Test Item Value Reference Range Interpretation Comments Creatinine Lvl (test code = Creatinine 1.25 0.50-1.40 Lvl) [facility]2021-02-05 19:39:00 Test Item Value Reference Range Interpretation Comments Sodium Lvl (test code = Sodium Lvl) 142 135-145 [facility]2021-02-05 19:39:00 Test Item Value Reference Range Interpretation Comments Potassium Lvl (test code = Potassium 3.7 3.5-5.1 Lvl) [facility]2021-02-05 19:39:00 Test Item Value Reference Range Interpretation Comments Chloride Lvl (test code = Chloride Lvl) 111 95-109 [facility]2021-02-05 19:39:00 Test Item Value Reference Range Interpretation Comments CO2 (test code = CO2) 27 24-32 [facility]2021-02-05 19:39:00 Test Item Value Reference Range Interpretation Comments Calcium Lvl (test code = Calcium Lvl) 9.4 8.5-10.5 [facility]2021-02-05 19:39:00 Test Item Value Reference Range Interpretation Comments Total Protein (test code = Total 7.6 6.4-8.4 Protein) [facility]2021-02-05 19:39:00 Test Item Value Reference Range Interpretation Comments Albumin Lvl (test code = Albumin Lvl) 4.0 3.5-5.0 [place] 349191-02-05 19:39:00 Test Item Value Reference Range Interpretation Comments ALT (test code = ALT) 18 See_Comment [Auto mated message] The system which ge nerated this result transmit laura reference range : <=65. The reference range was not used to interpr et this result as yas l/abnormal. [place] 349191-02-05 19:39:00 Test Item Value Reference Range Interpretation Comments AST (test code = AST) 9 See_Comment [Auto mated message] The system which ge nerated this result transmit laura reference range : <=37. The reference range was not used to interpr et this result as yas l/abnormal. [place] 349191-02-05 19:39:00 Test Item Value Reference Range Interpretation Comments Alk Phos (test code = Alk Phos) 92 39-136 [place] 349191-02-05 19:39:00 Test Item Value Reference Range Interpretation Comments Bili Total (test code = Bili Total) 0.2 0.2-1.3 [place] 349191-02-05 19:39:00 Test Item Value Reference Range Interpretation Comments AGAP (test code = AGAP) 7.7 10.0-20.0 [place] 349191-02-05 19:39:00 Test Item Value Reference Range Interpretation Comments B/C Ratio (test code = B/C Ratio) 10 1 6-25 [place] 349191-02-05 19:39:00 Test Item Value Reference Range Interpretation Comments Globulin (test code = Globulin) 3.6 2.7-4.2 [place] [address]-02-05 19:39:00 Test Item Value Reference Range Interpretation Comments A/G Ratio (test code = A/G Ratio) 1.1 1 0.7-1.6 [place] 349191-02-05 19:39:00 Test Item Value Reference Range Interpretation Comments eGFR (test code = eGFR) 50 [facility]SplyaufEJDXYETEBV3590-91-58 19:39:00 Test Item Value Reference Range Interpretation Comments WBC (test code = WBC) 6.9 3.7-10.4 [facility] CenterSqbdpvsYHTIVRNCOU6699-95-78 19:39:00 Test Item Value Reference Range Interpretation Comments RBC (test code = RBC) 4.59 4.20-5.40 [facility] CenterIagvkpoXEGXYEYUEW2165-88-89 19:39:00 Test Item Value Reference Range Interpretation Comments Hgb (test code = Hgb) 12.5 12.0-16.0 [facility] CenterIutjingNGNERXHVBI3857-64-73 19:39:00 Test Item Value Reference Range Interpretation Comments Hct (test code = Hct) 39.2 36.0-48.0 [facility] CenterWlfgfgqGQFBDDKEGB0324-88-70 19:39:00 Test Item Value Reference Range Interpretation Comments MCV (test code = MCV) 85.3 80.0-98.0 [facility] CenterHqogfxwMYWCDEBVLH1165-31-68 19:39:00 Test Item Value Reference Range Interpretation Comments MCH (test code = MCH) 27.3 pg 27.0-31.0 [facility] CenterYchxkwwJZXTMPURUU5928-75-78 19:39:00 Test Item Value Reference Range Interpretation Comments MCHC (test code = MCHC) 32.0 32.0-36.0 [facility] CenterXnyjeuaCREWYIRUPW5064-17-68 19:39:00 Test Item Value Reference Range Interpretation Comments RDW (test code = RDW) 17.1 11.5-14.5 [facility] CenterSkbnnzoNJNWPMIKID0021-68-27 19:39:00 Test Item Value Reference Range Interpretation Comments Platelet (test code = Platelet) 265 133-450 [facility] CenterZbznrzhWWEXDMEJBK8172-61-44 19:39:00 Test Item Value Reference Range Interpretation Comments MPV (test code = MPV) 8.1 7.4-10.4 [facility] CenterTobiftsZDCGNASBGS1831-89-50 19:39:00 Test Item Value Reference Range Interpretation Comments PT (test code = PT) 12.9 s 12.0-14.7 [facility] CenterJltbmdgWQBQNJEINY1979-97-79 19:39:00 Test Item Value Reference Range Interpretation Comments INR (test code = INR) 0.98 1 0.85-1.17 [facility] CenterGjcrwmoUZSRXTDCXX2412-87-86 19:39:00 Test Item Value Reference Range Interpretation Comments PTT (test code = PTT) 30.4 s 22.9-35.8 [place] 771111-02-05 19:39:00 Test Item Value Reference Range Interpretation Comments Segs (test code = Segs) 65.5 45.0-75.0 [place] 771111-02-05 19:39:00 Test Item Value Reference Range Interpretation Comments Lymphocytes (test code = Lymphocytes) 25.6 20.0-40.0 [place] 771111-02-05 19:39:00 Test Item Value Reference Range Interpretation Comments Monocytes (test code = Monocytes) 7.9 2.0-12.0 [facility] CenterDidplkwXHAOZQXVTW3804-29-36 19:39:00 Test Item Value Reference Range Interpretation Comments Eosinophils (test code = 0.4 See_Comment [A utomated message] The Eosinophils) system which ge nerated this result tra nsmitted reference range : <=4.0. The reference r jeffy was not used to int erpret this result as normal/abnormal . [place] 771111-02-05 19:39:00 Test Item Value Reference Range Interpretation Comments Basophils (test code = 0.6 See_Comment [Aut omated message] The Basophils) system which ge nerated this result tra nsmitted reference range : <=1.0. The reference r jeffy was not used to int erpret this result as normal/abnormal . [facility] CenterJzknvtoXBBITNMYDE0876-11-33 19:39:00 Test Item Value Reference Range Interpretation Comments Neutrophils # (test code = Neutrophils 4.5 1.5-8.1 #) [place] 771111-02-05 19:39:00 Test Item Value Reference Range Interpretation Comments Lymphocytes # (test code = Lymphocytes 1.8 1.0-5.5 #) [facility] CenterMmlbaxbIFYOWPWRSD7413-00-26 19:39:00 Test Item Value Reference Range Interpretation Comments Monocytes # (test code 0.5 See_Comment [Aut omated message] The = Monocytes #) system which generated this result tra nsmitted reference range : <=0.8. The reference r jeffy was not used to int erpret this result as normal/abnormal . [facility]om[facility]znFKQKOTDDPU5399-05-45 19:39:00 Test Item Value Reference Range Interpretation Comments Coronavirus (COVID-19) Not Detected (09/12/20 CHARISMA (test code = 1:39 PM) Coronavirus (COVID-19) CHARISMA) [facility] AND [id number] 19:39:00 Test Item Value Reference Range Interpretation Comments UA Color (test code = See Note 2(09/12/20 1:39 UA Color) PM) [facility] AND [id number] 19:39:00 Test Item Value Reference Range Interpretation Comments UA Turbidity (test code Marked *ABN*(09/12/20 = UA Turbidity) 1:39 PM) [facility] AND [id number] 19:39:00 Test Item Value Reference Range Interpretation Comments UA Spec Grav (test code = UA Spec 1.017 1 Grav) [facility] AND [id number] 19:39:00 Test Item Value Reference Range Interpretation Comments UA pH (test code = UA pH) 5.0 1 5.0-8.0 [facility] AND [id number] 19:39:00 Test Item Value Reference Range Interpretation Comments UA Protein (test code = UA Negative mg/dL Protein) [facility] AND [id number] 19:39:00 Test Item Value Reference Range Interpretation Comments UA Glucose (test code = UA Negative mg/dL Glucose) [facility] AND [id number] 19:39:00 Test Item Value Reference Range Interpretation Comments UA Ketones (test code = UA Negative mg/dL Ketones) [facility] AND [id number] 19:39:00 Test Item Value Reference Range Interpretation Comments UA Bili (test code = Negative *NA*(09/12/20 UA Bili) 1:39 PM) [facility] AND [id number] 19:39:00 Test Item Value Reference Range Interpretation Comments UA Blood (test code = Negative (09/12/20 1:39 UA Blood) PM) [facility] AND [id number] 19:39:00 Test Item Value Reference Range Interpretation Comments UA Urobilinogen (test code = UA 2.0 0.1-1.0 Urobilinogen) [facility] AND [id number] 19:39:00 Test Item Value Reference Range Interpretation Comments UA Nitrite (test code Negative (09/12/20 1:39 = UA Nitrite) PM) [facility] AND [id number] 19:39:00 Test Item Value Reference Range Interpretation Comments UA Leuk Est (test Negative (09/12/20 1:39 code = UA Leuk Est) PM) [facility] [id number] 19:39:00 Test Item Value Reference Range Interpretation Comments UA Sq Epi (test code = UA Sq Epi) Few /LPF [facility] [id number] 19:39:00 Test Item Value Reference Range Interpretation Comments UA WBC (test code = 2 See_Comment [Automa laura message] The UA WBC) system which ge nerated this result transmit laura reference range : <=5. The reference range was not used to interpr et this result as yas l/abnormal. [facility] [id number] 19:39:00 Test Item Value Reference Range Interpretation Comments UA RBC (test code = 2 See_Comment [Automa laura message] The UA RBC) system which ge nerated this result transmit laura reference range : <=2. The reference range was not used to interpr et this result as yas l/abnormal. [facility] [id number] 19:39:00 Test Item Value Reference Range Interpretation Comments UA Bacteria (test code = UA Few /HPF Bacteria) [facility] [id number] 19:39:00 Test Item Value Reference Range Interpretation Comments UA Mucus (test code = UA Mucus) Few /LPF [facility] [id number] 19:39:00 Test Item Value Reference Range Interpretation Comments UA Hyal Cast (test 3 See_Comment [Automat ed message] The code = UA Hyal Cast) system which generated this result transmit laura reference range : <=2. The reference range was not used to interpr et this result as yas l/abnormal. [facility] [id number] 19:39:00 Test Item Value Reference Range Interpretation Comments Micro? (test code = Performed *NA*(09/12/20 Micro?) 1:39 PM) [facility] [facility] [id number] 19:38:00 Test Item Value Reference Range Interpretation Comments ABO/Rh (test code = ABO/Rh) O POS [facility] [id number] 19:38:00 Test Item Value Reference Range Interpretation Comments Antibody Scrn (test Negative (09/12/20 1:38 code = Antibody Scrn) PM) [facility] [id number] 19:38:00 Test Item Value Reference Range Interpretation Comments ABO/Rh (test code = ABO/Rh) O POS [facility] [id number] 19:38:00 Test Item Value Reference Range Interpretation Comments Antibody Scrn (test Negative (09/12/20 1:38 code = Antibody Scrn) PM) [facility] [id number] 12:17:00 Test Item Value Reference Range Interpretation Comments ABO/Rh (test code = ABO/Rh) O POS [facility] [id number] 12:17:00 Test Item Value Reference Range Interpretation Comments Antibody Scrn (test Negative (01/17/15 7:17 code = Antibody Scrn) AM) [facility]XqidjplFGVLTDVIUQLT2644-29-86 12:17:00 Test Item Value Reference Range Interpretation Comments AGAP (test code = AGAP) 17.2 10.0-20.0 [facility]XgkrbxlNVXQQYPNIRJN5993-24-49 12:17:00 Test Item Value Reference Range Interpretation Comments eGFR (test code = eGFR) 68 [facility] HospitalWaqerovPGQWPYUAGVDH1103-26-60 12:17:00 Test Item Value Reference Range Interpretation Comments Sodium Lvl (test code = Sodium Lvl) 140 135-145 [facility] HospitalBfxbhlwLWRIKSDFIDOG7736-98-43 12:17:00 Test Item Value Reference Range Interpretation Comments CO2 (test code = CO2) 21 24-32 [facility] HospitalNwiepvcRJSOCJTTKLDH1137-29-93 12:17:00 Test Item Value Reference Range Interpretation Comments Calcium Lvl (test code = Calcium Lvl) 9.3 8.5-10.5 [facility] HospitalGstpfdgZRYTLHXUZPTY7145-65-82 12:17:00 Test Item Value Reference Range Interpretation Comments Potassium Lvl (test code = Potassium 4.2 3.5-5.1 Lvl) [facility] HospitalUhzuoooLGUQRJGIEDVB1080-20-92 12:17:00 Test Item Value Reference Range Interpretation Comments Chloride Lvl (test code = Chloride Lvl) 106 95-109 [facility] HospitalWmyflpmMDNDBDJHNLPC1822-26-92 12:17:00 Test Item Value Reference Range Interpretation Comments Creatinine Lvl (test code = Creatinine 1.0 0.5-1.4 Lvl) [facility] HospitalDeubkrgWAUQMEVLKENP5655-53-74 12:17:00 Test Item Value Reference Range Interpretation Comments Glucose Lvl (test code = Glucose Lvl) 90 70-99 [facility] HospitalXzzffzkWALNJZVOJWSA3005-32-34 12:17:00 Test Item Value Reference Range Interpretation Comments BUN (test code = BUN) 14 7-22 [facility] CenterCdrpbatVFNIBLCXFE2472-07-11 12:17:00 Test Item Value Reference Range Interpretation Comments Lymphocytes (test code = Lymphocytes) 28.3 20.0-40.0 [facility] CenterEaxngwtBTQUNIPBCX8624-09-57 12:17:00 Test Item Value Reference Range Interpretation Comments Segs (test code = Segs) 64.1 45.0-75.0 [facility] CenterYtluerqUFXLXWDPXK4275-36-23 12:17:00 Test Item Value Reference Range Interpretation Comments Basophils # (test code 0.1 See_Comment [Aut omated message] The = Basophils #) system which generated this result tra nsmitted reference range : <=0.2. The reference r jeffy was not used to int erpret this result as normal/abnormal . [facility] CenterPizadkeNHUNLNBDQQ0357-87-89 12:17:00 Test Item Value Reference Range Interpretation Comments Eosinophils # (test code 0.0 See_Comment [A utomated message] The = Eosinophils #) system whic h generated this result tra nsmitted reference range : <=0.5. The reference r jeffy was not used to int erpret this result as normal/abnormal . [facility] CenterHhdlmkxZVOGMPYNOG9322-94-24 12:17:00 Test Item Value Reference Range Interpretation Comments Monocytes # (test code 0.5 See_Comment [Aut omated message] The = Monocytes #) system which generated this result tra nsmitted reference range : <=0.8. The reference r jeffy was not used to int erpret this result as normal/abnormal . [facility] CenterJcbsxgmGLRTSWKPEH3471-20-43 12:17:00 Test Item Value Reference Range Interpretation Comments Lymphocytes # (test code = Lymphocytes 2.1 1.0-5.5 #) [facility] CenterAzsktziWCZWALISVF2955-60-27 12:17:00 Test Item Value Reference Range Interpretation Comments Segs-Bands # (test code = Segs-Bands #) 4.6 1.5-8.1 [facility] CenterShoctpmBXBWWTSPLS0321-79-67 12:17:00 Test Item Value Reference Range Interpretation Comments Basophils (test code = 0.8 See_Comment [Aut omated message] The Basophils) system which ge nerated this result tra nsmitted reference range : <=1.0. The reference r jeffy was not used to int erpret this result as normal/abnormal . [facility] CenterYmybdklODOWEZEAKL9807-23-29 12:17:00 Test Item Value Reference Range Interpretation Comments Eosinophils (test code = 0.5 See_Comment [A utomated message] The Eosinophils) system which ge nerated this result tra nsmitted reference range : <=4.0. The reference r jeffy was not used to int erpret this result as normal/abnormal . [facility] CenterNccuchtGSQNRKAODT3503-51-97 12:17:00 Test Item Value Reference Range Interpretation Comments Monocytes (test code = Monocytes) 6.3 2.0-12.0 [facility] CenterBlwsxrvPXXRMUXQRE3265-04-75 12:17:00 Test Item Value Reference Range Interpretation Comments INR (test code = INR) 1.02 0.85-1.17 [facility] CenterTwgzhbvDZMPUCUDOV6082-62-74 12:17:00 Test Item Value Reference Range Interpretation Comments PTT (test code = PTT) 30.7 s 22.9-35.8 [facility] CenterOiutfasLNYDRQYBSC3301-28-76 12:17:00 Test Item Value Reference Range Interpretation Comments PT (test code = PT) 13.4 s 12.0-14.7 [facility] CenterUzicwquKVMXENQUDV4470-32-08 12:17:00 Test Item Value Reference Range Interpretation Comments MPV (test code = MPV) 8.4 7.4-10.4 [facility] CenterJpdwtzkLILKMKMYTS7334-75-59 12:17:00 Test Item Value Reference Range Interpretation Comments Platelet (test code = Platelet) 239 133-450 [facility] CenterHrszwrcTDMTMQMNJJ8777-14-02 12:17:00 Test Item Value Reference Range Interpretation Comments RDW (test code = RDW) 12.0 11.5-14.5 [facility] CenterStjsfmyEHMZUTASTR3231-65-83 12:17:00 Test Item Value Reference Range Interpretation Comments MCHC (test code = MCHC) 32.8 32.0-36.0 [facility] CenterSeljoxjUBFWAZPDAJ4700-36-81 12:17:00 Test Item Value Reference Range Interpretation Comments MCH (test code = MCH) 28.8 pg 27.0-31.0 [facility] CenterYynhlfzVCESRJYBKL0627-95-19 12:17:00 Test Item Value Reference Range Interpretation Comments MCV (test code = MCV) 87.7 80.0-98.0 [facility] CenterAtbehtxLKFQYJQADU3734-01-40 12:17:00 Test Item Value Reference Range Interpretation Comments Hct (test code = Hct) 39.5 36.0-48.0 [facility] CenterLpwcxicSIBHRMECCO8046-56-25 12:17:00 Test Item Value Reference Range Interpretation Comments Hgb (test code = Hgb) 13.0 12.0-16.0 [facility] CenterUtnokubKTPXQCAWMB7990-55-43 12:17:00 Test Item Value Reference Range Interpretation Comments RBC (test code = RBC) 4.50 4.20-5.40 [facility] CenterYdyigqzRGQDYUSTXN0726-10-52 12:17:00 Test Item Value Reference Range Interpretation Comments WBC (test code = WBC) 7.3 3.7-10.4 [facility] AND [id number] 12:17:00 Test Item Value Reference Range Interpretation Comments UA Urobilinogen (test code = UA <=1.0 mg/dL 0.1-1.0 Urobilinogen) [facility] AND [id number] 12:17:00 Test Item Value Reference Range Interpretation Comments UA Mucus (test code = UA Mucus) Moderate /LPF [facility] AND [id number] 12:17:00 Test Item Value Reference Range Interpretation Comments UA Sq Epi (test code = UA Sq Epi) Many /LPF [facility] AND [id number] 12:17:00 Test Item Value Reference Range Interpretation Comments UA Leuk Est (test code Small *ABN*(01/17/15 = UA Leuk Est) 7:17 AM) [facility] AND [id number] 12:17:00 Test Item Value Reference Range Interpretation Comments UA WBC (test code = 2 See_Comment [Automa laura message] The UA WBC) system which ge nerated this result transmit laura reference range : <=5. The reference range was not used to interpr et this result as yas l/abnormal. [facility] AND [id number] 12:17:00 Test Item Value Reference Range Interpretation Comments UA RBC (test code = 1 See_Comment [Automa laura message] The UA RBC) system which ge nerated this result transmit laura reference range : <=2. The reference range was not used to interpr et this result as yas l/abnormal. [facility] AND [id number] 12:17:00 Test Item Value Reference Range Interpretation Comments UA Bacteria (test code = UA Moderate /HPF Bacteria) [facility] AND [id number] 12:17:00 Test Item Value Reference Range Interpretation Comments UA Color (test code = Yellow *NA*(01/17/15 UA Color) 7:17 AM) [facility] AND [id number] 12:17:00 Test Item Value Reference Range Interpretation Comments UA Spec Grav (test code = UA Spec Grav) 1.021 [facility] AND [id number] 12:17:00 Test Item Value Reference Range Interpretation Comments UA Turbidity (test code = Clear (01/17/15 7:17 UA Turbidity) AM) [facility] AND [id number] 12:17:00 Test Item Value Reference Range Interpretation Comments UA Protein (test code = UA Protein) 10 mg/dL [facility] AND [id number] 12:17:00 Test Item Value Reference Range Interpretation Comments UA pH (test code = UA pH) 6.0 5.0-8.0 [facility] AND [id number] 12:17:00 Test Item Value Reference Range Interpretation Comments UA Ketones (test code = UA Negative mg/dL Ketones) [facility] AND [id number] 12:17:00 Test Item Value Reference Range Interpretation Comments UA Glucose (test code = UA Negative mg/dL Glucose) [facility] AND [id number] 12:17:00 Test Item Value Reference Range Interpretation Comments UA Blood (test code = Negative (01/17/15 7:17 UA Blood) AM) [facility] AND [id number] 12:17:00 Test Item Value Reference Range Interpretation Comments UA Bili (test code = Negative *NA*(01/17/15 UA Bili) 7:17 AM) [facility] AND [id number] 12:17:00 Test Item Value Reference Range Interpretation Comments UA Nitrite (test code Negative (01/17/15 7:17 = UA Nitrite) AM) [facility] [id number] 12:17:00 Test Item Value Reference Range Interpretation Comments ABO/Rh (test code = ABO/Rh) O POS [facility] [id number] 12:17:00 Test Item Value Reference Range Interpretation Comments Antibody Scrn (test Negative (01/17/15 7:17 code = Antibody Scrn) AM) [facility] HospitalBsgesdiUXCGQRYZPEXN4509-05-37 12:17:00 Test Item Value Reference Range Interpretation Comments AGAP (test code = AGAP) 17.2 10.0-20.0 [facility] HospitalHccnmxsZEDUHAYZGCIX7017-12-87 12:17:00 Test Item Value Reference Range Interpretation Comments eGFR (test code = eGFR) 68 [facility] HospitalFlrkqqhXZURWFVSNYXO2915-89-64 12:17:00 Test Item Value Reference Range Interpretation Comments Sodium Lvl (test code = Sodium Lvl) 140 135-145 [facility] HospitalGneweypKNTRMOWJABCG9037-07-67 12:17:00 Test Item Value Reference Range Interpretation Comments CO2 (test code = CO2) 21 24-32 [facility] HospitalVvbjqtcLKTALRXDRVAW7615-16-17 12:17:00 Test Item Value Reference Range Interpretation Comments Calcium Lvl (test code = Calcium Lvl) 9.3 8.5-10.5 [facility] HospitalNipmhqwRMUGOMFXIZQA6752-87-51 12:17:00 Test Item Value Reference Range Interpretation Comments Potassium Lvl (test code = Potassium 4.2 3.5-5.1 Lvl) [facility] HospitalGcbvoknPNZFBIBPFCQZ9780-34-02 12:17:00 Test Item Value Reference Range Interpretation Comments Chloride Lvl (test code = Chloride Lvl) 106 95-109 [facility] HospitalJfxggyqNMNDYWBBDUBM7744-54-75 12:17:00 Test Item Value Reference Range Interpretation Comments Creatinine Lvl (test code = Creatinine 1.0 0.5-1.4 Lvl) [facility] HospitalAuhpjsiGVPNHLDFRFAW0000-85-51 12:17:00 Test Item Value Reference Range Interpretation Comments Glucose Lvl (test code = Glucose Lvl) 90 70-99 [facility] HospitalHflffuwUONMDRBASTFA9876-67-02 12:17:00 Test Item Value Reference Range Interpretation Comments BUN (test code = BUN) 14 7-22 [facility] CenterLmdoqcfPWSRZJHBNA3317-82-23 12:17:00 Test Item Value Reference Range Interpretation Comments Lymphocytes (test code = Lymphocytes) 28.3 20.0-40.0 [facility] CenterSnoigceUYIVPJDHTW9703-07-35 12:17:00 Test Item Value Reference Range Interpretation Comments Segs (test code = Segs) 64.1 45.0-75.0 [facility] CenterDhsflvsPCSNFUYKIJ5240-60-88 12:17:00 Test Item Value Reference Range Interpretation Comments Basophils # (test code 0.1 See_Comment [Aut omated message] The = Basophils #) system which generated this result tra nsmitted reference range : <=0.2. The reference r jeffy was not used to int erpret this result as normal/abnormal . [facility] CenterTgknvzcJIPKFDPBXT2571-70-27 12:17:00 Test Item Value Reference Range Interpretation Comments Eosinophils # (test code 0.0 See_Comment [A utomated message] The = Eosinophils #) system whic h generated this result tra nsmitted reference range : <=0.5. The reference r jeffy was not used to int erpret this result as normal/abnormal . [facility] CenterGkfaeqeYTNUVKQIQE0481-66-90 12:17:00 Test Item Value Reference Range Interpretation Comments Monocytes # (test code 0.5 See_Comment [Aut omated message] The = Monocytes #) system which generated this result tra nsmitted reference range : <=0.8. The reference r jeffy was not used to int erpret this result as normal/abnormal . [facility] CenterPuzwjidPDNTTQFQWF8084-49-69 12:17:00 Test Item Value Reference Range Interpretation Comments Lymphocytes # (test code = Lymphocytes 2.1 1.0-5.5 #) [facility] CenterDtxfwmwARDKPMCXMO8598-86-13 12:17:00 Test Item Value Reference Range Interpretation Comments Segs-Bands # (test code = Segs-Bands #) 4.6 1.5-8.1 [facility] CenterNcktuspXZBRSAJOWC1591-16-24 12:17:00 Test Item Value Reference Range Interpretation Comments Basophils (test code = 0.8 See_Comment [Aut omated message] The Basophils) system which ge nerated this result tra nsmitted reference range : <=1.0. The reference r jeffy was not used to int erpret this result as normal/abnormal . [facility] CenterTvzaehmQMVSXDBDTD0992-67-02 12:17:00 Test Item Value Reference Range Interpretation Comments Eosinophils (test code = 0.5 See_Comment [A utomated message] The Eosinophils) system which ge nerated this result tra nsmitted reference range : <=4.0. The reference r jeffy was not used to int erpret this result as normal/abnormal . [facility] CenterVvnsxdwKOLOXQFTCI2804-47-99 12:17:00 Test Item Value Reference Range Interpretation Comments Monocytes (test code = Monocytes) 6.3 2.0-12.0 [facility] CenterVdsknzhUCCCBDIUZX0807-27-46 12:17:00 Test Item Value Reference Range Interpretation Comments INR (test code = INR) 1.02 0.85-1.17 [facility] CenterZcqzjxvEYCQJYIOWG4403-72-46 12:17:00 Test Item Value Reference Range Interpretation Comments PTT (test code = PTT) 30.7 s 22.9-35.8 [facility] CenterFrdczsaLGZHOHUYRA6583-13-68 12:17:00 Test Item Value Reference Range Interpretation Comments PT (test code = PT) 13.4 s 12.0-14.7 [facility] CenterGnegodtMHEWNGWDIZ9267-76-19 12:17:00 Test Item Value Reference Range Interpretation Comments MPV (test code = MPV) 8.4 7.4-10.4 [facility] CenterYwnhqpmRLGBVFKGOX6013-50-75 12:17:00 Test Item Value Reference Range Interpretation Comments Platelet (test code = Platelet) 239 133-450 [facility] CenterDiffkilQCMSLSKVVD4643-68-23 12:17:00 Test Item Value Reference Range Interpretation Comments RDW (test code = RDW) 12.0 11.5-14.5 [facility] CenterAwbsgueCDIGEJOKSH5858-87-85 12:17:00 Test Item Value Reference Range Interpretation Comments MCHC (test code = MCHC) 32.8 32.0-36.0 [facility] CenterQmjcevcMBITKSZDNA5575-32-86 12:17:00 Test Item Value Reference Range Interpretation Comments MCH (test code = MCH) 28.8 pg 27.0-31.0 [facility] CenterKnxezfqDVTVQOQEWO0201-43-02 12:17:00 Test Item Value Reference Range Interpretation Comments MCV (test code = MCV) 87.7 80.0-98.0 [facility] CenterMvrigewJAOMCQYKWT5664-63-66 12:17:00 Test Item Value Reference Range Interpretation Comments Hct (test code = Hct) 39.5 36.0-48.0 [facility] CenterLhramgbLAEVLUNSDO9509-61-77 12:17:00 Test Item Value Reference Range Interpretation Comments Hgb (test code = Hgb) 13.0 12.0-16.0 [facility] CenterZjtenvmUCQMVRCZNQ3189-51-39 12:17:00 Test Item Value Reference Range Interpretation Comments RBC (test code = RBC) 4.50 4.20-5.40 [facility] CenterFeekjcuCDYXDFSIND7228-62-39 12:17:00 Test Item Value Reference Range Interpretation Comments WBC (test code = WBC) 7.3 3.7-10.4 [facility] AND [id number] 12:17:00 Test Item Value Reference Range Interpretation Comments UA Urobilinogen (test code = UA <=1.0 mg/dL 0.1-1.0 Urobilinogen) [facility] AND [id number] 12:17:00 Test Item Value Reference Range Interpretation Comments UA Mucus (test code = UA Mucus) Moderate /LPF [facility] AND [id number] 12:17:00 Test Item Value Reference Range Interpretation Comments UA Sq Epi (test code = UA Sq Epi) Many /LPF [facility] AND [id number] 12:17:00 Test Item Value Reference Range Interpretation Comments UA Leuk Est (test code Small *ABN*(01/17/15 = UA Leuk Est) 7:17 AM) [facility] AND [id number] 12:17:00 Test Item Value Reference Range Interpretation Comments UA WBC (test code = 2 See_Comment [Automa laura message] The UA WBC) system which ge nerated this result transmit laura reference range : <=5. The reference range was not used to interpr et this result as yas l/abnormal. [facility] AND [id number] 12:17:00 Test Item Value Reference Range Interpretation Comments UA RBC (test code = 1 See_Comment [Automa laura message] The UA RBC) system which ge nerated this result transmit laura reference range : <=2. The reference range was not used to interpr et this result as yas l/abnormal. [facility] AND [id number] 12:17:00 Test Item Value Reference Range Interpretation Comments UA Bacteria (test code = UA Moderate /HPF Bacteria) [facility] AND [id number] 12:17:00 Test Item Value Reference Range Interpretation Comments UA Color (test code = Yellow *NA*(01/17/15 UA Color) 7:17 AM) [facility] AND [id number] 12:17:00 Test Item Value Reference Range Interpretation Comments UA Spec Grav (test code = UA Spec Grav) 1.021 [facility] AND [id number] 12:17:00 Test Item Value Reference Range Interpretation Comments UA Turbidity (test code = Clear (01/17/15 7:17 UA Turbidity) AM) [facility] AND [id number] 12:17:00 Test Item Value Reference Range Interpretation Comments UA Protein (test code = UA Protein) 10 mg/dL [facility] AND [id number] 12:17:00 Test Item Value Reference Range Interpretation Comments UA pH (test code = UA pH) 6.0 5.0-8.0 [facility] AND [id number] 12:17:00 Test Item Value Reference Range Interpretation Comments UA Ketones (test code = UA Negative mg/dL Ketones) [facility] AND [id number] 12:17:00 Test Item Value Reference Range Interpretation Comments UA Glucose (test code = UA Negative mg/dL Glucose) [facility] AND [id number] 12:17:00 Test Item Value Reference Range Interpretation Comments UA Blood (test code = Negative (01/17/15 7:17 UA Blood) AM) [facility] AND [id number] 12:17:00 Test Item Value Reference Range Interpretation Comments UA Bili (test code = Negative *NA*(01/17/15 UA Bili) 7:17 AM) [facility] AND [id number] 12:17:00 Test Item Value Reference Range Interpretation Comments UA Nitrite (test code Negative (01/17/15 7:17 = UA Nitrite) AM) [facility] BANK [id number] 12:15:00 Test Item Value Reference Range Interpretation Comments Antibody Scrn (test Negative (07/12/14 6:15 code = Antibody Scrn) AM) [facility] [id number] 12:15:00 Test Item Value Reference Range Interpretation Comments ABO/Rh (test code = ABO/Rh) O POS [facility] HospitalMrlxbfzZVEPTBWFNEJG9966-38-90 12:15:00 Test Item Value Reference Range Interpretation Comments AGAP (test code = AGAP) 14.6 10.0-20.0 [facility] HospitalImkelymTJKJSBCFILLD6294-94-30 12:15:00 Test Item Value Reference Range Interpretation Comments eGFR (test code = eGFR) 68 [facility] HospitalDolblyxSTYAFFFKPJEO2616-75-40 12:15:00 Test Item Value Reference Range Interpretation Comments CO2 (test code = CO2) 24 24-32 [facility] HospitalTnbkzaqOQEITGVWXYXM4126-93-14 12:15:00 Test Item Value Reference Range Interpretation Comments Calcium Lvl (test code = Calcium Lvl) 9.6 8.5-10.5 [facility] HospitalLqgkoudSBKJXQWYMETF4651-82-58 12:15:00 Test Item Value Reference Range Interpretation Comments Potassium Lvl (test code = Potassium 3.6 3.5-5.1 Lvl) [facility] HospitalYhkmafkBEYPVSDKWRAA8110-27-23 12:15:00 Test Item Value Reference Range Interpretation Comments Chloride Lvl (test code = Chloride Lvl) 106 95-109 [facility] HospitalDxnmpatTNUWQXCEHYBA4487-24-13 12:15:00 Test Item Value Reference Range Interpretation Comments Sodium Lvl (test code = Sodium Lvl) 141 135-145 [facility] HospitalYoieywyMTJLLESILVRB0988-87-21 12:15:00 Test Item Value Reference Range Interpretation Comments Creatinine Lvl (test code = Creatinine 1.0 0.5-1.4 Lvl) [facility] HospitalXpkkcuoJHXZOOUUQYLB7510-81-56 12:15:00 Test Item Value Reference Range Interpretation Comments Glucose Lvl (test code = Glucose Lvl) 78 70-99 [facility] HospitalPbncmwjTQVSNRZWGBFZ7431-25-23 12:15:00 Test Item Value Reference Range Interpretation Comments BUN (test code = BUN) 9 7-22 [facility] CenterMyzohrjQCMRBYAIGJ0762-62-80 12:15:00 Test Item Value Reference Range Interpretation Comments PTT (test code = PTT) 31.9 s 22.9-35.8 [facility] CenterUwxwdxcJXQXCTWFIZ6453-94-88 12:15:00 Test Item Value Reference Range Interpretation Comments PT (test code = PT) 12.8 s 12.0-14.7 [facility]SyyszghGVENOBUPTV9542-88-64 12:15:00 Test Item Value Reference Range Interpretation Comments INR (test code = INR) 0.96 0.85-1.17 [facility] [id number] 12:15:00 Test Item Value Reference Range Interpretation Comments Antibody Scrn (test Negative (07/12/14 6:15 code = Antibody Scrn) AM) [facility] [id number] 12:15:00 Test Item Value Reference Range Interpretation Comments ABO/Rh (test code = ABO/Rh) O POS [facility] HospitalDjyhqtqMUZYNATADACD2667-45-12 12:15:00 Test Item Value Reference Range Interpretation Comments AGAP (test code = AGAP) 14.6 10.0-20.0 [facility] HospitalSqwqobcNDKOXZDEJJAP6602-34-59 12:15:00 Test Item Value Reference Range Interpretation Comments eGFR (test code = eGFR) 68 [facility] HospitalTpsvvoqOJJDYVCGYBHB8737-47-90 12:15:00 Test Item Value Reference Range Interpretation Comments CO2 (test code = CO2) 24 24-32 [facility] HospitalOsqcoduEKOPZXPEEUKL5974-40-73 12:15:00 Test Item Value Reference Range Interpretation Comments Calcium Lvl (test code = Calcium Lvl) 9.6 8.5-10.5 [facility] HospitalIeevghyYGFRQMUPFQHE3251-49-52 12:15:00 Test Item Value Reference Range Interpretation Comments Potassium Lvl (test code = Potassium 3.6 3.5-5.1 Lvl) [facility] HospitalYupoeaxRWJDHFULZZUR4917-62-07 12:15:00 Test Item Value Reference Range Interpretation Comments Chloride Lvl (test code = Chloride Lvl) 106 95-109 [facility] HospitalZdusxstCWAJMTBFOZLM6796-89-86 12:15:00 Test Item Value Reference Range Interpretation Comments Sodium Lvl (test code = Sodium Lvl) 141 135-145 [facility] HospitalXwqrhxmRAFCUWSPQBKE2470-70-69 12:15:00 Test Item Value Reference Range Interpretation Comments Creatinine Lvl (test code = Creatinine 1.0 0.5-1.4 Lvl) [facility] HospitalAzcxsudWBILVGXSDJUT7628-38-10 12:15:00 Test Item Value Reference Range Interpretation Comments Glucose Lvl (test code = Glucose Lvl) 78 70-99 [facility]jeYEOLGDVOBQNP5891-[facility]-90 12:15:00 Test Item Value Reference Range Interpretation Comments BUN (test code = BUN) 9 7- [facility]ZhrclknEDTUEFACOD7453-43-22 12:15:00 Test Item Value Reference Range Interpretation Comments PTT (test code = PTT) 31.9 s 22.9-35.8 [facility] CenterStvzusdPEDUELQJSN1081-36-86 12:15:00 Test Item Value Reference Range Interpretation Comments PT (test code = PT) 12.8 s 12.0-14.7 [facility] CenterHbehhndAFNHPSBGLA9600-53-98 12:15:00 Test Item Value Reference Range Interpretation Comments INR (test code = INR) 0.96 0.85-1.17 [facility]2014-11-21 16:00:00 Test Item Value Reference Range Interpretation Comments eGFR (test code = eGFR) 89 [facility]2014-11-21 16:00:00 Test Item Value Reference Range Interpretation Comments Glucose Lvl (test code = Glucose Lvl) 92 70-99 [facility]2014-11-21 16:00:00 Test Item Value Reference Range Interpretation Comments BUN (test code = BUN) 11 - [facility]2014-11-21 16:00:00 Test Item Value Reference Range Interpretation Comments Creatinine Lvl (test code = Creatinine 0.8 0.5-1.4 Lvl) [facility]2014-11-21 16:00:00 Test Item Value Reference Range Interpretation Comments Sodium Lvl (test code = Sodium Lvl) 141 135-145 [facility]2014-11-21 16:00:00 Test Item Value Reference Range Interpretation Comments Chloride Lvl (test code = Chloride Lvl) 109 95-109 [facility]2014-11-21 16:00:00 Test Item Value Reference Range Interpretation Comments Potassium Lvl (test code = Potassium 5.9 3.5-5.1 Lvl) [facility]2014-11-21 16:00:00 Test Item Value Reference Range Interpretation Comments Calcium Lvl (test code = Calcium Lvl) 8.4 8.5-10.5 [facility]2014-11-21 16:00:00 Test Item Value Reference Range Interpretation Comments CO2 (test code = CO2) 25 24-32 [facility]2014-11-21 16:00:00 Test Item Value Reference Range Interpretation Comments AGAP (test code = AGAP) 12.9 10.0-20.0 [facility] CenterGgcvrnqWRHLSTZDWK2196-01-76 16:00:00 Test Item Value Reference Range Interpretation Comments Eosinophils (test code = 0.4 See_Comment [A utomated message] The Eosinophils) system which ge nerated this result tra nsmitted reference range : <=4.0. The reference r jeffy was not used to int erpret this result as normal/abnormal . [facility] CenterUaqlijiFSZFLEUXML4457-52-90 16:00:00 Test Item Value Reference Range Interpretation Comments Lymphocytes (test code = Lymphocytes) 20.5 20.0-40.0 [facility] CenterLnqipefECRHFEEIXY2360-34-67 16:00:00 Test Item Value Reference Range Interpretation Comments Segs (test code = Segs) 72.2 45.0-75.0 [facility] CenterWsomyduMMSKEHTVFI5148-32-83 16:00:00 Test Item Value Reference Range Interpretation Comments Monocytes (test code = Monocytes) 6.4 2.0-12.0 [facility] CenterKuowdicHVYHTKDETF1382-82-83 16:00:00 Test Item Value Reference Range Interpretation Comments Segs-Bands # (test code = Segs-Bands #) 4.4 1.5-8.1 [facility] CenterRcoosfeEHPWRVFICU8818-16-44 16:00:00 Test Item Value Reference Range Interpretation Comments Monocytes # (test code 0.4 See_Comment [Aut omated message] The = Monocytes #) system which generated this result tra nsmitted reference range : <=0.8. The reference r jeffy was not used to int erpret this result as normal/abnormal . [facility] CenterMzchslwKTAZUYYSLH2298-99-45 16:00:00 Test Item Value Reference Range Interpretation Comments Lymphocytes # (test code = Lymphocytes 1.3 1.0-5.5 #) [facility] CenterEcxxlapNRGBAAWYCD2810-68-11 16:00:00 Test Item Value Reference Range Interpretation Comments Basophils (test code = 0.5 See_Comment [Aut omated message] The Basophils) system which ge nerated this result tra nsmitted reference range : <=1.0. The reference r jeffy was not used to int erpret this result as normal/abnormal . [facility] CenterMenkwfyJFXBGBTDYJ3384-15-00 16:00:00 Test Item Value Reference Range Interpretation Comments MCV (test code = MCV) 89.2 80.0-98.0 [facility] CenterTubzyrbFWPKDPLTUK3705-42-68 16:00:00 Test Item Value Reference Range Interpretation Comments MCH (test code = MCH) 29.4 pg 27.0-31.0 [facility] CenterWnufyqaAYWYAOZAED2618-42-53 16:00:00 Test Item Value Reference Range Interpretation Comments RDW (test code = RDW) 14.4 11.5-14.5 [facility] CenterWcfqtacKKVJOQVFHM0826-98-35 16:00:00 Test Item Value Reference Range Interpretation Comments MCHC (test code = MCHC) 32.9 32.0-36.0 [facility] CenterJdwrphdEYVVQGTOEQ2561-45-39 16:00:00 Test Item Value Reference Range Interpretation Comments RBC (test code = RBC) 4.35 4.20-5.40 [facility] CenterElbqkiwWRKROMXFEF2957-56-84 16:00:00 Test Item Value Reference Range Interpretation Comments Hgb (test code = Hgb) 12.8 12.0-16.0 [facility] CenterVobjkaqVDBZCWJKTM7000-01-17 16:00:00 Test Item Value Reference Range Interpretation Comments Hct (test code = Hct) 38.8 36.0-48.0 [facility] CenterJakggzcLLXISPKGWJ5926-00-79 16:00:00 Test Item Value Reference Range Interpretation Comments MPV (test code = MPV) 8.5 7.4-10.4 [facility] CenterGpdvvldJMSPQIAIHV2545-22-41 16:00:00 Test Item Value Reference Range Interpretation Comments Platelet (test code = Platelet) 277 133-450 [facility] CenterKxamzjyYQBAIHLSNT6291-76-50 16:00:00 Test Item Value Reference Range Interpretation Comments WBC (test code = WBC) 6.1 3.7-10.4 [facility]2014-11-21 16:00:00 Test Item Value Reference Range Interpretation Comments eGFR (test code = eGFR) 89 [facility]2014-11-21 16:00:00 Test Item Value Reference Range Interpretation Comments Glucose Lvl (test code = Glucose Lvl) 92 70-99 [facility]2014-11-21 16:00:00 Test Item Value Reference Range Interpretation Comments BUN (test code = BUN) 11 7-22 [facility]2014-11-21 16:00:00 Test Item Value Reference Range Interpretation Comments Creatinine Lvl (test code = Creatinine 0.8 0.5-1.4 Lvl) [facility]2014-11-21 16:00:00 Test Item Value Reference Range Interpretation Comments Sodium Lvl (test code = Sodium Lvl) 141 135-145 [facility]2014-11-21 16:00:00 Test Item Value Reference Range Interpretation Comments Chloride Lvl (test code = Chloride Lvl) 109 95-109 [facility]2014-11-21 16:00:00 Test Item Value Reference Range Interpretation Comments Potassium Lvl (test code = Potassium 5.9 3.5-5.1 Lvl) [facility]2014-11-21 16:00:00 Test Item Value Reference Range Interpretation Comments Calcium Lvl (test code = Calcium Lvl) 8.4 8.5-10.5 [facility]2014-11-21 16:00:00 Test Item Value Reference Range Interpretation Comments CO2 (test code = CO2) 25 24-32 [facility]2014-11-21 16:00:00 Test Item Value Reference Range Interpretation Comments AGAP (test code = AGAP) 12.9 10.0-20.0 [facility] CenterLvwqpunKYPQMYMYHA3752-85-67 16:00:00 Test Item Value Reference Range Interpretation Comments Eosinophils (test code = 0.4 See_Comment [A utomated message] The Eosinophils) system which ge nerated this result tra nsmitted reference range : <=4.0. The reference r jeffy was not used to int erpret this result as normal/abnormal . [facility] CenterZiumeruBIWCJXFCJY1331-69-14 16:00:00 Test Item Value Reference Range Interpretation Comments Lymphocytes (test code = Lymphocytes) 20.5 20.0-40.0 [facility] CenterKuxxmvuZGIWPECHYO8668-43-97 16:00:00 Test Item Value Reference Range Interpretation Comments Segs (test code = Segs) 72.2 45.0-75.0 [facility] CenterClhitajRDTHHFNGEJ9337-74-30 16:00:00 Test Item Value Reference Range Interpretation Comments Monocytes (test code = Monocytes) 6.4 2.0-12.0 [facility] CenterGarwbydOWLRAYBZSU8578-56-68 16:00:00 Test Item Value Reference Range Interpretation Comments Segs-Bands # (test code = Segs-Bands #) 4.4 1.5-8.1 [facility] CenterCvaswgoPVWVAIKZCG3852-43-04 16:00:00 Test Item Value Reference Range Interpretation Comments Monocytes # (test code 0.4 See_Comment [Aut omated message] The = Monocytes #) system which generated this result tra nsmitted reference range : <=0.8. The reference r jeffy was not used to int erpret this result as normal/abnormal . [facility] CenterWlxjbivJKLRIHAXUL8423-50-46 16:00:00 Test Item Value Reference Range Interpretation Comments Lymphocytes # (test code = Lymphocytes 1.3 1.0-5.5 #) [facility] CenterMxxjztjVJCSRFTFOH7546-93-70 16:00:00 Test Item Value Reference Range Interpretation Comments Basophils (test code = 0.5 See_Comment [Aut omated message] The Basophils) system which ge nerated this result tra nsmitted reference range : <=1.0. The reference r jeffy was not used to int erpret this result as normal/abnormal . [facility] CenterTghdyjcNGOYEMGQMX7859-66-74 16:00:00 Test Item Value Reference Range Interpretation Comments MCV (test code = MCV) 89.2 80.0-98.0 [facility] CenterWisceepACAKQGQYNP8723-93-25 16:00:00 Test Item Value Reference Range Interpretation Comments MCH (test code = MCH) 29.4 pg 27.0-31.0 [facility] CenterIwprszhEFFFCHBQBE4672-64-08 16:00:00 Test Item Value Reference Range Interpretation Comments RDW (test code = RDW) 14.4 11.5-14.5 [facility] CenterTociggpSERXLKQZSG9884-45-28 16:00:00 Test Item Value Reference Range Interpretation Comments MCHC (test code = MCHC) 32.9 32.0-36.0 [facility] CenterRjayvdyGAVRHUBZYR3353-58-56 16:00:00 Test Item Value Reference Range Interpretation Comments RBC (test code = RBC) 4.35 4.20-5.40 [facility] CenterEeyhnwpZSFYFMQUXZ2116-57-45 16:00:00 Test Item Value Reference Range Interpretation Comments Hgb (test code = Hgb) 12.8 12.0-16.0 [facility] CenterDlyactjMZQAJECTXN8388-41-73 16:00:00 Test Item Value Reference Range Interpretation Comments Hct (test code = Hct) 38.8 36.0-48.0 [facility] CenterHjjiftqAPBQSFMYSK4904-97-79 16:00:00 Test Item Value Reference Range Interpretation Comments MPV (test code = MPV) 8.5 7.4-10.4 [facility] CenterRlcmdzbVBZPCAPTAX2220-34-56 16:00:00 Test Item Value Reference Range Interpretation Comments Platelet (test code = Platelet) 527 723-795 [facility] CenterJpuydlxMMYXPSTKAA1717-49-79 16:00:00 Test Item Value Reference Range Interpretation Comments WBC (test code = WBC) 6.1 3.7-10.4 [facility]
--- NOTE | 2022-10-25 20:16 | RAD REPORT ---
EXAM DESCRIPTION: Elías Single View10/25/2022 8:07 pm CLINICAL HISTORY: Chest pain COMPARISON: 2019 FINDINGS: The lungs appear clear of acute infiltrate. The heart is normal size Pain pump in place IMPRESSION: No acute abnormalities displayed
[2022-10-25 21:26] LABS: Absolute Lymphocytes (CBC) 1.8 K/uL (0.7-4.9); Hematocrit 34.8 % (36.0-45.0); Lymphocytes % 33.7 % (15.3-44.8); MCV 80.8 fL (80-100); MPV 7.4 fL (7.6-11.3); Protime INR 0.97; RBC Red Blood Cell Count 4.31 M/uL (3.86-4.86)
[2022-10-25 21:33] LABS: ALT/SGPT 18 U/L (13-56); AST/SGOT 17 U/L (15-37); Albumin 3.6 g/dL (3.4-5.0); Alkaline Phosphatase 94 U/L (45-117); BUN Blood Urea Nitrogen 9 mg/dL (7-18); Bicarbonate 25 mEq/L (21-32); Bilirubin Total 0.3 mg/dL (0.2-1.0); Glomerular Filtration Rate 64 ml/min (=/>90); Glucose Level 103 mg/dL (74-106); Magnesium 2.3 mg/dL (1.6-2.4); NT PRO-BNP 40 pg/mL (<125); Potassium 3.9 mEq/L (3.5-5.1); Protein, Total 6.8 g/dL (6.4-8.2); Sodium Level 139 mEq/L (136-145); Troponin High Sensitivity 4.9 pg/mL (<58.9)
[2022-10-25 21:43] LABS: Bilirubin Direct < 0.1 mg/dL (0-0.2)
--- NOTE | 2022-10-25 22:36 | RAD REPORT ---
EXAM DESCRIPTION: CT - Chest For Pe Angio - 10/25/2022 10:22 pm CLINICAL HISTORY: Chest pain COMPARISON: None. TECHNIQUE: Dynamically enhanced axial 3 mm thick images of the chest were obtained during administra tion of 95 mL Isovue 370 IV contrast. Coronal and oblique reconstruction images were generated and re viewed. Exam utilizes a protocol for optimal evaluation of pulmonary arterial tree. Maximum intensity projections 3D imaging was utilized All CT scans are performed using dose optimization technique as appropriate and may include automated exposure control or mA/KV adjustment according to patient size. FINDINGS: A pulmonary embolus is not seen. A thoracic aortic aneurysm is not noted. A pleural effusion is not seen. A pericardial effusion is not seen. A lung consolidation is not present. IMPRESSION: Negative for a pulmonary embolism.
--- NOTE | 2022-10-26 00:34 | ER ---
Nurse's Notes [facility] Name: Debbie Briscoe Age: 52 yrs Sex: Female : 1970 Arrival Date: 10/25/2022 Time: 19:05 Bed 7 Private MD: Diagnosis: Chest pain, unspecified Presentation: 10/25 19:23 Chief complaint: Patient states: "yesterday I was starting to have chest pains and they as6 never really went away and they just keep getting worse, and I just don't feel good". Coronavirus screen: At this time, the client does not indicate any symptoms associated with coronavirus-19. Ebola Screen: No symptoms or risks identified at this time. Initial Sepsis Screen: Does the patient meet any 2 criteria? No. Patient's initial sepsis screen is negative. Does the patient have a suspected source of infection? No. Patient's initial sepsis screen is negative. Risk Assessment: Do you want to hurt yourself or someone else? Patient reports no desire to harm self or others. Onset of symptoms was October 24, 2022. 19:23 Method Of Arrival: Ambulatory as6 19:23 Acuity: TY 3 as6 Triage Assessment: 19:28 General: Appears in no apparent distress. Behavior is calm, cooperative. General: as6 Reports fatigue for. Pain: Complains of pain in chest. Cardiovascular: Reports chest pain. Historical: - Allergies: 19:27 No Known Allergies; as6 - PMHx: 19:27 bad back with pain pump; Depressive disorder; Anxiety; as6 - PSHx: 19:27 back; Total abdominal hysterectomy; as6 - Immunization history:: Client reports receiving the 2nd dose of the Covid vaccine, pfizer . - Social history:: Smoking status: Patient denies any tobacco usage or history of. Screenin/21 00:45 [facility] ED Fall Risk Assessment (Adult) History of falling in the last 3 months, ll3 including since admission No falls in past 3 months (0 pts) Confusion or Disorientation No (0 pts) Intoxicated or Sedated No (0 pts) Impaired Gait No (0 pts) Mobility Assist Device Used No (0 pt) Altered Elimination No (0 pt) Score/Fall Risk Level 0 - 2 = Low Risk Oriented to surroundings, Maintained a safe environment, Educated pt \\T\\ family on fall prevention, incl call for assistance when getting out of bed. Abuse screen: Denies threats or abuse. Denies injuries from another. Nutritional screening: No deficits noted. Tuberculosis screening: No symptoms or risk factors identified. Assessment: 10/25 20:00 General: Appears uncomfortable, Behavior is calm, cooperative, appropriate for age. mb9 Pain: Complains of pain in chest Pain radiates to left side of chest Quality of pain is described as pressure, Pain began 1 day ago. Neuro: Level of Consciousness is awake, alert, obeys commands, Oriented to person, place, time, situation, Appropriate for age. Cardiovascular: Heart tones S1 S2 present Patient's skin is warm and dry. Rhythm is regular. Respiratory: Airway is patent Respiratory effort is even, unlabored, Respiratory pattern is regular, symmetrical, Breath sounds are clear bilaterally. GI: Abdomen is round non-distended, Bowel sounds present X 4 quads. Abd is soft and non tender X 4 quads. Reports nausea. : No signs and/or symptoms were reported regarding the genitourinary system. EENT: No signs and/or symptoms were reported regarding the EENT system. Derm: Skin is intact, Skin is dry, Skin is pale, Skin temperature is cool. Musculoskeletal: Range of motion: intact in all extremities. 22:00 Reassessment: No changes from previously documented assessment. Patient and/or family mb9 updated on plan of care and expected duration. Pain level reassessed. Patient is alert, oriented x 3, equal unlabored respirations, skin warm/dry/pink. 10/26 00:13 Reassessment: No changes from previously documented assessment. Patient is alert, mb9 oriented x 3, equal unlabored respirations, skin warm/dry/pink. 00:13 Reassessment: Report given to MAXIM Cristina. mb9 Vital Signs: 10/25 19:23 BP 136 / 85; Pulse 62; Resp 18 S; Temp 98.4(O); Pulse Ox 93% on R/A; Weight 106.59 kg as6 (R); Height 5 ft. 9 in. (R); Pain 3/10; 21:00 BP 136 / 77; Pulse 67; Resp 15; Pulse Ox 99% on R/A; mb9 22:00 BP 120 / 65; Pulse 61; Resp 17; Pulse Ox 98% ; mb9 10/26 00:12 BP 120 / 71; Pulse 57; Resp 16; Pulse Ox 97% on R/A; mb9 10/25 19:23 Body Mass Index 34.70 (106.59 kg, 175.26 cm) as6 10/25 19:23 Pain Scale: Adult as6 ED Course: 10/25 19:05 Patient arrived in ED. rg4 19:17 Naa Marrero MD is Attending Physician. sp3 19:27 Triage completed. as6 19:28 Arm band placed on. as6 20:09 XRAY Chest (1 view) In Process Unspecified. EDMS 20:50 Stefanie Horta, RN is Primary Nurse. mb9 21:31 Basic Metabolic Panel Sent. mb9 21:31 CBC with Diff Sent. mb9 21:31 LFT's Sent. mb9 21:31 Magnesium Sent. mb9 21:32 NT PRO-BNP Sent. mb9 21:32 Troponin HS Sent. mb9 21:32 Inserted saline lock: 20 gauge in right antecubital area, using aseptic technique. mb9 22:23 CT Chest For PE Angio In Process Unspecified. EDMS 10/26 00:12 Troponin High Sensitivity: Draw 2 hours after first draw time. Sent. mb9 00:33 Lanre Strickland MD is Referral Physician. sp3 00:45 Patient has correct armband on for positive identification. Placed in gown. Bed in low ll3 position. Call light in reach. Adult w/ patient. Client placed on continuous cardiac and pulse oximetry monitoring. NIBP monitoring applied. 00:45 No provider procedures requiring assistance completed. IV discontinued, intact, ll3 bleeding controlled, No redness/swelling at site. Pressure dressing applied. Patient maintains SpO2 saturation greater than 95% on room air. Administered Medications: No medications were administered Medication: 00:46 VIS not applicable for this client. ll3 Outcome: 00:34 Discharge ordered by . sp3 00:46 Discharged to home ambulatory, with significant other. ll3 00:46 Condition: stable 00:46 Discharge instructions given to patient, significant other, Instructed on discharge instructions, follow up and referral plans. Demonstrated understanding of instructions, follow-up care. 00:46 Patient left the ED. ll3 Signatures: Dispatcher [employer] [facility] Ana Rosa Humphreys rg4 Naa Marrero MD MD sp3 Jonnie Chapa RN RN as6 Seth Lovett RN RN ll3 Stefanie Horta RN RN mb9 Corrections: (The following items were deleted from the chart) 10/25 19:28 19:27 PMHx: psych meds; as6 as6 23:20 21:00 BP 120 / 65; Pulse 61bpm; Resp 17bpm; Pulse Ox 98%; mb9 mb9
--- NOTE | 2022-10-26 00:34 | EDPHYS ---
Physician Documentation [facility] Name: Debbie Briscoe Age: 52 yrs Sex: Female : 1970 Arrival Date: 10/25/2022 Time: 19:05 Bed 7 Private MD: ED Physician Naa Marrero HPI: 10/25 21:26 This 52 yrs old Female presents to ER via Ambulatory with complaints of Chest Pain. sp3 21:26 52-year-old female with a history of chronic back pain, depression, anxiety now sp3 presents to the ED with chief complaint lower chest pain/epigastric pain for the last 24 hours off-and-on in spurts of sharp pain followed by dullness. Pain is not consistent with any physical activity or position or food. Denies any secondary symptoms including headache, facial pain, neck pain, jaw pain, extremity pain, back pain, shortness of breath, vomiting, diarrhea, rash, syncope, near syncope or any other symptoms on ROS at this time. She did feel positive for mild nausea. In cycle occurring for greater than 24 hours, patient elects to come in for evaluation. No prior history of cardiac symptoms or prior evaluation by portfolio management marketing for stress test. She also denies any prolonged immobilization or long travel or known sick contacts. No prior history of PE and patient does not smoke and is not on any oral contraception.. Historical: - Allergies: 19:27 No Known Allergies; as6 - PMHx: 19:27 bad back with pain pump; Depressive disorder; Anxiety; as6 - PSHx: 19:27 back; Total abdominal hysterectomy; as6 - Immunization history:: Client reports receiving the 2nd dose of the Covid vaccine, pfizer . - Social history:: Smoking status: Patient denies any tobacco usage or history of. ROS: 21:28 Constitutional: Negative for fever, chills, and weight loss, Eyes: Negative for injury, sp3 pain, redness, and discharge, ENT: Negative for injury, pain, and discharge, Neck: Negative for injury, pain, and swelling, Respiratory: Negative for shortness of breath, cough, wheezing, and pleuritic chest pain, Abdomen/GI: Negative for abdominal pain, nausea, vomiting, diarrhea, and constipation, Back: Negative for injury and pain, MS/Extremity: Negative for injury and deformity, Skin: Negative for injury, rash, and discoloration, Neuro: Negative for headache, weakness, numbness, tingling, and seizure, Psych: Negative for depression, anxiety, suicide ideation, homicidal ideation, and hallucinations, Allergy/Immunology: Negative for hives, rash, and allergies, Endocrine: Negative for neck swelling, polydipsia, polyuria, polyphagia, and marked weight changes, Hematologic/Lymphatic: Negative for swollen nodes, abnormal bleeding, and unusual bruising. 21:28 All other systems are negative. Exam: 21:29 Constitutional: This is a well developed, well nourished patient who is awake, alert, sp3 and in no acute distress. Head/Face: Normocephalic, atraumatic. Eyes: Pupils equal round and reactive to light, extra-ocular motions intact. Lids and lashes normal. Conjunctiva and sclera are non-icteric and not injected. Cornea within normal limits. Periorbital areas with no swelling, redness, or edema. ENT: Nares patent. No nasal discharge, no septal abnormalities noted. External auditory canals are clear. Oropharynx with no redness, swelling, or masses, exudates, or evidence of obstruction, uvula midline. Mucous membranes moist. Neck: Trachea midline, no thyromegaly or masses palpated, and no cervical lymphadenopathy. Supple, full range of motion without nuchal rigidity, or vertebral point tenderness. No Meningismus. Chest/axilla: Normal chest wall appearance and motion. Nontender with no deformity. No lesions are appreciated. Cardiovascular: Regular rate and rhythm with a normal S1 and S2. No gallops, murmurs, or rubs. Normal PMI, no JVD. No pulse deficits. Respiratory: Lungs have equal breath sounds bilaterally, clear to auscultation and percussion. No rales, rhonchi or wheezes noted. No increased work of breathing, no retractions or nasal flaring. Abdomen/GI: Soft, non-tender, with normal bowel sounds. No distension or tympany. No guarding or rebound. No evidence of tenderness throughout. Back: No spinal tenderness. No costovertebral tenderness. Full range of motion. Skin: Warm, dry with normal turgor. Normal color with no rashes, no lesions, and no evidence of cellulitis. MS/ Extremity: Pulses equal, no cyanosis. Neurovascular intact. Full, normal range of motion. Neuro: Awake and alert, GCS 15, oriented to person, place, time, and situation. Cranial nerves II-XII grossly intact. Motor strength 5/5 in all extremities. Sensory grossly intact. Cerebellar exam normal. Normal gait. Psych: Awake, alert, with orientation to person, place and time. Behavior, mood, and affect are within normal limits. 21:29 ECG was reviewed by the Attending Physician. EKG demonstrates normal sinus rhythm at 64 bpm with first-degree AV block at 202 ms, normal QRS, normal axis, nonspecific diffuse ST/T changes without evidence of acute ischemia. Vital Signs: 19:23 BP 136 / 85; Pulse 62; Resp 18 S; Temp 98.4(O); Pulse Ox 93% on R/A; Weight 106.59 kg as6 (R); Height 5 ft. 9 in. (R); Pain 3/10; 21:00 BP 136 / 77; Pulse 67; Resp 15; Pulse Ox 99% on R/A; mb9 22:00 BP 120 / 65; Pulse 61; Resp 17; Pulse Ox 98% ; mb9 10/26 00:12 BP 120 / 71; Pulse 57; Resp 16; Pulse Ox 97% on R/A; mb9 10/25 19:23 Body Mass Index 34.70 (106.59 kg, 175.26 cm) as6 10/25 19:23 Pain Scale: Adult as6 MDM: 10/25 19:43 Patient medically screened. sp3 21:30 Data reviewed: vital signs, nurses notes, lab test result(s), EKG, radiologic studies. sp3 ED course: 52-year-old female with no significant past medical history now presents with chest pain. Patient's heart score is a 1 with low chance of acute coronary syndrome. Pain cardiac markers, EKG, chest x-ray and repeat troponin in 2 hours with probable discharge with cardiology follow-up for outpatient cardiac stress testing as needed per the portfolio management marketing. I am not highly suspicious for acute coronary syndrome, pulmonary embolism, aortic compromise, mesenteric ischemia, or any other critical findings or diagnoses at this time. Patient does take omeprazole for mild gastritis/esophageal reflux disease which could be a contributing factor.. 23:37 ED course: Initial troponin is negative. Pulmonary embolism CT demonstrates no sp3 significant abnormality. If repeat troponin is negative, will discharge patient home with cardiology follow-up.. 10/26 00:33 ED course: Repeat troponin is negative. We will discharge patient home at this time.. sp3 10/25 19:17 Order name: Basic Metabolic Panel; Complete Time: 23:15 sp3 10/25 19:17 Order name: CBC with Diff; Complete Time: 21:43 sp3 10/25 19:17 Order name: D-Dimer; Complete Time: 21:43 sp3 10/25 19:17 Order name: LFT's; Complete Time: 23:15 sp3 10/25 19:17 Order name: Magnesium; Complete Time: 23:15 sp3 10/25 19:17 Order name: NT PRO-BNP; Complete Time: 23:15 sp3 10/25 19:17 Order name: PT-INR; Complete Time: 21:43 sp3 10/25 19:17 Order name: Troponin HS; Complete Time: 23:15 sp3 10/25 21:50 Order name: Troponin High Sensitivity: Draw 2 hours after first draw time.; Complete sp3 Time: 00:32 10/25 19:17 Order name: XRAY Chest (1 view); Complete Time: 21:43 sp3 10/25 21:44 Order name: CT Chest For PE Angio; Complete Time: 23:15 sp3 10/25 19:17 Order name: EKG; Complete Time: 19:18 sp3 10/25 19:17 Order name: Cardiac monitoring; Complete Time: 21:31 sp3 10/25 19:17 Order name: EKG - Nurse/Tech; Complete Time: 19:37 sp3 10/25 19:17 Order name: IV Saline Lock; Complete Time: 21:31 sp3 10/25 19:17 Order name: Labs collected and sent; Complete Time: 21:31 sp3 10/25 19:17 Order name: O2 Per Protocol; Complete Time: 21:31 sp3 10/25 19:17 Order name: O2 Sat Monitoring; Complete Time: 21:31 sp3 Administered Medications: No medications were administered Disposition Summary: 10/26/22 00:34 Discharge Ordered Location: Home sp3 Condition: Stable sp3 Diagnosis - Chest pain, unspecified sp3 Followup: sp3 - With: Lanre Strickland MD - When: Upon discharge from the Emergency Department - Reason: Recheck today's complaints, Continuance of care Discharge Instructions: - Discharge Summary Sheet sp3 - Nonspecific Chest Pain, Adult sp3 Forms: - Medication Reconciliation Form sp3 - Thank You Letter sp3 - Antibiotic Education sp3 - Prescription Opioid Use sp3 Signatures: Dispatcher [employer] EDNaa Gay MD MD sp3 Jonnie Chapa, RN RN as6 Corrections: (The following items were deleted from the chart) 10/25 19:28 19:27 PMHx: psych meds; as6 as6
[2022-10-26 12:31] VITALS: TEMP 98.4
[2022-10-26 12:34] VITALS: BP 120/71; O2SAT 97
--- NOTE | 2022-10-26 12:59 | EKG ---
Test Date: 2022-10-25 Test Time: 19:35:13 Electrical Prospecting Engineer: MEASUREMENT RESULTS: Intervals: Rate: 64 ID: [id number] QRSD: 92 QT: 444 QTc: 458 Silvis: P: 42 ID: [id number] QRS: 8 T: 10 INTERPRETIVE STATEMENTS: Normal sinus rhythm Nonspecific T wave abnormality Abnormal ECG Compared to ECG 08/01/2020 21:18:08 Left ventricular hypertrophy no longer present Possible ischemia no longer present T-wave abnormality still present Electronically Signed On 10-26-22 12:58:01 CDT by Lanre Strickland
== END 2022-10-26 00:46 | disposition home or self-care (01) ==
LOC: ER 19:03
DX: R07.89 Other chest pain (principal); F41.9 Anxiety disorder, unspecified; F32.A Depression, unspecified
CPT/HCPCS: 93005; 85025; 80048; 36415; 83735; 85610; 85379; 80076; 84484 ×2; 83880; 71275; 71045; Q9967; 99284